=== PATIENT | male | born 1945 | race Caucasian/White ===

== ENCOUNTER 2019-06-15 09:16 | Outpatient (CLI) | payer MEDICARE, OTHER, SELFPAY ==
--- NOTE | 2019-06-15 | XR_ITS ---
WS: [id number] LEFT KNEE: 3 VIEW(S) TECHNIQUE: AP, oblique(s) and lateral. HISTORY: pain joint hip left COMPARISON: None available. No fracture or dislocation. Plate and healed fracture involving the patella. No acute fracture. No lucency around the hardware. S crew fixation distal third of the femur and a single screw in the medial patella. No joint effusion. No soft tissue abnormality. XR/XR knee LT 3V* [id number] IMPRESSION: Status post fixation hardware distal femur and patella. No acute fractures.
--- NOTE | 2019-06-15 | XR_ITS ---
WS: [id number] LEFT HIP HISTORY: PAIN JOINT HIP LEFT COMPARISON: None available. LEFT hip: No acute fracture. Severe degenerative changes at the LEFT hip joint. Subchondral cystic ch anges and sclerosis on both sides of the joint space. There is remodeling and deformity of the LEFT h ip and partial subluxation laterally. Osteophytic ridging and deformity of the femoral head. XR/XR hip LT 2-3V wo/w pel* [id number] IMPRESSION: 1. 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 2. No acute fracture.
== END 2019-06-15 09:17 | disposition home or self-care (01) ==
PROVIDERS: Visit Provider Physician Assistant
DX: Z76.89 Persons encountering health services in other specified circumstances (principal)

== ENCOUNTER → 2019-06-25 11:29 | Outpatient (BNVA) | payer MEDICARE, OTHER, SELFPAY | PROVIDERS: Referring Provider Physician Assistant; Visit Provider Orthopaedic Surgery | DX: M25.559 Pain in unspecified hip (principal) | CPT/HCPCS: 73502 ==

== ENCOUNTER 2020-01-29 10:35 | Outpatient (CLI) | payer MEDICARE, OTHER, SELFPAY ==
--- NOTE | 2020-01-29 10:39 | MR_ITS ---
WS: [id number] MRI HEAD WITH CONTRAST TECHNIQUE: Sagittal T1, T2 axial, T2 axial FLAIR, axial susceptibility weighted imaging, axial diffus ion weighted images, and coronal T2 images were obtained. Pre and post-T1 axial and post T1 coronal i mages. ADC and FSPGR images. CLINICAL INFORMATION: COGNITIVE IMPAIRMENT COMPARISON: None. FINDINGS: No evidence of restricted diffusion to suggest acute ischemia. Advanced small vessel changes with mod erate parenchymal volume loss. Tiny chronic lacunar infarct right cerebellum. Normal vascular flow vo ids at the skull base. No extra-axial fluid collections. Mild mucosal thickening in the paranasal sinuses. Mastoid air cells well aerated. Moderate symmetric atrophy involving the temporal lobes and hippocampal formations. Normal optic farnaz sm and pituitary infundibulum. No hemosiderin on the susceptibility weighted images. No abnormal gado linium enhancement. Dural venous sinuses appear patent. Normal optic chiasm and pituitary infundibulu m. MR/MR head wo/w con [id number] IMPRESSION: 1. No evidence of restricted diffusion to suggest acute ischemia. 2. Advanced small vessel changes with moderate parenchymal volume loss. 3. 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 4. Tiny chronic lacunar infarct right cerebellum. 5. Mild mucosal thickening paranasal sinuses. Mastoid air cells well aerated. 6. Moderate symmetric atrophy involving the temporal lobes and hippocampal for mations.
[2020-01-29 11:26] LABS: Blood Urea Nitrogen 18 mg/dL (8-23)
== END 2020-01-29 10:36 | disposition home or self-care (01) ==
LOC: RADSHAW 10:38
PROVIDERS: PCP Physician Assistant; Visit Provider Physician Assistant
DX: G31.84 Mild cognitive impairment of uncertain or unknown etiology (principal); I63.9 Cerebral infarction, unspecified; G93.89 Other specified disorders of brain; I63.81 Other cerebral infarction due to occlusion or stenosis of small artery
CPT/HCPCS: 70553; 82565; 84520; A9579

== ENCOUNTER 2020-09-18 10:06 | Day surgery (SDC) | payer MEDICARE, OTHER, SELFPAY ==
[2020-09-18] VITALS (10 sets, daily range): BP systolic 123–159; BP diastolic 76–99; PULSE 69–95; RESP 16–18; TEMP 36.4–36.9; O2SAT 94–100; BMI 22.6
--- NOTE | 2020-09-18 11:17 | CTR_ITS ---
PROCEDURE INFORMATION: Exam: CTA Chest With Contrast Exam date and time: 09/18/2020 11:17 AM Age: 74 years old Clinical indication: Sternal or substernal pain; Additional info: Difficulty swallowing, cp radiating to back, ? aneurysm TECHNIQUE: Imaging protocol: Computed tomographic angiography of the chest with contrast. 3D rendering (Not supervised by radiologist): MIP and/or 3D reconstructed images were created by the technologist. Radiation optimization: All CT scans at this facility use at least one of these dose optimization techniques: automated exposure control; mA and/or kV adjustment per patient size (includes targeted exams where dose is matched to clinical indication); or iterative reconstruction. Contrast material: OMNIPAQUE 350; Contrast volume: 95 ml; Contrast route: INTRAVENOUS (IV); COMPARISON: No relevant prior studies available. RADIATION DOSE METRICS: Total DLP (mGy-cm): 1101.65 FINDINGS: Pulmonary arteries: No pulmonary embolus or aortic dissection. Aorta: Unremarkable. No aortic aneurysm. No aortic dissection. Lungs: Unremarkable. No consolidation. No masses. Pleural spaces: Unremarkable. No pneumothorax. No pleural effusion. Heart: Severe calcified coronary artery disease. Mediastinal space: 2.8 x 1.8 x 2.8 cm mixed density lesion in the mid esophagus at the level of T8, most consistent with food bolus such as a piece of meat. Axial series 5, image 240. Decompressed esophagus distal to this point of possible blockage with dilated fluid-filled esophagus proximal to this level. Possible esophageal stricture or spasm immediately inferior to the level of the food bolus. Sagittal series 607, image 29. Lymph nodes: Unremarkable. No enlarged lymph nodes. Bones/joints: Moderate thoracic spondylosis. Soft tissues: Unremarkable. CT/CT angio chest PE protcl [id number] IMPRESSION: 1. 2.8 x 1.8 x 2.8 cm mixed density lesion in the mid esophagus at the level of T8, most consistent with food bolus such as a piece of meat. Axial series 5, image 240. 2. Decompressed esophagus distal to this point of possible blockage with dilated fluid-filled esophagus proximal to this level. Possible esophageal stricture or spasm immediately inferior to the level of the food bolus. Sagittal series 607, image 29. 3. No pulmonary embolus or aortic dissection. Radiation Dose CTDIVOL = (mGy): DLP = 1101.65 (mGy-cm)
--- NOTE | 2020-09-18 11:18 | ECG_ITS ---
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 Measurements Intervals [place] Rate: 58 P: 56 ND: 168 QRS: -24 QRSD: 90 T: 62 QT: 403 QTc: 397 Interpretive Statements SINUS BRADYCARDIA BORDERLINE LEFT AXIS DEVIATION [QRS AXIS < -20] No previous ECG available for comparison Electronically Signed On 09-19-2020 21:03:30 CDT by Daniel Espinoza M.D. [email or web address] [facility] [facility] [place]/store/NU/[id number] f
--- NOTE | 2020-09-18 11:25 | ED_ITS ---
HPI - General Adult General: Chief complaint: Airway/Esophagus Foreign Body Stated complaint: n/v cant having trouble swallowing Time Seen by Provider: 09/18/20 11:00 Source: patient Mode of arrival: ambulatory Limitations: no limitations History of Present Illness: HPI narrative: Patient is a 74-year-old male with no significant past medical history who presents to the emergency department with difficulty swallowing. Symptoms started yesterday evening when he was eating steak and some green beans and he feels a little piece of the steak got stuck there. He is unable to swallow any food or drink as everything he eats or drinks comes back up. He hope to get better but it has not so far he has tried different things with no relief. About 5 minutes before I got into his room he said he developed some retrosternal chest pain radiating to his back and he has some trouble breathing. No prior history of chest pain. No dizziness or lightheadedness. No nausea or diaphoresis. Review of Systems General: Reports: 10 or more systems reviewed and unremarkable except in HPI and below PFSH ED PFSH: Surgical History (Updated 09/18/20 @ 15:53 by Steven Charles MD) H/O esophagogastroduodenoscopy (09/18/20) For food bolus History of right knee surgery Family History Denies family history of Diabetes Cancer Social History Smoking and tobacco status: former smoker Alcohol intake: never Household members: spouse Marital status: Current occupational status: retired Physical Exam Const: COMMON NORMALS: no acute distress, average body habitus, patient oriented x3, no limitations, healthy appearing, alert and well nourished HENMT: COMMON NORMALS: normocephalic, atraumatic and moist oral mucous membranes HEAD & SCALP: normocephalic and atraumatic Eye: COMMON NORMALS: Equal, round and reactive pupils present, EOMs intact bilaterally, conjunctivae normal and no scleral icterus CONJUNCTIVA: Yes conjunctivae normal PUPIL: Yes Equal, round and reactive pupils present Neck/C-Spine: COMMON NORMALS: no meningeal signs and no JVD Resp: COMMON NORMALS: normal respiratory effort, No retractions, No use of acc essory muscles, clear to auscultation bilaterally and percussion normal AUSCULTATION: clear to auscultation bilaterally PERCUSSION: percussion normal Cardio: COMMON NORMALS: no JVD, regular rate, regular rhythm, S1 normal heart sound present, S2 normal heart sound present, No gallops present (Cardio), No clicks present (Cardio), No murmurs present (Cardio), No rub (Cardio) and Peripheral pulses 2+ throughout RATE: regular rate RHYTHM: regular rhythm HEART SOUNDS: S1 normal heart sound present and S2 normal heart sound present PERIPHERAL PULSES: Peripheral pulses 2+ throughout GI: COMMON NORMALS: Normal to inspection, nondistended, normoactive bowel sounds present, Soft to palpation, non-tender, No hepatosplenomegaly present, no masses and no bruits PALPATION: Yes Soft to palpation and Yes No hepatosplenomegaly present Extremity: COMMON NORMALS: normal to inspection, full ROM, capillary refill normal, no calf tenderness and no pedal edema Neuro: COMMON NORMALS: patient oriented x3 SENSORIUM/ORIENTATION: Yes alert MENINGEAL SIGNS: Yes no meningeal signs Skin: COMMON NORMALS: no rashes or lesions noted, no wounds, turgor normal, no jaundice, no petechiae and no mottling GENERAL SKIN EXAM: no rashes or lesions noted and turgor normal Course Reevaluation(s): Reevaluation #1: glucagon has not helped. He feels the same. Time: 12:25 Reevaluation #2: Discussed the CTA findings with him. No aneurysm and fluid bolus noticed in his esophagus. Also discussed my conversation with discharge home with him with the decision on to have an endoscopy and removal of food bolus he voiced understanding and is in agreement with the plan. Time: 14:02 Vital Signs: Vital signs: Vital Signs Temperature 97.5 F L 09/18/20 16:38 Pulse Rate 85 09/18/20 16:38 Respiratory Rate 18 09/18/20 16:38 Blood Pressure 146/89 09/18/20 16:38 Pulse Oximetry 99 09/18/20 16:38 MDM - General Adult MDM Narrative: Medical decision making narrative: 74-year-old male who presents to the emergency department with food bolus in his esophagus. He was cleared in the emergency department and taken to the GI lab for upper GI endoscopy and retrieval of the food bolus Medical Records: Attestation: I reviewed the patient's medical records. Lab Data: Attestation: I reviewed the patient's lab results. Labs: Lab Results 09/18/20 09/18/20 09/18/20 Range/Units 11:43 11:43 11:43 WBC 9.3 (4.0-10.0) 10^3/ uL RBC 5.11 (4.1-5.3) 10^6/u L Hgb 15.1 (11.7-16.6) g/dL Hct 46.5 (42.0-52.0) % MCV 91.0 (80-94) fL MCH 29.5 (28.0-34.0) pg MCHC 32.5 (30.0-36.0) g/dL RDW 12.9 (12.1-15.1) % Plt Count 237 (130-400) 10^3/c mm MPV 11.2 H (7.4-10.4) fL Neut % (Auto) 49.5 % Lymph % (Auto) 40.9 % [place] % (Auto) 6.9 % Eos % (Auto) 2.3 % Baso % (Auto) 0.3 % Neut # (Auto) 4.59 (1.8-7.7) 10^3/u L Lymph # (Auto) 3.8 (0.8-4.8) 10^3/u L [place] # (Auto) 0.6 (0.2-0.9) 10^3/u L Eos # (Auto) 0.2 (0.0-0.8) 10^3/u L Baso # (Auto) 0.0 (0.0-0.1) 10^3/u L Nucleated RBC % (a uto) 0 % Nucleated RBCs # 0.0 /100WBC Sodium 142 (136-145) mmol/L Potassium 3.9 (3.5-5.1) mmol/L Chloride 106 (98-107) mmol/L Carbon Dioxide 24 (22-29) mmol/L Anion Gap 15.9 (5-19) BUN 15 (8-23) mg/dL Creatinine 0.7 (0.7-1.2) mg/dL GFR Calculation Not Reportable Glucose 103 (65-115) mg/dL Calculated Osmolal ity 295 (285-295) mOsm/k g Calcium 8.7 (8.5-10.5) mg/dL Total Bilirubin 1.0 (0.15-1.2) mg/dL AST 17 (0-40) U/L ALT 12 (0-41) U/L Alkaline Phosphata se 82 (40-130) IU/L Troponin T Baselin e 12 (0-15) ng/L Troponin T 120 Min laura (0-15) ng/L Delta Troponin T (0-10) ABS# Total Protein 6.6 (6.6-8.7) g/dL Albumin 4.2 (3.5-5.2) g/dL Globulin 2.4 (1.3-4.6) g/dL Lipase 21 (13-60) U/L 09/18/20 Range/Units 13:40 WBC (4.0-10.0) 10^3/ uL RBC (4.1-5.3) 10^6/u L Hgb (11.7-16.6) g/dL Hct (42.0-52.0) % MCV (80-94) fL MCH (28.0-34.0) pg MCHC (30.0-36.0) g/dL RDW (12.1-15.1) % Plt Count (130-400) 10^3/c mm MPV (7.4-10.4) fL Neut % (Auto) % Lymph % (Auto) % [place] % (Auto) % Eos % (Auto) % Baso % (Auto) % Neut # (Auto) (1.8-7.7) 10^3/u L Lymph # (Auto) (0.8-4.8) 10^3/u L [place] # (Auto) (0.2-0.9) 10^3/u L Eos # (Auto) (0.0-0.8) 10^3/u L Baso # (Auto) (0.0-0.1) 10^3/u L Nucleated RBC % (a uto) % Nucleated RBCs # /100WBC Sodium (136-145) mmol/L Potassium (3.5-5.1) mmol/L Chloride (98-107) mmol/L Carbon Dioxide (22-29) mmol/L Anion Gap (5-19) BUN (8-23) mg/dL Creatinine (0.7-1.2) mg/dL GFR Calculation Glucose (65-115) mg/dL Calculated Osmolal ity (285-295) mOsm/k g Calcium (8.5-10.5) mg/dL Total Bilirubin (0.15-1.2) mg/dL AST (0-40) U/L ALT (0-41) U/L Alkaline Phosphata se (40-130) IU/L Troponin T Baselin e (0-15) ng/L Troponin T 120 Min laura 11.06 (0-15) ng/L Delta Troponin T -0.94 L (0-10) ABS# Total Protein (6.6-8.7) g/dL Albumin (3.5-5.2) g/dL Globulin (1.3-4.6) g/dL Lipase (13-60) U/L Imaging Data^: CTA Chest: Attestation: I personally reviewed and interpreted this imaging study as follows: Radiologist's impression: [address] [id number] Scan ReportSigned Patient: Alexis Acuña #: [id number]: [facility]#:[id number]/Sex: 74 / MADM Date: 09/18/20Loc: ERRoom/Bed:Attending Dr: Ordering Provider/Ordering MD: Woody Mendez MD, [facility] Date of Service: 09/18/20 Procedure(s): CT angio chest PE protcl [id number] Accession Number(s): [id number] Report Number: [id number] PROCEDURE INFORMATION: Exam: CTA Chest With Contrast Exam date and time: 09/18/2020 11:17 AM Age: 74 years old Clinical indication: Sternal or substernal pain; Additional info: Difficulty swallowing, cp radiating to back, ? aneurysm TECHNIQUE: Imaging protocol: Computed tomographic angiography of the chest with contrast. 3D rendering (Not supervised by radiologist): MIP and/or 3D reconstructed images were created by the technologist. Radiation optimization: All CT scans at this facility use at least one of these dose optimization techniques: automated exposure control; mA and/or kV adjustment per patient size (includes targeted exams where dose is matched to clinical indication); or iterative reconstruction. Contrast material: OMNIPAQUE 350; Contrast volume: 95 ml; Contrast route: INTRAVENOUS (IV); COMPARISON: No relevant prior studies available. RADIATION DOSE METRICS: Total DLP (mGy-cm): 1101.65 FINDINGS: Pulmonary arteries: No pulmonary embolus or aortic dissection. Aorta: Unremarkable. No aortic aneurysm. No aortic dissection. Lungs: Unremarkable. No consolidation. No masses. Pleural spaces: Unremarkable. No pneumothorax. No pleural effusion. Heart: Severe calcified coronary artery disease. Mediastinal space: 2.8 x 1.8 x 2.8 cm mixed density lesion in the mid esophagus at the level of T8, most consistent with food bolus such as a piece of meat. Axial series 5, image 240. Decompressed esophagus distal to this point of possible blockage with dilated fluid-filled esophagus proximal to this level. Possible esophageal stricture or spasm immediately inferior to the level of the food bolus. Sagittal series 607, image 29. Lymph nodes: Unremarkable. No enlarged lymph nodes. Bones/joints: Moderate thoracic spondylosis. Soft tissues: Unremarkable. CT/CT angio chest PE protcl [id number] IMPRESSION: 1. 2.8 x 1.8 x 2.8 cm mixed density lesion in the mid esophagus at the level of T8, most consistent with food bolus such as a piece of meat. Axial series 5, image 240. 2. Decompressed esophagus distal to this point of possible blockage with dilated fluid-filled esophagus proximal to this level. Possible esophageal stricture or spasm immediately inferior to the level of the food bolus. Sagittal series 607, image 29. 3. No pulmonary embolus or aortic dissection. Radiation Dose CTDIVOL = (mGy): DLP = 1101.65 (mGy-cm) Dictated By:Bradly Alvarez MDSigned By:Bradly Alvarez MDSigned Date/Time:09/18/20 1347DD/ 1345 EKG Data^: EKG 1: Attestation: I personally reviewed and interpreted this EKG as follows: EKG interpretation date: 09/18/20 EKG interpretation time: 11:54 Prior EKG tracings: not available for review Interpretation: Sinus bradycardia. Heart rate [address] changes. Computer generated interpretation: Chest CTA 09/18/20 11:17 IMPRESSION: 1. 2.8 x 1.8 x 2.8 cm mixed density lesion in the mid esophagus at the level of T8, most consistent with food bolus such as a piece of meat. Axial series 5, image 240. 2. Decompressed esophagus distal to this point of possible blockage with dilated fluid-filled esophagus proximal to this level. Possible esophageal stricture or spasm immediately inferior to the level of the food bolus. Sagittal series 607, image 29. 3. No pulmonary embolus or aortic dissection. Radiation Dose CTDIVOL = (mGy): DLP = 1101.65 (mGy-cm) EKG 2: Attestation: I personally reviewed and interpreted this EKG as follows: EKG interpretation date: 09/18/20 EKG interpretation time: 13:25 Prior EKG tracings: available for review Interpretation: Sinus rhythm. Heart rate [address] changes. Computer generated interpretation: Chest CTA 09/18/20 11:17 IMPRESSION: 1. 2.8 x 1.8 x 2.8 cm mixed density lesion in the mid esophagus at the level of T8, most consistent with food bolus such as a piece of meat. Axial series 5, image 240. 2. Decompressed esophagus distal to this point of possible blockage with dilated fluid-filled esophagus proximal to this level. Possible esophageal stricture or spasm immediately inferior to the level of the food bolus. Sagittal series 607, image 29. 3. No pulmonary embolus or aortic dissection. Radiation Dose CTDIVOL = (mGy): DLP = 1101.65 (mGy-cm) Discharge Plan Discharge Patient Disposition: Home Clinical Impression: Obstruction of esophagus due to food impaction Condition: Stable Discharge Orders: Discharge Order (Routine); Ordered 09/18/20 Ordered By: Woody Mendez Coding Level of Care Code ED Hotel Clerk for Chg Fwd Exam Comprehensive
[2020-09-18 11:47] LABS: Basophils % 0.3 %; Eosinophils # 0.2 10^3/uL (0.0-0.8); Eosinophils % 2.3 %; Hematocrit 46.5 % (42.0-52.0); Hemoglobin 15.1 g/dL (11.7-16.6); Lymphocytes # 3.8 10^3/uL (0.8-4.8); Lymphocytes % 40.9 %; Mean Corpuscular HGB Conc 32.5 g/dL (30.0-36.0); Mean Corpuscular Hemoglobin 29.5 pg (28.0-34.0); Mean Platelet Volume 11.2 fL (7.4-10.4); Monocytes # 0.6 10^3/uL (0.2-0.9); Monocytes % 6.9 %; Neutrophils # 4.59 10^3/uL (1.8-7.7); Neutrophils % 49.5 %; Nucleated Red Blood Cells % 0 %; Platelet Count 237 10^3/cmm (130-400); Red Blood Count 5.11 10^6/uL (4.1-5.3); Red Cell Distribution Width 12.9 % (12.1-15.1); White Blood Count 9.3 10^3/uL (4.0-10.0)
[2020-09-18 12:03] LABS: Troponin(5th) Baseline 12 ng/L (0-15)
[2020-09-18 12:06] LABS: Alanine Aminotransferase 12 U/L (0-41); Albumin Level 4.2 g/dL (3.5-5.2); Alkaline Phosphatase 82 IU/L (40-130); Anion Gap 15.9 (5-19); Aspartate Amino Transferase 17 U/L (0-40); Blood Urea Nitrogen 15 mg/dL (8-23); Calcium 8.7 mg/dL (8.5-10.5); Carbon Dioxide 24 mmol/L (22-29); Chloride 106 mmol/L (98-107); Globulin 2.4 g/dL (1.3-4.6); Glucose 103 mg/dL (65-115); Lipase 21 U/L (13-60); Osmolality Calculated 295 mOsm/kg (285-295); Potassium 3.9 mmol/L (3.5-5.1); Sodium 142 mmol/L (136-145); Total Protein 6.6 g/dL (6.6-8.7)
[2020-09-18] MEDS: iodixanol 320 mg/mL 100mL Btl IV (12:42)
--- NOTE | 2020-09-18 12:53 | PC.NURSE ---
Patient returning from CT. Given blankets. Updated on POC
--- NOTE | 2020-09-18 13:18 | ECG_ITS ---
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 Measurements Intervals [place] Rate: 71 P: 54 VT: 180 QRS: -39 QRSD: 89 T: 62 QT: 376 QTc: 410 Interpretive Statements SINUS RHYTHM MARKED LEFT AXIS DEVIATION [QRS AXIS < -30] No previous ECG available for comparison Electronically Signed On 09-19-2020 21:23:09 CDT by Daniel Espinoza M.D. [email or web address] hospitalMidokuraparkview health montpelier hospitalDoppelganger/store/OM/[id number]/[id number]
--- NOTE | 2020-09-18 14:16 | PC.NURSE ---
Patient updated on plan of care. Patient changing into gown. Surgical consent reviewed with patient.
[2020-09-18 14:19] LABS: Troponin 5 2HR 11.06 ng/L (0-15)
[2020-09-18 14:22] LABS: Troponin 5 2HR Delta -0.94 ABS# (0-10)
--- NOTE | 2020-09-18 14:40 | P.ANESASSM_ITS ---
Pre-Anesthetic Assessment Pre-Anesthetic Assessment: Height/Weight: Height 1.78 m Weight 71.395 kg Temp Pulse Resp BP Pulse Ox 98.4 F 74 18 141/95 95 09/18/20 10:32 09/18/20 14:10 09/18/20 14:10 09/18/20 14:10 09/18/20 14:10 Preop Diagnosis: food bolus Proposed Procedure: Operation Date: 09/18/20 14:30 Proposed Procedures p EGD(Not Applicable) - Steven Charles MD Familial anesthetic complications: none Was Beta Joe taken within 24 hours: N/A Was Clonidine taken within 24 hours: N/A Last intake: last evening Social: Social History: No alcohol and No tobacco Exam: Pre-Anes Outpt Exam: alert, oriented x 3, clear to auscultation bilaterally and regular rate & rhythm Airway: Cervical ROM: WNL MP: 2 Dentition: Full Neuropsych: Neuropsych: CVA, 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) - no other deficits from CVAs) and TIA Anesthetic Plan: ASA status: 2E Anesthesia: General Other: RSI Risk of > 500 ml blood loss (7ml/kg in children): No PFSH Anesthesia PFSH: Family History Denies family history of Diabetes Cancer Social History Smoking and tobacco status: former smoker Alcohol intake: never Household members: spouse Marital status: Current occupational status: retired Data Anesthesia CBC & Chem 7: 09/18/20 11:43 09/18/20 11:43 Other Labs: Laboratory Results - last 48 hr 09/18/20 09/18/20 09/18/20 11:43 11:43 11:43 WBC 9.3 RBC 5.11 Hgb 15.1 Hct 46.5 MCV 91.0 MCH 29.5 MCHC 32.5 RDW 12.9 Plt Count 237 MPV 11.2 H Neut % (Auto) 49.5 Lymph % (Auto) 40.9 [place] % (Auto) 6.9 Eos % (Auto) 2.3 Baso % (Auto) 0.3 Neut # (Auto) 4.59 Lymph # (Auto) 3.8 [place] # (Auto) 0.6 Eos # (Auto) 0.2 Baso # (Auto) 0.0 Nucleated RBC % (auto) 0 Nucleated RBCs # 0.0 Sodium 142 Potassium 3.9 Chloride 106 Carbon Dioxide 24 Anion Gap 15.9 BUN 15 Creatinine 0.7 GFR Calculation Not Reportable Glucose 103 Calculated Osmolality 295 Calcium 8.7 Total Bilirubin 1.0 AST 17 ALT 12 Alkaline Phosphatase 82 Troponin T Baseline 12 Troponin T 120 Minute Delta Troponin T Total Protein 6.6 Albumin 4.2 Globulin 2.4 Lipase 09/18/20 13:40 WBC RBC Hgb Hct MCV MCH MCHC RDW Plt Count MPV Neut % (Auto) Lymph % (Auto) [place] % (Auto) Eos % (Auto) Baso % (Auto) Neut # (Auto) Lymph # (Auto) [place] # (Auto) Eos # (Auto) Baso # (Auto) Nucleated RBC % (auto) Nucleated RBCs # Sodium Potassium Chloride Carbon Dioxide Anion Gap BUN Creatinine GFR Calculation Glucose Calculated Osmolality Calcium Total Bilirubin AST ALT Alkaline Phosphatase Troponin T Baseline Troponin T 120 Minute 11.06 Delta Troponin T -0.94 L Total Protein Albumin Globulin Lipase Cardiac Studies: No Data to Display
--- NOTE | 2020-09-18 14:54 | P.HP_ITS ---
Providers/Chief Complaint Primary Care Provider: Vesta Dominguez Chief Complaint: n/v cant having trouble swallowing History of Present Illness Emigdio Acuña is a 74 year old male who 8 steak last night when he felt like it got stuck and since then he has been unable to keep any food down. Patient had an episode of nausea and vomiting but today he denies any chest pain or abdominal pain. He states that he has had a similar episode in the past where he had to have Heimlich maneuver done. Denies any history of GERD, no history of smoking. No prior EGD or peptic ulcer disease Review of Systems General: Reports: 10 or more systems reviewed and unremarkable except in HPI and below Medications/Allergies Home Medications Medication Instructions Recorded Confirmed Last Taken Type aspirin 81 mg PO DAILY 09/18/20 09/18/20 09/16/20 History cyanocobalamin (vitamin B-12) 1,000 mcg PO DAILY 09/18/20 09/18/20 09/16/20 History [Vitamin B-12] multivitamin 1 tab PO DAILY 09/18/20 09/18/20 09/16/20 History omega-3 fatty acids [Fish Oil] 1,000 mg PO DAILY 09/18/20 09/18/20 09/16/20 History Allergies Allergy/AdvReac Type Severity Reaction Status Date / Time No Known Allergies Allergy Verified 06/25/19 11:25 PFSH Acute PFSH: Surgical History (Updated 09/18/20 @ 14:46 by Steven Charles MD) History of right knee surgery Family History Denies family history of Diabetes Cancer Social History Smoking and tobacco status: former smoker Alcohol intake: never Household members: spouse Marital status: Current occupational status: retired Vitals/I&O/Wt Last Vital Signs Temp 98.4 F 09/18/20 10:32 Pulse 74 09/18/20 14:10 Resp 18 09/18/20 14:10 BP 141/95 09/18/20 14:10 Pulse Ox 95 09/18/20 14:10 Weight last 48 hrs Weight 157 lb 6.4 oz Physical Exam Narrative: EXAM NARRATIVE: HEENT: Normocephalic Eye: Sclera /conjunctiva normal Respiratory and chest: Bilateral clear breath sounds on auscultation Cardiovascular: Normal S1 and S2 heart sounds Abdomen: Soft to palpation Neurological: Oriented to place person and time Skin: Intact, no lesions appreciated on gross exam Data : 09/18/20 11:43 09/18/20 11:43 A&P Assessment and plan (1) Esophageal obstruction due to food impaction: 74-year-old male with esophageal obstruction due to food impaction Plan for EGD with possible biopsy for food impaction under [place] Procedure, risks, benefits and alternatives have been discussed with the patient who wishes to proceed with surgery. Status: Resolved Attestations Medical Necessity Statement*: Esophageal obstruction with food impaction Coding Level of Care Code Acute Medical Record Libr[employer] Teacher for [facility] Fwd Diagnoses Esophageal obstruction due to food impaction K22.2; T18.128A
[2020-09-18] MEDS: sodium chloride 0.9% 1,000 ML 30 ML IV (14:57)
--- NOTE | 2020-09-18 16:21 | PC.SOCIAL ---
clarified with Dr Charles and on Protonix wants 40mg once daily for 30 day supply updated pharmacy.
--- NOTE | 2020-09-18 20:33 | ANE.PACU2 ---
Inpatient post-anesthesia follow up: Airway intact: Yes Vital signs: Temperature 97.5 F Pulse Rate [Right Radial] 69 Pulse Rate 85 Respiratory Rate 18 Blood Pressure [Le ft Arm] 151/99 Blood Pressure 146/89 Pulse Oximetry 99 Oxygen Delivery Me thod Nasal Cannula Oxygen Flow Rate 3 Fraction of Inspir ed Oxygen Hydration adequate: Yes Nausea and vomiting: No Pain level: 2 Mental status: Baseline
== END 2020-09-18 17:03 | disposition home or self-care (01) ==
LOC: ER 11:27 → GILAB 14:02
PROVIDERS: Emergency Provider Family Medicine; PCP Physician Assistant; Visit Provider Surgery
PROC: 0DJ08ZZ Inspection of Upper Intestinal Tract, Via Natural or Artificial Opening Endoscopic (ICD-10-PCS; CPT 43235; principal; 2020-09-18 14:30)
DX: K22.2 Esophageal obstruction (principal); T18.128A Food in esophagus causing other injury, initial encounter; Z79.82 Long term (current) use of aspirin; Z87.891 Personal history of nicotine dependence; Z86.73 Personal history of transient ischemic attack (TIA), and cerebral infarction without residual deficits; F03.90 Unspecified dementia, unspecified severity, without behavioral disturbance, psychotic disturbance, mood disturbance, and anxiety
CPT/HCPCS: 36415; 43247; 71275; 80053; 83690; 84484; 85025; 93005; 96360; 96372; J0330; J1100; J1610; J2405; J2704; J3010; J3490; J7030; Q9967

== ENCOUNTER → 2021-04-03 08:40 | Outpatient (BNVA) | payer MEDICARE, OTHER, SELFPAY | PROVIDERS: PCP Physician Assistant; Visit Provider Nurse Practitioner Family | DX: Z12.5 Encounter for screening for malignant neoplasm of prostate (principal); R33.9 Retention of urine, unspecified | CPT/HCPCS: 81003; G0103 ==

== ENCOUNTER 2021-04-20 08:13 | Emergency (ER) | payer MEDICARE, OTHER, SELFPAY ==
[2021-04-20 08:27] VITALS: BP 116/81; PULSE 102; RESP 18; TEMP 36.7; O2SAT 96; BMI 24.3
--- NOTE | 2021-04-20 08:52 | XRR_ITS ---
PROCEDURE INFORMATION: Exam: XR Left Hip Exam date and time: 04/20/2021 8:52 AM Age: 75 years old Clinical indication: Hip pain; Left hip; Prior surgery; Patient HX: Hip and knee pain, swelling. TECHNIQUE: Imaging protocol: XR Left hip. Views: 2 or 3 views hip with pelvis when performed. Total images: 2 COMPARISON: CR XR hip BI m 5V wo/w pel* [id number] 09/20/2020 9:11 AM FINDINGS: Tubes, catheters and devices: The prosthesis appears near anatomic in positioning. No parallel lucencies adjacent to the prosthesis are seen to suggest loosening. No acute fractures, subluxation, nor dislocation. Bones/joints: Left hip arthroplasty is present. Soft tissues: Unremarkable. Vasculature: Incidental phleboliths noted. XR/XR hip LT 2-3V wo/w pel* [id number] IMPRESSION: Status post left hip arthroplasty without complication.
--- NOTE | 2021-04-20 08:52 | XRR_ITS ---
PROCEDURE INFORMATION: Exam: XR Left Knee Exam date and time: 04/20/2021 8:52 AM Age: 75 years old Clinical indication: Pain; Swelling or effusion of joint; Knee; Left TECHNIQUE: Imaging protocol: XR Left knee. Views: 3 views. Total images: 3 COMPARISON: CR XR knee LT 1-2V [id number] 09/20/2020 9:11 AM FINDINGS: Bones/joints: Partially visualized orthopedic hardware within the left femur appears unchanged from the prior exam. Enthesophyte of the quadriceps tendon insertion site on the patella. Lateral compartment of the left knee mild degenerative changes are noted with subchondral sclerosis. Patellofemoral joint degenerative changes are noted with joint space narrowing, subchondral sclerosis, and osteophyte formation. No acute fracture nor subluxation. No osseous erosion nor periosteal reaction. Soft tissues: Normal. XR/XR knee LT 3V* [id number] IMPRESSION: No acute osseous pathology.
--- NOTE | 2021-04-20 09:05 | USCV_ITS ---
BethaniebrittaniEmigdio Age: 75 Gender: M : 1945 Exam Date: 04/20/2021 09:30 Ordering Phys: Davis Tariq DO Technologist: KARLA Exam Location: [facility] [place] Indication: LLE PAIN AND SWELLING HISTORY: Lower extremity edema. Lower extremity swelling. Lower extremity pain. PROCEDURES: Venous duplex imaging was performed in only the left lower extremity. The following venous structures were evaluated: common femoral vein, profunda vein, proximal portion of the greater saphenous vein, superficial femoral vein, and the popliteal vein. In addition, the posterior tibial and peroneal trunk were evaluated. Serial compression, augmentation maneuvers, and spectral Doppler flow evaluation were performed. FINDINGS: Normal 2-D Doppler and augmentation and compressibility throughout the lower extremity venous structures. Additional imaging through the proximal calf veins also reveals no thrombus. Limited evaluation of the greater saphenous vein is patent with no thrombus. CONCLUSIONS No DVT left lower extremity. Dr. Soledad Alfaro DO (Electronically Signed) Final Date: 20 April 2021 12:14 S
--- NOTE | 2021-04-20 09:10 | ED_ITS ---
HPI - Extremity Problem General: Chief complaint: Extremity Injury, Lower Stated complaint: SWOLLEN ON LEFT SIDE FROM HIP REPLACEMENT LAST WED Time Seen by Provider: 04/20/21 08:23 History of Present Illness: 75-year-old male presents emergency room complaining left hip pain and swelling pain radiates into the left knee. He has swelling over the last couple of days the hip replacement was 8 days ago in [place]. He denies any chest pain or shortness of breath he does have a l ittle bit of ecchymosis he is not had any drainage or redness from the incision. MD Complaint: extremity swelling Onset (ago): day(s) Pain Consistency: constant Location: left and lower extremity Quality: aching Radiation: none Relieving factors: immobilization Exacerbating factors: weight bearing and walking Associated symptoms: Reports arthralgias; Deny chest pain, fever(s), myalgias, rash or short of breath Context: immobilization and recent surgery/procedure Review of Systems Const: Denies: fever(s) ENMT: Denies: throat pain, ear or mastoid pain, nasal discharge or nasal congestion Card: Denies: chest pain Resp: Denies: dyspnea, productive cough or non-productive cough GI: Denies: abdominal pain, nausea, vomiting, diarrhea or constipation : Denies: flank pain, dysuria, urinary frequency or urinary urgency Skin/Breast: Denies: rash PFSH ED PFSH: Medical History History of cataract Urinary retention Surgical History H/O esophagogastroduodenoscopy (09/18/20) For food bolus History of hip surgery History of right knee surgery S/P total right hip arthroplasty Family History Father , AT AGE 88 No problems noted. Mother , AT AGE 88 No problems noted. Social History Smoking and tobacco status: never smoked Alcohol intake: never Marital status: Current occupational status: retired History of recent travel: No Physical Exam Const: GENERAL APPEARANCE: cooperative and comfortable ORIENTATION/CONSCIOUSNESS: Yes awake, Yes oriented to person, Yes oriented to place and Yes oriented to time HENMT: COMMON NORMALS: normocephalic, atraumatic and hearing grossly normal bilaterally HEAD & SCALP: normocephalic and atraumatic Neck/C-Spine: COMMON NORMALS: no JVD Resp: COMMON NORMALS: normal respiratory effort, No retractions, No use of accessory muscles and clear to auscultation bilaterally AUSCULTATION: clear to auscultation bilaterally Cardio: COMMON NORMALS: no JVD, regular rate, regular rhythm and No murmurs present (Cardio) RATE: regular rate RHYTHM: regular rhythm GI: COMMON NORMALS: Soft to palpation and No hepatosplenomegaly present AUSCULTATION: Yes normoactive bowel sounds PALPATION: Yes Soft to palpation, No Tenderness to palpation present (GI), No Guarding due to palpation present (GI) and Yes No hepatosplenomegaly present Extremity: OTHER: Positive Homans' sign with swelling in the entire left lower extremity there is small amount of ecchymosis superior to the popliteal fossa and slightly medially. Incision from hip arthroplasty is well approximated no signs of infection or drainage Neuro: SENSORIUM/ORIENTATION: Yes oriented to person, Yes oriented to place and Yes oriented to time Skin: COMMON NORMALS: no rashes or lesions noted GENERAL SKIN EXAM: no rashes or lesions noted Course Vital Signs: Vital signs: Vital Signs Temperature 98.0 F 04/20/21 08:27 Pulse Rate 76 04/20/21 12:32 Respiratory Rate 18 04/20/21 12:32 Blood Pressure 126/77 04/20/21 12:32 Pulse Oximetry 98 04/20/21 12:32 MDM - Extremity (Nontraumatic) Medical Decision Making X-rays and ultrasound imaging are unremarkable. Reviewed with the patient reviewed labs as well. Swelling is secondary to the procedure. Follow-up with his primary care doctor return if has further problems. Medical Records I reviewed the patient's medical records. Lab Data I reviewed the patient's lab results. : 04/20/21 09:47 Radiology Impressions Hip/Pelvis X-Ray 04/20/21 08:52 IMPRESSION: Status post left hip arthroplasty without complication. Knee X-Ray 04/20/21 08:52 IMPRESSION: No acute osseous pathology. Laboratory Results WBC 8.8 10^3/uL (4.0-10.0) 04/20/21 09:47 RBC 3.68 10^6/uL (4.1-5.3) L 04/20/21 09:47 Hgb 11.2 g/dL (11.7-16.6) L 04/20/21 09:47 Hct 34.8 % (42.0-52.0) L 04/20/21 09:47 MCV 94.6 fl (80-94) H 04/20/21 09:47 MCH 30.4 pg (28.0-34.0) 04/20/21 09:47 MCHC 32.2 g/dL (30.0-36.0) 04/20/21 09:47 RDW 13.0 % (12.1-15.1) 04/20/21 09:47 Plt Count 274 10^3/cmm (130-400) 04/20/21 09:47 MPV 10.0 fL (7.4-10.4) 04/20/21 09:47 Neut % (Auto) 51.5 % 04/20/21 09:47 Lymph % (Auto) 36.4 % 04/20/21 09:47 [place] % (Auto) 7.5 % 04/20/21 09:47 Eos % (Auto) 3.2 % 04/20/21 09:47 Baso % (Auto) 0.3 % 04/20/21 09:47 Neut # (Auto) 4.53 10^3/uL (1.8-7.7) 04/20/21 09:47 Lymph # (Auto) 3.2 10^3/uL (0.8-4.8) 04/20/21 09:47 [place] # (Auto) 0.7 10^3/uL (0.2-0.9) 04/20/21 09:47 Eos # (Auto) 0.3 10^3/uL (0.0-0.8) 04/20/21 09:47 Baso # (Auto) 0.0 10^3/uL (0.0-0.1) 04/20/21 09:47 Nucleated RBC % (auto) 0 % 04/20/21 09:47 Nucleated RBCs # 0.0 /100WBC 04/20/21 09:47 Discharge Plan Discharge Patient Disposition: Home Clinical Impression: Leg pain, left, S/P total left hip arthroplasty Condition: Stable Prescriptions: No Action tamsulosin 0.4 mg capsule 0.4 mg PO DAILY 0RF celecoxib 200 mg capsule 200 mg PO BID 0RF Miralax 17 gram Powder In Packet 17 g PO DAILY 0RF tramadol 50 mg tablet 50 mg PO Q6H PRN (Reason: Pain) 0RF acetaminophen 650 mg Tablet Extended Release 1,300 mg PO Q6H 0RF famotidine 20 mg tablet 20 mg PO BID 0RF oxycodone 5 mg tablet 5 mg PO Q4H PRN (Reason: Pain) 0RF bisacodyl 5 mg Tablet 5 mg PO DAILY PRN (Reason: Constipation) 0RF multivitamin Tablet 1 tab PO DAILY 0RF cyanocobalamin (vitamin B-12) [Vitamin B-12] 1,000 mcg Tablet 1,000 mcg PO DAILY 0RF aspirin 81 mg Tablet,Chewable 81 mg PO DAILY 0RF omega-3 fatty acids Capsule 1,000 mg PO DAILY 0RF Discharge Orders: Discharge ED (Routine); Ordered 04/20/21 Ordered By: Davis Tariq Referrals: Vesta Dominguez PA [Primary Care Provider] - Discharge Diet: Usual diet Discharge Activity: Limit activity as instructed Patient Instructions: Opioid Safety Activity Restrictions/Additional Instructions: No DVT on examination today. Recommend you follow-up with the orthopedic surgeon who did the procedure if you have any further problems or return to the emergency room. Coding Level of Care Code ED Ship/Rec/Doc Control for Kiersten Cheema Exam Detailed
[2021-04-20 09:50] VITALS: BP 124/62; PULSE 74; RESP 18; O2SAT 95
[2021-04-20 09:53] LABS: Basophils % 0.3 %; Eosinophils # 0.3 10^3/uL (0.0-0.8); Eosinophils % 3.2 %; Hematocrit 34.8 % (42.0-52.0); Hemoglobin 11.2 g/dL (11.7-16.6); Lymphocytes # 3.2 10^3/uL (0.8-4.8); Lymphocytes % 36.4 %; Mean Corpuscular HGB Conc 32.2 g/dL (30.0-36.0); Mean Corpuscular Hemoglobin 30.4 pg (28.0-34.0); Mean Corpuscular Volume 94.6 fl (80-94); Monocytes # 0.7 10^3/uL (0.2-0.9); Monocytes % 7.5 %; Neutrophils # 4.53 10^3/uL (1.8-7.7); Neutrophils % 51.5 %; Nucleated Red Blood Cells % 0 %; Platelet Count 274 10^3/cmm (130-400); Red Blood Count 3.68 10^6/uL (4.1-5.3); White Blood Count 8.8 10^3/uL (4.0-10.0)
[2021-04-20 11:23] VITALS: BP 129/79; PULSE 81; RESP 18; O2SAT 99
[2021-04-20 12:29] VITALS: BP 126/77; PULSE 76; RESP 16; O2SAT 97
[2021-04-20 12:32] VITALS: BP 126/77; PULSE 76; RESP 18; O2SAT 98
== END 2021-04-20 13:11 | disposition home or self-care (01) ==
PROVIDERS: Emergency Provider Family Medicine; PCP Physician Assistant
DX: M79.605 Pain in left leg (principal); Z96.642 Presence of left artificial hip joint; Z79.82 Long term (current) use of aspirin
CPT/HCPCS: 73502; 73562; 85025; 93971; 99283

== ENCOUNTER → 2021-07-04 09:33 | Outpatient (BNVA) | payer MEDICARE, OTHER, SELFPAY | PROVIDERS: PCP Physician Assistant; Visit Provider Urology | DX: R33.9 Retention of urine, unspecified (principal); N40.1 Benign prostatic hyperplasia with lower urinary tract symptoms | CPT/HCPCS: 81003 ==

== ENCOUNTER 2021-10-10 07:46 | Inpatient (IN) | payer MEDICARE, OTHER, SELFPAY ==
[2021-10-10] VITALS (9 sets, daily range): BP systolic 117–146; BP diastolic 67–84; PULSE 75–110; RESP 16–20; TEMP 37.4–37.8; O2SAT 93–100; BMI 24.3
--- NOTE | 2021-10-10 08:12 | XR_ITS ---
WS: [id number] XR chest 1V portable [id number] REASON FOR EXAM: chest pain/falls FINDINGS: Chest appears unchanged compared to 10/03/2021. Mild tortuosity the thoracic aorta. Normal heart size. Calcified granulomatous disease bilaterally. No acute pulmonary parenchymal or pleural abnormality. Elevation of the left hemidiaphragm. Thoracolumbar scoliosis convex left. No rib abnormality identified. XR/XR chest 1V portable [id number] IMPRESSION: No acute chest abnormality.
--- NOTE | 2021-10-10 08:12 | ECG_ITS ---
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 Measurements Intervals [place] Rate: 81 P: 15 [place]: 142 QRS: -29 QRSD: 87 T: 31 QT: 353 QTc: 412 Interpretive Statements SINUS RHYTHM WITH OCCASIONAL VENTRICULAR PREMATURE COMPLEXES BORDERLINE LEFT AXIS DEVIATION [QRS AXIS < -20] Compared to ECG 09/18/2020 13:24:50 Ventricular premature complex(es) now present Electronically Signed On 10-10-2021 20:51:23 CDT by Daniel Espinoza M.D. [id number]
--- NOTE | 2021-10-10 08:12 | XR_ITS ---
WS: [id number] XR shoulder RT min 2V* [id number] REASON FOR EXAM: pain; recent falls FINDINGS: Severe narrowing of the acromioclavicular joint with marginal subchondral sclerosis and osteophytosis . Glenohumeral joint is not seen in profile. Probably, mild narrowing with subchondral sclerosis of the glenoid. Moderate subchondral sclerosis and cystic change in the humeral greater tuberosity. 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 Moderate rotator cuff tendon arthropathy.
--- NOTE | 2021-10-10 08:12 | CT_ITS ---
WS: [id number] CT HEAD TECHNIQUE: Noncontrast CT of the head obtained from the skullbase to the vertex. CLINICAL INFORMATION: falls/lightheadedness/dizziness COMPARISON: MRI January 29, 2020 DLP: 1035.[address] scans at [facility] use at least one of these dose optimization techniques: automated e xposure control; mA and/or kV adjustment per patient size (includes targeted exams where dose is matc hed to clinical indication); or iterative reconstruction. FINDINGS: No evidence of intracranial hemorrhage or mass effect. Ventricular system and basal cisterns are jarrett nt. Moderate small vessel changes with moderate parenchymal volume loss. No extra-axial fluid collect ions. No evidence of mass or mass effect. Intracranial vascular calcification. Mastoid air cells well aerated. Mild mucosal thickening ethmoid air cells. CT/CT head wo con* [id number] IMPRESSION: 1. No evidence of intracranial hemorrhage or mass effect. 2. Moderate small vessel changes. Moderate parenchymal volume loss. 3. No acute intracranial findings.
--- NOTE | 2021-10-10 08:14 | ED_ITS ---
Documented by User: NSA Nuno 10/10/21 12:28 HPI - General Adult General: Chief complaint: Extremity Injury, Upper Stated complaint: R shoulder pain Time Seen by Provider: 10/10/21 07:49 Source: patient and family Mode of arrival: ambulatory Limitations: no limitations History of Present Illness: Patient is a 75-year-old male here with multiple medical complaints. He tells me he is having right shoulder pain that has been present over the past 2 to 3 days. Patient denies any known injury or trauma however shortly later tells me that he has been having frequent falls at home. He is somewhat of a poor historian secondary to vascular dementia. He states he has chronic pains in his hips and knees so is not sure if this is what causes him to fall. Also mentioned that he blacks out and, when asked, does endorse lightheadedness and dizziness. He states he has had intermittent chest pains but is poor at describing the frequency of them and any exacerbating/relieving factors. He apparently has spoken to his PCP Vesta Dominguez in regards to this and has a Holter monitor appointment scheduled for tomorrow. He has no known cardiac history. Patient states he is having some discomfort in the right side of his chest. He does report feeling slightly short of breath. No difficulty breathing. Associated symptoms: Reports chest pain, dyspnea and syncope; Deny headache(s), malaise, nausea, rash, palpitations or vomiting Review of Systems Const: Denies: fever(s), chills, body aches, fatigue or malaise Eyes: Denies: change in vision or blurry vision Card: Reports: chest pain, lightheadedness and syncope; Denies: palpitations, irregular heart rhythm, edema, swelling of feet/ankles, p re-syncope, dyspnea on exertion, orthopnea, leg pain with exertion or acrocyanosis Resp: Reports: dyspnea; Denies: productive cough, non-productive cough, wheezing, stridor, pain on inspiration, change in phlegm color, hemoptysis or chest congestion GI: Denies: abdominal pain, nausea, vomiting, heartburn or diarrhea : Denies: flank pain, difficulty urinating or dysuria Musc: Reports: joint pain (R shoulder, L hip, knees); Denies: neck pain, back pain, extremity pain, extremity swelling, joint swelling, joint redness or joint warmth Skin/Breast: Denies: rash Neuro: Reports: frequent falls; Denies: headache(s), numbness in extremities, weakness in extremities, sensory changes, lack of coordination, vertigo, Slurred speech present or seizure-like activity PFSH ED 2 PFSH: Medical History History of cataract Urinary retention Surgical History H/O esophagogastroduodenoscopy (09/18/20) For food bolus History of hip surgery History of right knee surgery S/P total right hip arthroplasty Family History Father , AT AGE 88 No problems noted. Mother , AT AGE 88 No problems noted. Social History Smoking and tobacco status: never smoked Alcohol intake: never Marital status: Current occupational status: retired History of recent travel: No Physical Exam Const: COMMON NORMALS: no acute distress, patient oriented x3, no limitations, alert and well nourished GENERAL APPEARANCE: cooperative ORIENTATION/CONSCIOUSNESS: Yes awake, Yes oriented to person, Yes oriented to place and Yes oriented to time HENMT: COMMON NORMALS: normocephalic and atraumatic HEAD & SCALP: normal to inspection, normocephalic and atraumatic Eye: GENERAL EYE: appearance normal, both eyes and all related structures Neck/C-Spine: COMMON NORMALS: full ROM GENERAL: Yes normal visual inspection CERVICAL SPINE: Yes cervical ROM normal and No Cervical spine tenderness Chest: COMMONS NORMALS: normal inspection of the chest and normal palpation of entire chest wall Resp: COMMON NORMALS: normal respiratory effort and clear to auscultation bilaterally AUSCULTATION: clear to auscultation bilaterally Cardio: COMMON NORMALS: regular rate and regular rhythm RATE: regular rate RHYTHM: regular rhythm GI: COMMON NORMALS: Normal to inspection, nondistended, normoactive bowel sounds present, Soft to palpation, non-tender, No hepatosplenomegaly present and no masses PALPATION: Yes Soft to palpation and Yes No hepatosplenomegaly present Back/Pelvis: COMMON NORMALS: thoracic and lumbar spine normal to inspection, no thoracic nor lumbar tenderness and thoraco-lumbar ROM normal Extremity: COMMON NORMALS: normal to inspection, capillary refill normal, no joint enlargement, no clubbing, cyanosis or edema, no calf tenderness and no pedal edema NARRATIVE EXTREMITY EXAM: chronically limited ROM of L hip GENERAL: Yes normal exam except as noted RIGHT UPPER EXTREMITY: Yes shoulder joint (TTP anterior joint line; fairly good ROM) Right shoulder: Yes Right shoulder joint neurovascular exam (normal) Neuro: HEATHER COMA SCALE: document GCS findings [place] coma scale eye opening: Spontaneous Heather coma scale verbal response: Orientated [place] coma scale motor response: Obey commands Heather coma scale total score: 15 COMMON NORMALS: patient oriented x3, moves all extremities, no focal motor deficits and no sensory deficits noted SENSORIUM/ORIENTATION: Yes alert, Yes oriented to person, Yes oriented to place and Yes oriented to time SPEECH: speech normal MOTOR EXAM: 5/5 motor strength present throughout Skin: COMMON NORMALS: no rashes or lesions noted GENERAL SKIN EXAM: no rashes or lesions noted TRAUMA: no lacerations or abrasions Course Vital Signs: Vital signs: Vital Signs Temperature 99.3 F 10/10/21 07:53 Pulse Rate 78 10/10/21 15:04 Respiratory Rate 16 10/10/21 15:04 Blood Pressure 132/84 10/10/21 15:04 Pulse Oximetry 100 10/10/21 15:04 [facility] - General Adult Medical Decision Making Patient here with multiple complaints one of which is right shoulder pain and the other seems to be focused around frequent falls syncopal episodes related to lightheadedness/dizziness. He does endorse intermittent chest pains. His EKG is normal. Baseline troponin is 7 however he has a delta of 7.2. Certainly with his age and family history of heart disease he does have risk factors. Labs also show a leukocytosis with a white count of 22.1. His CXR is normal. UA does not look overly suspicious for UTI as nitrates and leuks are negative. No fevers. At this point I think best plan for patient would be to admit him for cardiac rule out. Lab Data : 10/10/21 08:32 10/10/21 09:24 Radiology Impressions Chest X-Ray 10/10/21 08:12 IMPRESSION: No acute chest abnormality. Head CT 10/10/21 08:12 IMPRESSION: 1. No evidence of intracranial hemorrhage or mass effect. 2. Moderate small vessel changes. Moderate parenchymal volume loss. 3. No acute intracranial findings. 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 Moderate rotator cuff tendon arthropathy. Laboratory Results WBC 22.1 10^3/uL (4.0-10.0) H 10/10/21 08:32 RBC 4.46 10^6/uL (4.1-5.3) 10/10/21 08:32 Hgb 12.9 g/dL (11.7-16.6) 10/10/21 08:32 Hct 38.7 % (42.0-52.0) L 10/10/21 08:32 MCV 86.8 fl (80-94) 10/10/21 08:32 MCH 28.9 pg (28.0-34.0) 10/10/21 08:32 MCHC 33.3 g/dL (30.0-36.0) 10/10/21 08:32 RDW 14.5 % (12.1-15.1) 10/10/21 08:32 Plt Count 381 10^3/cmm (130-400) 10/10/21 08:32 MPV 10.9 fL (7.4-10.4) H 10/10/21 08:32 Neut % (Auto) 75.7 % 10/10/21 08:32 Lymph % (Auto) 17.0 % 10/10/21 08:32 [place] % (Auto) 5.8 % 10/10/21 08:32 Eos % (Auto) 0.2 % 10/10/21 08:32 Baso % (Auto) 0.3 % 10/10/21 08:32 Neut # (Auto) 16.71 10^3/uL (1.8-7.7) H 10/10/21 08:32 Lymph # (Auto) 3.8 10^3/uL (0.8-4.8) 10/10/21 08:32 [place] # (Auto) 1.3 10^3/uL (0.2-0.9) H 10/10/21 08:32 Eos # (Auto) 0.0 10^3/uL (0.0-0.8) 10/10/21 08:32 Baso # (Auto) 0.1 10^3/uL (0.0-0.1) 10/10/21 08:32 Nucleated RBC % (auto) 0 % 10/10/21 08:32 Nucleated RBCs # 0.0 /100WBC 10/10/21 08:32 Sodium 133 mmol/L (136-145) L 10/10/21 09:24 Potassium 3.8 mmol/L (3.5-5.1) 10/10/21 09:24 Chloride 96 mmol/L (98-107) L 10/10/21 09:24 Carbon Dioxide 25 mmol/L (22-29) 10/10/21 09:24 Anion Gap 15.8 (5-19) 10/10/21 09:24 BUN 15 mg/dL (8-23) 10/10/21 09:24 Creatinine 0.8 mg/dL (0.7-1.2) 10/10/21 09:24 GFR Calculation Not Reportable 10/10/21 09:24 Glucose 121 mg/dL (65-115) H 10/10/21 09:24 Calculated Osmolality 278 mOsm/kg (285-295) L 10/10/21 09:24 Calcium 8.8 mg/dL (8.5-10.5) 10/10/21 09:24 Total Bilirubin 1.0 mg/dL (0.15-1.2) 10/10/21 09:24 AST 16 U/L (0-40) 10/10/21 09:24 ALT 15 U/L (0-41) 10/10/21 09:24 Alkaline Phosphatase 106 IU/L (40-130) 10/10/21 09:24 Troponin T Baseline 7 ng/L (0-15) 10/10/21 09:11 Troponin T 120 Minute 14.22 ng/L (0-15) 10/10/21 11:05 Delta Troponin T -7.22 ABS# (0-10) L 10/10/21 11:05 Total Protein 7.0 g/dL (6.6-8.7) 10/10/21 09:24 Albumin 3.4 g/dL (3.5-5.2) L 10/10/21 09:24 Globulin 3.6 g/dL (1.3-4.6) 10/10/21 09:24 Urine Color Dark yellow (Yellow) 10/10/21 10:37 Urine Appearance Clear (CLEAR) 10/10/21 10:37 Urine pH 5 (5-7) 10/10/21 10:37 Ur Specific [place] 1.020 (1.005-1.030) 10/10/21 10:37 Urine Protein Neg (Negative) 10/10/21 10:37 Urine Glucose (UA) Norm (Normal) 10/10/21 10:37 Urine Ketones 1+ (Negative) H 10/10/21 10:37 Urine Blood 2+ (Negative) H 10/10/21 10:37 Urine Nitrate Negative (Negative) 10/10/21 10:37 Urine Bilirubin Neg (Negative) 10/10/21 10:37 Urine Urobilinogen 4 mg/dL (Negative) H 10/10/21 10:37 Ur Leukocyte Esterase Negative (Negative) 10/10/21 10:37 Urine RBC 0-4 /hpf (0-2) H 10/10/21 10:37 Urine WBC 0-4 /hpf (0-5) H 10/10/21 10:37 Ur Squamous Epith Cells 0-4 /hpf (0-5) H 10/10/21 10:37 Amorphous Sediment Not Reportable 10/10/21 10:37 Urine Bacteria 1+ /hpf (NONE) H 10/10/21 10:37 Hyaline Casts 0-4 /lpf H 10/10/21 10:37 Discharge Plan Discharge Patient Disposition: Admitted As Inpatient Clinical Impression: Chest pain, Pain in right shoulder, Leukocytosis, Elevated troponin I level Condition: Stable Sign Out Sign Out Data: Patient Sign Out occurred on 10/10/21 at 13:42. Patient's care was discussed, and care was transferred from to Davis Tariq DO. Coding Level of Care Code ED Director Agricultural Services for Chg Fwd Exam Comprehensive Documented by User: Davis Tariq DO 10/10/21 15:12 HPI - General Adult General: Chief complaint: Extremity Injury, Upper Stated complaint: R shoulder pain Time Seen by Provider: 10/10/21 07:49 PFSH ED PFSH: Medical History History of cataract Urinary retention Surgical History H/O esophagogastroduodenoscopy (09/18/20) For food bolus History of hip surgery History of right knee surgery S/P total right hip arthroplasty Family History Father , AT AGE 88 No problems noted. Mother , AT AGE 88 No problems noted. Social History Smoking and tobacco status: never smoked Alcohol intake: never Marital status: Current occupational status: retired History of recent travel: No Physical Exam Neuro: HEATHER COMA SCALE: document GCS findings [place] coma scale total score: 15 Course Vital Signs: Vital signs: Vital Signs Temperature 99.3 F 10/10/21 07:53 Pulse Rate 78 10/10/21 15:04 Respiratory Rate 16 10/10/21 15:04 Blood Pressure 132/84 10/10/21 15:04 Pulse Oximetry 100 10/10/21 15:04 [facility] - General Adult Medical Decision Making Patient here with multiple complaints one of which is right shoulder pain and the other seems to be focused around frequent falls syncopal episodes related to lightheadedness/dizziness. He does endorse intermittent chest pains. His EKG is normal. Baseline troponin is 7 however he has a delta of 7.2. Certainly with his age and family history of heart disease he does have risk factors. Labs also show a leukocytosis with a white count of 22.1. His CXR is normal. UA does not look overly suspicious for UTI as nitrates and leuks are negative. No fevers. At this point I think best plan for patient would be to admit him for cardiac rule out. Chart reviewed and patient discussed with midlevel. Agree with assessment and plan. Seen and examined the patient no change from above documentation d iscussed Dr. Lord she will admit for positive delta Trope and history. Medical Records I reviewed the patient's medical records. Lab Data I reviewed the patient's lab results. : 10/10/21 08:32 10/10/21 09:24 Radiology Impressions Chest X-Ray 10/10/21 08:12 IMPRESSION: No acute chest abnormality. Head CT 10/10/21 08:12 IMPRESSION: 1. No evidence of intracranial hemorrhage or mass effect. 2. Moderate small vessel changes. Moderate parenchymal volume loss. 3. No acute intracranial findings. 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 Moderate rotator cuff tendon arthropathy. Laboratory Results WBC 22.1 10^3/uL (4.0-10.0) H 10/10/21 08:32 RBC 4.46 10^6/uL (4.1-5.3) 10/10/21 08:32 Hgb 12.9 g/dL (11.7-16.6) 10/10/21 08:32 Hct 38.7 % (42.0-52.0) L 10/10/21 08:32 MCV 86.8 fl (80-94) 10/10/21 08:32 MCH 28.9 pg (28.0-34.0) 10/10/21 08:32 MCHC 33.3 g/dL (30.0-36.0) 10/10/21 08:32 RDW 14.5 % (12.1-15.1) 10/10/21 08:32 Plt Count 381 10^3/cmm (130-400) 10/10/21 08:32 MPV 10.9 fL (7.4-10.4) H 10/10/21 08:32 Neut % (Auto) 75.7 % 10/10/21 08:32 Lymph % (Auto) 17.0 % 10/10/21 08:32 [place] % (Auto) 5.8 % 10/10/21 08:32 Eos % (Auto) 0.2 % 10/10/21 08:32 Baso % (Auto) 0.3 % 10/10/21 08:32 Neut # (Auto) 16.71 10^3/uL (1.8-7.7) H 10/10/21 08:32 Lymph # (Auto) 3.8 10^3/uL (0.8-4.8) 10/10/21 08:32 [place] # (Auto) 1.3 10^3/uL (0.2-0.9) H 10/10/21 08:32 Eos # (Auto) 0.0 10^3/uL (0.0-0.8) 10/10/21 08:32 Baso # (Auto) 0.1 10^3/uL (0.0-0.1) 10/10/21 08:32 Nucleated RBC % (auto) 0 % 10/10/21 08:32 Nucleated RBCs # 0.0 /100WBC 10/10/21 08:32 Sodium 133 mmol/L (136-145) L 10/10/21 09:24 Potassium 3.8 mmol/L (3.5-5.1) 10/10/21 09:24 Chloride 96 mmol/L (98-107) L 10/10/21 09:24 Carbon Dioxide 25 mmol/L (22-29) 10/10/21 09:24 Anion Gap 15.8 (5-19) 10/10/21 09:24 BUN 15 mg/dL (8-23) 10/10/21 09:24 Creatinine 0.8 mg/dL (0.7-1.2) 10/10/21 09:24 GFR Calculation Not Reportable 10/10/21 09:24 Glucose 121 mg/dL (65-115) H 10/10/21 09:24 Calculated Osmolality 278 mOsm/kg (285-295) L 10/10/21 09:24 Calcium 8.8 mg/dL (8.5-10.5) 10/10/21 09:24 Total Bilirubin 1.0 mg/dL (0.15-1.2) 10/10/21 09:24 AST 16 U/L (0-40) 10/10/21 09:24 ALT 15 U/L (0-41) 10/10/21 09:24 Alkaline Phosphatase 106 IU/L (40-130) 10/10/21 09:24 Troponin T Baseline 7 ng/L (0-15) 10/10/21 09:11 Troponin T 120 Minute 14.22 ng/L (0-15) 10/10/21 11:05 Delta Troponin T -7.22 ABS# (0-10) L 10/10/21 11:05 Total Protein 7.0 g/dL (6.6-8.7) 10/10/21 09:24 Albumin 3.4 g/dL (3.5-5.2) L 10/10/21 09:24 Globulin 3.6 g/dL (1.3-4.6) 10/10/21 09:24 Urine Color Dark yellow (Yellow) 10/10/21 10:37 Urine Appearance Clear (CLEAR) 10/10/21 10:37 Urine pH 5 (5-7) 10/10/21 10:37 Ur Specific [place] 1.020 (1.005-1.030) 10/10/21 10:37 Urine Protein Neg (Negative) 10/10/21 10:37 Urine Glucose (UA) Norm (Normal) 10/10/21 10:37 Urine Ketones 1+ (Negative) H 10/10/21 10:37 Urine Blood 2+ (Negative) H 10/10/21 10:37 Urine Nitrate Negative (Negative) 10/10/21 10:37 Urine Bilirubin Neg (Negative) 10/10/21 10:37 Urine Urobilinogen 4 mg/dL (Negative) H 10/10/21 10:37 Ur Leukocyte Esterase Negative (Negative) 10/10/21 10:37 Urine RBC 0-4 /hpf (0-2) H 10/10/21 10:37 Urine WBC 0-4 /hpf (0-5) H 10/10/21 10:37 Ur Squamous Epith Cells 0-4 /hpf (0-5) H 10/10/21 10:37 Amorphous Sediment Not Reportable 10/10/21 10:37 Urine Bacteria 1+ /hpf (NONE) H 10/10/21 10:37 Hyaline Casts 0-4 /lpf H 10/10/21 10:37 Discharge Plan Discharge Patient Disposition: Admitted As Inpatient Clinical Impression: Chest pain, Pain in right shoulder, Leukocytosis, Elevated troponin I level Condition: Stable Sign Out Sign Out Data: Patient Sign Out occurred on 10/10/21 at 13:42. Patient's care was discussed, and care was transferred from to Davis L Horstman, DO. Coding Level of Care Code ED Director Agricultural Services for Chg Fwd Exam Comprehensive
[2021-10-10 08:38] LABS: Basophils # 0.1 10^3/uL (0.0-0.1); Basophils % 0.3 %; Eosinophils % 0.2 %; Hematocrit 38.7 % (42.0-52.0); Hemoglobin 12.9 g/dL (11.7-16.6); Lymphocytes # 3.8 10^3/uL (0.8-4.8); Mean Corpuscular HGB Conc 33.3 g/dL (30.0-36.0); Mean Corpuscular Hemoglobin 28.9 pg (28.0-34.0); Mean Corpuscular Volume 86.8 fl (80-94); Mean Platelet Volume 10.9 fL (7.4-10.4); Monocytes # 1.3 10^3/uL (0.2-0.9); Monocytes % 5.8 %; Neutrophils # 16.71 10^3/uL (1.8-7.7); Neutrophils % 75.7 %; Nucleated Red Blood Cells % 0 %; Platelet Count 381 10^3/cmm (130-400); Red Blood Count 4.46 10^6/uL (4.1-5.3); Red Cell Distribution Width 14.5 % (12.1-15.1); White Blood Count 22.1 10^3/uL (4.0-10.0)
[2021-10-10 09:53] LABS: Troponin(5th) Baseline 7 ng/L (0-15)
--- NOTE | 2021-10-10 10:12 | ECG_ITS ---
[facility] Test Date: 2021-10-10 Pat Name: Emigdio Acuña Department: Room: Gender: Male Clinical Research Physician: : 1945 Requested By: Donna Bright Order Number: [id number] Abhishek MD: Daniel Espinoza M.D. Measurements Intervals [place] Rate: 76 P: 16 [place]: 147 QRS: -23 QRSD: 90 T: 39 QT: 357 QTc: 404 Interpretive Statements SINUS RHYTHM BORDERLINE LEFT AXIS DEVIATION [QRS AXIS < -20] Compared to ECG 10/10/2021 08:26:41 Ventricular premature complex(es) no longer present Electronically Signed On 10-10-2021 21:02:16 CDT by Daniel Espinoza M.D. [id number]
[2021-10-10 10:20] LABS: Alanine Aminotransferase 15 U/L (0-41); Albumin Level 3.4 g/dL (3.5-5.2); Alkaline Phosphatase 106 IU/L (40-130); Anion Gap 15.8 (5-19); Aspartate Amino Transferase 16 U/L (0-40); Blood Urea Nitrogen 15 mg/dL (8-23); Calcium 8.8 mg/dL (8.5-10.5); Carbon Dioxide 25 mmol/L (22-29); Chloride 96 mmol/L (98-107); Creatinine Clr Calc Pharmacy 82.9382; Globulin 3.6 g/dL (1.3-4.6); Glucose 121 mg/dL (65-115); Osmolality Calculated 278 mOsm/kg (285-295); Potassium 3.8 mmol/L (3.5-5.1); Sodium 133 mmol/L (136-145)
[2021-10-10] MEDS: sodium chloride 0.9% 1,000 ML 999 ML IV (11:00)
[2021-10-10 11:23] LABS: Add Urine Microscopic? YES; Bilirubin Urine Neg (Negative); Blood Urine 2+ (Negative); Glucose Urine UA Norm (Normal); Ketones Urine 1+ (Negative); Leukocyte Esterase Urine Negative (Negative); Nitrate Urine Negative (Negative); Protein Urine Neg (Negative); Urine Appearance Clear (CLEAR); Urine Color Dark Yellow (Yellow); Urobilinogen Urine 4 mg/dL (Negative); pH Urine 5 (5-7)
[2021-10-10 11:25] LABS: Bacteria Urine 1+ /hpf; RBC Urine 0-4 /hpf (0-2); Squamous Epithelial Cell Urine 0-4 /hpf (0-5); WBC Urine 0-4 /hpf (0-5)
[2021-10-10 11:26] LABS: Add Urine Culture? Yes; Hyaline Casts Urine 0-4 /lpf
[2021-10-10 11:34] LABS: Troponin 5 2HR 14.22 ng/L (0-15)
--- NOTE | 2021-10-10 14:12 | ECG_ITS ---
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 Measurements Intervals [place] Rate: 78 P: 16 [place]: 141 QRS: -31 QRSD: 96 T: 44 QT: 361 QTc: 412 Interpretive Statements SINUS RHYTHM LEFT AXIS DEVIATION [QRS AXIS < -30] Compared to ECG 10/10/2021 10:16:29 No significant changes Electronically Signed On 10-10-2021 21:06:45 CDT by Daniel Espinoza M.D. [id number]
[2021-10-10 15:57] LABS: Troponin 5 6HR 13.47 ng/L (0-15)
[2021-10-10 16:06] LABS: Troponin 5 6HR Delta -6.47 ng/L (0-12)
--- NOTE | 2021-10-10 17:35 | P.HP_ITS ---
Providers/Chief Complaint Admitting Physician: Ayana Lord MD Primary Care Provider: Vesta Dominguez Chief Complaint: R shoulder pain History of Present Illness Emigdio Acuña is a 75 year old male who presented to the emergency room because of severe right shoulder pain. The pain started sometime in the last week. It had been bothering him just when he use the shoulder or arm but last night it kept him awake all night. He was sleeping on his left side at the time. He has chronic hip pain and back pain for which he has prescriptions for oxycodone and tramadol. He is chronically on Celebrex and will take acetaminophen as needed as well for pain. None of these medications have really helped his right shoulder pain much at all. The pain in the shoulder is desc ribed as severe with any movement, at least an 8 out of 10, and sharp in nature. He does not notice it as much if he keeps himself very still but it is always there. He has been using his left arm to help support the right arm when he has to move it. He cannot raise his arm above his shoulder height. During the course of his evaluation in the emergency room, Mr. Acuña also complained of chest pain. Pain is located in the center of the chest. He also describes it as sharp. He has been associated with shortness of breath when that pain has come on. No nausea or vomiting. He has been sweaty but attributes it to the heat rather than the pain. Does not really describe exertional chest pain. He has no known history of coronary artery disease, diabetes, hypertension, hyperlipidemia or kidney disease. No known family history of heart problems. He does not smoke. Twelve-lead EKG shows sinus rhythm without any acute ST segment changes noted. 2-hour delta troponin, while not definitely positive, was in intermediate range. Additionally it was noted that his white count was 22,000 without a source. No report of any fevers. He has had some loose stools but that followed being constipated and taking something for that. No report of any difficulty with urination. He has a rash on his chest but otherwise no sores that he is concerned about. While his shoulder has been painful he has not noted it to be red or warm at any point in time. He has some discomfort in his left knee that is worse now than usual. No upper respiratory symptoms to speak of. Hospitalist called for observation to evaluate further. In talking with Mr. Brcue he reports that he had 5 or 6 falls last week while trying to remove nails from a board. He was using a crowbar to pull the nails out and thinks that some of them were in their harder than he anticipated them to be. The falls from his perspective are simply losing his balance during this process. He does not recall landing on the right shoulder or the left knee. He cannot remember exactly when he started having shoulder paint. Does not recall any bruises to the shoulder or other places. He has been quite hot lately with the weather being what it has been and working outside. Patient reports that he has some dementia but is otherwise healthy. Able to provide information but might forget some details. I attempted to call his at the number he provided and that was available in the chart but there was no answer or voicemail. Review of Systems Const: Denies: fever(s), chills or change in weight Eyes: Denies: change in vision ENMT: Denies: throat pain or nasal congestion Card: Reports: chest pain, lightheadedness (A few times this past week when working in the heat) and dyspnea on exertion (Sometimes); Denies: palpitations, edema, syncope or orthopnea Resp: Denies: productive cough, non-productive cough or pain on inspiration GI: Reports: diarrhea (Describes some loose stools after having had constipation, minor), constipation and melena; Denies: abdominal pain, nausea, vomiting or hematochezia : Denies: difficulty urinating or hematuria Musc: Reports: back pain, extremity pain (Left leg), joint pain (Right shoulder), limited range of motion (Right shoulder) and muscle cramps (In the heat); Denies: joint swelling, joint redness or joint warmth Skin/Breast: Reports: rash (On his chest, from heat) and pruritus (chest rash) Neuro: Denies: headache(s), numbness in extremities or weakness in extremities Psych: Denies: anxiety or depression Pawel/Lymph: Denies: easy bruising or easy bleeding Medications/Allergies Home Medications Medication Instructions Recorded Confirmed Last Taken Type aspirin 81 mg chewable tablet 81 mg PO QAM 09/18/20 10/10/21 10/09/21 History celecoxib 200 mg capsule 200 mg PO BID 04/20/21 10/10/21 10/09/21 History famotidine 20 mg tablet 20 mg PO DAILY PRN 04/20/21 10/10/21 04/19/21 History oxycodone 5 mg tablet 5 mg PO Q4H PRN 04/20/21 10/10/21 10/09/21 History OLD RX polyethylene glycol 3350 17 gram 17 g PO DAILY PRN 04/20/21 10/10/21 04/19/21 History oral powder packet (Miralax) tramadol 50 mg tablet 50 mg PO Q6H PRN 04/20/21 10/10/21 10/09/21 History acetaminophen 500 mg tablet 1,000 mg PO Q6H PRN 10/10/21 10/10/21 Unknown History cyanocobalamin (vitamin B-12) 10,000 mcg PO DAILY 10/10/21 10/10/21 Unknown History 5,000 mcg sublingual tablet (Vitamin B-12) tamsulosin 0.4 mg capsule 0.4 mg PO QAM 10/10/21 10/10/21 10/09/21 History Allergies Allergy/AdvReac Type Severity Reaction Status Date / Time No Known Allergies Allergy Verified 10/10/21 10:48 Additional Medication Information Above medication list clarified with patient, who admits he has poor memory for his medications PFSH Acute PFSH: Medical History (Updated 10/10/21 @ 20:22 by Ayana Lord MD) BPH loc w urin obs/LUTS 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 Dementia Specific type unknown Osteoarthritis Urinary retention Required transient encarnacion for > 1L Surgical History (Updated 10/10/21 @ 19:48 by Ayana Lord MD) H/O esophagogastroduodenoscopy (09/18/20) For food bolus History of cataract surgery History of hip surgery multiple left hip surgeries 20+ years ago due to trauma, also surgery at left distal femur and patella History of right knee surgery 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 Mother , AT AGE 88 No problems noted. Social History (Updated 10/10/21 @ 19:47 by Ayana Lord MD) Smoking and tobacco status: never smoked Alcohol intake: never Substance/Drug Use: never Household members: spouse Marital status: Current occupational status: retired Vitals/I&O/Wt Last Vital Signs Temp 99.3 F 10/10/21 07:53 Pulse 78 10/10/21 15:04 Resp 16 10/10/21 15:04 BP 132/84 10/10/21 15:04 Pulse Ox 100 10/10/21 15:04 Weight last 48 hrs Weight 77.111 kg Physical Exam Narrative: Constitutional: Awake and alert, able to provide history but responds to questions slowly having to think about what he is going to say, pleasant, thin build HEENT: Normocephalic, atraumatic, extraocular movements are intact, dry mucous membranes, dental implants noted Neck: Supple Respiratory: Clear to auscultation bilaterally, no wheezes or rhonchi Cardiovascular: Regular rate and rhythm without any murmurs gallops or rubs Abdomen: Soft, nontender, positive bowel sounds Extremities: Bony hypertrophy noted in joints without warmth or erythema, right shoulder with decreased range of motion passively and actively for extension, flexion, abduction, abduction, internal rotation and external rotation. Pain most pronounced on rotation and supination/pronation maneuvers by my examination. Body raises at attempts to raise the arm above the shoulder. The shoulder is most tender anteriorly near the bicipital groove. No warmth or erythema about the shoulder, no crepitus or gross effusion in this thin patient appreciated. Skin: Multiple 2 to 4 mm red lesions in a follicular pattern on the anterior chest, most appear scratched Neuro: Speech clear, handgrip is equal, face symmetric Psych: Flat affect, cooperative Data : 10/10/21 08:32 10/10/21 09:24 Other Labs: Radiology Impressions Chest X-Ray 10/10/21 08:12 IMPRESSION: No acute chest abnormality. Head CT 10/10/21 08:12 IMPRESSION: 1. No evidence of intracranial hemorrhage or mass effect. 2. Moderate small vessel changes. Moderate parenchymal volume loss. 3. No acute intracranial findings. 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 Moderate rotator cuff tendon arthropathy. Laboratory Results WBC 22.1 10^3/uL (4.0-10.0) H 10/10/21 08:32 RBC 4.46 10^6/uL (4.1-5.3) 10/10/21 08:32 Hgb 12.9 g/dL (11.7-16.6) 10/10/21 08:32 Hct 38.7 % (42.0-52.0) L 10/10/21 08:32 MCV 86.8 fl (80-94) 10/10/21 08:32 MCH 28.9 pg (28.0-34.0) 10/10/21 08:32 MCHC 33.3 g/dL (30.0-36.0) 10/10/21 08:32 RDW 14.5 % (12.1-15.1) 10/10/21 08:32 Plt Count 381 10^3/cmm (130-400) 10/10/21 08:32 MPV 10.9 fL (7.4-10.4) H 10/10/21 08:32 Neut % (Auto) 75.7 % 10/10/21 08:32 Lymph % (Auto) 17.0 % 10/10/21 08:32 [place] % (Auto) 5.8 % 10/10/21 08:32 Eos % (Auto) 0.2 % 10/10/21 08:32 Baso % (Auto) 0.3 % 10/10/21 08:32 Neut # (Auto) 16.71 10^3/uL (1.8-7.7) H 10/10/21 08:32 Lymph # (Auto) 3.8 10^3/uL (0.8-4.8) 10/10/21 08:32 [place] # (Auto) 1.3 10^3/uL (0.2-0.9) H 10/10/21 08:32 Eos # (Auto) 0.0 10^3/uL (0.0-0.8) 10/10/21 08:32 Baso # (Auto) 0.1 10^3/uL (0.0-0.1) 10/10/21 08:32 Nucleated RBC % (auto) 0 % 10/10/21 08:32 Nucleated RBCs # 0.0 /100WBC 10/10/21 08:32 Sodium 133 mmol/L (136-145) L 10/10/21 09:24 Potassium 3.8 mmol/L (3.5-5.1) 10/10/21 09:24 Chloride 96 mmol/L (98-107) L 10/10/21 09:24 Carbon Dioxide 25 mmol/L (22-29) 10/10/21 09:24 Anion Gap 15.8 (5-19) 10/10/21 09:24 BUN 15 mg/dL (8-23) 10/10/21 09:24 Creatinine 0.8 mg/dL (0.7-1.2) 10/10/21 09:24 GFR Calculation Not Reportable 10/10/21 09:24 Glucose 121 mg/dL (65-115) H 10/10/21 09:24 Calculated Osmolality 278 mOsm/kg (285-295) L 10/10/21 09:24 Calcium 8.8 mg/dL (8.5-10.5) 10/10/21 09:24 Total Bilirubin 1.0 mg/dL (0.15-1.2) 10/10/21 09:24 AST 16 U/L (0-40) 10/10/21 09:24 ALT 15 U/L (0-41) 10/10/21 09:24 Alkaline Phosphatase 106 IU/L (40-130) 10/10/21 09:24 Troponin T Baseline 7 ng/L (0-15) 10/10/21 09:11 Troponin T 120 Minute 14.22 ng/L (0-15) 10/10/21 11:05 Delta Troponin T 7.22 ABS# (0-10) 10/10/21 11:05 Total Protein 7.0 g/dL (6.6-8.7) 10/10/21 09:24 Albumin 3.4 g/dL (3.5-5.2) L 10/10/21 09:24 Globulin 3.6 g/dL (1.3-4.6) 10/10/21 09:24 Urine Color Dark yellow (Yellow) 10/10/21 10:37 Urine Appearance Clear (CLEAR) 10/10/21 10:37 Urine pH 5 (5-7) 10/10/21 10:37 Ur Specific [place] 1.020 (1.005-1.030) 10/10/21 10:37 Urine Protein Neg (Negative) 10/10/21 10:37 Urine Glucose (UA) Norm (Normal) 10/10/21 10:37 Urine Ketones 1+ (Negative) H 10/10/21 10:37 Urine Blood 2+ (Negative) H 10/10/21 10:37 Urine Nitrate Negative (Negative) 10/10/21 10:37 Urine Bilirubin Neg (Negative) 10/10/21 10:37 Urine Urobilinogen 4 mg/dL (Negative) H 10/10/21 10:37 Ur Leukocyte Esterase Negative (Negative) 10/10/21 10:37 Urine RBC 0-4 /hpf (0-2) H 10/10/21 10:37 Urine WBC 0-4 /hpf (0-5) H 10/10/21 10:37 Ur Squamous Epith Cells 0-4 /hpf (0-5) H 10/10/21 10:37 Amorphous Sediment Not Reportable 10/10/21 10:37 Urine Bacteria 1+ /hpf (NONE) H 10/10/21 10:37 Hyaline Casts 0-4 /lpf H 10/10/21 10:37 Micro: Microbiology 10/10/21 10:57 Blood Culture - Preliminary Blood SPECIMEN COLLECTED 10/10/21 11:05 Blood Culture - Preliminary Blood SPECIMEN COLLECTED A&P Assessment and plan (1) Chest pain: Substernal in nature without radiation, with some features such as dyspnea and occurrence with exertion that are concerning but otherwise atypical Status: Acute Qualifiers: Chest pain type: precordial pain Qualified Code(s): R07.2 - Precordial pain (2) Elevated troponin I level: In intermediate range rather than a true positive delta. Does not have typical risk factors, beyond age and male sex, but does report dyspnea on exertion sometimes when specifically questioned. Also describe a similar chest pain on exertion. Imaging studies show thoracic aorta calcifications and tortuosity and a prior CT scan in 2020 showed what was described as severe calcified coronary artery disease . Status: Acute (3) Leukocytosis: White count 22,000 with predominance of neutrophils. Urinalysis not really remarkable for infection with negative nitrites and leukocyte esterase though does look concentrated. CXR without obvious infiltrate. Has folliculitis on chest but does not look overtly infected. No recent fever or malaise other than the shoulder pain and chest pain complaints. Status: Acute (4) Pain in right shoulder: Patient's primary presenting complaint. Based on history and examination tendinitis or rotator cuff injury are highest on my differential. Other diagnoses to consider include occult fracture, infection. Repetitive motion from this process or an injury from one of the falls he experienced could be the cause. Status: Acute Qualifiers: Chronicity: acute Qualified Code(s): M25.511 - Pain in right shoulder (5) Philippe cassidy: Status: Acute (6) Osteoarthritis: Multiple locations impacted, may be on chronic celebrex, acetaminophen, tramadol and oxycodone as needed for pain, primarily at left leg. Had left hip replacement in 03/2021, follow with orthopedics in [place] due to the complexity of the replacement (from prior injury and surgeries 20+ years ago). Unclear currently if he is still getting tramadol and oxycodone regularly, or if that is what he had been prescribed earlier this year after surgery. Status: Chronic (7) BPH loc w urin obs/LUTS: On flomax chronically, no current symptoms Status: Chronic (8) Dementia: Mild I presume based on patients ability to provide history which appear accurate on review of available prior records when family has been present. Status: Chronic Qualifiers: Dementia type: vascular dementia Dementia behavioral disturbance: without behavioral disturbance Qualified Code(s): F01.50 - Vascular dementia without behavioral disturbance Plan Observation admission Continue serial cardiac enzymes Check echocardiogram Pending results of above may consider stress testing Check BNP, lipid panel, hemoglobin A1c as part of cardiac work-up Telemetry monitoring for any arrhythmias overnight Check CK level Check sed rate, CRP given leukocytosis; if elevated may consider further imaging of the shoulder in particular Check uric acid Blood cultures were collected in the emergency room and are pending Recheck white count in the morning I have not initiated any antibiotics currently as I do not have a source of infection beyond the changes on patient's chest that are most consistent with heat rash. He has no fever and vital signs are stable. Will monitor clinically for now. Lotrisone cream to the chest monitoring response Continue home pain control to include Tylenol and Celebrex plus as needed tramadol and oxycodone. He has tolerated these medications in the past. Continue home Flomax Continue home MiraLAX PPI for GI prophylaxis Currently low risk for VTE Still need to speak with to get further clarification of what happened and make sure that the history we have is accurate, especially given patient's diagnosis of dementia Supportive care otherwise Full code Attestations Medical Necessity Statement*: Currently anticipate a stay less than two midnights in this gentleman who came in complaining primarily of right shoulder pain but also reported chest pain. He was found to have an intermediate delta troponin at 2 hours. Additionally identified was a white count of 22,000 without a source of infection. Review of records indicated presence of significant coronary calcifications on prior imaging studies. Being admitted observation for additional cardiac evaluation and further work-up as noted above, given concerns about symptoms and signs identified during the ED visit. 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
[2021-10-10 18:56] LABS: C Reactive Protein 205.8 mg/L (0.0-4.9); Creatine Phosphokinase 67 U/L (39-308); Magnesium 2.2 mg/dL (1.7-2.3); Phosphorus 2.3 mg/dL (2.5-4.5); Uric Acid 3.2 mg/dL (3.4-7.0)
[2021-10-10 18:57] LABS: Procalcitonin 0.27 ng/mL (0-0.5)
[2021-10-10 19:27] LABS: Troponin 5 2HR Delta 7.22 ABS# (0-10)
--- NOTE | 2021-10-10 19:46 | USCV_ITS ---
Emigdio Acuña Age: 75 Gender: M : 1945 Exam Date: 10/10/2021 20:29 Ordering Phys: Ayana Lord MD Technologist: KRISTIAN Exam Location: [facility] – [place], [place] Indication: chest pain, [place], No history of cardiac intervention per patient. BP: 133 / 72 HR: 78 Rhythm: Sinus Technical Quality: Adequate MEASUREMENTS (Male / Female) Normal Values 2D ECHO LV Diastolic Diameter PLAX 4.9 cm 4.2 - 5.9 / 3.9 - 5.3 cm LV Systolic Diameter PLAX 3.1 cm IVS Diastolic Thickness 1.0 cm 0.6 - 1.0 / 0.6 - 0.9 cm IVS Systolic Thickness 1.3 cm LVPW Diastolic Thickness 1.1 cm 0.6 - 1.0 / 0.6 - 0.9 cm LVPW Systolic Thickness 1.3 cm LVOT Diameter 2.2 cm LV Ejection Fraction 2D Teich 66.6 % LV Ejection Fraction MOD 2C 71.8 % LV Ejection Fraction 2C AL 73.5 % LA Diameter 3.3 cm LA Width 3.4 cm LA Height 5.9 cm RA Width 3.1 cm RA Height 5.3 cm Aorta at Sinotubular Diameter 3.3 cm IVC Diameter 1.8 cm M-MODE Aortic Annulus Diameter 2.9 cm LA Ao Ratio MM 1.1 MV E Point Septal Separation 0.8 cm DOPPLER AV Peak Velocity 150.0 cm/s LVOT Peak Velocity 101.0 cm/s AV Area Cont Eq vti 2.8 cm squared AV Area Cont Eq pk 2.6 cm squared MV Peak Velocity 114.0 cm/s MV Area PHT 3.3 cm squared Mitral E to A Ratio 1.0 MV E' Velocity 58.0 cm/s Mitral E to MV E' Ratio 9.3 Mitral E to LV E' Lateral Ratio 9.4 Mitral E to LV E' Septal Ratio 9.3 TR Peak Velocity 247.3 cm/s TR Peak Gradient 24.5 mmHg TV Peak E Velocity 50.0 cm/s Right Atrial Pressure 5.0 mmHg Pulmonary Artery Systolic Pressu 29.5 mmHg PV Peak Velocity 89.0 cm/s RV Acceleration Time 0.1 s RV Ejection Time 0.3 s RV AcT/ET 0.4 FINDINGS Left Ventricle Normal left ventricular size. LV systolic function is normal with EF of 60-65%. No regional wall motion abnormalities. Right Ventricle The right ventricle is normal in size and function. Right Atrium The right atrium is normal in size. Left Atrium The left atrium is normal in size. Mitral Valve Structurally normal mitral valve without significant stenosis or prolapse. There is mild mitral regurgitation. Aortic Valve Structurally normal aortic valve without significant sclerosis or stenosis. There is no aortic regurgitation. Tricuspid Valve Structurally normal tricuspid valve without significant stenosis. Mild to moderate tricuspid regurgitation. Pulmonary artery systolic pressure is normal. Pulmonic Valve Grossly normal. Pericardium Normal pericardium without effusion. Aorta Mild ascending aortic dilation IVC CONCLUSIONS LV systolic function is normal with EF of 60 to 65%. Mild mitral regurgitation Mild to moderate tricuspid regurgitation. Mild ascending aortic dilation No comparison studies are available Teo Lozano MD (Electronically Signed) Final Date: 11 October 2021 12:09 S
--- NOTE | 2021-10-10 20:41 | CTR_ITS ---
PROCEDURE INFORMATION: Exam: CT Right Upper Extremity With Contrast, Shoulder Exam date and time: 10/10/2021 9:36 PM Age: 75 years old Clinical indication: Injury or trauma; Fall; Blunt trauma (contusions or hematomas); Shoulder; Right; Additional info: Severe pain right shoulder, low grade fever, crp 208, wbc 22, no foci of infection evident on exam TECHNIQUE: Imaging protocol: Computed tomography of the Right upper extremity with contrast. Exam focused on the shoulder Radiation optimization: All CT scans at this facility use at least one of these dose optimization techniques: automated exposure control; mA and/or kV adjustment per patient size (includes targeted exams where dose is matched to clinical indication); or iterative reconstruction. Contrast material: OMNIPAQUE 350; Contrast volume: 90 ml; Contrast route: INTRAVENOUS (IV); COMPARISON: CR XR shoulder RT min 2V* [id number] 10/10/2021 8:17 AM RADIATION DOSE METRICS: Total DLP (mGy-cm): 864.25 FINDINGS: Tubes, catheters and devices: There is also increased density in the anterior superior mediastinum, partially visualized of uncertain etiology. This may be related to adenopathy or other infiltrative process/edema. Correlation with chest CT should be considered. Bones/joints: Mild chronic AC joint hypertrophy. No acute fracture dislocation or suspicious bony lesion. No obvious shoulder joint effusion. No obvious CT evidence of acute osteomyelitis. Soft tissues: Normal. Lymph nodes: No obvious extremity soft tissue mass or enlarged adenopathy. Pleural space: Small right pleural effusion, partially visualized with adjacent compressive atelectasis. CT/CT shoulder RT w con [id number] IMPRESSION: 1. No acute osseous or acute extremity soft tissue findings. 2. Incidental findings of pleural effusion and partially visualized anterior superior mediastinal density. See discussion above. Correlation with chest CT should be considered.
[2021-10-10 20:58] LABS: Erythrocyte Sedimentation Rate 91 mm/hr (0-10)
[2021-10-10] MEDS: oxyCODONE 5 mg IR Tab/Cap PO (21:22)
[2021-10-10] MEDS: clotrimazole-betamethasone cream 15gm 1 APPLIC TOPICAL (21:23)
[2021-10-10] MEDS: CELEcoxib 200 mg Capsule PO (21:23)
[2021-10-10] MEDS: sodium chloride 0.9% 1,000 ML 75 ML IV (21:24)
[2021-10-11] VITALS (10 sets, daily range): BP systolic 101–123; BP diastolic 53–74; PULSE 66–111; RESP 16–18; TEMP 36.6–37.5; O2SAT 92–95; BMI 22.6
[2021-10-11 01:38] LABS: SARS Covid-2 Antigen Negative (Negative)
[2021-10-11 04:41] LABS: Basophils # 0.1 10^3/uL (0.0-0.1); Basophils % 0.3 %; Eosinophils # 0.1 10^3/uL (0.0-0.8); Eosinophils % 0.6 %; Hematocrit 38.7 % (42.0-52.0); Hemoglobin 12.8 g/dL (11.7-16.6); Lymphocytes # 4.5 10^3/uL (0.8-4.8); Mean Corpuscular HGB Conc 33.1 g/dL (30.0-36.0); Mean Corpuscular Hemoglobin 28.6 pg (28.0-34.0); Mean Corpuscular Volume 86.4 fl (80-94); Mean Platelet Volume 9.5 fL (7.4-10.4); Monocytes # 1.2 10^3/uL (0.2-0.9); Monocytes % 5.8 %; Neutrophils # 15.36 10^3/uL (1.8-7.7); Neutrophils % 71.2 %; Nucleated Red Blood Cells % 0 %; Platelet Count 432 10^3/cmm (130-400); Red Blood Count 4.48 10^6/uL (4.1-5.3); Red Cell Distribution Width 13.9 % (12.1-15.1); White Blood Count 21.6 10^3/uL (4.0-10.0)
[2021-10-11 04:52] LABS: Estmated Average Glucose 123; Hemoglobin A1C 5.9 % (4.0-6.0)
[2021-10-11 05:00] LABS: Anion Gap 13.2 (5-19); Blood Urea Nitrogen 10 mg/dL (8-23); Calcium 8.8 mg/dL (8.5-10.5); Carbon Dioxide 27 mmol/L (22-29); Chloride 97 mmol/L (98-107); Glucose 106 mg/dL (65-115); Osmolality Calculated 275 mOsm/kg (285-295); Potassium 4.2 mmol/L (3.5-5.1); Sodium 133 mmol/L (136-145)
[2021-10-11 05:10] LABS: Chol HDL Ratio 6.28 mg/dL (1.0-5.00); Cholesterol 113 mg/dL (0-200); HDL Cholesterol 18 mg/dL (60-100); LDL Cholesterol Calculated 77 mg/dL (50-129); LDL HDL Ratio 4.28 RATIO (0.00-3.22); NT Pro B Type Natriuretic Pept 428 pg/mL (0-450); Triglycerides 92 mg/dL (0-150)
[2021-10-11] MEDS: tamsulosin 0.4 mg Capsule PO (06:02)
[2021-10-11] MEDS: aspirin 81 mg Chew Tablet PO (06:02)
[2021-10-11] MEDS: TRAMadol 50 mg Tablet 100 MG PO ×2 (08:08→21:33)
[2021-10-11] MEDS: cyanocobalamin 1,000 mcg Tablet 1000 MCG PO (08:09)
[2021-10-11] MEDS: CELEcoxib 200 mg Capsule PO ×2 (08:09→17:12)
[2021-10-11] MEDS: clotrimazole-betamethasone cream 15gm 1 APPLIC TOPICAL ×3 (08:09→21:27)
[2021-10-11] MEDS: polyethylene glycol 3350 Pkt 17 gm PO (08:09)
[2021-10-11] MEDS: sodium chloride 0.9% 1,000 ML 75 ML IV ×2 (10:13→21:37)
--- NOTE | 2021-10-11 19:10 | P.PN_ITS ---
Subjective Subjective: Patient was seen and examined this morning currently he is denying any chest pain, shortness of breath, headache, nausea vomiting Continue be on telemetry, no arrhythmia reported. Patient does complain of dizziness at home. 2D echo was done today, troponin trend has been noted. His other vitals and labs have been reviewed. Orthostatic vital signs checked today negative Medications: Medication Review Details: Generic Name Dose Route Start Last Admin Trade Name Freq PRN Reason Stop Dose Admin Aspirin 81 mg 10/11/21 06:00 10/11/21 06:02 Aspirin 81 Mg Ch ew Tablet PO 81 mg QAM LIBBY Administration Betamethasone/Clot rimazole 1 applic 10/10/21 20:00 10/11/21 15:18 Clotrimazole-Bet amethasone Cream 1 5gm TOPICAL 1 applic TID LIBBY Administration Celecoxib 200 mg 10/10/21 19:46 10/11/21 17:12 Celecoxib 200 Mg Capsule PO 200 mg BID LIBBY Administration Cyanocobalamin 1,000 mcg 10/11/21 09:00 10/11/21 08:09 Cyanocobalamin 1 ,000 Mcg Tablet PO 1,000 mcg DAILY LIBBY Administration Sodium Chloride 1,000 mls @ 75 ml s/hr 10/10/21 19:46 10/11/21 10:13 Sodium Chloride 0.9% IV 75 mls/hr .[id number] LBIBY Administration Oxycodone HCl 5 mg 10/10/21 19:46 10/10/21 21:22 Oxycodone 5 Mg I r Tab/Cap PO 5 mg Q4H PRN Administration SEVERE PAIN Polyethylene Glyco l 17 gm 10/11/21 09:00 10/11/21 08:09 Polyethylene Gly col 3350 Pkt 17 Gm PO 17 gm DAILY LIBBY Administration Tamsulosin HCl 0.4 mg 10/11/21 06:00 10/11/21 06:02 Tamsulosin 0.4 M g Capsule PO 0.4 mg QAM LIBBY Administration Tramadol HCl 100 mg 10/10/21 19:46 10/11/21 08:08 Tramadol 50 Mg T ablet PO 100 mg Q6H PRN Administration MODERATE PAIN Vitals/I&O/Wt Last Vital Signs Temp 98.4 F 10/11/21 16:00 Pulse 71 10/11/21 16:14 Resp 16 07/20/22 16:00 BP 113/68 10/11/21 16:00 Pulse Ox 92 10/11/21 16:14 10/11/21 10/11/21 10/11/21 06:59 14:59 22:59 Intake Total 569.683 / 1571.250 123.75 / 123.75 240 / 363.75 Output Total 475 / 475 200 / 200 Balance 94.683 / 1096.250 -76.25 / -76.25 240 / 163.75 Weight last 48 hrs Weight 71.668 kg Weight 77.111 kg Physical Exam Const: COMMON NORMALS: patient oriented x3 HENMT: COMMON NORMALS: normocephalic and atraumatic HEAD & SCALP: normocephalic and atraumatic Chest: CHEST: Yes Symmetrical chest wall rise Resp: COMMON NORMALS: normal respiratory effort, No retractions, No use of accessory muscles and clear to auscultation bilaterally EFFORT & INSPECTION: Yes symmetric chest movement AUSCULTATION: clear to auscultation bilaterally Cardio: COMMON NORMALS: regular rate, regular rhythm, S1 normal heart sound present, S2 normal heart sound present, No gallops present (Cardio), No murmurs present (Cardio), No rub (Cardio) and Peripheral pulses 2+ throughout RATE: regular rate RHYTHM: regular rhythm HEART SOUNDS: S1 normal heart sound present and S2 normal heart sound present PERIPHERAL PULSES: Peripheral pulses 2+ throughout GI: COMMON NORMALS: Normal to inspection, nondistended, normoactive bowel sounds present, Soft to palpation, non-tender, No hepatosplenomegaly present and no masses AUSCULTATION: Yes normoactive bowel sounds PALPATION: Yes Soft to palpation and Yes No hepatosplenomegaly present RECTAL EXAM: Yes deferred Extremity: COMMON NORMALS: no clubbing, cyanosis or edema and no pedal edema Neuro: COMMON NORMALS: patient oriented x3 Data : 10/11/21 04:19 10/11/21 04:19 Micro: Microbiology 10/10/21 10:57 Blood Culture - Preliminary Blood NEGATIVE TO DATE 10/10/21 11:05 Blood Culture - Preliminary Blood 10/10/21 10:37 Urine Culture - Preliminary Urine,Clean Catch A&P Assessment and plan (1) Chest pain: Substernal in nature without radiation, with some features such as dyspnea and occurrence with exertion that are concerning but otherwise atypical Status: Acute Qualifiers: Chest pain type: precordial pain Qualified Code(s): R07.2 - Precordial pain (2) Elevated troponin I level: In intermediate range rather than a true positive delta. Does not have typical risk factors, beyond age and male sex, but does report dyspnea on exertion sometimes when specifically questioned. Also describe a similar chest pain on exertion. Imaging studies show thoracic aorta calcifications and tortuosity and a prior CT scan in 2020 showed what was described as severe calcified coronary artery disease . Status: Acute (3) Leukocytosis: White count 22,000 with predominance of neutrophils. Urinalysis not really remarkable for infection with negative nitrites and leukocyte esterase though does look concentrated. CXR without obvious infiltrate. Has folliculitis on chest but does not look overtly infected. No recent fever or malaise other than the shoulder pain and chest pain complaints. Status: Acute (4) Pain in right shoulder: Patient's primary presenting complaint. Based on history and examination tendinitis or rotator cuff injury are highest on my differential. Other diagnoses to consider include occult fracture, infection. Repetitive motion from this process or an injury from one of the falls he experienced could be the cause. Status: Acute Qualifiers: Chronicity: acute Qualified Code(s): M25.511 - Pain in right shoulder (5) Miliaria rubra: Status: Acute (6) Osteoarthritis: Multiple locations impacted, may be on chronic celebrex, acetaminophen, tramadol and oxycodone as needed for pain, primarily at left leg. Had left hip replacement in 03/2021, follow with orthopedics in [place] due to the complexity of the replacement (from prior injury and surgeries 20+ years ago). Unclear currently if he is still getting tramadol and oxycodone regularly, or if that is what he had been prescribed earlier this year after surgery. Status: Chronic (7) BPH loc w urin obs/LUTS: On flomax chronically, no current symptoms Status: Chronic (8) Dementia: Mild I presume based on patients ability to provide history which appear ac curate on review of available prior records when family has been present. Status: Chronic Qualifiers: Dementia type: vascular dementia Dementia behavioral disturbance: without behavioral disturbance Qualified Code(s): F01.50 - Vascular dementia without behavioral disturbance Plan Assessment: Chest pain: Likely noncardiac: Possibly coming from right shoulder pain Leukocytosis: Low clinical suspicion for infection Right shoulder pain Dementia Osteoarthritis Plan: 2D echo: Result appreciated Troponin trend: Noted EKG is failed to show any acute ST-T wave changes Lipid panel noted HbA1c:5.9 Procalcitonin: Normal Blood culture: 03/28 : GPC in clusters: Likely contaminant Rapid COVID antigen negative Continue IV hydration, pain control Continue aspirin Full code Attestations Medical Necessity Statement*: Patient is to be in hospital for management of, chest pain leukocytosis. Coding Level of Care Code Acute Workers Compensation Consultant for [facility] Fwd Diagnoses Chest pain R07.2 Chest pain type: precordial pain Elevated troponin I level R77.8 Leukocytosis D72.829 Pain in right shoulder M25.511 Chronicity: acute Miliaria rubra L74.0 Osteoarthritis M19.90 BPH loc w urin obs/LUTS N40.1 Dementia F01.50 Dementia type: vascular dementia Dementia behavioral disturbance: without behavioral disturbance
[2021-10-12] VITALS: BP 98/63; PULSE 70; RESP 17; TEMP 37.3; O2SAT 93
[2021-10-12 04:00] VITALS: BP 131/82; PULSE 112; RESP 18; TEMP 37.1; O2SAT 91
[2021-10-12 05:51] LABS: Basophils # 0.1 10^3/uL (0.0-0.1); Basophils % 0.4 %; Eosinophils # 0.2 10^3/uL (0.0-0.8); Eosinophils % 1.2 %; Hematocrit 39.7 % (42.0-52.0); Hemoglobin 13.2 g/dL (11.7-16.6); Lymphocytes # 3.9 10^3/uL (0.8-4.8); Lymphocytes % 20.9 %; Mean Corpuscular HGB Conc 33.2 g/dL (30.0-36.0); Mean Corpuscular Hemoglobin 28.5 pg (28.0-34.0); Mean Corpuscular Volume 85.7 fl (80-94); Mean Platelet Volume 9.9 fL (7.4-10.4); Monocytes % 5.2 %; Neutrophils # 13.32 10^3/uL (1.8-7.7); Neutrophils % 71.2 %; Nucleated Red Blood Cells % 0 %; Platelet Count 469 10^3/cmm (130-400); Red Blood Count 4.63 10^6/uL (4.1-5.3); White Blood Count 18.7 10^3/uL (4.0-10.0)
[2021-10-12] MEDS: aspirin 81 mg Chew Tablet PO (05:55)
[2021-10-12] MEDS: tamsulosin 0.4 mg Capsule PO (05:55)
[2021-10-12 06:24] LABS: Anion Gap 14.2 (5-19); Blood Urea Nitrogen 13 mg/dL (8-23); Calcium 8.5 mg/dL (8.5-10.5); Carbon Dioxide 23 mmol/L (22-29); Chloride 98 mmol/L (98-107); Glucose 110 mg/dL (65-115); Osmolality Calculated 273 mOsm/kg (285-295); Potassium 4.2 mmol/L (3.5-5.1); Sodium 131 mmol/L (136-145)
[2021-10-12 07:35] VITALS: BP 129/82; PULSE 90; RESP 18; TEMP 37.6; O2SAT 94
[2021-10-12] MEDS: polyethylene glycol 3350 Pkt 17 gm PO (09:21)
[2021-10-12] MEDS: clotrimazole-betamethasone cream 15gm 1 APPLIC TOPICAL (09:21)
[2021-10-12] MEDS: cyanocobalamin 1,000 mcg Tablet 1000 MCG PO (09:21)
[2021-10-12] MEDS: CELEcoxib 200 mg Capsule PO (09:21)
--- NOTE | 2021-10-12 09:53 | PC.CHAP ---
Pastoral Care Encounter/Spiritual Assessment Type of Contact [] Declined electronic lab technician visit [] Patient/Family/Request visit [] Outpatient visit [] Follow-up visit [] Physician referral [] Code/Alert [x] Routine visit [] Staff referral [] Actively dying [] Patient sleeping [] Family support [] [] Out of room [] Palliative care [] [x] Receiving care in room [] Pre-surgical visit [] Trauma [] Long length of stay [] ICU visit [] Other: Relational/Emotional Strength [x] Patient feels connected with others/family/visitors/staff [] Distress [] Loneliness/isolation [] Abandonment Spirituality of Patient [x] Person of Berta [] Attends Mosque of their Berta [x] Believes in Prayer [] Reads Bible or Anabaptism materials [] There are Spiritual issues to be addressed Process Design 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 Interventions [x] Prayer [x] Active listening [x] Non-anxious presence [x] Spiritual/emotional support [] Crisis/trauma care [x] Spiritual counseling [] Bereavement support [] Provided bereavement packet [] Provided Bible/devotional materials [] Provided toy/stuffed animal, coloring book to patient or family member [] Provided Communion [] Anointing/[place] [] Salvation [x] Completed spiritual assessment [] Other: Impact on Illness or Injury [] Angry [] Fearful [x] Anxious [] Often cries [] Exhaustion [] Unable to work [] Unable to attend restorationism [] Unable to walk/stand [] Unable to read [] Unable to drive [] Unable to eat/drink [] Unable to sleep [] Unable to be with family [] Patient intubated [] Other: Summary confused about what day it is about his health well go home Time spent with patient 10 mins
[2021-10-12 13:58] LABS: Quest SARS-CoV-2 RNA NOT DETECTED (NOT DETECTED)
--- NOTE | 2021-10-12 17:52 | PM.DCS ---
Discharge Providers Date of Admission: 10/11/21 16:48 Date of Discharge: October 12, 2021 Attending Provider at Admission: Ayana Lord MD Attending Provider at Discharge: Minh Ramos MD Primary Care Provider: Vesta Dominguez Diagnoses at Discharge Discharge Diagnosis (1) Chest pain: Status: Acute Qualifiers: Chest pain type: precordial pain Qualified Code(s): R07.2 - Precordial pain (2) Elevated troponin I level: Status: Acute (3) Leukocytosis: Status: Acute (4) Pain in right shoulder: Status: Acute Qualifiers: Chronicity: acute Qualified Code(s): M25.511 - Pain in right shoulder (5) Miliaria rubra: Status: Acute (6) Osteoarthritis: Status: Chronic (7) BPH loc w urin obs/LUTS: Status: Chronic (8) Dementia: Status: Chronic Qualifiers: Dementia behavioral disturbance: without behavioral disturbance Dementia type: vascular dementia Qualified Code(s): F01.50 - Vascular dementia without behavioral disturbance Permanent problem details: Specific type unknown Reason for Visit Reason for Visit: R shoulder pain Hospital Course Hospital Course 75 year old male who presented to the emergency room because of severe right shoulder pain.The pain started sometime in the last week.? It had been bothering him just when he use the shoulder or arm but last night it kept him awake all night.? He was sleeping on his left side at the time. Patient was also complaining of substernal chest pain, during his hospital stay he was managed and worked up for chest pain: Likely noncardiac chest pain: 2D echo was done during the hospital stay: LV systolic function is normal with EF of 60 to 65%.Mild mitral regurgitatio. Mild to moderate tricuspid regurgitation.Mild ascending aortic dilation. Troponin trend: Was normal, EKG failed to show any acute ST-T wave changes, patient did not complain of any chest pain during the hospital stay. For his leukocytosis: Initially blood cultures : Blood culture grew staph aureus:2/ bottles, patient has been discharged on p.o. Zyvox for 2 weeks, repeat blood culture has been scheduled in 2 weeks, has been informed, that if the patient, has any fever, cough, worsening shortness of breath, hypotension, she will have to bring him back to the ER. CT scan of shoulder had shown: Incidental finding of: increased density in the anterior superior mediastinum, partially visualized, patient will do CT chest as outpatient, for further better understanding, of the given, CT finding, since the patient is also complaining of persistent fatigue, possibility of underlying malignancy cannot be completely ruled out, CT of the chest has been scheduled as outpatient. Given his history of possible what appears to be possible recurrent syncopal event, as neither family nor the patient is providing clear-cut history of it, order for event monitor has been placed as outpatient. Given the fact that the patient was hemodynamically stable, he has been discharged home. has been updated. Physical Exam Narrative: Not in acute distress HENMT: COMMON NORMALS: normocephalic and atraumatic HEAD & SCALP: normocephalic and atraumatic Chest: CHEST: Yes Symmetrical chest wall rise Resp: COMMON NORMALS: normal respiratory effort, No retractions, No use of accessory muscles and clear to auscultation bilaterally EFFORT & INSPECTION: Yes symmetric chest movement AUSCULTATION: clear to auscultation bilaterally Cardio: COMMON NORMALS: regular rate, regular rhythm, S1 normal heart sound present, S2 normal heart sound present, No gallops present (Cardio), No murmurs present (Cardio), No rub (Cardio) and Peripheral pulses 2+ throughout RATE: regular rate RHYTHM: regular rhythm HEART SOUNDS: S1 normal heart sound present and S2 normal heart sound present PERIPHERAL PULSES: Peripheral pulses 2+ throughout GI: COMMON NORMALS: Normal to inspection, nondistended, normoactive bowel sounds present, Soft to palpation, non-tender, No hepatosplenomegaly present and no masses AUSCULTATION: Yes normoactive bowel sounds PALPATION: Yes Soft to palpation and Yes No hepatosplenomegaly present RECTAL EXAM: Yes deferred Extremity: COMMON NORMALS: no clubbing, cyanosis or edema and no pedal edema Discharge Data Studies Completed and Pending Completed Studies During Hospitalization Category Date Time Status CT head wo con* [id number] Urgent Cat Scan 10/10/21 08:[address] shoulder RT w con [id number] Routine Cat Scan 10/10/21 20:41 Completed XR chest 1V portable [id number] Urgent Exams 10/10/21 08:12 Completed XR shoulder RT min 2V* [id number] Urgent Exams 10/10/21 08:12 Completed CV. echo complete* [id number] Routine Ultrasound 10/10/21 19:46 Completed Pending at discharge Category Date Time Status Blood Culture Stat Lab 10/10/21 10:57 Results Radiology Impressions Chest X-Ray 10/10/21 08:12 IMPRESSION: No acute chest abnormality. Head CT 10/10/21 08:12 IMPRESSION: 1. No evidence of intracranial hemorrhage or mass effect. 2. Moderate small vessel changes. Moderate parenchymal volume loss. 3. No acute intracranial findings. 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 Moderate rotator cuff tendon arthropathy. Shoulder CT 10/10/21 20:41 IMPRESSION: 1. No acute osseous or acute extremity soft tissue findings. 2. Incidental findings of pleural effusion and partially visualized anterior superior mediastinal density. See discussion above. Correlation with chest CT should be considered. Laboratory Results WBC 18.7 10^3/uL (4.0-10.0) H 10/12/21 05:10 RBC 4.63 10^6/uL (4.1-5.3) 10/12/21 05:10 Hgb 13.2 g/dL (11.7-16.6) 10/12/21 05:10 Hct 39.7 % (42.0-52.0) L 10/12/21 05:10 MCV 85.7 fl (80-94) 10/12/21 05:10 MCH 28.5 pg (28.0-34.0) 10/12/21 05:10 MCHC 33.2 g/dL (30.0-36.0) 10/12/21 05:10 RDW 14.0 % (12.1-15.1) 10/12/21 05:10 Plt Count 469 10^3/cmm (130-400) H 10/12/21 05:10 MPV 9.9 fL (7.4-10.4) 10/12/21 05:10 Neut % (Auto) 71.2 % 10/12/21 05:10 Lymph % (Auto) 20.9 % 10/12/21 05:10 [place] % (Auto) 5.2 % 10/12/21 05:10 Eos % (Auto) 1.2 % 10/12/21 05:10 Baso % (Auto) 0.4 % 10/12/21 05:10 Neut # (Auto) 13.32 10^3/uL (1.8-7.7) H 10/12/21 05:10 Lymph # (Auto) 3.9 10^3/uL (0.8-4.8) 10/12/21 05:10 [place] # (Auto) 1.0 10^3/uL (0.2-0.9) H 10/12/21 05:10 Eos # (Auto) 0.2 10^3/uL (0.0-0.8) 10/12/21 05:10 Baso # (Auto) 0.1 10^3/uL (0.0-0.1) 10/12/21 05:10 Nucleated RBC % (auto) 0 % 10/12/21 05:10 Nucleated RBCs # 0.0 /100WBC 10/12/21 05:10 ESR 91 mm/hr (0-10) H 10/10/21 08:32 Sodium 131 mmol/L (136-145) L 10/12/21 05:10 Potassium 4.2 mmol/L (3.5-5.1) 10/12/21 05:10 Chloride 98 mmol/L (98-107) 10/12/21 05:10 Carbon Dioxide 23 mmol/L (22-29) 10/12/21 05:10 Anion Gap 14.2 (5-19) 10/12/21 05:10 BUN 13 mg/dL (8-23) 10/12/21 05:10 Creatinine 0.7 mg/dL (0.7-1.2) 10/12/21 05:10 GFR Calculation Not Reportable 10/12/21 05:10 Glucose 110 mg/dL (65-115) 10/12/21 05:10 Estimat Average Glucose 123 10/11/21 04:19 Hemoglobin A1c 5.9 % (4.0-6.0) 10/11/21 04:19 Calculated Osmolality 273 mOsm/kg (285-295) L 10/12/21 05:10 Uric Acid 3.2 mg/dL (3.4-7.0) L 10/10/21 15:13 Calcium 8.5 mg/dL (8.5-10.5) 10/12/21 05:10 Phosphorus 2.3 mg/dL (2.5-4.5) L 10/10/21 15:13 Magnesium 2.2 mg/dL (1.7-2.3) 10/10/21 15:13 Total Bilirubin 1.0 mg/dL (0.15-1.2) 10/10/21 09:24 AST 16 U/L (0-40) 10/10/21 09:24 ALT 15 U/L (0-41) 10/10/21 09:24 Alkaline Phosphatase 106 IU/L (40-130) 10/10/21 09:24 Creatine Kinase 67 U/L (39-308) 10/10/21 15:13 Troponin T Baseline 7 ng/L (0-15) 10/10/21 09:11 Troponin T 120 Minute 14.22 ng/L (0-15) 10/10/21 11:05 Delta Troponin T 7.22 ABS# (0-10) 10/10/21 11:05 Troponin T Hi Sens 6Hr 13.47 ng/L (0-15) 10/10/21 15:13 Troponin T Hi Sens 6Hr Delta -6.47 ng/L (0-12) L 10/10/21 15:13 C-Reactive Protein 187.0 mg/L (0.0-4.9) H 10/11/21 04:19 NT-Pro-B Natriuret Pep 428 pg/mL (0-450) 10/11/21 04:19 Total Protein 7.0 g/dL (6.6-8.7) 10/10/21 09:24 Albumin 3.4 g/dL (3.5-5.2) L 10/10/21 09:24 Globulin 3.6 g/dL (1.3-4.6) 10/10/21 09:24 Triglycerides 92 mg/dL (0-150) 10/11/21 04:19 Cholesterol 113 mg/dL (0-200) 10/11/21 04:19 LDL Cholesterol, Calc 77 mg/dL (50-129) 10/11/21 04:19 HDL Cholesterol 18 mg/dL (60-100) L 10/11/21 04:19 LDL/HDL Ratio 4.28 RATIO (0.00-3.22) H 10/11/21 04:19 Cholesterol/HDL Ratio 6.28 mg/dL (1.0-5.00) H 10/11/21 04:19 Procalcitonin 0.27 ng/mL (0-0.5) 10/10/21 15:13 Urine Color Dark yellow (Yellow) 10/10/21 10:37 Urine Appearance Clear (CLEAR) 10/10/21 10:37 Urine pH 5 (5-7) 10/10/21 10:37 Ur Specific [place] 1.020 (1.005-1.030) 10/10/21 10:37 Urine Protein Neg (Negative) 10/10/21 10:37 Urine Glucose (UA) Norm (Normal) 10/10/21 10:37 Urine Ketones 1+ (Negative) H 10/10/21 10:37 Urine Blood 2+ (Negative) H 10/10/21 10:37 Urine Nitrate Negative (Negative) 10/10/21 10:37 Urine Bilirubin Neg (Negative) 10/10/21 10:37 Urine Urobilinogen 4 mg/dL (Negative) H 10/10/21 10:37 Ur Leukocyte Esterase Negative (Negative) 10/10/21 10:37 Urine RBC 0-4 /hpf (0-2) H 10/10/21 10:37 Urine WBC 0-4 /hpf (0-5) H 10/10/21 10:37 Ur Squamous Epith Cells 0-4 /hpf (0-5) H 10/10/21 10:37 Amorphous Sediment Not Reportable 10/10/21 10:37 Urine Bacteria 1+ /hpf (NONE) H 10/10/21 10:37 Hyaline Casts 0-4 /lpf H 10/10/21 10:37 SARS-CoV-2 RNA (RT-PCR) Not detected (NOT DETECTED) 10/11/21 00:24 SARS-CoV-2 Ag (Rapid) Negative (Negative) 10/10/21 01:00 Vitals Last Vital Signs Temp 99.7 F H 10/12/21 07:35 Pulse 90 10/12/21 07:35 Resp 18 10/12/21 07:35 BP 129/82 10/12/21 07:35 Pulse Ox 94 10/12/21 07:35 Discharge Plan Discharge Patient Disposition: Home Condition: Stable Prescriptions: New Zyvox 600 mg tablet 600 mg PO BID 14 Days Qty: 28 0RF Continued celecoxib 200 mg capsule 200 mg PO BID 0RF polyethylene glycol 3350 [Miralax] 17 gram Powder In Packet 17 g PO DAILY PRN (Reason: Constipation) 0RF tramadol 50 mg tablet 50 mg PO Q6H PRN (Reason: Pain) 0RF famotidine 20 mg tablet 20 mg PO DAILY PRN (Reason: Acid Reflux) 0RF oxycodone 5 mg tablet 5 mg PO Q4H PRN (Reason: Pain) 0RF aspirin 81 mg Tablet,Chewable 81 mg PO QAM 0RF acetaminophen 500 mg Tablet 1,000 mg PO Q6H PRN (Reason: Pain) 0RF Vitamin B-12 5,000 mcg Tablet, Sublingual 10,000 mcg PO DAILY 0RF tamsulosin 0.4 mg capsule 0.4 mg PO QAM 0RF Discharge Orders: Discharge Order (Routine); Ordered 10/12/21 Ordered By: Minh Ramos Other Ambulatory Orders: CT chest w con* [id number] (Routine) Timeframe: 2 Weeks Facility: [facility] - Location: Radiology [facility] Ordered By: Minh Ramos Blood Culture (Routine) Timeframe: 2 Weeks Facility: [facility] - Location: Lab - Main Lab Ordered By: Minh Ramos MCT/Event Monitor 21 Days (Routine) Timeframe: 1 Week Facility: [facility] - Location: Radiology Ordered By: Minh Ramos Referrals: fIrah Edwards MD [Physician] - 10/18/21 10:45 am (Dr Edwards is aware, Dr Lord spoke with her, and Grace asked for patient to be scheduled outpatient clinic to be seen for Pain and Decreased ROM right shoulder. ) Vesta Dominguez PA [Primary Care Provider] - 1 week Discharge Diet: Regular Patient Instructions: Angina (DC), Chest Pain Stoplight, Opioid Safety Discharge Attestations Time Spent in Discharge Care*: less than 30 min Quality Metrics Clinical Quality Measures [ No reported AMI, CVA or VTE this stay] Coding Level of Care Code Acute Chg FW DC note Exam Detailed Diagnoses Chest pain R07.2 Chest pain type: precordial pain Elevated troponin I level R77.8 Leukocytosis D72.829 Pain in right shoulder M25.511 Chronicity: acute Miliaria rubra L74.0 Osteoarthritis M19.90 BPH loc w urin obs/LUTS N40.1 Dementia F01.50 Dementia behavioral disturbance: without behavioral disturbance Dementia type: vascular dementia
== END 2021-10-12 12:10 | disposition home or self-care (01) | DRG 313 ==
LOC: ER 18:28 → MEDSURG 18:45
PROVIDERS: Physician Assistant; Admitting Provider Hospitalist; Emergency Provider Family Medicine; PCP Physician Assistant; Visit Provider Internal Medicine
DX: R07.2 Precordial pain (principal); M25.511 Pain in right shoulder; D72.829 Elevated white blood cell count, unspecified; R77.8 Other specified abnormalities of plasma proteins; R93.89 Abnormal findings on diagnostic imaging of other specified body structures; R29.6 Repeated falls; R55 Syncope and collapse; R42 Dizziness and giddiness; R53.83 Other fatigue; N40.1 Benign prostatic hyperplasia with lower urinary tract symptoms; F01.50 Vascular dementia, unspecified severity, without behavioral disturbance, psychotic disturbance, mood disturbance, and anxiety; M15.9 Polyosteoarthritis, unspecified; L74.0 Miliaria rubra; I25.10 Atherosclerotic heart disease of native coronary artery without angina pectoris; Z96.641 Presence of right artificial hip joint; Z20.822 Contact with and (suspected) exposure to COVID-19
CPT/HCPCS: 36415; 70450; 71045; 73030; 73201; 80048; 80053; 80061; 81001; 82550; 83036; 83735; 83880; 84100; 84145; 84484; 84550; 85025; 85651; 86140; 87040; 87077; 87086; 87186; 87205; 87426; 87635; 93005; 93306; 94760; 96360; 99285; G0378; J7030; Q9967

== ENCOUNTER 2021-10-14 05:03 | Emergency (ER) | payer MEDICARE, OTHER, SELFPAY ==
[2021-10-14] VITALS (8 sets, daily range): BP systolic 98–129; BP diastolic 70–87; PULSE 73–92; RESP 15–24; TEMP 36.6–38.1; O2SAT 90–97; BMI 22.9
--- NOTE | 2021-10-14 05:12 | XRR_ITS ---
PROCEDURE INFORMATION: Exam: XR Chest Exam date and time: 10/14/2021 5:36 AM Age: 75 years old Clinical indication: Patient HX: C/O RT lower back pain. Fever. Recently admitted and discharged from hospital for elevated crp, wbc, esr, and staph positive blood culture. History of dementia. TECHNIQUE: Imaging protocol: Radiologic exam of the chest. Views: 1 view. COMPARISON: CR XR chest 1V portable [id number] 10/10/2021 8:17 AM FINDINGS: Lungs: Mild bilateral perihilar interstitial opacities are seen, right more than left. Right hilar prominence is seen. These findings may represent pneumonia. Right hilar lymphadenopathy cannot be excluded. Chest CT may be performed for complete assessment.. There are no airspace opacities. Pleural spaces: No pleural effusion. No pneumothorax. Heart/Mediastinum: The heart size is normal. There is a mildly tortuous thoracic aorta. Diaphragm: Mildly elevated right hemidiaphragm is seen Bones/joints: No acute osseous abnormalities seen. Small degenerative osteophytes are seen throughout the thoracic spine. Soft tissues: Multiple external densities are seen overlying the chest, limiting assessment. XR/XR chest 1V portable [id number] IMPRESSION: Mild bilateral perihilar interstitial opacities, right more than left. Right hilar prominence is seen. These findings may represent pneumonia. Right hilar lymphadenopathy cannot be excluded. Chest CT may be performed for complete assessment..
--- NOTE | 2021-10-14 05:15 | ED_ITS ---
Documented by User: Nikunj Gray MD 10/14/21 05:24 HPI - Fever General: Chief Complaint: Back Pain/Injury Stated Complaint: BACK PAIN Time Seen by Provider: 10/14/21 05:08 Source: patient and EMS Mode of arrival: EMS Limitations: altered mental status History of Present Illness: 75-year-old male has a history of dementia and is a difficult historian most history is from EMS. Actually reviewing patient's records he had recently been admitted here for shoulder pain along with elevated ESR CRP and white count. Patient had no source of infection found he did have blood cultures grew out staph RES. Per EMS they were called for patient having back pain. When they arrived patient appeared to be in pain they state he was not able to ambulate due to his pain most pain was in his right low back and lumbar region. He does have a history of chronic back pain as well. Patient's febrile here he has no bowel or bladder incontinence his pain is improved he rates his pain a 2 out of 10 currently perceived 100 of fentanyl in route. Associated symptoms: Deny abdominal pain, chest pain, diarrhea, dysuria, headache(s), nausea or vomiting Review of Systems Const: Reports: fever(s) and body aches Eyes: Denies: blurry vision or eye discomfort ENMT: Denies: throat pain or dental pain Card: Denies: chest pain Resp: Denies: dyspnea GI: Denies: abdominal pain, nausea, vomiting or diarrhea : Denies: dysuria Musc: Reports: back pain Skin/Breast: Denies: rash Neuro: Denies: headache(s) Psych: Denies: depression Pawel/Lymph: Denies: easy bruising All/Imm: Denies: urticaria PFSH ED PFSH: Medical History BPH loc w urin obs/LUTS Chest pain 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 Mother , AT AGE 88 No problems noted. Social History Smoking and tobacco status: never smoked Alcohol intake: never Household members: spouse Marital status: Current occupational status: retired Physical Exam Const: COMMON NORMALS: negative for patient oriented x3 HENMT: COMMON NORMALS: normocephalic and atraumatic HEAD & SCALP: normocephalic and atraumatic Eye: COMMON NORMALS: Equal, round and reactive pupils present and EOMs intact bilaterally PUPIL: Yes Equal, round and reactive pupils present Neck/C-Spine: COMMON NORMALS: full ROM and supple Chest: COMMONS NORMALS: normal inspection of the chest and normal palpation of entire chest wall Resp: COMMON NORMALS: normal respiratory effort, No retractions, No use of accessory muscles and clear to auscultation bilaterally AUSCULTATION: clear to auscultation bilaterally Cardio: COMMON NORMALS: regular rate, regular rhythm and No murmurs present (Cardio) RATE: regular rate RHYTHM: regular rhythm GI: COMMON NORMALS: Normal to inspection, nondistended, normoactive bowel sounds present, Soft to palpation, non-tender and no masses PALPATION: Yes Soft to palpation Extremity: COMMON NORMALS: normal to inspection and full ROM Neuro: COMMON NORMALS: moves all extremities and no focal motor deficits; negative for patient oriented x3 Psych: COMMON NORMALS: mental status grossly normal, Normal thought process present and cooperative THOUGHT PROCESS: Normal thought process present Skin: COMMON NORMALS: no rashes or lesions noted and no wounds GENERAL SKIN EXAM: no rashes or lesions noted Course Vital Signs: Vital signs: Vital Signs Temperature 98.4 F 10/14/21 09:20 Pulse Rate 73 10/14/21 09:20 Respiratory Rate 15 10/14/21 09:20 Blood Pressure 119/80 10/14/21 09:20 Pulse Oximetry 96 10/14/21 09:20 MDM - Fever Lab Data : 10/14/21 07:08 10/14/21 05:26 Radiology Impressions Chest X-Ray 10/14/21 05:12 IMPRESSION: Mild bilateral perihilar interstitial opacities, right more than left. Right hilar prominence is seen. These findings may represent pneumonia. Right hilar lymphadenopathy cannot be excluded. Chest CT may be performed for complete assessment.. Abdomen/Pelvis CT 10/14/21 05:16 IMPRESSION: 1. Severely enlarged prostate seen with mass effect on the base of the bladder. Some heterogeneous attenuation material seen in the bladder, which may represent blood products. No bladder wall thickening. 2. Mild constipation. Mild descending and sigmoid colonic diverticulosis, without CT evidence of diverticulitis. 3. Small right pleural effusion. 4. Postsurgical changes of the left hip, as noted above. Degenerative changes of the lumbar spine and pelvis, as noted above. Chest CT 10/14/21 07:53 IMPRESSION: 1. Amorphous soft tissue attenuation right anterior mediastinal 4.5 x 3.9 x 5.3 cm region seen (series 4, images 19-31, series 8 images 32 to 41 and series 7 images 13 - 20). This was not seen on the prior CT dated September 18, 2020. This could represent a posttraumatic hematoma, infectious etiology or mass (lymphoma or other malignancy). Recommend correlation with clinical history. 2. Mediastinal lymphadenopathy, as noted above. 3. Small right pleural effusion. Mild right lower lobe and minimal left lower lobe atelectasis. No regions of lung consolidation. 4. Small hiatal hernia. Laboratory Results WBC 16.2 10^3/uL (4.0-10.0) H 10/14/21 07:08 Corrected WBC Cancelled 10/14/21 05:26 RBC 3.99 10^6/uL (4.1-5.3) L 10/14/21 07:08 Hgb 11.5 g/dL (11.7-16.6) L 10/14/21 07:08 Hct 35.8 % (42.0-52.0) L 10/14/21 07:08 MCV 89.7 fl (80-94) 10/14/21 07:08 MCH 28.8 pg (28.0-34.0) 10/14/21 07:08 MCHC 32.1 g/dL (30.0-36.0) 10/14/21 07:08 RDW 14.2 % (12.1-15.1) 10/14/21 07:08 Plt Count 419 10^3/cmm (130-400) H 10/14/21 07:08 MPV 9.8 fL (7.4-10.4) 10/14/21 07:08 Gran % Cancelled 10/14/21 05:26 Neut % (Auto) 70.9 % 10/14/21 07:08 Lymph % (Auto) 20.9 % 10/14/21 07:08 Lynn % (Auto) 6.4 % 10/14/21 07:08 Eos % (Auto) 0.7 % 10/14/21 07:08 Baso % (Auto) 0.3 % 10/14/21 07:08 Neut # (Auto) 11.49 10^3/uL (1.8-7.7) H 10/14/21 07:08 Lymph # (Auto) 3.4 10^3/uL (0.8-4.8) 10/14/21 07:08 Lynn # (Auto) 1.0 10^3/uL (0.2-0.9) H 10/14/21 07:08 Eos # (Auto) 0.1 10^3/uL (0.0-0.8) 10/14/21 07:08 Baso # (Auto) 0.1 10^3/uL (0.0-0.1) 10/14/21 07:08 Absolute Gran (auto) Cancelled 10/14/21 05:26 Nucleated RBC % (auto) 0 % 10/14/21 07:08 Nucleated RBCs # 0.0 /100WBC 10/14/21 07:08 ESR 79 mm/hr (0-10) H 10/14/21 07:08 Sodium 131 mmol/L (136-145) L 10/14/21 05:26 Potassium 4.2 mmol/L (3.5-5.1) 10/14/21 05:26 Chloride 96 mmol/L (98-107) L 10/14/21 05:26 Carbon Dioxide 24 mmol/L (22-29) 10/14/21 05:26 Anion Gap 15.2 (5-19) 10/14/21 05:26 BUN 13 mg/dL (8-23) 10/14/21 05:26 Creatinine 0.8 mg/dL (0.7-1.2) 10/14/21 05:26 GFR Calculation Not Reportable 10/14/21 05:26 Glucose 116 mg/dL (65-115) H 10/14/21 05:26 Calculated Osmolality 273 mOsm/kg (285-295) L 10/14/21 05:26 Lactate 1.1 mmol/L (0.5-2.2) 10/14/21 05:26 Calcium 8.5 mg/dL (8.5-10.5) 10/14/21 05:26 Total Bilirubin 0.6 mg/dL (0.15-1.2) 10/14/21 05:26 AST 17 U/L (0-40) 10/14/21 05:26 ALT 18 U/L (0-41) 10/14/21 05:26 Alkaline Phosphatase 93 IU/L (40-130) 10/14/21 05:26 C-Reactive Protein 142.3 mg/L (0.0-4.9) H 10/14/21 05:26 Total Protein 7.2 g/dL (6.6-8.7) 10/14/21 05:26 Albumin 2.6 g/dL (3.5-5.2) L 10/14/21 05:26 Globulin 4.6 g/dL (1.3-4.6) 10/14/21 05:26 Urine Color Yellow (Yellow) 10/14/21 05:51 Urine Appearance Clear (CLEAR) 10/14/21 05:51 Urine pH 7 (5-7) 10/14/21 05:51 Ur Specific [place] 1.005 (1.005-1.030) 10/14/21 05:51 Urine Protein Neg (Negative) 10/14/21 05:51 Urine Glucose (UA) Norm (Normal) 10/14/21 05:51 Urine Ketones Negative (Negative) 10/14/21 05:51 Urine Blood 2+ (Negative) H 10/14/21 05:51 Urine Nitrate Negative (Negative) 10/14/21 05:51 Urine Bilirubin Neg (Negative) 10/14/21 05:51 Urine Urobilinogen 4+ mg/dL (Negative) H 10/14/21 05:51 Ur Leukocyte Esterase Negative (Negative) 10/14/21 05:51 Urine RBC 5-10 /hpf (0-2) H 10/14/21 05:51 Urine WBC 0-4 /hpf (0-5) H 10/14/21 05:51 Ur Squamous Epith Cells 0-4 /hpf (0-5) H 10/14/21 05:51 Amorphous Sediment Not Reportable 10/14/21 05:51 Urine Bacteria Trace /hpf (NONE) 10/14/21 05:51 Urine Mucus Trace /hpf 10/14/21 05:51 SARS-CoV-2 Ag (Rapid) Negative (Negative) 10/14/21 05:51 Discharge Plan Discharge Condition: Stable Prescriptions: No Action celecoxib 200 mg capsule 200 mg PO BID 0RF polyethylene glycol 3350 [Miralax] 17 gram Powder In Packet 17 g PO DAILY PRN (Reason: Constipation) 0RF tramadol 50 mg tablet 50 mg PO Q6H PRN (Reason: Pain) 0RF famotidine 20 mg tablet 20 mg PO DAILY PRN (Reason: Acid Reflux) 0RF oxycodone 5 mg tablet 5 mg PO Q4H PRN (Reason: Pain) 0RF aspirin 81 mg Tablet,Chewable 81 mg PO QAM 0RF acetaminophen 500 mg Tablet 1,000 mg PO Q6H PRN (Reason: Pain) 0RF Vitamin B-12 5,000 mcg Tablet, Sublingual 10,000 mcg PO DAILY 0RF tamsulosin 0.4 mg capsule 0.4 mg PO QAM 0RF Zyvox 600 mg tablet 600 mg PO BID 14 Days Qty: 28 0RF Referrals: Vesta Dominguez PA [Primary Care Provider] - Coding Level of Care Code ED Java 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 Professor for Chg Fwd Exam Comprehensive Documented by User: Jonathan Mujica DO 10/14/21 09:42 HPI - Fever General: Chief Complaint: Back Pain/Injury Stated Complaint: BACK PAIN Time Seen by Provider: 10/14/21 05:08 PFSH ED PFSH: Medical History BPH loc w urin obs/LUTS Chest pain 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 Mother , AT AGE 88 No problems noted. Social History Smoking and tobacco status: never smoked Alcohol intake: never Household members: spouse Marital status: Current occupational status: retired Course Vital Signs: Vital signs: Vital Signs Temperature 98.4 F 10/14/21 09:20 Pulse Rate 73 10/14/21 09:20 Respiratory Rate 15 10/14/21 09:20 Blood Pressure 119/80 10/14/21 09:20 Pulse Oximetry 96 10/14/21 09:20 MDM - Fever Medical Decision Making Patient's labs show improvement from hospitalization a couple days ago. They had not picked up with her antibiotic yet in order doing that today. Patient received a dose of Vanco in the ER. Patient's abdominal CT showed severely enlarged prostate, some mild constipation but no other significant acute fin dings. Patient's chest CT shows soft tissue attenuation of the anterior mediastinal along with numerous lymph nodes. This is likely the etiology of the elevated ESR and CRP. I suspect this time is probably likely lymphoma versus other cancer. Patient back pain likely due to his chronic back pain and not associated with any infectious etiology. I had a long discussion with family regarding findings. At this time I do not feel patient would benefit from hospitalization but does need to have close outpatient follow-up. He needs to fill his prescription for his antibiotics and start them today. Needs to follow closely with his primary care provider in the next 1 to 2 days. I will provide him with some Lortab to help bridge until he can follow-up with his primary care provider in the next Few days. Patient should return to the ER as needed. He is stable and discharged home Lab Data : 10/14/21 07:08 10/14/21 05:26 Radiology Impressions Chest X-Ray 10/14/21 05:12 IMPRESSION: Mild bilateral perihilar interstitial opacities, right more than left. Right hilar prominence is seen. These findings may represent pneumonia. Right hilar lymphadenopathy cannot be excluded. Chest CT may be performed for complete assessment.. Abdomen/Pelvis CT 10/14/21 05:16 IMPRESSION: 1. Severely enlarged prostate seen with mass effect on the base of the bladder. Some heterogeneous attenuation material seen in the bladder, which may represent blood products. No bladder wall thickening. 2. Mild constipation. Mild descending and sigmoid colonic diverticulosis, without CT evidence of diverticulitis. 3. Small right pleural effusion. 4. Postsurgical changes of the left hip, as noted above. Degenerative changes of the lumbar spine and pelvis, as noted above. Chest CT 10/14/21 07:53
--- NOTE | 2021-10-14 05:16 | CTR_ITS ---
PROCEDURE INFORMATION: Exam: CT Abdomen And Pelvis With Contrast Exam date and time: 10/14/2021 5:29 AM Age: 75 years old Clinical indication: Prior surgery; Surgery type: Thr; Patient HX: C/O RT lower back pain. Fever. Recently admitted and discharged from hospital for elevated crp, wbc, esr, and staph positive blood culture. History of dementia. TECHNIQUE: Imaging protocol: Computed tomography of the abdomen and pelvis with contrast. Radiation optimization: All CT scans at this facility use at least one of these dose optimization techniques: automated exposure control; mA and/or kV adjustment per patient size (includes targeted exams where dose is matched to clinical indication); or iterative reconstruction. Contrast material: OMNI 350; Contrast volume: 95 ml; Contrast route: INTRAVENOUS (IV); COMPARISON: CR XR hip LT 2-3V wo/w pel* [id number] 04/20/2021 9:15 AM RADIATION DOSE METRICS: Total DLP (mGy-cm): 1059.86 FINDINGS: Pleural spaces: Small right pleural effusion is seen with minimal right basilar atelectasis. Liver: Minimal fatty infiltration is seen in the region of the falciform ligament. Some scattered 2-4 mm low-attenuation liver lesions are seen. These are suggestive of bile duct hamartomas. No further follow-up is necessary per ACR recommendations. Gallbladder and bile ducts: Mildly distended gallbladder is seen. No calcified stones. No biliary ductal dilatation. Pancreas: Some atrophic changes of the pancreas are seen. No ductal dilatation. Spleen: Normal splenic parenchymal attenuation. No splenomegaly. Adrenal glands: The adrenal glands are normal. Kidneys and ureters: There is normal enhancement of the kidneys. No masses. No hydronephrosis or ureterectasis. Stomach and bowel: The non-contrast opacified stomach is not well distended with relative gastric fold prominence. Assessment is limited. Small hiatal hernia is seen. The noncontrast opacified small bowel loops appear unremarkable. The noncontrast opacified loops of colon show mild constipation. Mild descending and sigmoid colonic diverticulosis is seen, without CT evidence of diverticulitis. Redundant sigmoid colon is seen. The lack of orally administered contrast material limits assessment. Appendix: The appendix is not visualized on the CT. No pericecal region inflammatory changes to give CT evidence of acute appendicitis. Intraperitoneal space: There is no pneumoperitoneum or abdominal ascites. Multiple phleboliths are seen in the pelvis. Vasculature: No abdominal aortic aneurysm. Mild atherosclerotic vascular calcifications are seen. Inferior vena cava and portal vein appear unremarkable. Lymph nodes: No enlarged lymph nodes. Urinary bladder: Severely enlarged prostate is seen with mass effect on the base of the bladder. Some heterogeneous attenuation material is seen in the bladder, which may represent blood products. There is no bladder wall thickening. Reproductive: See Urinary bladder finding. Bones/joints: Mild dextroconvex scoliosis of the upper lumbar spine is seen. Moderate degenerative disc disease changes are seen in the upper to mid lumbar region. Some degenerative facet disease changes are seen throughout the lumbar spine, moderate in the lower lumbar region. The patient is status post left bipolar hip arthroplasty with associated artifact. Moderate right hip degenerative changes are seen. Moderate sacroiliac joint and mild symphysis pubis degenerative changes are seen. Soft tissues: Tiny bilateral inguinal hernias are seen, containing peritoneal fat. Tiny umbilical hernia is seen, containing peritoneal fat. CT/CT abdomen pelvis w con* [id number] IMPRESSION: 1. Severely enlarged prostate seen with mass effect on the base of the bladder. Some heterogeneous attenuation material seen in the bladder, which may represent blood products. No bladder wall thickening. 2. Mild constipation. Mild descending and sigmoid colonic diverticulosis, without CT evidence of diverticulitis. 3. Small right pleural effusion. 4. Postsurgical changes of the left hip, as noted above. Degenerative changes of the lumbar spine and pelvis, as noted above.
[2021-10-14] MEDS: sodium chloride 0.9% 1,000 ML 999 ML IV (05:29)
[2021-10-14] MEDS: iohexol 350 mg/mL 100 mL Btl IV ×2 (05:44→08:49)
[2021-10-14] MEDS: acetaminophen 325 mg Tablet 650 MG PO (05:47)
[2021-10-14 05:51] LABS: Lactate (Lactic Acid level) 1.1 mmol/L (0.5-2.2)
[2021-10-14 05:52] LABS: Alanine Aminotransferase 18 U/L (0-41); Albumin Level 2.6 g/dL (3.5-5.2); Alkaline Phosphatase 93 IU/L (40-130); Anion Gap 15.2 (5-19); Aspartate Amino Transferase 17 U/L (0-40); Blood Urea Nitrogen 13 mg/dL (8-23); C Reactive Protein 142.3 mg/L (0.0-4.9); Calcium 8.5 mg/dL (8.5-10.5); Carbon Dioxide 24 mmol/L (22-29); Chloride 96 mmol/L (98-107); Globulin 4.6 g/dL (1.3-4.6); Glucose 116 mg/dL (65-115); Osmolality Calculated 273 mOsm/kg (285-295); Potassium 4.2 mmol/L (3.5-5.1); Sodium 131 mmol/L (136-145); Total Bilirubin 0.6 mg/dL (0.15-1.2); Total Protein 7.2 g/dL (6.6-8.7)
[2021-10-14 05:58] LABS: Bilirubin Urine Neg (Negative); Blood Urine 2+ (Negative); Glucose Urine UA Norm (Normal); Ketones Urine Negative (Negative); Nitrate Urine Negative (Negative); Protein Urine Neg (Negative); Specific Gravity, Urine 1.005 (1.005-1.030); Urine Appearance Clear (CLEAR); Urine Color Yellow (Yellow); pH Urine 7 (5-7)
[2021-10-14 05:59] LABS: Add Urine Microscopic? YES; Leukocyte Esterase Urine Negative (Negative); Urobilinogen Urine 4+ mg/dL (Negative)
[2021-10-14 06:00] LABS: Squamous Epithelial Cell Urine 0-4 /hpf (0-5); WBC Urine 0-4 /hpf (0-5)
[2021-10-14 06:01] LABS: Add Urine Culture? No; Bacteria Urine TRACE /hpf; Mucus Urine TRACE /hpf
[2021-10-14 06:13] LABS: SARS Covid-2 Antigen Negative (Negative)
[2021-10-14] MEDS: vancomycin 1,000 MG in sodium chloride 0.9% 250 ML 250 MG IV (07:04)
[2021-10-14 07:22] LABS: Basophils # 0.1 10^3/uL (0.0-0.1); Basophils % 0.3 %; Eosinophils # 0.1 10^3/uL (0.0-0.8); Eosinophils % 0.7 %; Hematocrit 35.8 % (42.0-52.0); Hemoglobin 11.5 g/dL (11.7-16.6); Lymphocytes # 3.4 10^3/uL (0.8-4.8); Lymphocytes % 20.9 %; Mean Corpuscular HGB Conc 32.1 g/dL (30.0-36.0); Mean Corpuscular Hemoglobin 28.8 pg (28.0-34.0); Mean Corpuscular Volume 89.7 fl (80-94); Mean Platelet Volume 9.8 fL (7.4-10.4); Monocytes % 6.4 %; Neutrophils # 11.49 10^3/uL (1.8-7.7); Neutrophils % 70.9 %; Nucleated Red Blood Cells % 0 %; Platelet Count 419 10^3/cmm (130-400); Red Blood Count 3.99 10^6/uL (4.1-5.3); Red Cell Distribution Width 14.2 % (12.1-15.1); White Blood Count 16.2 10^3/uL (4.0-10.0)
[2021-10-14 07:32] LABS: Erythrocyte Sedimentation Rate 79 mm/hr (0-10)
--- NOTE | 2021-10-14 07:53 | CTR_ITS ---
PROCEDURE INFORMATION: Exam: CT Chest With Contrast; Diagnostic Exam date and time: 10/14/2021 8:33 AM Age: 75 years old Clinical indication: Abnormal findings; Abnormal radiologic exam of lung or chest; Additional info: Pneumonia, ? mass TECHNIQUE: Imaging protocol: Diagnostic computed tomography of the chest with contrast. Radiation optimization: All CT scans at this facility use at least one of these dose optimization techniques: automated exposure control; mA and/or kV adjustment per patient size (includes targeted exams where dose is matched to clinical indication); or iterative reconstruction. Contrast material: OMNI 350; Contrast volume: 50 ml; Contrast route: INTRAVENOUS (IV); COMPARISON: CT angio chest PE protcl [id number] 09/18/2020 12:27 PM RADIATION DOSE METRICS: Total DLP (mGy-cm): 707.31 FINDINGS: Trachea: The trachea is midline. Lungs: Small right pleural effusion is seen. Mild right lower lobe and minimal left lower lobe platelike atelectasis is seen. There are no lung regions of consolidation or pneumonia. There is no interstitial lung disease. Pleural spaces: No pneumothorax. Heart: The cardiac chamber size is normal. No pericardial effusion. No coronary arterial atherosclerotic vascular calcifications. Mediastinal space: Amorphous soft tissue attenuation right anterior mediastinal 4.5 x 3.9 x 5.3 cm region is seen (series 4, images 19-31, series 8 images 32 to 41 and series 7 images 13 - 20). This was not seen on the prior CT. The right internal mammary artery extends through this region. This could represent a posttraumatic hematoma, infectious etiology or mass (lymphoma or other malignancy). Recommend correlation with clinical history. Lymph nodes: Enlarged right hilar 1 x 1.5 cm lymph node is seen. Enlarged subcarinal 1.2 x 1 cm lymph node is seen. Enlarged aortopulmonic window 1 x 1.5 cm lymph node is seen. Some subcentimeter prevascular, pretracheal and left hilar lymph nodes are seen. Vasculature: Mild atherosclerotic vascular calcifications of the thoracic aorta are seen. No thoracic aortic dissection or aneurysm. The origins of the great vessels appear unremarkable. The central pulmonary arteries appear unremarkable. Bones/joints: Severe degenerative changes of the sternoclavicular region are seen. Unchanged [id number] kyphotic curvature of the thoracic spine is seen. Unchanged small degenerative osteophytes and moderate degenerative disc disease changes are seen in the mid to lower thoracic spine. Soft tissues: Unremarkable. Other findings: The stomach is not well distended with relative moderate gastric fold prominence. Small hiatal hernia is seen. The esophagus is not seen to be dilated on the current CT. CT/CT chest w con* [id number] IMPRESSION: 1. Amorphous soft tissue attenuation right anterior mediastinal 4.5 x 3.9 x 5.3 cm region seen (series 4, images 19-31, series 8 images 32 to 41 and series 7 images 13 - 20). This was not seen on the prior CT dated September 18, 2020. This could represent a posttraumatic hematoma, infectious etiology or mass (lymphoma or other malignancy). Recommend correlation with clinical history. 2. Mediastinal lymphadenopathy, as noted above. 3. Small right pleural effusion. Mild right lower lobe and minimal left lower lobe atelectasis. No regions of lung consolidation. 4. Small hiatal hernia.
== END 2021-10-14 11:05 | disposition home or self-care (01) ==
PROVIDERS: Emergency Medicine; Emergency Provider Student in an Organized Health Care Education/Training Program; PCP Physician Assistant
DX: M54.50 Low back pain, unspecified (principal); Z79.82 Long term (current) use of aspirin; Z20.822 Contact with and (suspected) exposure to COVID-19; F03.90 Unspecified dementia, unspecified severity, without behavioral disturbance, psychotic disturbance, mood disturbance, and anxiety
CPT/HCPCS: 36415; 71045; 71260; 74177; 80053; 81001; 83605; 85025; 85651; 86140; 87040; 87426; 99285; J3370; J7030; J7050; Q9967

== ENCOUNTER → 2021-10-18 10:50 | Outpatient (BNVA) | payer MEDICARE, OTHER, SELFPAY | PROVIDERS: PCP Physician Assistant; Visit Provider Specialist | DX: M25.511 Pain in right shoulder (principal); J98.59 Other diseases of mediastinum, not elsewhere classified; R78.81 Bacteremia; B95.61 Methicillin susceptible Staphylococcus aureus infection as the cause of diseases classified elsewhere; R93.89 Abnormal findings on diagnostic imaging of other specified body structures; Z87.891 Personal history of nicotine dependence | CPT/HCPCS: 84154; 87040; 87077; 87186; 87205; 99204; G0103 ==

== ENCOUNTER 2021-10-24 15:13 | Inpatient (IN) | payer MEDICARE, OTHER, SELFPAY ==
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
--- NOTE | 2021-10-24 15:03 | XRR_ITS ---
PROCEDURE INFORMATION: Exam: XR Left Hip Exam date and time: 10/24/2021 3:56 PM Age: 75 years old Clinical indication: Condition or disease; Other: Bacteremia; Prior surgery; Additional info: History of bacteremia, please include all of prosthesis from bipolar arthroplasty TECHNIQUE: Imaging protocol: Radiologic exam of the Left hip. Views: 2 or 3 views hip with pelvis when performed. COMPARISON: CT abdomen pelvis w con* [id number] 10/14/2021 5:29 AM FINDINGS: Bones/joints: Metallic left hip arthroplasty is present in good position.. No acute fracture. Soft tissues: Unremarkable. XR/XR hip LT 2-3V wo/w pel* [id number] IMPRESSION: No acute bone abnormality. Metallic arthroplasty left hip in good position.
--- NOTE | 2021-10-24 15:08 | XRR_ITS ---
PROCEDURE INFORMATION: Exam: XR Left Femur Exam date and time: 10/24/2021 3:57 PM Age: 75 years old Clinical indication: Condition or disease; Other: Bacteremia; Prior surgery; Additional info: Bacteremia, visualize distal femur hardware TECHNIQUE: Imaging protocol: Radiologic exam of the Left femur. Views: 2 views. COMPARISON: CR XR femur LT min 2V* [id number] 09/20/2020 9:11 AM FINDINGS: Bones/joints: A chronic fracture is seen in the distal shaft of the left femur status post ORIF with metallic plate and multiple screws in place. The bones show anatomic alignment. There is a metallic left hip arthroplasty seen in good position. The bones do not show acute abnormalities. Soft tissues: Unremarkable. XR/XR femur LT min 2V* [id number] IMPRESSION: 1. No acute findings. 2. Metallic left hip arthroplasty in good position. 3. Chronic left femur shaft fracture status post ORIF
[2021-10-24 16:00] VITALS: BP 127/80; PULSE 79; RESP 15; TEMP 36.7; O2SAT 97
[2021-10-24 16:11] LABS: Basophils # 0.1 10^3/uL (0.0-0.1); Basophils % 0.4 %; Eosinophils # 0.1 10^3/uL (0.0-0.8); Eosinophils % 0.5 %; Hematocrit 40.2 % (42.0-52.0); Hemoglobin 12.5 g/dL (11.7-16.6); Lymphocytes # 5.1 10^3/uL (0.8-4.8); Lymphocytes % 36.6 %; Mean Corpuscular HGB Conc 31.1 g/dL (30.0-36.0); Mean Corpuscular Volume 90.1 fl (80-94); Mean Platelet Volume 9.2 fL (7.4-10.4); Monocytes # 0.9 10^3/uL (0.2-0.9); Monocytes % 6.2 %; Neutrophils % 55.7 %; Nucleated Red Blood Cells % 0 %; Platelet Count 459 10^3/cmm (130-400); Red Blood Count 4.46 10^6/uL (4.1-5.3); Red Cell Distribution Width 14.8 % (12.1-15.1); White Blood Count 13.8 10^3/uL (4.0-10.0)
[2021-10-24 16:17] LABS: Erythrocyte Sedimentation Rate 52 mm/hr (0-10)
[2021-10-24 16:24] LABS: Alanine Aminotransferase 14 U/L (0-41); Albumin Level 3.2 g/dL (3.5-5.2); Alkaline Phosphatase 89 IU/L (40-130); Anion Gap 16.1 (5-19); Aspartate Amino Transferase 18 U/L (0-40); Blood Urea Nitrogen 19 mg/dL (8-23); C Reactive Protein 8.5 mg/L (0.0-4.9); Calcium 9.2 mg/dL (8.5-10.5); Carbon Dioxide 24 mmol/L (22-29); Chloride 101 mmol/L (98-107); Globulin 4.5 g/dL (1.3-4.6); Glucose 96 mg/dL (65-115); Osmolality Calculated 286 mOsm/kg (285-295); Potassium 4.1 mmol/L (3.5-5.1); Sodium 137 mmol/L (136-145); Total Bilirubin 0.5 mg/dL (0.15-1.2); Total Protein 7.7 g/dL (6.6-8.7)
[2021-10-24] MEDS: heparin 5,000 unit/mL INJ 1 mL 5000 UNIT SUBCUT (16:26)
[2021-10-24] MEDS: ceFAZolin 2,000 MG in sodium chloride 0.9% (plus) 50 ML 100 MG IV ×2 (16:26→23:40)
[2021-10-24 16:52] VITALS: PULSE 88; O2SAT 95
--- NOTE | 2021-10-24 17:10 | PM.CONSULT ---
Providers/Reason For Consult Consulting Physician/Specialty*: Dr. Plascencia, Cardiology Reason for Consult*: Persistent staph aureus bacteremia Attending Physician: Shaun Benton MD Primary Care Provider: Vesta Dominguez History of Present Illness History of Present Illness Emigdio Acuña is a 75 year old male was hospitalized for MSSA bacteremia on 3 separate blood cultures from October 10, October 14, and October 18. He originally presented to the hospital on October 10 with right shoulder pain and falls.? Echocardiogram on 10/10/21 demonstrated Normal LV systolic function with LVEF of 60-65%, mild to moderate tricuspid regurgitation and mild mitral regurgitation.? He was discharged on linezolid for 2 weeks, event monitor for syncope/falls, outpatient CT chest and repeat blood cx in 2 weeks but he came back to the emergency department on the for back and shoulder discomfort.? Chest CT (10/14/21) showed right anterior mediastinal mass 4-1/2 x 3.9 x 5.3 cm.? It was thought this could be a posttraumatic hematoma from fall, infectious, or malignancy.? Mediastinal lymphadenopathy was noted, small right pleural effusion, and a hiatal hernia.? He was switched to Levaquin 750 mg p.o. daily from his linezolid on when he followed up with pulmonary for his mediastinal mass.? He was directly admitted for persistent bacteremia despite outpatient antibiotics. Patient denies any fevers, chills. No chest pain/SOB. No nausea or vomiting, diarrhea/constipation. I have been asked to evaluate the patient for JANNETTE for persistent MSSA sepsis. No difficulty swallowing solid or liquid. He does have h/o EGD in 08/2020 for removal of large piece of steak. No dysphagia/odynophagia. He is edentulous and has dentures but does not use it. Review of Systems General: Reports: 10 or more systems reviewed and unremarkable except in HPI and below Const: Reports: fatigue and malaise; Denies: fever(s) or chills Eyes: Denies: change in vision ENMT: Denies: throat pain Card: Denies: chest pain, palpitations, edema, swelling of feet/ankles or pre-syncope Resp: Denies: dyspnea GI: Denies: abdominal pain, nausea, vomiting, hematochezia or melena : Denies: flank pain Musc: Reports: back pain and joint pain; Denies: neck pain Skin/Breast: Denies: rash Neuro: Denies: headache(s) Psych: Denies: anxiety or depression Endo: Denies: polyuria Pawel/Lymph: Denies: easy bruising All/Imm: Denies: urticaria Medications/Allergies Home Medications Medication Instructions Recorded Confirmed Last Taken Type aspirin 81 mg chewable tablet 81 mg PO BID@09/18/20 10/24/21 10/24/21 08:30 History celecoxib 200 mg capsule 200 mg PO BID@04/20/21 10/24/21 10/24/21 08:30 History famotidine 20 mg tablet 20 mg PO DAILY PRN Acid Reflux 04/20/21 10/24/21 04/19/21 History polyethylene glycol 3350 17 gram 17 g PO DAILY PRN Constipation 04/20/21 10/24/21 04/19/21 History oral powder packet (Miralax) acetaminophen 500 mg tablet 1,000 mg PO Q6H PRN Pain 10/10/21 10/24/21 Unknown History cyanocobalamin (vitamin B-12) 10,000 mcg PO DAILY@10/10/21 10/24/21 10/24/21 History 5,000 mcg sublingual tablet (Vitamin B-12) tamsulosin 0.4 mg capsule 0.4 mg PO DAILY@10/10/21 10/24/21 10/24/21 08:30 History docusate sodium 100 mg capsule 100 mg PO DAILY@10/24/21 10/24/21 10/24/21 08:30 History (Colace) hydrocodone 5 mg-acetaminophen 325 1 tab PO BEDTIME@202910/24/21 10/24/21 10/23/21 History mg tablet levofloxacin 750 mg tablet 750 mg PO BEDTIME@10/24/21 10/24/21 10/23/21 History ondansetron 4 mg disintegrating 4 mg PO TID PRN Nausea And Vomiting 10/24/21 10/24/21 Unknown History tablet tizanidine 2 mg tablet 2 mg PO TID PRN Muscle Spasm 10/24/21 10/24/21 Unknown History triamcinolone acetonide 0.1 % 1 applic topical BID 10/24/21 10/24/21 Unknown History topical cream Allergies Allergy/AdvReac Type Severity Reaction Status Date / Time No Known Allergies Allergy Verified 10/24/21 16:44 Current Medications Generic Name Dose Route Start Last Admin Trade Name Imani PRN Reason Stop Dose Admin Cefazolin Sodium 2,000 mg/ 50 mls @ 100 mls/hr 10/24/21 16:00 10/24/21 17:02 Sodium Chloride IV Infused Q8H LIBBY Infusion Protocol PFSH Acute PFSH: Medical History BPH loc w urin obs/LUTS Chest pain 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 Mother , AT AGE 88 No problems noted. Social History Smoking and tobacco status: former smoker Alcohol intake: never Household members: spouse Marital status: Current occupational status: retired Vitals/I&O/Wt Last Vital Signs Temp 98.0 F 10/24/21 16:00 Pulse 88 10/24/21 16:52 Resp 15 10/24/21 16:00 BP 127/80 10/24/21 16:00 Pulse Ox 95 10/24/21 16:52 O2 Del Method 10/24/21 16:52 10/24/21 10/24/21 10/24/21 06:59 14:59 22:59 Intake Total 50 / 50 Balance 50 / 50 Physical Exam Narrative: GENERAL: Averagely built and averagely nourished in no acute distress HEENT: Extraocular movement intact. No pallor or icterus. NECK: central trachea, No JVD, No carotid bruit. CARDIOVASCULAR SYSTEM: S1-S2 regular. No S3 or S4 present. No murmur rubs or gallops. RESPIRATORY SYSTEM: Chest clear to auscultation. No wheezes rhonchi or rubs heard. No use of accessory muscles. ABDOMEN: Soft, nontender and nondistended. Normal bowel sounds present. EXTREMITIES: No cyanosis or clubbing. No edema. No signs of chronic venous insufficiency. 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 No focal neurological deficits. SKIN: Normal turgor and temperature. No breakdown, rash or nail changes noted. PSYCH: Normal insight and judgment. Data : 10/24/21 15:44 10/24/21 15:44 Micro: Microbiology 10/24/21 15:49 Blood Culture - Preliminary Blood SPECIMEN COLLECTED 10/24/21 15:44 Blood Culture - Preliminary Blood SPECIMEN COLLECTED A&P Assessment and plan (1) Staphylococcus aureus bacteremia: MSSA bacteremia -will proceed with JANNETTE -Risks and benefits were discussed with the patients. Possible complications including risk of esophageal perforation discussed with patient. Status: Acute (2) Mass of mediastinum: Status: Acute (3) Back pain: Status: Acute Plan Right should pain H/O falls Thrombocytosis Thank you for allowing me to participate in patient's care. Please feel free to call with questions or concerns Consult Attestations Time Spent in Patient Care: 16 - 35 minutes Coding Level of Care Code Acute Manager Testing for g Fwd Diagnoses Staphylococcus aureus bacteremia R78.81; B95.61 Mass of mediastinum J98.59 Back pain M54.9
--- NOTE | 2021-10-24 17:32 | PC.NURSE ---
Patient arrived to unit as a direct admit, at bedside, took his walker back home. AAOx4, VSS, minimal c/o pain to back. Room clean and clutter free with call light in reach. Admission education reviewed with verbal understanding. IV placed without difficulty, bed alarm on as patient has history of falls. Patient has ankle monitor to right ankle and states he will be able to take care of it and that the appropriate people are notified of his stay in the hospital. Patient states, I feel foggy in the head and just don't feel right. I also have a high tolerance of pain. No wound found in address and access.
[2021-10-24] MEDS: famotidine 20 mg Tablet PO (18:04)
[2021-10-24 20:00] VITALS: BP 162/65; PULSE 110; RESP 12; TEMP 36.7; O2SAT 94
[2021-10-24 21:44] LABS: Add Urine Microscopic? NO; Charge for UA Resulting for Rev
[2021-10-24 22:00] LABS: Bilirubin Urine Neg (Negative); Blood Urine Neg (Negative); Glucose Urine UA Norm (Normal); Ketones Urine Negative (Negative); Leukocyte Esterase Urine Negative (Negative); Nitrate Urine Negative (Negative); Protein Urine Neg (Negative); Urine Appearance Clear (CLEAR); Urine Color Yellow (Yellow); Urobilinogen Urine 4 mg/dL (Negative); pH Urine 5 (5-7)
--- NOTE | 2021-10-24 23:43 | PC.NURSE ---
Dr. Chavez notified of patient asking for home Zanaflex.
[2021-10-24] MEDS: acetaminophen 325 mg Tablet 650 MG PO (23:48)
[2021-10-25] VITALS (8 sets, daily range): BP systolic 108–125; BP diastolic 66–81; PULSE 70–95; RESP 12–18; TEMP 36.5–36.8; O2SAT 92–96
[2021-10-25 02:04] LABS: Basophils % 0.3 %; Eosinophils # 0.2 10^3/uL (0.0-0.8); Eosinophils % 1.8 %; Hematocrit 36.5 % (42.0-52.0); Hemoglobin 11.3 g/dL (11.7-16.6); Lymphocytes # 4.2 10^3/uL (0.8-4.8); Lymphocytes % 46.8 %; Mean Corpuscular Hemoglobin 28.3 pg (28.0-34.0); Mean Corpuscular Volume 91.3 fl (80-94); Monocytes # 0.7 10^3/uL (0.2-0.9); Monocytes % 7.7 %; Neutrophils # 3.79 10^3/uL (1.8-7.7); Neutrophils % 42.8 %; Nucleated Red Blood Cells % 0 %; Platelet Count 362 10^3/cmm (130-400); Red Cell Distribution Width 14.8 % (12.1-15.1); White Blood Count 8.9 10^3/uL (4.0-10.0)
[2021-10-25 02:27] LABS: Alanine Aminotransferase 11 U/L (0-41); Albumin Level 2.5 g/dL (3.5-5.2); Alkaline Phosphatase 79 IU/L (40-130); Anion Gap 15.4 (5-19); Aspartate Amino Transferase 18 U/L (0-40); Blood Urea Nitrogen 17 mg/dL (8-23); Calcium 8.7 mg/dL (8.5-10.5); Carbon Dioxide 22 mmol/L (22-29); Chloride 105 mmol/L (98-107); Glucose 103 mg/dL (65-115); Osmolality Calculated 288 mOsm/kg (285-295); Potassium 4.4 mmol/L (3.5-5.1); Sodium 138 mmol/L (136-145); Total Bilirubin 0.4 mg/dL (0.15-1.2); Total Protein 6.5 g/dL (6.6-8.7)
[2021-10-25] MEDS: ceFAZolin 2,000 MG in sodium chloride 0.9% (plus) 50 ML 100 MG IV ×3 (08:30→23:09)
[2021-10-25] MEDS: aspirin 81 mg EC Tablet PO (08:31)
[2021-10-25] MEDS: famotidine 20 mg Tablet PO ×2 (08:31→17:08)
[2021-10-25] MEDS: polyethylene glycol 3350 Pkt 17 gm PO (08:35)
--- NOTE | 2021-10-25 08:37 | US_ITS ---
WS: [id number] ULTRASOUND SOFT TISSUES RIGHT chest wall. HISTORY: Evaluate right chest mediastinal mass for possible biopsy COMPARISON: PET/CT 10/21/[address] 10/14/2021. TECHNIQUE: 2-D and color Doppler imaging is submitted. Soft tissue mass surrounding the RIGHT SC joint is visible by ultrasound. This should be amenable for ultrasound-guided biopsy. Mass is hypoechoic and increased vascularity. The portion of the mass exte nding external from the mediastinum measures 1.7 x 1.7 x 1.5 cm. US/US chest [id number] IMPRESSION: 1. Hypoechoic mass surrounding the RIGHT SC joint highly suspicious for malign jackie. This should be amenable for ultrasound-guided biopsy. 2. Portion of the mass extending external from the mediastinum is 1.7 x 1.7 x 1.5 cm.
--- NOTE | 2021-10-25 09:00 | MR_ITS ---
WS: [id number] MRI LUMBAR SPINE WITH AND WITHOUT CONTRAST. HISTORY: persistent bacteremia, back pain. COMPARISON: None available. TECHNIQUE: Sagittal and axial multisequence imaging is submitted. Sagittal and axial T1 fat sat seque nces post-MultiHance 10 cc IV. Dextroscoliosis lumbar spine. Mild increase in the thoracic kyphosis. Normal posterior alignment. Disc spaces are narrowed with mild desiccation. Hypertrophic osteophytes at all levels. No acute fracture. There is a small amount of marrow edema in the posterior adjacent e ndplates of L1 and L2 on the RIGHT. Conus terminates normally at L1-2 disc level. T12-L1: Mild annular disc bulging and osteophytic ridging. Shallow LEFT paracentral disc protrusion. Mild LEFT subarticular recess encroachment and bilateral foraminal stenosis. L1-L2: Mild disc bulging. Mild central and bilateral foraminal stenosis. There is a small area of enh ancement involving the adjacent endplates posteriorly of L1 and L2 and there is also some very mild e nhancement involving the posterior longitudinal ligament with mild thickening. There moderate soft ti ssue enhancement without a focal fluid collection extending into the LEFT foramen and extending along the nerve roots. L2-L3: Annular disc bulge with ligamentum flavum and facet arthritis. Mild foraminal stenosis. L3-L4: Mild diffuse disc bulging. No stenosis. L4-L5: Mild diffuse disc bulging and osteophytic ridging with central disc protrusion. Mild central, subarticular and foraminal narrowing. L5-S1: Small central disc protrusion contacts the LEFT S1 nerve root. Mild foraminal narrowing. MR/MR lumbar spine wo/w con [id number] IMPRESSION: 1. There is mild enhancement within the adjacent L1 and L2 vertebral bodies po steriorly with enhancement continuing along the anterior epidural margin and th rough the LEFT foramen. No focal abscess. The enhancement involves both the LEF T L1 and L2 nerve roots. This is likely postinflammatory. No abscess therefore cannot be described as an epidural abscess. May be postinflammatory or posttrau matic. This area was not positive on the recent PET/CT but neoplasm should also be considered. Recommend follow-up MRI lumbar spine with and without contrast in 6-8 weeks. 2. No discitis. 3. Multilevel areas of stenosis. No severe high-grade stenosis. Notified Shaun Benton MD at 10/25/2021 4:05 PM.
--- NOTE | 2021-10-25 09:08 | PM.PN ---
Subjective Subjective: Emigdio reports that he feels okay today. Still with some shoulder pain and back pain but perhaps not as severe. No issues with urination Medications: Reviewed: Yes Vitals/I&O/Wt Last Vital Signs Temp 98.3 F 10/25/21 07:46 Pulse 79 10/25/21 07:46 Resp 18 10/25/21 07:46 BP 125/74 10/25/21 07:46 Pulse Ox 96 10/25/21 07:46 O2 Del Method 10/25/21 07:46 O2 Flow Rate 2.5 10/24/21 20:00 10/24/21 10/25/21 10/25/21 22:59 06:59 14:59 Intake Total 290 / 290 50 / 340 50 / 50 Output Total 220 / 220 280 / 500 Balance 70 / 70 -230 / -160 50 / 50 Physical Exam Narrative: General exam no distress Neck is supple no lymphadenopathy or thyromegaly Cardiovascular regular rate and rhythm without murmur. No S3 or S4 Lungs clear no wheezing or crackles Abdomen is soft nontender positive bowel sounds. No obvious organomegaly exams deferred Extremities no cyanosis clubbing or edema, cap refill brisk. Skin no rash Data : 10/25/21 01:50 10/25/21 01:50 Micro: Microbiology 10/24/21 15:49 Blood Culture - Preliminary Blood SPECIMEN COLLECTED 10/24/21 15:44 Blood Culture - Preliminary Blood SPECIMEN COLLECTED A&P Assessment and plan (1) Staphylococcus aureus bacteremia: He has acute persistent insensitive staff aureus bacteremia with positive cultures on 3 different dates. He was treated with oral linezolid, although likely did not take the medication prior to the second culture. He was then switched to Levaquin following on the . Please refer to synopsis under HPI. Currently he is relatively asymptomatic, but has not demonstrated clearing of staph aureus bacteremia. Previous echocardiogram, did not show vegetation but this was transthoracic. Cardiology consult for JANNETTE appreciated. This is anticipated tomorrow. Overall his CRP and sedimentation rate are decreasing No evidence of osteomyelitis on hip x-ray and femur x-ray Await PET scan report Will need PICC line. Possibly tomorrow Continue IV cefazolin Cultures drawn on admission. If these are negative tomorrow we will consider PICC line. If turn positive repeat cultures tomorrow. Infectious disease consult ordered. Likely this will occur . Status: Acute (2) Mass of mediastinum: Unsure if this is infectious, neoplasm, or hematoma/infected hematoma. Await PET scan results Consideration of biopsy per CT-guided biopsy. Ultrasound of chest today to check feasibility. Heparin held in case biopsy occurs today. Will discuss with interventional radiology. Status: Acute (3) Back pain: Patient has had persistent low back pain, that he reports since his first hospitalization. Although he has no previous sacral anesthesia, incontinence, change in urinary pattern, it is best to go ahead and to obtain an MRI with contrast of the area to rule out paraspinal abscess considering his persistent bacteremia. MRI planned today Status: Acute Plan Other medical problems as listed in his past medical history Full code Heparin for DVT prophylaxis Pepcid for GI prophylaxis Attestations Medical Necessity Statement*: Needs continued hospitalization secondary to persistent bacteremia requiring IV antibiotics Coding Level of Care Code Acute Banking Attorney for [facility] Fwd Diagnoses Staphylococcus aureus bacteremia R78.81; B95.61 Mass of mediastinum J98.59 Back pain M54.9
--- NOTE | 2021-10-25 09:42 | US_ITS ---
WS: [id number] ULTRASOUND GUIDED BIOPSY RIGHT CHEST WALL MASS NEAR THE SC JOINT. HISTORY: mediastinal mass Procedure, risks, and complications are explained to the patient. Consent was obtained. Skin is clean sed with ChloraPrep and anesthetized with 1% buffered lidocaine. Comparison: Multiple prior imaging studies are reviewed. Multiple core biopsies are obtained with a 20-gauge Temno needle through the mass surrounding the RIG HT SC joint. Specimen is placed within formalin. At least 7 core biopsies were obtained without compl ication. There is a small amount of bruising along the anterior chest wall. Patient was observed for 15 minutes post procedure. US/ biopsy muscle IMPRESSION: 1. Uncomplicated small core biopsy of the soft tissue mass at the sternoclavic ular joint. 2. Specimen placed in saline. Specimen will be evaluated for possible metastat ic disease, lymphoma and if sufficient material infection.
--- NOTE | 2021-10-25 10:21 | PC.CHAP ---
Pastoral Care Encounter/Spiritual Assessment Type of Contact [] Declined wood lathe operator visit [] Patient/Family/Request visit [] Outpatient visit [] Follow-up visit [] Physician referral [] Code/Alert [x] Routine visit [] Staff referral [] Actively dying [] Patient sleeping [] Family support [] [] Out of room [] Palliative care [] [] Receiving care in room [] Pre-surgical visit [] Trauma [] Long length of stay [] ICU visit [] Other: Relational/Emotional Strength [x] Patient feels connected with others/family/visitors/staff [] Distress [] Loneliness/isolation [] Abandonment Spirituality of Patient [x] Person of Berta [x] Attends Christian of their Berta [x] Believes in Prayer [] Reads Bible or Buddhism materials [] There are Spiritual issues to be addressed Trim Machine Adjuster Interventions [x] Prayer [x] Active listening [x] Non-anxious presence [] Spiritual/emotional support [] Crisis/trauma care [] Spiritual counseling [] Bereavement support [] Provided bereavement packet [] Provided Bible/devotional materials [] Provided toy/stuffed animal, coloring book to patient or family member [] Provided Communion [] Anointing/[place] [] Salvation [x] Completed spiritual assessment [] Other: Impact on Illness or Injury [] Angry [] Fearful [] Anxious [] Often cries [] Exhaustion [] Unable to work [] Unable to attend sabianism [] Unable to walk/stand [] Unable to read [] Unable to drive [] Unable to eat/drink [] Unable to sleep [] Unable to be with family [] Patient intubated [] Other: Summary Time spent with patient 10 min
--- NOTE | 2021-10-25 13:00 | US_ITS ---
WS: [id number] ULTRASOUND GUIDED BIOPSY RIGHT CHEST WALL MASS NEAR THE SC JOINT. HISTORY: mediastinal mass Procedure, risks, and complications are explained to the patient. Consent was obtained. Skin is clean sed with ChloraPrep and anesthetized with 1% buffered lidocaine. Comparison: Multiple prior imaging studies are reviewed. Multiple core biopsies are obtained with a 20-gauge Temno needle through the mass surrounding the RIG HT SC joint. Specimen is placed within formalin. At least 7 core biopsies were obtained without compl ication. There is a small amount of bruising along the anterior chest wall. Patient was observed for 15 minutes post procedure.
[2021-10-25] MEDS: oxyCODONE 5 mg IR Tab/Cap PO ×2 (13:52→20:09)
--- NOTE | 2021-10-25 13:54 | PC.NURSE ---
Patient has ankle monitor on left ankle. MRI was ordered for patient. Patient's spouse called loan officer Po and nurse talked to Po on phone. Po stated he could not make it to the hospital to cut monitor off so the nurse could do so and he would come by the following day to put it back on. Monitor was cut and patient left floor at 1355.
[2021-10-25] MEDS: gadobenate dimeglumine 5 mL vial IV (14:19)
[2021-10-25] MEDS: tizanidine 4 mg Tablet 2 MG PO (20:09)
[2021-10-26] VITALS (9 sets, daily range): BP systolic 93–141; BP diastolic 60–80; PULSE 62–77; RESP 13–20; TEMP 36.4–37.1; O2SAT 93–98
[2021-10-26 02:52] LABS: Basophils % 0.4 %; Eosinophils # 0.1 10^3/uL (0.0-0.8); Eosinophils % 1.6 %; Hematocrit 36.1 % (42.0-52.0); Hemoglobin 11.1 g/dL (11.7-16.6); Lymphocytes # 4.4 10^3/uL (0.8-4.8); Lymphocytes % 48.9 %; Mean Corpuscular HGB Conc 30.7 g/dL (30.0-36.0); Mean Corpuscular Hemoglobin 28.1 pg (28.0-34.0); Mean Corpuscular Volume 91.4 fl (80-94); Mean Platelet Volume 9.1 fL (7.4-10.4); Monocytes # 0.7 10^3/uL (0.2-0.9); Monocytes % 7.8 %; Neutrophils # 3.65 10^3/uL (1.8-7.7); Nucleated Red Blood Cells % 0 %; Platelet Count 362 10^3/cmm (130-400); Red Blood Count 3.95 10^6/uL (4.1-5.3); Red Cell Distribution Width 15.3 % (12.1-15.1); White Blood Count 8.9 10^3/uL (4.0-10.0)
[2021-10-26] MEDS: ceFAZolin 2,000 MG in sodium chloride 0.9% (plus) 50 ML 100 MG IV (08:04)
--- NOTE | 2021-10-26 10:35 | P.PN_ITS ---
Subjective Subjective: Emigdio reports that he is feeling okay. Shoulder is not really hurting much. Still having a little bit of low back pain but better. Occasional headache but this comes and goes. No nausea or vomiting. Eager to get his JANNETTE done today. Hopeful to be discharged tomorrow. Underwent biopsy of mediastinal mass yesterday. Pathology pending. Medications: Reviewed: Yes Vitals/I&O/Wt Last Vital Signs Temp 98.0 F 10/26/21 08:00 Pulse 68 10/26/21 08:00 Resp 16 10/26/21 08:00 BP 120/78 10/26/21 08:00 Pulse Ox 95 10/26/21 08:00 O2 Del Method 10/26/21 08:00 O2 Flow Rate 2.5 10/24/21 20:00 10/25/21 10/26/21 10/26/21 22:59 06:59 14:59 Intake Total 100 / 150 50 / 200 50 / 50 Output Total 250 / 525 Balance 100 / -125 -200 / -325 50 / 50 Physical Exam Narrative: General exam no distress Neck is supple no lymphadenopathy or thyromegaly Cardiovascular regular rate and rhythm without murmur. No S3 or S4. Right upper chest with dressing, clean and dry Lungs clear no wheezing or crackles Abdomen is soft nontender positive bowel sounds. No obvious organomegaly exams deferred Extremities no cyanosis clubbing or edema, cap refill brisk. Skin no rash Data : 10/26/21 02:16 10/25/21 01:50 Micro: Microbiology 10/24/21 15:49 Blood Culture - Preliminary Blood NEGATIVE TO DATE 10/24/21 15:44 Blood Culture - Preliminary Blood NEGATIVE TO DATE A&P Assessment and plan (1) Staphylococcus aureus bacteremia: He has acute persistent insensitive staff aureus bacteremia with positive cultures on 3 different dates. He was treated with oral linezolid, although likely did not take the medication prior to the second culture. He was then switched to Levaquin following on the . Please refer to synopsis under HPI. Currently he is relatively asymptomatic, but has not demonstrated clearing of staph aureus bacteremia. Previous echocardiogram, did not show vegetation but this was transthoracic. Cardiology consult for JANNETTE appreciated. This is anticipated today. Overall his CRP and sedimentation rate are decreasing No evidence of osteomyelitis on hip x-ray and femur x-ray Await PET scan report If cultures negative this afternoon will order PICC line. This will likely be done today or tomorrow. Continue IV cefazolin. He will need this on discharge for 6 weeks following his negative culture Infectious disease consult ordered. Likely this will occur today Status: Acute (2) Mass of mediastinum: Unsure if this is infectious, neoplasm, or hematoma/infected hematoma. Biopsy yesterday suggestive of mass. Doubt infection. Await pathology. Informed patient this will likely not come back after discharge. Await PET scan results Status: Acute (3) Back pain: Patient has had persistent low back pain, that he reports since his first hospitalization. Although he has no previous sacral anesthesia, incontinence, change in urinary pattern, it is best to go ahead and to obtain an MRI with contrast of the area to rule out paraspinal abscess considering his persistent bacteremia. MRI performed yesterday. There was some enhancement at L1 and L2. No obvious abscess. Cannot rule out postinflammatory/infectious or posttraumatic. May need repeat MRI in 6 weeks. Status: Acute Plan Other medical problems as listed in his past medical history Full code Resume Heparin for DVT prophylaxis Pepcid for GI prophylaxis Probable discharge tomorrow Attestations Medical Necessity Statement*: Needs continued hospitalization for IV antibiotics secondary to persistent bacteremia. JANNETTE planned today. Coding Level of Care Code Acute Radiologist Chief Of Breast Imaging for [facility] Diagnoses Staphylococcus aureus bacteremia R78.81; B95.61 Mass of mediastinum J98.59 Back pain M54.9
[2021-10-26] MEDS: heparin 5,000 unit/mL INJ 1 mL 5000 UNIT SUBCUT ×2 (10:46→23:17)
--- NOTE | 2021-10-26 11:33 | PM.PN ---
Subjective Subjective: Feels better Medications: Reviewed: Yes Vitals/I&O/Wt Last Vital Signs Temp 98.0 F 10/26/21 08:00 Pulse 68 10/26/21 08:00 Resp 16 10/26/21 08:00 BP 120/78 10/26/21 08:00 Pulse Ox 95 10/26/21 08:00 O2 Del Method 10/26/21 08:00 O2 Flow Rate 2.5 10/24/21 20:00 10/25/21 10/26/21 10/26/21 22:59 06:59 14:59 Intake Total 100 / 150 50 / 200 50 / 50 Output Total 250 / 525 Balance 100 / -125 -200 / -325 50 / 50 Physical Exam Narrative: GENERAL: Averagely built and averagely nourished in no acute distress HEENT: Extraocular movement intact. No pallor or icterus. NECK: central trachea, No JVD, No carotid bruit. CARDIOVASCULAR SYSTEM: S1-S2 regular. No S3 or S4 present. No murmur rubs or gallops. RESPIRATORY SYSTEM: Chest clear to auscultation. No wheezes rhonchi or rubs heard. No use of accessory muscles. ABDOMEN: Soft, nontender and nondistended. Normal bowel sounds present. EXTREMITIES: No cyanosis or clubbing. No edema. No signs of chronic venous insufficiency. BURIAL NEEDS SALESPERSON: Patient is alert oriented ?3. No focal neurological deficits. SKIN: Normal turgor and temperature. No breakdown, rash or nail changes noted. PSYCH: Normal insight and judgment. Data : 10/26/21 02:16 10/25/21 01:50 Micro: Microbiology 10/24/21 15:49 Blood Culture - Preliminary Blood NEGATIVE TO DATE 10/24/21 15:44 Blood Culture - Preliminary Blood NEGATIVE TO DATE A&P Assessment and plan (1) Staphylococcus aureus bacteremia: MSSA bacteremia -will proceed with JANNETTE -Risks and benefits were discussed with the patients. Possible complications including risk of esophageal perforation discussed with patient. -No valvular vegetation noted -Tiny PFO. -I will sign off. Status: Acute (2) Mass of mediastinum: Status: Acute (3) Back pain: Status: Acute Plan Right should pain H/O falls Thrombocytosis Thank you for allowing me to participate in patient's care. Please feel free to call with questions or concerns Attestations Medical Necessity Statement*: As per primary team Time Spent in Patient Care: Greater than 35 minutes Procedures Time out/Consent Time Out Performed: Yes Consent for Procedure: Consent obtained from patient, Risks & Benefits reviewed and Agrees to proceed with procedure Procedure Narrative JANNETTE Procedure note Indication: Persistent MSSA bacteremia Sedation: Propofol by anesthesia The patient was brought down to the GI lab. Procedure was explained to the patient in detail and informed consent was obtained. Timeout was called. After achieving adequate sedation, the probe was inserted on second attempt. No blood on the probe post procedure. Prelim report: [Normal left ventricle size and systolic function. No left atrial or left atrial appendage mass or thrombus visualized. Tiny PFO identified. No evidence of valvular vegetation] Full report to follow. Patient tolerated the procedure well and initial recovery in GI lab and subsequently was transferred to the floor for further management. Coding Level of Care Code Acute Contact Lens Lathe Operator for [facility] Diagnoses Staphylococcus aureus bacteremia R78.81; B95.61 Mass of mediastinum J98.59 Back pain M54.9
[2021-10-26] MEDS: sodium chloride 0.9% 1,000 ML 30 ML IV (12:08)
--- NOTE | 2021-10-26 12:30 | USCV_ITS ---
Emigdio Acuña Age: 75 Gender: M : 1945 Exam Date: 10/26/2021 12:54 Ordering Phys: Aury Plascencia MD ([email or web address]) Technologist: KARLA Exam Location: [facility] [place] Indication: Persistent MSSA bacteremia, r/o endocarditis BP: 122 / 72 HR: 83 Rhythm: Atrial fibrillation Technical Quality: Adequate MEASUREMENTS (Male / Female) Normal Values DOPPLER MV Peak Velocity 93.0 cm/s Medications Patient given IV sedation by anesthesia service, for details please refer to the anesthesia report. Complications Intubation easy. Attempts x1, No blood on probe post procedure. Patient tolerated procedure well. Proc. Components The patient was brought to the JANNETTE examination room in a fasting state after obtaining an informed consent. The JANNETTE probe was passed into the posterior pharynx , mid-esophagus, distal esophagus, and gastric fundus. FINDINGS Left Ventricle Normal left ventricular size, systolic function and wall thickness, with no regional wall motion abnormalities. Left ventricular ejection fraction is estimated at 60 %. Abnormal relaxation filling pattern. Right Ventricle Normal right ventricular size and systolic function. Right Atrium Normal right atrial size. Left Atrium Normal left atrial size. LA Appendage Normal left atrial appendage. Normal flow velocities in the left atrial appendage. No thrombus visualized in the left atrial appendage. IA Septum Normal interatrial septum. Tiny patent foramen ovale with bidirectional shunt by agitated saline (bubble) study and color doppler. Mitral Valve Mild mitral annular calcification. Structurally normal mitral valve. No mitral valve stenosis. Trace mitral valve regurgitation. Aortic Valve Structurally normal trileaflet aortic valve. No aortic valve stenosis. No aortic valve regurgitation. Tricuspid Valve Structurally normal tricuspid valve. Trace tricuspid valve regurgitation. Pulmonic Valve Structurally normal pulmonic valve. No pulmonary valve stenosis. No pulmonary valve regurgitation. Pericardium No pericardial effusion. Aorta Normal size aortic root and proximal ascending aorta. No aortic dilation, aneurysm or dissection. Grade II atheroma in proximal descending aorta. CONCLUSIONS 1. Normal left ventricular size, systolic function and wall thickness, with no regional wall motion abnormalities. Left ventricular ejection fraction is estimated at 60 %. Abnormal relaxation filling pattern. 2. Normal right ventricular size and systolic function. 3. Tiny patent foramen ovale with bidirectional shunt by agitated saline (bubble) study and color doppler. 4. No evidence of valvular vegetation. Aury Thais MD (Electronically Signed) Final Date: 26 October 2021 16:37 S
--- NOTE | 2021-10-26 13:16 | P.ANESASSM_ITS ---
Pre-Anesthetic Assessment Height/Weight: Height 1.78 m Temp Pulse Resp BP Pulse Ox O2 Del Method O2 Flow Rate 97.9 F 68 16 121/78 97 2.5 10/26/21 12:10/26/21 12:10/26/21 12:02 10/26/21 12:10/26/21 12:10/26/21 12:10/24/21 20:00 Preop Diagnosis: food bolus Operation Date: 10/26/21 12:30 Proposed Procedures p JANNETTE(Not Applicable) - Aury Plascencia MD Familial anesthetic complications: none Was Beta Joe taken within 24 hours: N/A Was Clonidine taken within 24 hours: N/A Last intake: Intake Last Liquid Date 10/25/21 Last Liquid Time 22:30 Last Solid Date 10/25/21 Last Solid Time 19:00 Social No alcohol and No tobacco Exam alert, oriented x 3, clear to auscultation bilaterally and regular rate & rhythm Airway Submandibular: within normal limits Cervical ROM: within normal limits Mallampati: Class II Dentition: false CV/HEM Hypertension GI Gastroesophageal Reflux Disease Musc/skel Lower Back Pain and Osteoarthritis/DJD Anesthetic Plan ASA status: 3 Anesthesia: MAC Medications/Allergies Home Medications Medication Instructions Recorded Confirmed Last Taken Type aspirin 81 mg chewable tablet 81 mg PO BID@09/18/20 10/24/21 10/24/21 08 :30 History celecoxib 200 mg capsule 200 mg PO BID@04/20/21 10/24/21 10/24/21 08:30 History famotidine 20 mg tablet 20 mg PO DAILY PRN Acid Reflux 04/20/21 10/24/21 04/19/21 History polyethylene glycol 3350 17 gram 17 g PO DAILY PRN Constipation 04/20/21 10/24/21 04/19/21 History oral powder packet (Miralax) acetaminophen 500 mg tablet 1,000 mg PO Q6H PRN Pain 10/10/21 10/24/21 Unknown History cyanocobalamin (vitamin B-12) 10,000 mcg PO DAILY@10/10/21 10/24/21 10/24/21 History 5,000 mcg sublingual tablet (Vitamin B-12) tamsulosin 0.4 mg capsule 0.4 mg PO DAILY@10/10/21 10/24/21 10/24/21 08:30 History docusate sodium 100 mg capsule 100 mg PO DAILY@08 10/24/21 10/24/21 10/24/21 08:30 History (Colace) hydrocodone 5 mg-acetaminophen 325 1 tab PO BEDTIME@2030 10/24/21 10/24/21 10/23/21 History mg tablet levofloxacin 750 mg tablet 750 mg PO BEDTIME@20 10/24/21 10/24/21 10/23/21 History ondansetron 4 mg disintegrating 4 mg PO TID PRN Nausea And Vomiting 10/24/21 10/24/21 Unknown History tablet tizanidine 2 mg tablet 2 mg PO TID PRN Muscle Spasm 10/24/21 10/24/21 Unknown History triamcinolone acetonide 0.1 % 1 applic topical BID 10/24/21 10/24/21 Unknown History topical cream Allergies Allergy/AdvReac Type Severity Reaction Status Date / Time No Known Allergies Allergy Verified 10/24/21 16:44 Current Medications Generic Name Dose Route Start Last Admin Trade Name Arminq PRN Reason Stop Dose Admin Acetaminophen 650 mg 10/24/21 14:47 10/24/21 23:48 Acetaminophen 325 Mg Tablet PO 650 mg Q6H PRN Administration Mild/Mod Pain Or Temp >/= 101 Aspirin 81 mg 10/25/21 09:00 10/26/21 09:19 Aspirin 81 Mg Ec Tablet PO Not Given DAILY LIBBY Famotidine 20 mg 10/24/21 18:00 10/26/21 09:20 Famotidine 20 Mg Tablet PO Not Given BID [facility] Heparin Sodium (Porcine) 5,000 unit 10/26/21 10:45 10/26/21 10:46 Heparin 5,000 Unit/Ml Inj 1 Ml SUBCUT 5,000 unit Q12H LIBBY Administration Cefazolin Sodium 2,000 mg/ 50 mls @ 100 mls/hr 10/24/21 16:00 10/26/21 08:34 Sodium Chloride IV Infused Q8H [facility] Infusion Protocol Sodium Chloride 1,000 mls @ 30 mls/hr 10/26/21 12:15 10/26/21 12:08 Sodium Chloride 0.9% IV 10/27/21 12:14 30 mls/hr .Q24H LIBBY Administration Oxycodone HCl 5 mg 10/24/21 14:47 10/25/21 20:09 Oxycodone 5 Mg Ir Tab/Cap PO 5 mg Q6H PRN Administration MODERATE PAIN Polyethylene Glycol 17 gm 10/25/21 09:00 10/26/21 09:20 Polyethylene Glycol 3350 Pkt 17 Gm PO Not Given DAILY LIBBY Tizanidine HCl 2 mg 10/25/21 19:53 10/25/21 20:09 Tizanidine 4 Mg Tablet PO 2 mg TID PRN Administration Muscle Spasm PFSH Anesthesia Medical History BPH loc w urin obs/LUTS Chest pain 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 Mother , AT AGE 88 No problems noted. Social History Smoking and tobacco status: former smoker Alcohol intake: never Household members: spouse Marital status: Current occupational status: retired Data Anesthesia : 10/26/21 02:16 10/25/21 01:50 Short CBC 10/24/21 10/25/21 10/26/21 Range/Units 15:44 01:50 02:16 WBC 13.8 H 8.9 8.9 (4.0-10.0) 10^3/uL Hgb 12.5 11.3 L 11.1 L (11.7-16.6) g/dL Hct 40.2 L 36.5 L 36.1 L (42.0-52.0) % MCV 90.1 91.3 91.4 (80-94) fl Plt Count 459 H 362 362 (130-400) 10^3/cmm Neut % (Auto) 55.7 42.8 41.0 % Neut # (Auto) 7.70 3.79 3.65 (1.8-7.7) 10^3/uL BMP 10/24/21 10/25/21 15:44 01:50 Sodium 137 138 Potassium 4.1 4.4 Chloride 101 105 Carbon Dioxide 24 22 BUN 19 17 Creatinine 1.0 0.8 Glucose 96 103 Calcium 9.2 8.7 Liver Function 10/24/21 10/25/21 Range/Units 15:44 01:50 Total Bilirubin 0.5 0.4 (0.15-1.2) mg/dL AST 18 18 (0-40) U/L ALT 14 11 (0-41) U/L Alkaline Phosphatase 89 79 (40-130) IU/L Albumin 3.2 L 2.5 L (3.5-5.2) g/dL Urine 10/24/21 Range/Units 21:37 Urine Color Yellow (Yellow) Urine Appearance Clear (CLEAR) Urine pH 5 (5-7) Ur Specific [place] 1.020 (1.005-1.030) Urine Protein Neg (Negative) Urine Glucose (UA) Norm (Normal) Urine Ketones Negative (Negative) Urine Nitrate Negative (Negative) Urine Bilirubin Neg (Negative) Ur Leukocyte Esterase Negative (Negative) Coags 10/24/21 10/24/21 15:44 15:44 ESR 52 H C-Reactive Protein 8.5 H Microbiology 10/24/21 15:49 Blood Culture - Preliminary Blood NEGATIVE TO DATE 10/24/21 15:44 Blood Culture - Preliminary Blood NEGATIVE TO DATE Cardiac Studies: Echocardiogram 10/10/21
--- NOTE | 2021-10-26 13:42 | ANE.PACU2 ---
Inpatient post-anesthesia follow up: Airway intact: Yes Vital signs: Temperature 97.8 F Pulse Rate 77 Respiratory Rate 18 Blood Pressure 107/69 Pulse Oximetry 98 Oxygen Delivery Me thod [Rate & Room Air Delivery Changed T o] Oxygen Delivery Me thod Room Air Oxygen Flow Rate 2.5 Fraction of Inspir ed Oxygen Hydration adequate: Yes Nausea and vomiting: No Pain level: 1 Mental status: Baseline
--- NOTE | 2021-10-26 16:26 | P.CONIM_ITS ---
Providers/Reason For Consult Consulting Physician/Specialty*: Melissa Melara MD/Infectious Disease Reason for Consult*: Persistent MSSA bacteremia Attending Physician: Shaun Benton MD Primary Care Provider: Vesta Dominguez History of Present Illness History of Present Illness Emigdio Acuña is a 75 year old male with a past medical history as outlined below being seen in consult for MSSA bacteremia. Patient had suffered a fall on October 07 of this year after which he had been experiencing significant right shoulder pain not adequately relieved with opiates and NSAIDs. He presented to the emergency room on with shoulder pain, chest pain, intermittent sweating. Incidentally his white count was noted to be 22,000. He had a rash on his chest which is noted to have been 2 to 4 mm red lesions in a follicular pattern on the anterior chest some of which had been scratched. He did not notice his joint to be red painful or swollen. He also complained of some chronic pain in the left knee at that time. His blood cultures eventually returned positive for MSSA 2 out of 4 bottles on October 10 and he was discharged from the hospital on October 12 with p.o. linezolid for 2 weeks. Blood cultures were not repeated until his return to ER on October 14. CT of the shoulder was performed in the hospital which did not show any signs of septic arthritis, however had incidentally picked up an increased density in the anterior superior mediastinum. CT of the chest was ordered as an outpatient. It appears patient had been falling more than usual over the past week leading up to admission, an event monitor was ordered to be completed as outpatient as it was thought to be related to syncope. He returned to the emergency room on October 14 due to back pain and unable to ambulate because of pain in the lumbar region. Patient had not picked up his prescription for linezolid at that point. CT chest was performed on this day and showed an amorphous soft tissue atten uation in the right anterior mediastinum 4.5 x 3.9 x 5.3 cm along with enlarged mediastinal lymph nodes. It was thought this could be a posttraumatic hematoma from fall, infectious, or malignancy.? These findings were new since September 18, 2021. Blood culture was again positive on this day. He established care with pulmonary on October 18, 2021, was prescribed a course of levofloxacin and had repeat blood cultures taken which again returned positive for MSSA. Dr. Kat from pulmonology had called me to discuss the case, I recommended patient return to the hospital and undergo source evaluation and start organism directed therapy with iv Cefazolin given high grade bacteremia instead of remaining on po antibiotics. He denies having had any fever at home. His white blood cell count is improving . He still has some right shoulder pain but it is improving. Range of motion is full at the shoulder. He had reported upper back pain, MRI of the back was performed which did not show any evidence of discitis or epidural abscess. He has also undergone a JANNETTE today and an ultrasound guided core biopsy of the mediastinal soft tissue mass. Pathology results from the specimen are currently pending. Review of Systems General: Reports: 10 or more systems reviewed and unremarkable except in HPI and below Const: Denies: fever(s), chills or body aches Eyes: Denies: change in vision, blurry vision or photophobia ENMT: Reports: hoarseness; Denies: throat pain, enlarged tonsils, odynophagia or nasal congestion Card: Denies: chest pain, palpitations, irregular heart rhythm, edema, swelling of feet/ankles, lightheadedness, pre-syncope, dyspnea on exertion or orthopnea Resp: Denies: dyspnea, productive cough, non-productive cough, wheezing, stridor, pain on inspiration, change in phlegm color, hemoptysis or chest congestion GI: Denies: abdominal pain, nausea, vomiting, hematemesis, coffee ground emesis, dysphagia, heartburn, diarrhea, constipation, GI cramping, change in stool character, hematochezia or melena : Denies: flank pain, dysuria, urinary frequency, urinary urgency, urinary hesitancy or hematuria Musc: Denies: neck pain, back pain, extremity pain, joint swelling, joint warmth or deformity Neuro: Denies: headache(s), numbness in extremities, weakness in extremities, sensory changes, difficulty walking, frequent falls, dizziness, vertigo, behavioral changes, Slurred speech present or seizure-like activity Psych: Denies: anxiety, depression, suicidal ideation or homicidal ideation Endo: Denies: polyuria, polydipsia, tired all the time, cold intolerance or hot flashes Pawel/Lymph: Denies: easy bruising or easy bleeding Medications/Allergies Home Medications Medication Instructions Recorded Confirmed Last Taken Type aspirin 81 mg chewable tablet 81 mg PO BID@09/18/20 10/24/21 10/24/21 08:30 History famotidine 20 mg tablet 20 mg PO DAILY PRN Acid Reflux 04/20/21 10/24/21 04/19/21 History polyethylene glycol 3350 17 gram 17 g PO DAILY PRN Constipation 04/20/21 10/24/21 04/19/21 History oral powder packet (Miralax) acetaminophen 500 mg tablet 1,000 mg PO Q6H PRN Pain 10/10/21 10/24/21 Unknown History cyanocobalamin (vitamin B-12) 10,000 mcg PO DAILY@10/10/21 10/24/21 10/24/21 History 5,000 mcg sublingual tablet (Vitamin B-12) tamsulosin 0.4 mg capsule 0.4 mg PO DAILY@10/10/21 10/24/21 10/24/21 08:30 History docusate sodium 100 mg capsule 100 mg PO DAILY@10/24/21 10/24/21 10/24/21 08:30 History (Colace) hydrocodone 5 mg-acetaminophen 325 1 tab PO BEDTIME@202910/24/21 10/24/21 10/23/21 History mg tablet ondansetron 4 mg disintegrating 4 mg PO TID PRN Nausea And Vomiting 10/24/21 10/24/21 Unknown History tablet tizanidine 2 mg tablet 2 mg PO TID PRN Muscle Spasm 10/24/21 10/24/21 Unknown History triamcinolone acetonide 0.1 % 1 applic topical BID 10/24/21 10/24/21 Unknown History topical cream cefazolin 2 gram solution for 2 g IM Q8H #117 ea 10/27/21 Unknown Rx injection Allergies Allergy/AdvReac Type Severity Reaction Status Date / Time No Known Allergies Allergy Verified 10/24/21 16:44 Current Medications Generic Name Dose Route Start Last Admin Trade Name Freq PRN Reason Stop Dose Admin Acetaminophen 650 mg 10/24/21 14:47 10/24/21 23:48 Acetaminophen 325 Mg Tablet PO 650 mg Q6H PRN Administration Mild/Mod Pain Or Temp >/= 101 Aspirin 81 mg 10/25/21 09:00 10/26/21 09:19 Aspirin 81 Mg Ec Tablet PO Not Given DAILY LIBBY Famotidine 20 mg 10/24/21 18:00 10/26/21 09:20 Famotidine 20 Mg Tablet PO Not Given BID [facility] Heparin Sodium (Porcine) 5,000 unit 10/26/21 10:45 10/26/21 10:46 Heparin 5,000 Unit/Ml Inj 1 Ml SUBCUT 5,000 unit Q12H LIBBY Administration Cefazolin Sodium 2,000 mg/ 50 mls @ 100 mls/hr 10/24/21 16:00 10/26/21 08:34 Sodium Chloride IV Infused Q8H LIBBY Infusion Protocol Sodium Chloride 1,000 mls @ 30 mls/hr 10/26/21 12:15 10/26/21 13:37 Sodium Chloride 0.9% IV 10/27/21 12:14 Infused .Q24H LIBBY Infusion Oxycodone HCl 5 mg 10/24/21 14:47 10/25/21 20:09 Oxycodone 5 Mg Ir Tab/Cap PO 5 mg Q6H PRN Administration MODERATE PAIN Polyethylene Glycol 17 gm 10/25/21 09:00 10/26/21 09:20 Polyethylene Glycol 3350 Pkt 17 Gm PO Not Given DAILY LIBBY Tizanidine HCl 2 mg 10/25/21 19:53 10/25/21 20:09 Tizanidine 4 Mg Tablet PO 2 mg TID PRN Administration Muscle Spasm PFSH Acute PFSH: Medical History BPH loc w urin obs/LUTS Chest pain 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 Mother , AT AGE 88 No problems noted. Social History Smoking and tobacco status: former smoker Alcohol intake: never Household members: spouse Marital status: Current occupational status: retired Vitals/I&O/Wt Last Vital Signs Temp 97.8 F 10/26/21 13:21 Pulse 77 10/26/21 13:21 Resp 18 10/26/21 13:21 BP 107/69 10/26/21 13:21 Pulse Ox 98 10/26/21 13:21 O2 Del Method 10/26/21 13:21 O2 Flow Rate 2.5 10/24/21 20:00 10/26/21 10/26/21 10/26/21 06:59 14:59 22:59 Intake Total 50 / 200 650 / 650 Output Total 250 / 525 Balance -200 / -325 650 / 650 Physical Exam Narrative: General: No acute distress, AO x3 HEENT: PERRLA, pupils bilaterally equal and reactive, pallors not present Chest: Normal vesicular breath sounds, no added sounds, equal good air entry bilaterally CVS: S1-S2 regular, no murmurs, no tachycardia, no gallops, no rubs Abdomen: Soft, nontender, no organomegaly, bowel sounds present Neuro: No focal deficits, no facial deformity, AO x3, power 5/5 in all limbs Data : 10/27/21 03:41 10/27/21 03:41 Other Labs: Radiology Impressions Hip/Pelvis X-Ray 10/24/21 15:03 IMPRESSION: No acute bone abnormality. Metallic arthroplasty left hip in good position. Femur X-Ray 10/24/21 15:08 IMPRESSION: 1. No acute findings. 2. Metallic left hip arthroplasty in good position. 3. Chronic left femur shaft fracture status post ORIF Chest Ultrasound 10/25/21 08:37 IMPRESSION: 1. Hypoechoic mass surrounding the RIGHT SC joint highly suspicious for malignancy. This should be amenable for ultrasound-guided biopsy. 2. Portion of the mass extending external from the mediastinum is 1.7 x 1.7 x 1.5 cm. Lumbar Spine MRI 10/25/21 09:00 IMPRESSION: 1. There is mild enhancement within the adjacent L1 and L2 vertebral bodies posteriorly with enhancement continuing along the anterior epidural margin and through the LEFT foramen. No focal abscess. The enhancement involves both the LEFT L1 and L2 nerve roots. This is likely postinflammatory. No abscess therefore cannot be described as an epidural abscess. May be postinflammatory or posttraumatic. This area was not positive on the recent PET/CT but neoplasm should also be considered. Recommend follow-up MRI lumbar spine with and without contrast in 6-8 weeks. 2. No discitis. 3. Multilevel areas of stenosis. No severe high-grade stenosis. Notified Shaun Benton MD at 10/25/2021 4:05 PM. Biopsy Ultrasound 10/25/21 13:00 IMPRESSION: 1. Uncomplicated small core biopsy of the soft tissue mass at the sternoclavicular joint. 2. Specimen placed in saline. Specimen will be evaluated for possible metas tatic disease, lymphoma and if sufficient material infection. Laboratory Results WBC 8.9 10^3/uL (4.0-10.0) 10/26/21 02:16 RBC 3.95 10^6/uL (4.1-5.3) L 10/26/21 02:16 Hgb 11.1 g/dL (11.7-16.6) L 10/26/21 02:16 Hct 36.1 % (42.0-52.0) L 10/26/21 02:16 MCV 91.4 fl (80-94) 10/26/21 02:16 MCH 28.1 pg (28.0-34.0) 10/26/21 02:16 MCHC 30.7 g/dL (30.0-36.0) 10/26/21 02:16 RDW 15.3 % (12.1-15.1) H 10/26/21 02:16 Plt Count 362 10^3/cmm (130-400) 10/26/21 02:16 MPV 9.1 fL (7.4-10.4) 10/26/21 02:16 Neut % (Auto) 41.0 % 10/26/21 02:16 Lymph % (Auto) 48.9 % 10/26/21 02:16 Stone % (Auto) 7.8 % 10/26/21 02:16 Eos % (Auto) 1.6 % 10/26/21 02:16 Baso % (Auto) 0.4 % 10/26/21 02:16 Neut # (Auto) 3.65 10^3/uL (1.8-7.7) 10/26/21 02:16 Lymph # (Auto) 4.4 10^3/uL (0.8-4.8) 10/26/21 02:16 Stone # (Auto) 0.7 10^3/uL (0.2-0.9) 10/26/21 02:16 Eos # (Auto) 0.1 10^3/uL (0.0-0.8) 10/26/21 02:16 Baso # (Auto) 0.0 10^3/uL (0.0-0.1) 10/26/21 02:16 Nucleated RBC % (auto) 0 % 10/26/21 02:16 Nucleated RBCs # 0.0 /100WBC 10/26/21 02:16 ESR 52 mm/hr (0-10) H 10/24/21 15:44 Sodium 138 mmol/L (136-145) 10/25/21 01:50 Potassium 4.4 mmol/L (3.5-5.1) 10/25/21 01:50 Chloride 105 mmol/L (98-107) 10/25/21 01:50 Carbon Dioxide 22 mmol/L (22-29) 10/25/21 01:50 Anion Gap 15.4 (5-19) 10/25/21 01:50 BUN 17 mg/dL (8-23) 10/25/21 01:50 Creatinine 0.8 mg/dL (0.7-1.2) 10/25/21 01:50 GFR Calculation Not Reportable 10/25/21 01:50 Glucose 103 mg/dL (65-115) 10/25/21 01:50 Calculated Osmolality 288 mOsm/kg (285-295) 10/25/21 01:50 Calcium 8.7 mg/dL (8.5-10.5) 10/25/21 01:50 Total Bilirubin 0.4 mg/dL (0.15-1.2) 10/25/21 01:50 AST 18 U/L (0-40) 10/25/21 01:50 ALT 11 U/L (0-41) 10/25/21 01:50 Alkaline Phosphatase 79 IU/L (40-130) 10/25/21 01:50 C-Reactive Protein 8.5 mg/L (0.0-4.9) H 10/24/21 15:44 Total Protein 6.5 g/dL (6.6-8.7) L 10/25/21 01:50 Albumin 2.5 g/dL (3.5-5.2) L 10/25/21 01:50 Globulin 4.0 g/dL (1.3-4.6) 10/25/21 01:50 Urine Color Yellow (Yellow) 10/24/21 21:37 Urine Appearance Clear (CLEAR) 10/24/21 21:37 Urine pH 5 (5-7) 10/24/21 21:37 Ur Specific [place] 1.020 (1.005-1.030) 10/24/21 21:37 Urine Protein Neg (Negative) 10/24/21 21:37 Urine Glucose (UA) Norm (Normal) 10/24/21 21:37 Urine Ketones Negative (Negative) 10/24/21 21:37 Urine Blood Neg (Negative) 10/24/21 21:37 Urine Nitrate Negative (Negative) 10/24/21 21:37 Urine Bilirubin Neg (Negative) 10/24/21 21:37 Urine Urobilinogen 4 mg/dL (Negative) H 10/24/21 21:37 Ur Leukocyte Esterase Negative (Negative) 10/24/21 21:37 Micro: Microbiology 10/24/21 15:49 Blood Culture - Preliminary Blood NEGATIVE TO DATE 10/24/21 15:44 Blood Culture - Preliminary Blood NEGATIVE TO DATE A&P Assessment and plan (1) Staphylococcus aureus bacteremia: Persistent MSSA bacteremia since October 10, 2021. Source is currently under evaluation. CT of his chest shows a mediastinal mass as detailed above, nature of which is unclear at this point. He underwent an ultrasound-guided biopsy of this mass. Pathology is still pending. Initial path appears to suggest this is skeletal tissue. Postop hematoma cannot be excluded. Uncertain at this point in time whether this mass is the cause of persisting bacteremia or if this mass is an infected hematoma. Unfortunately cultures that were taken yesterday did not make it to the microbiology laboratory, therefore we are unlikely to get any culture data. For his high-grade bacteremia, persisting since October 08, recommend a 6-week course of IV cefazolin 2 g every 8 hours via PICC line. JANNETTE has been taken and currently remains pending. He has complaints of chronic shoulder pain, however range of motion is currently full range presently. Patient had MRI of his back to evaluate for septic seeding of the back, while no clear epidural abscess was identified, early changes of discitis cannot be excluded. At the end of 6-week course of therapy, will reassess with outpatient MR imaging for any interim development. Chest x-ray showed chronic emphysema, no gross consolidation. CT of the abdomen pelvis showed severely enlarged prostate with mass-effect at the base of the bladder on October 14. Prostatitis may be a consideration, however patient denies any complaints of difficulty urinating. Blood culture culture result from October 24 currently is with no growth to date. Status: Acute (2) Mass of mediastinum: Status postbiopsy, pending final results. Status: Acute Plan Recommend treating patient with 6 weeks of IV cefazolin 2 g IV every 8 hour (10/24-12/05). Follow-up in ID clinic at which time we will obtain serial imaging for his back. Follow JANNETTE. Consult Attestations Medical Necessity Statement: Need for IV antibiotics, ultrasound-guided biopsy, per primary admitting note Coding Level of Care Code Acute Plant Culture Manager for g Fwd Diagnoses Staphylococcus aureus bacteremia R78.81; B95.61 Mass of mediastinum J98.59
[2021-10-26] MEDS: famotidine 20 mg Tablet PO (17:26)
[2021-10-27 03:01] VITALS: BP 101/65; PULSE 76; RESP 18; TEMP 36.9; O2SAT 93
[2021-10-27 04:00] VITALS: BP 118/77; PULSE 68; RESP 17; TEMP 36.7; O2SAT 95
[2021-10-27 04:12] LABS: Basophils # 0.1 10^3/uL (0.0-0.1); Basophils % 0.5 %; Eosinophils # 0.2 10^3/uL (0.0-0.8); Eosinophils % 2.4 %; Hematocrit 38.2 % (42.0-52.0); Lymphocytes # 4.9 10^3/uL (0.8-4.8); Lymphocytes % 48.5 %; Mean Corpuscular HGB Conc 31.4 g/dL (30.0-36.0); Mean Corpuscular Hemoglobin 28.4 pg (28.0-34.0); Mean Corpuscular Volume 90.3 fl (80-94); Mean Platelet Volume 9.3 fL (7.4-10.4); Monocytes # 0.7 10^3/uL (0.2-0.9); Monocytes % 6.7 %; Neutrophils % 41.6 %; Nucleated Red Blood Cells % 0 %; Platelet Count 389 10^3/cmm (130-400); Red Blood Count 4.23 10^6/uL (4.1-5.3); Red Cell Distribution Width 15.3 % (12.1-15.1); White Blood Count 10.1 10^3/uL (4.0-10.0)
[2021-10-27] MEDS: ceFAZolin 2,000 MG in sodium chloride 0.9% (plus) 50 ML 100 MG IV ×3 (04:40→15:08)
[2021-10-27 05:36] LABS: Alanine Aminotransferase 7 U/L (0-41); Alkaline Phosphatase 76 IU/L (40-130); Anion Gap 12.5 (5-19); Aspartate Amino Transferase 13 U/L (0-40); Blood Urea Nitrogen 22 mg/dL (8-23); Calcium 8.8 mg/dL (8.5-10.5); Carbon Dioxide 26 mmol/L (22-29); Chloride 104 mmol/L (98-107); Glucose 103 mg/dL (65-115); Osmolality Calculated 290 mOsm/kg (285-295); Potassium 4.5 mmol/L (3.5-5.1); Sodium 138 mmol/L (136-145); Total Bilirubin 0.4 mg/dL (0.15-1.2)
[2021-10-27 07:39] VITALS: BP 118/77; PULSE 75; RESP 16; TEMP 36.6; O2SAT 94
[2021-10-27] MEDS: famotidine 20 mg Tablet PO (07:48)
[2021-10-27] MEDS: aspirin 81 mg EC Tablet PO (07:48)
[2021-10-27] MEDS: polyethylene glycol 3350 Pkt 17 gm PO (07:48)
--- NOTE | 2021-10-27 10:57 | XR_ITS ---
WS: [id number] PORTABLE CHEST HISTORY: RIGHT PICC line placement. COMPARISON: 10/14/2021 Right-sided PICC line has been placed with tip in the distal SVC. Hyperexpanded lungs with changes of chronic emphysema and interstitial thickening. No focal consolida tion. No complications from the recent PICC line placement. No pleural effusion or pneumothorax. Cardiac size: Normal. Mediastinum/Aorta: Mild atherosclerosis aorta. There is mild RIGHT paratracheal thickening which is n oted to be an upper mediastinal mass on prior imaging. Osteopenia. XR/XR chest 1V portable [id number] IMPRESSION: 1. Interval placement of a PICC line. Good position. 2. Chronic emphysema.
--- NOTE | 2021-10-27 11:24 | PC.SOCIAL ---
IMM Update pg 2 of IMM updated and reviewed w/ patient. Copy provided and Copy dated, initialed and placed in chart.
[2021-10-27 12:00] VITALS: BP 114/72; PULSE 71; RESP 16; TEMP 36.6; O2SAT 96
[2021-10-27] MEDS: heparin 5,000 unit/mL INJ 1 mL 5000 UNIT SUBCUT (12:38)
[2021-10-27 13:18] LABS: Lymphoma Profile (BBPL) See Report
--- NOTE | 2021-10-27 13:55 | PM.DCS ---
Discharge Providers Date of Admission: 10/24/21 15:13 Date of Discharge: October 27, 2021 Attending Provider at Admission: Shaun Benton MD Attending Provider at Discharge: Shaun Benton MD Primary Care Provider: Vetsa Dominguez Diagnoses at Discharge Discharge Diagnosis (1) Staphylococcus aureus bacteremia: Status: Acute (2) Mass of mediastinum: Status: Acute (3) Back pain: Status: Acute Reason for Visit Reason for Visit: bacteremia Hospital Course Hospital Course Emigdio presented to the hospital with concerns of recalcitrant bacteremia. He had had 3 separate cultures with methicillin sensitive staph aureus. He did receive treatment with linezolid p.o. and Levaquin p.o. as an outpatient. While being seen by pulmonary for mediastinal mass, direct admission was arranged secondary to persistent bacteremia.. Here in the hospital cefazolin was started IV for which is Staph aureus was sensitive. A JANNETTE was performed which demonstrated no vegetations. Repeat blood cultures were drawn here which were negative. A biopsy of his mediastinal mass was performed, and initial pathology is negative for malignancy but flow cytometry is pending. While at the hospital he remained afebrile, and had decreasing inflammatory markers. An MRI was performed of his back secondary to persistent back pain since start of illness. This demonstrated some enhancement at L1 and L2 with no obvious abscess but infection could not be ruled out. Infectious disease consultation was obtained, and recommended 6 weeks of IV linezolid, with follow-up in clinic. He will therefore follow-up in infectious disease clinic in 2 weeks. He will have CBC, CMP, sedimentation rate, and CRP weekly. He will also follow-up with Dr. Kat, lee, regarding mediastinal mass results. He will see his primary care provider in 3 to 5 days. He will get IV antibiotics through [facility], and his PICC line needs will be followed by Dr. Dominguez clinic. Infectious disease will decide if repeat imaging of his spine is needed in 6 weeks. He is to return for any concerns. Hospital course was explained in detail to him and his . Questions were answered. Previous CTs of chest, abdomen and pelvis, and head had been performed. Source of bacteremia had not been identified. Please see history and physical for synopsis of events and test leading to his hospital stay. Physical Exam Narrative: General exam no distress Neck is supple no lymphadenopathy or thyromegaly Cardiovascular regular rate and rhythm without murmur Lungs clear no wheezing or crackles Abdomen is soft with positive bowel sounds Extremities no cyanosis clubbing or edema Discharge Data Studies Completed and Pending Completed Studies During Hospitalization Category Date Time Status CXRP [XR chest 1V portable [id number]] Routine Exams 10/27/21 10:57 Completed XR femur LT min 2V* [id number] Routine Exams 10/24/21 15:08 Completed XR hip LT 2-3V wo/w pel* [id number] Routine Exams 10/24/21 15:03 Completed MR lumbar spine wo/w con [id number] Routine MRI 10/25/21 09:00 Completed CV. echo transesophageal [id number] Routine Ultrasound 10/26/21 12:30 Completed US biopsy [id number] Routine Ultrasound 10/25/21 13:00 Completed US chest [id number] Routine Ultrasound 10/25/21 08:37 Completed Pending at discharge Category Date Time Status Blood Culture Routine Lab 10/24/21 15:49 Results Body Fluid Culture & GS Routine Lab 10/25/21 09:40 Uncollected Radiology Impressions Hip/Pelvis X-Ray 10/24/21 15:03 IMPRESSION: No acute bone abnormality. Metallic arthroplasty left hip in good position. Femur X-Ray 10/24/21 15:08 IMPRESSION: 1. No acute findings. 2. Metallic left hip arthroplasty in good position. 3. Chronic left femur shaft fracture status post ORIF Chest Ultrasound 10/25/21 08:37 IMPRESSION: 1. Hypoechoic mass surrounding the RIGHT SC joint highly suspicious for malignancy. This should be amenable for ultrasound-guided biopsy. 2. Portion of the mass extending external from the mediastinum is 1.7 x 1.7 x 1.5 cm. Lumbar Spine MRI 10/25/21 09:00 IMPRESSION: 1. There is mild enhancement within the adjacent L1 and L2 vertebral bodies posteriorly with enhancement continuing along the anterior epidural margin and through the LEFT foramen. No focal abscess. The enhancement involves both the LEFT L1 and L2 nerve roots. This is likely postinflammatory. No abscess therefore cannot be described as an epidural abscess. May be postinflammatory or posttraumatic. This area was not positive on the recent PET/CT but neoplasm should also be considered. Recommend follow-up MRI lumbar spine with and without contrast in 6-8 weeks. 2. No discitis. 3. Multilevel areas of stenosis. No severe high-grade stenosis. Notified Shaun Benton MD at 10/25/2021 4:05 PM. Biopsy Ultrasound 10/25/21 13:00 IMPRESSION: 1. Uncomplicated small core biopsy of the soft tissue mass at the sternoclavicular joint. 2. Specimen placed in saline. Specimen will be evaluated for possible metastatic disease, lymphoma and if sufficient material infection. Chest X-Ray 10/27/21 10:57 IMPRESSION: 1. Interval placement of a PICC line. Good position. 2. Chronic emphysema. Laboratory Results WBC 10.1 10^3/uL (4.0-10.0) H 10/27/21 03:41 RBC 4.23 10^6/uL (4.1-5.3) 10/27/21 03:41 Hgb 12.0 g/dL (11.7-16.6) 10/27/21 03:41 Hct 38.2 % (42.0-52.0) L 10/27/21 03:41 MCV 90.3 fl (80-94) 10/27/21 03:41 MCH 28.4 pg (28.0-34.0) 10/27/21 03:41 MCHC 31.4 g/dL (30.0-36.0) 10/27/21 03:41 RDW 15.3 % (12.1-15.1) H 10/27/21 03:41 Plt Count 389 10^3/cmm (130-400) 10/27/21 03:41 MPV 9.3 fL (7.4-10.4) 10/27/21 03:41 Neut % (Auto) 41.6 % 10/27/21 03:41 Lymph % (Auto) 48.5 % 10/27/21 03:41 [place] % (Auto) 6.7 % 10/27/21 03:41 Eos % (Auto) 2.4 % 10/27/21 03:41 Baso % (Auto) 0.5 % 10/27/21 03:41 Neut # (Auto) 4.20 10^3/uL (1.8-7.7) 10/27/21 03:41 Lymph # (Auto) 4.9 10^3/uL (0.8-4.8) H 10/27/21 03:41 [place] # (Auto) 0.7 10^3/uL (0.2-0.9) 10/27/21 03:41 Eos # (Auto) 0.2 10^3/uL (0.0-0.8) 10/27/21 03:41 Baso # (Auto) 0.1 10^3/uL (0.0-0.1) 10/27/21 03:41 Nucleated RBC % (auto) 0 % 10/27/21 03:41 Nucleated RBCs # 0.0 /100WBC 10/27/21 03:41 ESR 52 mm/hr (0-10) H 10/24/21 15:44 Sodium 138 mmol/L (136-145) 10/27/21 03:41 Potassium 4.5 mmol/L (3.5-5.1) 10/27/21 03:41 Chloride 104 mmol/L (98-107) 10/27/21 03:41 Carbon Dioxide 26 mmol/L (22-29) 10/27/21 03:41 Anion Gap 12.5 (5-19) 10/27/21 03:41 BUN 22 mg/dL (8-23) 10/27/21 03:41 Creatinine 0.8 mg/dL (0.7-1.2) 10/27/21 03:41 GFR Calculation Not Reportable 10/27/21 03:41 Glucose 103 mg/dL (65-115) 10/27/21 03:41 Calculated Osmolality 290 mOsm/kg (285-295) 10/27/21 03:41 Calcium 8.8 mg/dL (8.5-10.5) 10/27/21 03:41 Total Bilirubin 0.4 mg/dL (0.15-1.2) 10/27/21 03:41 AST 13 U/L (0-40) 10/27/21 03:41 ALT 7 U/L (0-41) 10/27/21 03:41 Alkaline Phosphatase 76 IU/L (40-130) 10/27/21 03:41 C-Reactive Protein 8.5 mg/L (0.0-4.9) H 10/24/21 15:44 Total Protein 7.0 g/dL (6.6-8.7) 10/27/21 03:41 Albumin 3.0 g/dL (3.5-5.2) L 10/27/21 03:41 Globulin 4.0 g/dL (1.3-4.6) 10/27/21 03:41 Urine Color Yellow (Yellow) 10/24/21 21:37 Urine Appearance Clear (CLEAR) 10/24/21 21:37 Urine pH 5 (5-7) 10/24/21 21:37 Ur Specific [place] 1.020 (1.005-1.030) 10/24/21 21:37 Urine Protein Neg (Negative) 10/24/21 21:37 Urine Glucose (UA) Norm (Normal) 10/24/21 21:37 Urine Ketones Negative (Negative) 10/24/21 21:37 Urine Blood Neg (Negative) 10/24/21 21:37 Urine Nitrate Negative (Negative) 10/24/21 21:37 Urine Bilirubin Neg (Negative) 10/24/21 21:37 Urine Urobilinogen 4 mg/dL (Negative) H 10/24/21 21:37 Ur Leukocyte Esterase Negative (Negative) 10/24/21 21:37 Lymphoma Panel See report 10/25/21 13:25 Vitals Last Vital Signs Temp 97.8 F 10/27/21 12:00 Pulse 71 10/27/21 12:00 Resp 16 10/27/21 12:00 BP 114/72 10/27/21 12:00 Pulse Ox 96 10/27/21 12:00 O2 Del Method 10/27/21 12:00 O2 Flow Rate 2.5 10/26/21 22:25 Discharge Plan Discharge Patient Disposition: Home Condition: Stable Prescriptions: New cefazolin 2 gram recon soln 2 g IM Q8H Qty: 117 0RF Rx Instructions: For 39 days of treatment Continued polyethylene glycol 3350 [Miralax] 17 gram Powder In Packet 17 g PO DAILY PRN (Reason: Constipation) famotidine 20 mg tablet 20 mg PO DAILY PRN (Reason: Acid Reflux) aspirin 81 mg Tablet,Chewable 81 mg PO BID@08,20 tizanidine 2 mg tablet 2 mg PO TID PRN (Reason: Muscle Spasm) triamcinolone acetonide 0.1 % cream 1 applic TOPICAL BID Rx Instructions: APPLY TO CHEST Colace 100 mg Capsule 100 mg PO DAILY@08 ondansetron 4 mg tablet,disintegrating 4 mg PO TID PRN (Reason: Nausea And Vomiting) hydrocodone-acetaminophen 5-325 mg tablet 1 tab PO BEDTIME@2029 acetaminophen 500 mg Tablet 1,000 mg PO Q6H PRN (Reason: Pain) cyanocobalamin (vitamin B-12) [Vitamin B-12] 5,000 mcg Tablet, Sublingual 10,000 mcg PO DAILY@08 tamsulosin 0.4 mg capsule 0.4 mg PO DAILY@08 Discontinued celecoxib 200 mg capsule 200 mg PO BID@08,20 levofloxacin 750 mg tablet 750 mg PO BEDTIME@20 Discharge Orders: Discharge Order (Routine); Ordered 10/27/21 Ordered By: Shaun Benton Referrals: [facility] [Outside] (IV infusion company providing patient w/ IV abxs @ home.) Melissa Melara MD [Hospitalist] - 11/09/21 3:30 pm ([phone]) Vesta Dominguez PA [Primary Care Provider] - 11/02/21 8:45 am (Appointment @ 0845 for labs and then go and check in for your 0900 appointment w/ Dr. Dominguez for PICC Line Dressing change.) Discharge Diet: Regular Patient Instructions: Opioid Safety Activity Restrictions/Additional Instructions: PICC Line dressing changes to be done weekly @ Dr. Dominguez Office. Labs: CBC, CMP, Sed Rate and CRP to be done weekly @ Dr. Dominguez office. Keep follow-up with Dr. Kat regarding mediastinal mass biopsy results. You should have an appointment within the next 7 to 10 days. Return for any fever or concerns Take all medicine as prescribed. May be discharged after antibiotic dose this afternoon. Discharge Attestations Time Spent in Discharge Care*: greater than 30 min Quality Metrics Clinical Quality Measures [ No reported AMI, CVA or VTE this stay] Coding Level of Care Code Acute Chg FW DC note Diagnoses Staphylococcus aureus bacteremia R78.81; B95.61 Mass of mediastinum J98.59 Back pain M54.9
[2021-10-27 15:30] VITALS: BP 116/72; PULSE 74; RESP 16; TEMP 36.7; O2SAT 97
== END 2021-10-27 16:00 | disposition home or self-care (01) | DRG 871 ==
PROVIDERS: Internal Medicine Cardiovascular Disease; Admitting Provider Internal Medicine; PCP Physician Assistant; Visit Provider Internal Medicine
PROC: B24BZZ4 Ultrasonography of Heart with Aorta, Transesophageal (ICD-10-PCS; CPT 93312; principal; 2021-10-26 12:30)
DX: R78.81 Bacteremia (principal); J98.59 Other diseases of mediastinum, not elsewhere classified; B95.61 Methicillin susceptible Staphylococcus aureus infection as the cause of diseases classified elsewhere; M25.511 Pain in right shoulder; M54.50 Low back pain, unspecified; N40.1 Benign prostatic hyperplasia with lower urinary tract symptoms; D75.839 Thrombocytosis, unspecified; J43.9 Emphysema, unspecified; K21.9 Gastro-esophageal reflux disease without esophagitis; Z87.891 Personal history of nicotine dependence; Z96.642 Presence of left artificial hip joint; Z79.82 Long term (current) use of aspirin; Z79.891 Long term (current) use of opiate analgesic; Z91.81 History of falling
CPT/HCPCS: 20206; 36415; 36569; 71045; 72158; 73502; 73552; 76604; 76942; 80053; 81003; 85025; 85651; 86140; 87040; 88184; 88185; 88309; 93312; 93320; 93325; 96372; A9577; J1644; J2704; J7030

== ENCOUNTER → 2021-11-02 11:56 | Outpatient (BNVA) | payer MEDICARE, OTHER, SELFPAY | PROVIDERS: PCP Physician Assistant; Visit Provider Internal Medicine Pulmonary Disease | DX: J98.59 Other diseases of mediastinum, not elsewhere classified (principal); R78.81 Bacteremia; B95.61 Methicillin susceptible Staphylococcus aureus infection as the cause of diseases classified elsewhere; R93.89 Abnormal findings on diagnostic imaging of other specified body structures | CPT/HCPCS: 99214 ==

== ENCOUNTER → 2021-11-09 15:25 | Outpatient (BNVA) | payer MEDICARE, OTHER, SELFPAY | PROVIDERS: PCP Physician Assistant; Visit Provider Student in an Organized Health Care Education/Training Program | DX: R78.81 Bacteremia (principal); B95.61 Methicillin susceptible Staphylococcus aureus infection as the cause of diseases classified elsewhere; J98.59 Other diseases of mediastinum, not elsewhere classified; Z95.828 Presence of other vascular implants and grafts | CPT/HCPCS: 80053; 85025; 99203; 99205 ==

== ENCOUNTER 2021-11-17 15:34 | Outpatient (CLI) | payer MEDICARE, OTHER, SELFPAY ==
--- NOTE | 2021-11-17 15:55 | CTR_ITS ---
PROCEDURE INFORMATION: Exam: CT Head Without Contrast Exam date and time: 11/17/2021 3:58 PM Age: 75 years old Clinical indication: Pain; Headache; Additional info: Loss of consciousness TECHNIQUE: Imaging protocol: Computed tomography of the head without contrast. Radiation optimization: All CT scans at this facility use at least one of these dose optimization techniques: automated exposure control; mA and/or kV adjustment per patient size (includes targeted exams where dose is matched to clinical indication); or iterative reconstruction. COMPARISON: CT head wo con* [id number] 10/10/2021 8:56 AM RADIATION DOSE METRICS: Total DLP (mGy-cm): 1019.48 FINDINGS: Brain: Mild hypodense changes are noted in the bilateral periventricular regions, likely related to chronic microvascular ischemic disease. There is mild brain parenchymal atrophy. There is increased right frontal extra-axial space demonstrating minimally higher than CSF density measuring about 8 mm, new since prior exam suggesting subacute right frontal subdural hematoma. A tiny linear hyperdensity is also seen suggesting a possible tiny element of relatively acute subdural hematoma. There is minimal regional mass effect upon the adjacent sulci. No other acute hyperdense intracranial hemorrhage, other mass effect or midline shift. Cerebral ventricles: No pathologic ventricular dilatation. Paranasal sinuses: Visualized sinuses are unremarkable. No fluid levels. Mastoid air cells: Visualized mastoid air cells are well aerated. Bones/joints: Unremarkable. No acute fracture. Soft tissues: Unremarkable. CT/CT head wo con* [id number] IMPRESSION: 1. New small right frontal subdural hematoma demonstrating mostly subacute features. A trace amount of hyperdense/acute hemorrhage may also be present. There is minimal mass effect on the adjacent cortical sulci with no midline shift. 2. Other stable nonacute intracranial findings as above.
== END 2021-11-17 15:35 | disposition home or self-care (01) ==
LOC: RAD 15:34
PROVIDERS: PCP Physician Assistant; Visit Provider Physician Assistant
DX: R40.20 Unspecified coma (principal); R51.9 Headache, unspecified
CPT/HCPCS: 70450

== ENCOUNTER 2021-11-17 18:47 | Emergency (ER) | payer MEDICARE, OTHER, SELFPAY ==
[2021-11-17 19:09] VITALS: BMI 22.8
[2021-11-17 19:17] VITALS: BP 150/90; PULSE 83; RESP 19; TEMP 36.8; O2SAT 96
--- NOTE | 2021-11-17 20:46 | W.ED.RECABL ---
HPI - Recheck/Abnormal Lab/Rx General: Chief Complaint: Recheck/Abnormal Lab/Rx Stated Complaint: sent by PCP due CT scan Time Seen by Provider: 11/17/21 18:56 History of Present Illness: 75-year-old gentleman he states he has had headaches on and off for the past 2 years. He presents after seeing his PCP today. He told his PCP about his headaches, and evidently about a trauma around 4 weeks ago in which he slipped and hit a stud in a wall with his head. His headaches do not necessarily seem to worsen after that. She had ordered a CT scan, and they were told to come here because of abnormal results. He is asymptomatic at this point. He has no neurological symptoms. 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 Mother , AT AGE 88 No problems noted. Social History Smoking and tobacco status: never smoked Alcohol intake: never Household members: spouse Marital status: Current occupational status: retired Physical Exam Const: COMMON NORMALS: no acute distress and alert GENERAL APPEARANCE: cooperative, comfortable and frail appearing (Mildly) HENMT: COMMON NORMALS: normocephalic, atraumatic and Normal external nose present HEAD & SCALP: normocephalic and atraumatic FACE & SINUS: normal facial exam and face symmetric NOSE: Normal external nose present Eye: COMMON NORMALS: Equal, round and reactive pupils present and EOMs intact bilaterally PUPIL: Yes Equal, round and reactive pupils present Neck/C-Spine: GENERAL: Yes trachea midline Chest: CHEST: Yes Symmetrical chest wall rise Resp: COMMON NORMALS: normal respiratory effort, No use of accessory muscles and clear to auscultation bilaterally AUSCULTATION: clear to auscultation bilaterally Cardio: COMMON NORMALS: regular rate and regular rhythm RATE: regular rate RHYTHM: regular rhythm GI: COMMON NORMALS: Normal to inspection, nondistended, normoactive bowel sounds present Neuro: HEATHER COMA SCALE: document GCS findings [place] coma scale eye opening: Spontaneous Heather coma scale verbal response: Orientated [place] coma scale motor response: Obey commands [place] coma scale total score: 15 COMMON NORMALS: no focal motor deficits and no sensory deficits noted SENSORIUM/ORIENTATION: Yes alert COORDINATION/BALANCE: [id number] test normal and qmie-[id number] test normal SPEECH: speech normal SENSORY EXAM: Yes extremities (Intact) MOTOR EXAM: Pronator motor function not present COORDINATION: [id number]-so-[id number] test normal and lsmi-or-takw test normal Course Consultations: Consultation #1: [facility]. Vital Signs: Vital signs: Vital Signs Temperature 98.2 F 11/17/21 19:17 Pulse Rate 74 11/17/21 22:09 Respiratory Rate 18 11/17/21 22:09 Blood Pressure 134/89 11/17/21 22:09 Pulse Oximetry 95 11/17/21 22:09 Oxygen Delivery Me thod 11/17/21 19:17 MDM - Recheck/Abnormal Lab/Rx Medical Decision Making Small amount of right frontal subdural blood appears subacute. There may be some small amount of acute blood. The patient is essentially asymptomatic. We have a call out to neurosurgery at [facility], as we have no neurosurgery service here. We are awaiting a callback from Neurosurgery. Spoke with neurosurgery at [facility]. This patient is completely neurologically intact. Blood does not appear acute by ct to them. Given no change in neurological status, their recommendations are follow up in one week as an outpatient with them for repeat imaging, and exam. Stop his aspirin for now. Obviously return immediately if any change in neurological status in the meantime for repeat imaging. I counseled the patient and his extensively about warning signs for return as well as the need for follow up. They will call on Saturday to make an appointment. Lab Data ROCEDURE INFORMATION: Exam: CT Head Without Contrast Exam date and time: 11/17/2021 3:58 PM Age: 75 years old Clinical indication: Pain; Headache; Additional info: Loss of consciousness TECHNIQUE: Imaging protocol: Computed tomography of the head without contrast. Radiation optimization: All CT scans at this facility use at least one of these dose optimization techniques: automated exposure control; mA and/or kV adjustment per patient size (includes targeted exams where dose is matched to clinical indication); or iterative reconstruction. COMPARISON: CT head wo con* [id number] 10/10/2021 8:56 AM RADIATION DOSE METRICS: Total DLP (mGy-cm): 1019.48 FINDINGS: Brain: Mild hypodense changes are noted in the bilateral periventricular regions, likely related to chronic microvascular ischemic disease. There is mild brain parenchymal atrophy. There is increased right frontal extra-axial space demonstrating minimally higher than CSF density measuring about 8 mm, new since prior exam suggesting subacute right frontal subdural hematoma. A tiny linear hyperdensity is also seen suggesting a possible tiny element of relatively acute subdural hematoma. There is minimal regional mass effect upon the adjacent sulci. No other acute hyperdense intracranial hemorrhage, other mass effect or midline shift. Cerebral ventricles: No pathologic ventricular dilatation. Paranasal sinuses: Visualized sinuses are unremarkable. No fluid levels. Mastoid air cells: Visualized mastoid air cells are well aerated. Bones/joints: Unremarkable. No acute fracture. Soft tissues: Unremarkable. CT/CT head wo con* [id number] IMPRESSION: 1. New small right frontal subdural hematoma demonstrating mostly subacute features. A trace amount of hyperdense/acute hemorrhage may also be present. There is minimal mass effect on the adjacent cortical sulci with no midline shift. 2. Other stable nonacute intracranial findings as above. Discharge Plan Discharge Patient Disposition: Home Clinical Impression: Chronic subdural hematoma Condition: Stable Prescriptions: Discontinued aspirin 81 mg Tablet,Chewable 81 mg PO BID@08,20 No Action tramadol 50 mg tablet 50 mg PO DAILY polyethylene glycol 3350 [Miralax] 17 gram Powder In Packet 17 g PO DAILY PRN (Reason: Constipation) famotidine 20 mg tablet 20 mg PO DAILY PRN (Reason: Acid Reflux) tizanidine 2 mg tablet 2 mg PO TID PRN (Reason: Muscle Spasm) triamcinolone acetonide 0.1 % cream 1 applic TOPICAL BID Rx Instructions: APPLY TO CHEST Colace 100 mg Capsule 100 mg PO DAILY@08 ondansetron 4 mg tablet,disintegrating 4 mg PO TID PRN (Reason: Nausea And Vomiting) hydrocodone-acetaminophen 5-325 mg tablet 1 tab PO BEDTIME@2029 cefazolin 2 gram recon soln 2 g IM Q8H Qty: 117 0RF Rx Instructions: For 39 days of treatment acetaminophen 500 mg Tablet 1,000 mg PO Q6H PRN (Reason: Pain) cyanocobalamin (vitamin B-12) [Vitamin B-12] 5,000 mcg Tablet, Sublingual 10,000 mcg PO DAILY@08 tamsulosin 0.4 mg capsule 0.4 mg PO DAILY@08 Discharge Orders: Discharge ED (Routine); Ordered 11/17/21 Ordered By: Po Crabtree Referrals: Vesta Dominguez PA [Primary Care Provider] - Jj Saldivar MD [Referring] - 7-10 days Activity Restrictions/Additional Instructions: Call the neurosurgery clinic on Saturday morning, for appointment in a week. The numbers listed above. Return immediately to the emergency department for any changes in behavior, mental status, weakness, language problems, speech problems, or any other concerning symptoms. Return also for any worsening headache. Stop your aspirin as listed above until instructed by your neurosurgeon. Coding Level of Care Code ED Leaf Sorter for Kiersten Fwd Exam Comprehensive
[2021-11-17 22:09] VITALS: BP 134/89; PULSE 74; RESP 18; O2SAT 95
== END 2021-11-17 22:10 | disposition home or self-care (01) ==
PROVIDERS: Emergency Provider Emergency Medicine; PCP Physician Assistant
DX: I62.03 Nontraumatic chronic subdural hemorrhage (principal); F03.90 Unspecified dementia, unspecified severity, without behavioral disturbance, psychotic disturbance, mood disturbance, and anxiety; R40.20 Unspecified coma; R51.9 Headache, unspecified
CPT/HCPCS: 70450; 99283

== ENCOUNTER 2021-11-23 13:26 | Outpatient (CLI) | payer MEDICARE, OTHER, SELFPAY ==
--- NOTE | 2021-11-23 12:45 | CT_ITS ---
WS: [id number] CT CHEST WITHOUT INTRAVENOUS CONTRAST HISTORY: lung mass TECHNIQUE: Contiguous 5 mm axial imaging performed on the thorax. Coronal and sagittal reformats are submitted. All CT scans at [facility] use at least one of these dose optimization techniques: automated exposure control; mA and/or kV adjustment per patient size (includes targeted exams where dose is matched to clinical indication); or iterative reconstruction. CONTRAST: None DLP: 596.01 mGy.cm COMPARISON: 10/14/2021 and 09/18/2020 Lungs and central airway: Pulmonary hyperexpansion. No lung mass identified. No pneumonia. No honeyco mbing or bronchiectasis. Centrilobular emphysema. Pleura: Normal. No pleural effusion. Heart and pericardium: Normal size heart with no pericardial effusion. Mediastinum and neva: Previously described anterior mediastinal mass with partial encasement of the R IGHT internal mammary artery has significantly improved. There is a very small amount of persistent s oft tissue thickening at the RIGHT sternoclavicular junction and along the retrosternal border. This soft tissue thickening extends around the head of the RIGHT clavicle. Also noted is a right-sided PIC C line. No additional mediastinal or hilar mass or significant adenopathy identified. Vessels: Mild atherosclerosis aorta. Mild ectasia aorta. No aneurysm. Normal size pulmonary artery. Chest wall and lower neck: Small but numerous and stable axillary lymph nodes. Upper abdomen: Mildly contracted gallbladder. Unenhanced imaging of the upper abdominal organs negati ve. Osseous structures: Marked increase in thoracic kyphosis. Advanced degenerative disc space narrowing and osteophytosis. CT/CT chest wo con [id number] IMPRESSION: 1. Near complete resolution of the previously described superior, anterior me diastinal mass. There is very minimal residual soft tissue thickening at the RI GHT SC joint and along the retrosternal border. 2. No increasing size of the mediastinal or hilar lymph nodes or axillary lymp h nodes. 3. Pulmonary expansion. Centrilobular emphysema. 4. Resolved RIGHT pleural effusion.
== END 2021-11-23 13:27 | disposition home or self-care (01) ==
LOC: RAD 13:26
PROVIDERS: PCP Physician Assistant; Visit Provider Internal Medicine Pulmonary Disease
DX: R78.81 Bacteremia (principal); J98.59 Other diseases of mediastinum, not elsewhere classified; N40.1 Benign prostatic hyperplasia with lower urinary tract symptoms
CPT/HCPCS: 71250; 80053; 85025; 99024; 99213

== ENCOUNTER 2021-11-30 09:45 | Outpatient (CLI) | payer MEDICARE, OTHER, SELFPAY ==
[2021-11-30 10:11] LABS: Basophils % 0.2 %; Eosinophils # 0.2 10^3/uL (0.0-0.8); Eosinophils % 2.2 %; Hematocrit 41.9 % (42.0-52.0); Hemoglobin 12.8 g/dL (11.7-16.6); Lymphocytes # 3.2 10^3/uL (0.8-4.8); Lymphocytes % 29.8 %; Mean Corpuscular HGB Conc 30.5 g/dL (30.0-36.0); Mean Corpuscular Volume 94.8 fl (80-94); Mean Platelet Volume 10.6 fL (7.4-10.4); Monocytes # 0.7 10^3/uL (0.2-0.9); Monocytes % 6.2 %; Neutrophils # 6.58 10^3/uL (1.8-7.7); Neutrophils % 61.1 %; Nucleated Red Blood Cells % 0 %; Platelet Count 183 10^3/cmm (130-400); Red Blood Count 4.42 10^6/uL (4.1-5.3); Red Cell Distribution Width 15.9 % (12.1-15.1); White Blood Count 10.8 10^3/uL (4.0-10.0)
[2021-11-30 10:26] LABS: Alanine Aminotransferase < 5 U/L (0-41); Alkaline Phosphatase 90 U/L (40-130); Anion Gap 12.8 (5-19); Aspartate Amino Transferase 15 U/L (0-40); Blood Urea Nitrogen 15 mg/dL (8-23); Calcium 8.8 mg/dL (8.5-10.5); Carbon Dioxide 23 mmol/L (22-29); Chloride 103 mmol/L (98-107); Globulin 3.1 g/dL (1.3-4.6); Glucose 89 mg/dL (65-115); Osmolality Calculated 280 mOsm/kg (285-295); Potassium 3.8 mmol/L (3.5-5.1); Sodium 135 mmol/L (136-145); Total Bilirubin 0.5 mg/dL (0.15-1.2); Total Protein 7.1 g/dL (6.6-8.7)
== END 2021-11-30 09:46 | disposition home or self-care (01) ==
LOC: LAB 09:49
PROVIDERS: PCP Physician Assistant; Visit Provider Student in an Organized Health Care Education/Training Program
DX: R78.81 Bacteremia (principal); B95.61 Methicillin susceptible Staphylococcus aureus infection as the cause of diseases classified elsewhere
CPT/HCPCS: 36415; 80053; 85025

== ENCOUNTER → 2021-12-01 08:36 | Outpatient (BNVA) | payer MEDICARE, OTHER, SELFPAY | PROVIDERS: PCP Physician Assistant; Visit Provider Internal Medicine Pulmonary Disease | DX: J98.59 Other diseases of mediastinum, not elsewhere classified (principal); R78.81 Bacteremia; B95.61 Methicillin susceptible Staphylococcus aureus infection as the cause of diseases classified elsewhere; R93.89 Abnormal findings on diagnostic imaging of other specified body structures; S06.5X9A Traumatic subdural hemorrhage with loss of consciousness of unspecified duration, initial encounter; X58.XXXA Exposure to other specified factors, initial encounter; R79.1 Abnormal coagulation profile | CPT/HCPCS: 36415; 70496; 70498; 80048; 85049; 85384; 85610; 85730; 99214 ==

== ENCOUNTER 2021-12-01 12:31 | Outpatient (CLI) | payer MEDICARE, OTHER, SELFPAY ==
[2021-12-01 12:53] LABS: Platelet Count 200 10^3/cmm (130-400)
--- NOTE | 2021-12-01 13:00 | CT_ITS ---
WS: [id number] CT ANGIOGRAM CEREBRAL AND CAROTID ARTERIES Noncontrast head CT HISTORY: reassess hematoma TECHNIQUE: Noncontrast CT head first performed. CT angiogram is performed of the carotid and cerebral arteries. During arterial injection imaging is obtained from the skull vertex to the aortic arch in 1.0 mm imaging. Coronal and sagittal reformats are submitted. Additional multi planar reformats of th e carotid and cerebral arteries are submitted, MIP imaging also reviewed. NASCET criteria utilized. All CT scans at [facility] use at least one of these dose optimization techniques: automated e xposure control; mA and/or kV adjustment per patient size (includes targeted exams where dose is matc hed to clinical indication); or iterative reconstruction. CONTRAST: Omnipaque 350; 95 mL IV. DLP: 573.63 mGy.cm COMPARISON: 11/17/[address] head: Recently described mixed RIGHT frontal subdural hematoma has nearly completely r esolved. Very minimal residual chronic subdural component over the posterior RIGHT frontal lobe. No m idline shift or mass effect. No new area of blood. No inferior displacement of the cerebellar tonsils . Carotid Angiogram: Right carotid: Common carotid artery: Arises normally from the innominate artery. No significant plaque or stenosis. Internal carotid artery: No plaque or stenosis. External carotid artery: Patent. Left carotid: Common carotid artery: Arises normally from the aorta. No significant plaque or stenosis. Internal carotid artery: No plaque or stenosis. External carotid artery: Patent. Right vertebral artery: Unremarkable. Mildly dominant. Left vertebral artery: Unremarkable. Arises normally from the subclavian artery. Subclavian arteries: No stenosis or significant abnormality. Upper thorax: Normal. Thyroid gland: Normal. Osseous structures: Increase in the cervical lordosis. Disc spaces are narrowed. No fracture. CEREBRAL ANGIOGRAM: Intracranial vertebral arteries: Normal with no significant atherosclerosis. Basilar artery: No significant stenosis or occlusion. No aneurysm. Intracranial Internal carotid arteries: No significant stenosis. There is a small to moderate amount of plaque through the cavernous and supraclinoid carotid arteries. Stenosis is not greater than 50%. Middle cerebral arteries: Normal. Anterior cerebral arteries and ACOM: Normal. Posterior cerebral arteries and PCOM's: Both posterior tibial arteries are patent. There is very mild stenosis involving the LEFT P1 segment but no occlusion. Posterior communicating arteries are both i dentified. The LEFT posterior communicating artery is very small and hypoplastic. The RIGHT is domina nt. Dural venous sinuses with limited enhancement probably due to early phase imaging. Mastoid air cells: Normal. Paranasal sinuses: Small amount mucoperiosteal thickening in the RIGHT maxillary sinus. Calvarium: Normal. CT/CT angio headneck* [id number] IMPRESSION: 1. No cervical carotid artery stenosis or occlusions. 2. Mild stenosis intracranial carotid arteries through the cavernous sinuses a nd supraclinoid. Stenosis less than 50%. 3. Very minimal stenosis in the proximal LEFT P1 segment. 4. Minimal residual RIGHT subdural hematoma remains since 11/17/2021. No acute blood products.
[2021-12-01 13:03] LABS: INR 1.03 (0.8-1.2)
[2021-12-01 13:04] LABS: Fibrinogen 363 mg/dL (174-498); Partial Thromboplastin Time 31.1 SECONDS (23.9-36.7)
[2021-12-01 13:12] LABS: Anion Gap 12.6 (5-19); Blood Urea Nitrogen 15 mg/dL (8-23); Calcium 9.1 mg/dL (8.5-10.5); Carbon Dioxide 22 mmol/L (22-29); Chloride 103 mmol/L (98-107); Glucose 123 mg/dL (65-115); Osmolality Calculated 280 mOsm/kg (285-295); Potassium 3.6 mmol/L (3.5-5.1); Sodium 134 mmol/L (136-145)
[2021-12-01] MEDS: iohexol 350 mg/mL 100 mL Btl IV (13:29)
== END 2021-12-01 12:32 | disposition home or self-care (01) ==
LOC: RAD 12:31
PROVIDERS: PCP Physician Assistant; Visit Provider Internal Medicine Pulmonary Disease
DX: S06.5X9A Traumatic subdural hemorrhage with loss of consciousness of unspecified duration, initial encounter (principal); R79.1 Abnormal coagulation profile; X58.XXXA Exposure to other specified factors, initial encounter
CPT/HCPCS: 36415; 70496; 70498; 80048; 85049; 85384; 85610; 85730

== ENCOUNTER → 2021-12-07 11:35 | Outpatient (BNVA) | payer MEDICARE, OTHER, SELFPAY | PROVIDERS: PCP Physician Assistant; Visit Provider Student in an Organized Health Care Education/Training Program | DX: J98.59 Other diseases of mediastinum, not elsewhere classified (principal); R78.81 Bacteremia; B95.61 Methicillin susceptible Staphylococcus aureus infection as the cause of diseases classified elsewhere | CPT/HCPCS: 99213; 99215 ==

== ENCOUNTER 2021-12-08 14:59 | Emergency (ER) | payer MEDICARE, OTHER, SELFPAY ==
[2021-12-08 15:04] VITALS: BP 123/72; PULSE 115; RESP 16; TEMP 36.7; O2SAT 98
--- NOTE | 2021-12-08 15:07 | ED_ITS ---
HPI - Wound/Laceration General: Chief Complaint: Wound/Laceration Stated Complaint: Chainsaw cut left leg Time Seen by Provider: 12/08/21 15:07 Source: patient Mode of arrival: ambulatory Limitations: no limitations History of Present Illness: 75-year-old male presents to the ER today for a laceration to the left lower extremity. Patient reports he was using a chainsaw when it slipped and caught his left thigh. Patient reports there was some bleeding but it has been controlled since the accident. Patient reports no pain at this time. Patient ports no numbness or tingling. Patient denies any d ifficulty with range of motion. Patient reports he is unsure when his last tetanus shot was. 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 Mother , AT AGE 88 No problems noted. Social History Smoking and tobacco status: never smoked Alcohol intake: never Household members: spouse Marital status: Current occupational status: retired Physical Exam Const: COMMON NORMALS: no acute distress, average body habitus, patient oriented x3, no limitations, healthy appearing, alert and well nourished Resp: COMMON NORMALS: normal respiratory effort EFFORT & INSPECTION: Yes able to speak in complete sentences Cardio: COMMON NORMALS: regular rate and regular rhythm RATE: regular rate RHYTHM: regular rhythm GI: COMMON NORMALS: non-tender Back/Pelvis: COMMON NORMALS: thoraco-lumbar ROM normal Extremity: NARRATIVE EXTREMITY EXAM: Patient's range of motion of the left leg is at his baseline. Patient does walk with a cane. No numbness or tingling reported. Neuro: COMMON NORMALS: patient oriented x3 SENSORIUM/ORIENTATION: Yes alert Psych: COMMON NORMALS: mental status grossly normal, Normal thought process present and cooperative THOUGHT PROCESS: Normal thought process present Skin: NARRATIVE SKIN EXAM: Patient has a 5 cm laceration to the anterior left thigh. Bleeding is controlled. Edges are somewhat jagged laterally. This is a very superficial lack, does not involve any muscle or deep tissue. Procedures Laceration Laceration 1: Site: lower extremity Side (If applicable): left Size (cm): 5 Description: linear Depth: simple, single layer Local Anesthetic: lidocaine 2% Amount of anesthesia used (mL): 6 Pre-repair: irrigated extensively Skin layer closed with: other (ethilon) Size (cm): 4-0 Number of sutures: 13 Technique: simple, interrupted Course ED course: 75-year-old male presents to the ER today for a laceration to the left thigh. Patient was using a chainsaw this afternoon when it slipped and cut his pants. Patient reports minimal bleeding. Denies any pain or difficulty with range of motion. Denies any numbness or tingling. Patient's last tetanus shot was unknown. We will clean the wound and close it at this time. Patient will also be given Tdap. Vital Signs: Vital signs: Vital Signs Temperature 98.0 F 12/08/21 15:04 Pulse Rate 115 H 12/08/21 15:04 Respiratory Rate 16 12/08/21 15:04 Blood Pressure 123/72 12/08/21 15:04 Pulse Oximetry 98 12/08/21 15:04 Oxygen Delivery Me thod 12/08/21 15:04 MDM - Wound/Laceration Medical Decision Making 75-year-old male presents to the ER today for a laceration to the left thigh. Patient was using a chainsaw this afternoon when it slipped and cut his pants. Patient reports minimal bleeding. Denies any pain or difficulty with range of motion. Denies any numbness or tingling. Patient's last tetanus shot was unknown. We will clean the wound and close it at this time. Patient will also be given Tdap. Wound was easily closed, see laceration note. Wound care was discussed with patient. Follow-up with PCP in 7 to 10 days for suture removal. Return to the ER with any signs of infection. Patient verbalized understanding and was in agreement with the treatment plan. Critical Care Time Critical Care Time: Critical Care Time: No Discharge Plan Discharge Patient Disposition: Home Clinical Impression: Laceration of left thigh without complication Qualifiers: Encounter type: initial encounter Qualified Code(s): S71.112A - Laceration without foreign body, left thigh, initial encounter Condition: Stable Prescriptions: No Action tramadol 50 mg tablet 50 mg PO DAILY cefuroxime axetil 500 mg tablet 500 mg PO BID 14 Days Qty: 28 0RF polyethylene glycol 3350 [Miralax] 17 gram Powder In Packet 17 g PO DAILY PRN (Reason: Constipation) famotidine 20 mg tablet 20 mg PO DAILY PRN (Reason: Acid Reflux) tizanidine 2 mg tablet 2 mg PO TID PRN (Reason: Muscle Spasm) Colace 100 mg Capsule 100 mg PO DAILY@08 ondansetron 4 mg tablet,disintegrating 4 mg PO TID PRN (Reason: Nausea And Vomiting) cefazolin 2 gram recon soln 2 g IM Q8H Qty: 117 0RF Rx Instructions: For 39 days of treatment hydrocodone-acetaminophen 5-325 mg tablet 1 tab PO BEDTIME@2030 PRN triamcinolone acetonide 0.1 % cream 1 applic TOPICAL BID PRN Rx Instructions: APPLY TO CHEST acetaminophen 500 mg Tablet 1,000 mg PO Q6H PRN (Reason: Pain) cyanocobalamin (vitamin B-12) [Vitamin B-12] 5,000 mcg Tablet, Sublingual 10,000 mcg PO DAILY@08 tamsulosin 0.4 mg capsule 0.4 mg PO DAILY@08 Discharge Orders: Discharge ED (Routine); Ordered 12/08/21 Ordered By: Heather Rose Referrals: Vesta Dominguez PA [Primary Care Provider] - Discharge Diet: Usual diet Discharge Activity: Resume usual activity Patient Instructions: Opioid Safety, Pain Management Activity Restrictions/Additional Instructions: Wound care as discussed. Follow-up in 7 to 10 days for suture removal. Return to the ER with any new or worsening symptoms. Coding Level of Care Code ED Boring Machine Feeder for Kiersten Cheema
[2021-12-08] MEDS: tetanus-dipt-pertussis 0.5 mL SDV IM (15:16)
== END 2021-12-08 15:55 | disposition home or self-care (01) ==
PROVIDERS: Emergency Provider Physician Assistant; PCP Physician Assistant
DX: S71.112A Laceration without foreign body, left thigh, initial encounter (principal); W29.3XXA Contact with powered garden and outdoor hand tools and machinery, initial encounter; Z23 Encounter for immunization
CPT/HCPCS: 12002; 90471; 90715; 99283

== ENCOUNTER 2022-01-17 12:40 | Outpatient (CLI) | payer MEDICARE, OTHER, SELFPAY ==
--- NOTE | 2022-01-17 13:00 | CT_ITS ---
WS: [id number] CT CHEST TECHNIQUE: Contrast enhanced CT of the chest with coronal and sagittal reformatted images. CLINICAL INFORMATION: follow up on mediastinal mass COMPARISON: CT chest November 23, 2021, PET/CT DLP: 620.[address] scans at [facility] use at least one of these dose optimization techniques: automated e xposure control; mA and/or kV adjustment per patient size (includes targeted exams where dose is matc hed to clinical indication); or iterative reconstruction. FINDINGS: Previously described soft tissue thickening along the RIGHT anterior superior mediastinum with soft t issue thickening involving the sternoclavicular joint is unchanged. Small amount of residual soft tis vesna thickening posterior to the RIGHT sternum is unchanged in appearance. No evidence of progression. This is significantly improved since the prior PET/CT October 14, 2021. Stable ectatic ascending thoracic aorta measuring 3.8 cm. No mediastinal or hilar lymphadenopathy. No rmal caliber descending thoracic aorta. Numerous axillary lymph nodes not pathologically enlarged unc hanged from previous. Small esophageal hiatal hernia. Adrenal glands are normal. Mild thoracic kyphosis. Hypertrophic alaniz es thoracic spine. No suspicious pulmonary parenchymal opacities. CT/CT chest w con* [id number] IMPRESSION: 1. 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 Small amount of residual soft tissue along the RIGHT retrosternal border un changed. 3. No evidence of progression. 4. No mediastinal or hilar lymphadenopathy. 5. Mild chronic emphysematous changes. 6. Stable ectatic ascending thoracic aorta measuring 3.8 cm.
[2022-01-17] MEDS: iohexol 350 mg/mL 100 mL Btl IV (13:31)
== END 2022-01-17 12:41 | disposition home or self-care (01) ==
LOC: RAD 12:40
PROVIDERS: PCP Physician Assistant; Visit Provider Student in an Organized Health Care Education/Training Program
DX: J98.59 Other diseases of mediastinum, not elsewhere classified (principal); I77.810 Thoracic aortic ectasia
CPT/HCPCS: 71260

== ENCOUNTER → 2022-01-18 13:42 | Outpatient (BNVA) | payer MEDICARE, OTHER, SELFPAY | PROVIDERS: PCP Physician Assistant; Visit Provider Student in an Organized Health Care Education/Training Program | DX: J98.59 Other diseases of mediastinum, not elsewhere classified (principal); R78.81 Bacteremia; B95.61 Methicillin susceptible Staphylococcus aureus infection as the cause of diseases classified elsewhere | CPT/HCPCS: 99214 ==

== ENCOUNTER 2022-05-13 11:26 | Emergency (ER) | payer MEDICARE, OTHER, SELFPAY ==
[2022-05-13] VITALS (7 sets, daily range): BP systolic 108–113; BP diastolic 65–70; PULSE 60–84; RESP 15–21; TEMP 37; O2SAT 93–97; BMI 24.3
--- NOTE | 2022-05-13 11:49 | CTR_ITS ---
PROCEDURE INFORMATION: Exam: CT Abdomen And Pelvis With Contrast Exam date and time: 05/13/2022 12:43 PM Age: 76 years old Clinical indication: Nausea and vomiting; Prior surgery; Surgery date: 6+ months; Surgery type: Left hip; Additional info: Obstipation, eval bowel obstruction TECHNIQUE: Imaging protocol: Computed tomography of the abdomen and pelvis with contrast. Radiation optimization: All CT scans at this facility use at least one of these dose optimization techniques: automated exposure control; mA and/or kV adjustment per patient size (includes targeted exams where dose is matched to clinical indication); or iterative reconstruction. Contrast material: OMNI 350; Contrast volume: 100 ml; Contrast route: INTRAVENOUS (IV); Other protocol: This patient has received 9 known CTs and 0 known cardiac nuclear medicine studies in the 12 months prior to the current study. COMPARISON: CT abdomen pelvis w con* [id number] 10/14/2021 5:29 AM RADIATION DOSE METRICS: Total DLP (mGy-cm): 479.65 FINDINGS: Liver: There are sub cm hepatic cyst with benign features. Follow-up is not necessary. Gallbladder and bile ducts: Normal. No calcified stones. No ductal dilation. Pancreas: Normal. No ductal dilation. Spleen: Normal. No splenomegaly. Adrenal glands: Normal. No mass. Kidneys and ureters: Normal. No hydronephrosis. Stomach and bowel: There is mucosal thickening of the gastroesophageal junction and proximal stomach. There is fluid in the proximal colon. A normal amount of air and stool is seen in the descending and rectosigmoid colon. No CT evidence for constipation. There is diverticulosis of the colon without evidence of diverticulitis. Appendix: No evidence of appendicitis. Intraperitoneal space: Unremarkable. No free air. No significant fluid collection. Vasculature: Multi-vessel atherosclerotic disease. Lymph nodes: Unremarkable. No enlarged lymph nodes. Urinary bladder: Bladder wall is thickened and irregular in contour. Reproductive: Prostate gland is heterogeneous, enlarged, and indents the base of the bladder. Bones/joints: Mild lateral curvature of the lower thoracic/upper lumbar spine with the convexity to the right. There are degenerative changes in the visualized spine. Degenerative changes extend across the right hip joint. Soft tissues: Unremarkable. CT/CT abdomen pelvis w con* [id number] IMPRESSION: 1. There is fluid in the proximal colon. A normal amount of air and stool is seen in the descending and rectosigmoid colon. No CT evidence for constipation. 2. Prostate gland is heterogeneous, enlarged, and indents the base of the bladder. 3. Bladder wall is thickened and irregular in contour.This is nonspecific and may represent bladder outlet obstruction, inflammation or infection. Neoplastic process is included in the differential. 4. There is mucosal thickening of the gastroesophageal junction and proximal stomach consistent with nonspecific esophagitis/gastritis. Follow-up to exclude neoplasm as clinically warranted. 5. Status post left total hip replacement. There are lucencies in the iliac bone about the acetabular component measuring up to 1.6 cm raising concern for loosening.
--- NOTE | 2022-05-13 12:02 | ED_ITS ---
HPI - General Adult General: Chief complaint: General Medical Stated complaint: headache, not eating Time Seen by Provider: 05/13/22 11:36 History of Present Illness: 76-year-old male with past medical history of BPH, musculoskeletal pain, and urinary retention presenting to the emergency department with progressive abdominal pain. Patient states that he has been having trouble with the law, has a FBI bracelet, due to websites he should not have been looking at. Over the last week he has had progressive increase in suprapubic abdominal tenderness as been bothersome to him. He is also more difficulty urinating. He has also had less desire to eat. States 1 episode nonbloody nonbilious emesis yesterday but no diarrhea. Belly pain described as aching characterization wit hout radiation to other areas of his belly. He states that occasionally when he takes deep breath his belly pain increases and he has flank pain with deep breathing as well. No shortness of breath, smoking history, drug use, alcohol use. He has difficulty breathing at baseline has not been taking his tamsulosin. Associated symptoms: Deny chest pain, dyspnea, headache(s), nausea, rash or palpitations Review of Systems General: Reports: 10 or more systems reviewed and unremarkable except in HPI and below Const: Denies: fever(s) or chills Eyes: Denies: change in vision or blurry vision ENMT: Denies: throat pain or uvular edema Card: Denies: chest pain or palpitations Resp: Denies: dyspnea or productive cough GI: Denies: abdominal pain or nausea : Reports: flank pain and difficulty urinating Musc: Denies: neck pain or back pain Skin/Breast: Denies: rash or pruritus Neuro: Denies: headache(s) or numbness in extremities Endo: Reports: other; Denies: polyuria PFSH ED PFSH: Medical History BPH loc w urin obs/LUTS Chest pain 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 Mother , AT AGE 88 No problems noted. Social History Smoking and tobacco status: never smoked Alcohol intake: never Household members: spouse Marital status: Current occupational status: retired Physical Exam Const: COMMON NORMALS: no acute distress and average body habitus HENMT: COMMON NORMALS: normocephalic, atraumatic and Normal external nose present HEAD & SCALP: normocephalic and atraumatic NOSE: Normal external nose present and Normal nares present MOUTH: Normal oral and palatal mucosa present TEETH & GINGIVA: Yes abnormal tooth and associated gingiva THROAT: posterior oropharynx normal; no uvular edema Eye: COMMON NORMALS: Equal, round and reactive pupils present and EOMs intact bilaterally PUPIL: Yes Equal, round and reactive pupils present Neck/C-Spine: COMMON NORMALS: full ROM and supple Lymph: LYMPHATIC: no lymphadenopathy noted Resp: COMMON NORMALS: normal respiratory effort and No retractions GI: COMMON NORMALS: Normal to inspection, nondistended, normoactive bowel sounds present, Soft to palpation and no masses (Suprapubic tenderness palpation with hollowness to percussion.) PALPATION: Yes Soft to palpation Course Vital Signs: Vital signs: Vital Signs Temperature 98.6 F 05/13/22 11:34 Pulse Rate 63 05/13/22 15:15 Respiratory Rate 16 05/13/22 15:15 Blood Pressure 109/70 05/13/22 15:15 Pulse Oximetry 97 05/13/22 15:15 Oxygen Delivery Me thod 05/13/22 11:34 [facility] - General Adult Medical Decision Making 76-year-old male with progressive abdominal tenderness and nausea and vomiting without diarrhea. Vitals nonactionable without fever, tachycardia, or hypotension. Considered intra-abdominal surgical emergency, gastroenteritis, diverticulitis, appendicitis, others. CT results demonstrating nonspecific colonic and GI inflammation. Provided a copy of the report to the patient and his and interpreted the report for the bedside. Additionally urine studies and serum studies nonactionable. Given patient's difficulty urinating will place Encarnacion catheter and have follow-up for urinary retention with his primary care doctor. Lab Data 05/13/22 12:00 05/13/22 12:00 Radiology Impressions Abdomen/Pelvis CT 05/13/22 11:49 IMPRESSION: 1. There is fluid in the proximal colon. A normal amount of air and stool is seen in the descending and rectosigmoid colon. No CT evidence for constipation. 2. Prostate gland is heterogeneous, enlarged, and indents the base of the bladder. 3. Bladder wall is thickened and irregular in contour.This is nonspecific and may represent bladder outlet obstruction, inflammation or infection. Neoplastic process is included in the differential. 4. There is mucosal thickening of the gastroesophageal junction and proximal stomach consistent with nonspecific esophagitis/gastritis. Follow-up to exclude neoplasm as clinically warranted. 5. Status post left total hip replacement. There are lucencies in the iliac bone about the acetabular component measuring up to 1.6 cm raising concern for loosening. Laboratory Results WBC 14.5 10^3/uL (4.0-10.0) H 05/13/22 12:00 RBC 4.07 10^6/uL (4.1-5.3) L 05/13/22 12:00 Hgb 11.2 g/dL (11.7-16.6) L 05/13/22 12:00 Hct 34.5 % (42.0-52.0) L 05/13/22 12:00 MCV 84.8 fl (80-94) 05/13/22 12:00 MCH 27.5 pg (28.0-34.0) L 05/13/22 12:00 MCHC 32.5 g/dL (30.0-36.0) 05/13/22 12:00 RDW 14.8 % (12.1-15.1) 05/13/22 12:00 Plt Count 236 10^3/cmm (130-400) 05/13/22 12:00 MPV 10.4 fL (7.4-10.4) 05/13/22 12:00 Neut % (Auto) 64.0 % 05/13/22 12:00 Lymph % (Auto) 24.5 % 05/13/22 12:00 [place] % (Auto) 10.7 % 05/13/22 12:00 Eos % (Auto) 0.1 % 05/13/22 12:00 Baso % (Auto) 0.2 % 05/13/22 12:00 Neut # (Auto) 9.30 10^3/uL (1.8-7.7) H 05/13/22 12:00 Lymph # (Auto) 3.6 10^3/uL (0.8-4.8) 05/13/22 12:00 [place] # (Auto) 1.6 10^3/uL (0.2-0.9) H 05/13/22 12:00 Eos # (Auto) 0.0 10^3/uL (0.0-0.8) 05/13/22 12:00 Baso # (Auto) 0.0 10^3/uL (0.0-0.1) 05/13/22 12:00 Nucleated RBC % (auto) 0 % 05/13/22 12:00 Nucleated RBCs # 0.0 /100WBC 05/13/22 12:00 Sodium 126 mmol/L (136-145) L 05/13/22 12:00 Potassium 3.3 mmol/L (3.5-5.1) L 05/13/22 12:00 Chloride 93 mmol/L (98-107) L 05/13/22 12:00 Carbon Dioxide 21 mmol/L (22-29) L 05/13/22 12:00 Anion Gap 15.3 (5-19) 05/13/22 12:00 BUN 20 mg/dL (8-23) 05/13/22 12:00 Creatinine 0.9 mg/dL (0.7-1.2) 05/13/22 12:00 GFR Calculation Not Reportable 05/13/22 12:00 Glucose 123 mg/dL (65-115) H 05/13/22 12:00 Calculated Osmolality 266 mOsm/kg (285-295) L 05/13/22 12:00 Lactate 0.8 mmol/L (0.5-2.2) 05/13/22 12:00 Calcium 8.5 mg/dL (8.5-10.5) 05/13/22 12:00 Total Bilirubin 1.5 mg/dL (0.15-1.2) H 05/13/22 12:00 AST 28 U/L (0-40) 05/13/22 12:00 ALT 15 U/L (0-41) 05/13/22 12:00 Alkaline Phosphatase 71 U/L (40-130) 05/13/22 12:00 Total Protein 6.7 g/dL (6.6-8.7) 05/13/22 12:00 Albumin 3.3 g/dL (3.5-5.2) L 05/13/22 12:00 Globulin 3.4 g/dL (1.3-4.6) 05/13/22 12:00 Lipase 22 U/L (13-60) 05/13/22 12:00 Urine Color Dark yellow (Yellow) 05/13/22 12:00 Urine Appearance Sl hazy (CLEAR) A 05/13/22 12:00 Urine pH 5 (5-7) 05/13/22 12:00 Ur Specific [place] 1.015 (1.005-1.030) 05/13/22 12:00 Urine Protein 1+ (Negative) H 05/13/22 12:00 Urine Glucose (UA) Norm (Normal) 05/13/22 12:00 Urine Ketones 1+ (Negative) H 05/13/22 12:00 Urine Blood 3+ (Negative) H 05/13/22 12:00 Urine Nitrate Negative (Negative) 05/13/22 12:00 Urine Bilirubin 1+ (Negative) H 05/13/22 12:00 Urine Urobilinogen 4 mg/dL (Negative) H 05/13/22 12:00 Ur Leukocyte Esterase Negative (Negative) 05/13/22 12:00 Urine RBC Rare /hpf (0-2) 05/13/22 12:00 Urine WBC Rare /hpf (0-5) 05/13/22 12:00 Ur Squamous Epith Cells None /hpf (0-5) 05/13/22 12:00 Amorphous Sediment Not Reportable 05/13/22 12:00 Urine Bacteria 1+ /hpf (NONE) H 05/13/22 12:00 Urine Mucus 2+ /hpf 05/13/22 12:00 Discharge Plan Discharge Patient Disposition: Home, Self-Care w Plan Readm Clinical Impression: Abdominal pain, Acute urinary retention Condition: Stable Prescriptions: No Action tramadol 50 mg tablet 50 mg PO Q6H PRN (Reason: Pain) famotidine 20 mg tablet 20 mg PO DAILY PRN (Reason: Acid Reflux) tizanidine 2 mg tablet 2 mg PO TID PRN (Reason: Muscle Spasm) docusate sodium [Colace] 100 mg Capsule 100 mg PO DAILY@08 ondansetron 4 mg tablet,disintegrating 4 mg PO TID PRN (Reason: Nausea And Vomiting) multivitamin Tablet 1 tab PO DAILY@08 celecoxib 200 mg capsule 200 mg PO QAM Aspir-81 81 mg Tablet,Delayed Release (Dr/Ec) 81 mg PO DAILY@08 [id number] 50-325-40 mg tablet 1 tab PO Q4H PRN (Reason: Migraine Headache) acetaminophen 500 mg Tablet 1,000 mg PO Q6H PRN (Reason: Pain) tamsulosin 0.4 mg capsule 0.4 mg PO DAILY@08 Discharge Orders: Discharge ED (Routine); Ordered 05/13/22 Ordered By: Bradly Ledezma Referrals: Vesta Dominguez PA [Primary Care Provider] - (Follow-up for acute urinary retention with your physician executive assistant to president.) Discharge Diet: Usual diet Discharge Activity: Resume usual activity Patient Instructions: Abdominal Pain (ED) Coding Level of Care Code ED [employer] 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
[2022-05-13 12:13] LABS: Basophils % 0.2 %; Eosinophils % 0.1 %; Hematocrit 34.5 % (42.0-52.0); Hemoglobin 11.2 g/dL (11.7-16.6); Lymphocytes # 3.6 10^3/uL (0.8-4.8); Lymphocytes % 24.5 %; Mean Corpuscular HGB Conc 32.5 g/dL (30.0-36.0); Mean Corpuscular Hemoglobin 27.5 pg (28.0-34.0); Mean Corpuscular Volume 84.8 fl (80-94); Mean Platelet Volume 10.4 fL (7.4-10.4); Monocytes # 1.6 10^3/uL (0.2-0.9); Monocytes % 10.7 %; Nucleated Red Blood Cells % 0 %; Platelet Count 236 10^3/cmm (130-400); Red Blood Count 4.07 10^6/uL (4.1-5.3); Red Cell Distribution Width 14.8 % (12.1-15.1); White Blood Count 14.5 10^3/uL (4.0-10.0)
[2022-05-13 12:30] LABS: Lactate (Lactic Acid level) 0.8 mmol/L (0.5-2.2)
[2022-05-13 12:31] LABS: Alanine Aminotransferase 15 U/L (0-41); Albumin Level 3.3 g/dL (3.5-5.2); Alkaline Phosphatase 71 U/L (40-130); Anion Gap 15.3 (5-19); Aspartate Amino Transferase 28 U/L (0-40); Blood Urea Nitrogen 20 mg/dL (8-23); Calcium 8.5 mg/dL (8.5-10.5); Carbon Dioxide 21 mmol/L (22-29); Chloride 93 mmol/L (98-107); Creatinine Clr Calc Pharmacy 70.3473; Globulin 3.4 g/dL (1.3-4.6); Glucose 123 mg/dL (65-115); Lipase 22 U/L (13-60); Osmolality Calculated 266 mOsm/kg (285-295); Potassium 3.3 mmol/L (3.5-5.1); Sodium 126 mmol/L (136-145); Total Bilirubin 1.5 mg/dL (0.15-1.2); Total Protein 6.7 g/dL (6.6-8.7)
[2022-05-13 12:46] LABS: Add Urine Microscopic? YES; Bilirubin Urine 1+ (Negative); Blood Urine 3+ (Negative); Glucose Urine UA Norm (Normal); Ketones Urine 1+ (Negative); Leukocyte Esterase Urine Negative (Negative); Nitrate Urine Negative (Negative); Protein Urine 1+ (Negative); Specific Gravity, Urine 1.015 (1.005-1.030); Urine Appearance SL Hazy (CLEAR); Urine Color Dark Yellow (Yellow); Urobilinogen Urine 4 mg/dL (Negative); pH Urine 5 (5-7)
[2022-05-13] MEDS: iohexol 350 mg/mL 500 mL Btl (per mL) IV (12:48)
[2022-05-13 13:00] LABS: RBC Urine RARE /hpf (0-2); WBC Urine RARE /hpf (0-5)
[2022-05-13 13:01] LABS: Bacteria Urine 1+ /hpf; Mucus Urine 2+ /hpf
[2022-05-13 13:02] LABS: Add Urine Culture? No
--- NOTE | 2022-05-13 13:42 | PC.PHAR ---
pts family verified pts medications
== END 2022-05-13 15:26 | disposition home or self-care, planned readmission (81) ==
PROVIDERS: Emergency Provider General Practice; PCP Physician Assistant
DX: N40.1 Benign prostatic hyperplasia with lower urinary tract symptoms (principal); R33.9 Retention of urine, unspecified; K29.70 Gastritis, unspecified, without bleeding
CPT/HCPCS: 36415; 51702; 74177; 80053; 81001; 83605; 83690; 85025; 99285; Q9967

== ENCOUNTER → 2022-06-05 12:40 | Outpatient (BNVA) | payer MEDICARE, OTHER, SELFPAY | PROVIDERS: PCP Physician Assistant; Visit Provider Urology | DX: N40.1 Benign prostatic hyperplasia with lower urinary tract symptoms (principal); R33.8 Other retention of urine; N30.01 Acute cystitis with hematuria; R33.9 Retention of urine, unspecified | CPT/HCPCS: 52001; 99203 ==

== ENCOUNTER 2022-06-06 09:58 | Inpatient (IN) | payer MEDICARE, OTHER, SELFPAY ==
[2022-06-06] VITALS (19 sets, daily range): BP systolic 95–146; BP diastolic 64–101; PULSE 72–98; RESP 15–24; TEMP 36.2–36.9; O2SAT 92–96
--- NOTE | 2022-06-06 10:15 | ED_ITS ---
Documented by User: NAS Nuno 06/06/22 10:37 HPI - Male Genitourinary General: Chief complaint: Urogenital-Male Stated complaint: Dr sent for rectal bleeding Time Seen by Provider: 06/06/22 09:59 Source: patient Mode of arrival: ambulatory Limitations: no limitations History of Present Illness: Patient is a 76-year-old male who presents to ED today at the request of Dr. Mcqueen for evaluation of hematuria. Patient was seen and Dr. Mcqueen's office yesterday. Dr. Mcqueen is here in the ED meeting patient to discuss treatment options including OR. According to history patient has an acute cystitis with hematuria, a clot noted in his bladder by cystoscopy performed yesterday in Efrain's office as well as prostatic hemorrhage. Plan will be for patient to go to the OR for cystoscopy, clot removal, and fulguration. Complaint: other (blood/clots in urine) Onset (ago): day(s) Duration: constant Relieving factors: none Exacerbating factors: none Context: other (encarnacion, UTI, prostatic bleeding) Associated symptoms: Reports hematuria; Deny nausea or vomiting Review of Systems Const: Denies: fever(s), chills, body aches, fatigue or malaise Card: Denies: chest pain Resp: Denies: dyspnea GI: Denies: abdominal pain, nausea, vomiting, diarrhea or change in bowel habits : Reports: hematuria and other (encarnacion catheter with blood/clots) Musc: Denies: back pain Neuro: Denies: dizziness [facility] ED PFSH: Medical History BPH loc w urin obs/LUTS Chest pain 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 Mother , AT AGE 88 No problems noted. Social History Smoking and tobacco status: never smoked Alcohol intake: never Household members: spouse Marital status: Current occupational status: retired Physical Exam Const: COMMON NORMALS: no acute distress, average body habitus, patient oriented x3, no limitations, alert and well nourished ORIENTATION/CONSCIOUSNESS: Yes awake, Yes oriented to person, Yes oriented to place and Yes oriented to time Resp: COMMON NORMALS: normal respiratory effort and clear to auscultation bilaterally AUSCULTATION: clear to auscultation bilaterally Cardio: COMMON NORMALS: regular rate and regular rhythm RATE: regular rate RHYTHM: regular rhythm : COMMON NORMALS: Yes no CVA tenderness BLADDER/KIDNEY EXAM: Yes no CVA tenderness Back/Pelvis: COMMON NORMALS: no CVA tenderness Neuro: COMMON NORMALS: patient oriented x3 SENSORIUM/ORIENTATION: Yes alert, Yes oriented to person, Yes oriented to place and Yes oriented to time Course Vital Signs: Vital signs: Vital Signs Temperature 97.2 F L 06/06/22 10:45 Pulse Rate 89 06/06/22 10:45 Respiratory Rate 18 06/06/22 10:45 Blood Pressure 116/81 06/06/22 10:45 Pulse Oximetry 94 06/06/22 10:45 Oxygen Delivery Me thod 06/06/22 10:45 MDM - Male Medical Decision Making Dr. Mcqueen taking to the OR for cystoscopy, clot removal, fulguration. Lab Data 06/06/22 10:30 06/06/22 10:30 Laboratory Results WBC 10.9 10^3/uL (4.0-10.0) H 06/06/22 10:30 RBC 4.39 10^6/uL (4.1-5.3) 06/06/22 10:30 Hgb 12.0 g/dL (11.7-16.6) 06/06/22 10:30 Hct 38.9 % (42.0-52.0) L 06/06/22 10:30 MCV 88.6 fl (80-94) 06/06/22 10:30 MCH 27.3 pg (28.0-34.0) L 06/06/22 10:30 MCHC 30.8 g/dL (30.0-36.0) 06/06/22 10:30 RDW 14.9 % (12.1-15.1) 06/06/22 10:30 Plt Count 348 10^3/cmm (130-400) 06/06/22 10:30 MPV 10.3 fL (7.4-10.4) 06/06/22 10:30 Neut % (Auto) 48.5 % 06/06/22 10:30 Lymph % (Auto) 41.8 % 06/06/22 10:30 [place] % (Auto) 6.6 % 06/06/22 10:30 Eos % (Auto) 2.5 % 06/06/22 10:30 Baso % (Auto) 0.3 % 06/06/22 10:30 Neut # (Auto) 5.28 10^3/uL (1.8-7.7) 06/06/22 10:30 Lymph # (Auto) 4.5 10^3/uL (0.8-4.8) 06/06/22 10:30 [place] # (Auto) 0.7 10^3/uL (0.2-0.9) 06/06/22 10:30 Eos # (Auto) 0.3 10^3/uL (0.0-0.8) 06/06/22 10:30 Baso # (Auto) 0.0 10^3/uL (0.0-0.1) 06/06/22 10:30 Nucleated RBC % (auto) 0 % 06/06/22 10:30 Nucleated RBCs # 0.0 /100WBC 06/06/22 10:30 Discharge Plan Discharge Patient Disposition: Placed in Observation Clinical Impression: Blood clot in bladder, Encarnacion catheter in place, Prostatic hemorrhage, Acute cystitis with hematuria Coding Level of Care Code ED Lead Javascript Developer for Kiersten Fwd Documented by User: Davis Tariq DO 06/06/22 11:28 HPI - Male Genitourinary General: Chief complaint: Urogenital-Male Stated complaint: Dr sent for rectal bleeding Time Seen by Provider: 06/06/22 09:59 PFSH ED PFSH: Medical History BPH loc w urin obs/LUTS Chest pain 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 Mother , AT AGE 88 No problems noted. Social History Smoking and tobacco status: never smoked Alcohol intake: never Household members: spouse Marital status: Current occupational status: retired Course Vital Signs: Vital signs: Vital Signs Temperature 97.2 F L 06/06/22 10:45 Pulse Rate 89 06/06/22 10:45 Respiratory Rate 18 06/06/22 10:45 Blood Pressure 116/81 06/06/22 10:45 Pulse Oximetry 94 06/06/22 10:45 Oxygen Delivery Me thod 06/06/22 10:45 MDM - Male Medical Decision Making Dr. Mcqueen taking to the OR for cystoscopy, clot removal, fulguration. Chart reviewed and patient discussed with midlevel. Agree with assessment and plan. Lab Data 06/06/22 10:30 06/06/22 10:30 Laboratory Results WBC 10.9 10^3/uL (4.0-10.0) H 06/06/22 10:30 RBC 4.39 10^6/uL (4.1-5.3) 06/06/22 10:30 Hgb 12.0 g/dL (11.7-16.6) 06/06/22 10:30 Hct 38.9 % (42.0-52.0) L 06/06/22 10:30 MCV 88.6 fl (80-94) 06/06/22 10:30 MCH 27.3 pg (28.0-34.0) L 06/06/22 10:30 MCHC 30.8 g/dL (30.0-36.0) 06/06/22 10:30 RDW 14.9 % (12.1-15.1) 06/06/22 10:30 Plt Count 348 10^3/cmm (130-400) 06/06/22 10:30 MPV 10.3 fL (7.4-10.4) 06/06/22 10:30 Neut % (Auto) 48.5 % 06/06/22 10:30 Lymph % (Auto) 41.8 % 06/06/22 10:30 [place] % (Auto) 6.6 % 06/06/22 10:30 Eos % (Auto) 2.5 % 06/06/22 10:30 Baso % (Auto) 0.3 % 06/06/22 10:30 Neut # (Auto) 5.28 10^3/uL (1.8-7.7) 06/06/22 10:30 Lymph # (Auto) 4.5 10^3/uL (0.8-4.8) 06/06/22 10:30 [place] # (Auto) 0.7 10^3/uL (0.2-0.9) 06/06/22 10:30 Eos # (Auto) 0.3 10^3/uL (0.0-0.8) 06/06/22 10:30 Baso # (Auto) 0.0 10^3/uL (0.0-0.1) 06/06/22 10:30 Nucleated RBC % (auto) 0 % 06/06/22 10:30 Nucleated RBCs # 0.0 /100WBC 06/06/22 10:30 Discharge Plan Discharge Patient Disposition: Placed in Observation Clinical Impression: Blood clot in bladder, Encarnacion catheter in place, Prostatic hemorrhage, Acute cystitis with hematuria Coding Level of Care Code ED Lead Javascript Developer for Kiersten Cheema
[2022-06-06 10:38] LABS: Basophils % 0.3 %; Eosinophils # 0.3 10^3/uL (0.0-0.8); Eosinophils % 2.5 %; Hematocrit 38.9 % (42.0-52.0); Lymphocytes # 4.5 10^3/uL (0.8-4.8); Lymphocytes % 41.8 %; Mean Corpuscular HGB Conc 30.8 g/dL (30.0-36.0); Mean Corpuscular Hemoglobin 27.3 pg (28.0-34.0); Mean Corpuscular Volume 88.6 fl (80-94); Mean Platelet Volume 10.3 fL (7.4-10.4); Monocytes # 0.7 10^3/uL (0.2-0.9); Monocytes % 6.6 %; Neutrophils # 5.28 10^3/uL (1.8-7.7); Neutrophils % 48.5 %; Nucleated Red Blood Cells % 0 %; Platelet Count 348 10^3/cmm (130-400); Red Blood Count 4.39 10^6/uL (4.1-5.3); Red Cell Distribution Width 14.9 % (12.1-15.1); White Blood Count 10.9 10^3/uL (4.0-10.0)
--- NOTE | 2022-06-06 10:41 | PM.HP ---
Providers/Chief Complaint Admitting Physician: Richar Primary Care Provider: Vesta Dominguez Chief Complaint: Dr sent for rectal bleeding History of Present Illness Emigdio Acuña is a 76 year old male who I saw yesterday in the clinic for recent episode of urinary retention. His catheter to been for almost a month. He had also had previous episodes of urinary retention and had been placed on TAMSULOSIN previously with a recommended dose of twice a day but was only taking once a day When his catheter was removed a cystoscopy was performed that showed some active bleeding from the prostate. A Encarnacion catheter was placed (22 Kinyarwanda) and the bladder was irrigated with improvement in bleeding but not completely clearing of the urine. He was discharged from the clinic with instructions to consume a large amount of fluid, manual irrigation as needed overnight, return to the emergency department if full catheter occlusion. If he was doing well there when to call this morning and let us know. On the call this morning though they stated that his urine remained very bloody with clots and poor drainage with leakage around the catheter at times. It was requested that he come to the emergency department for evaluation. In the emergency department he was found to have very bloody thick urine with clots in the bag and somewhat distended bladder. It was recommended that he undergo admission to the hospital for further evaluation and treatment with for step being cystoscopy, clot evacuation possible fulguration. He had not eaten since midnight. Was not experiencing any symptoms contradictory to proceeding with surgical intervention. See office note 06/05/2022 for further details I have discussed in detail the plans with the patient and his . Reviewed that the most likely source of the bleeding is his prostate. If that is the case there is a reasonable chance that the fulguration process would require at least partial vaporization of the prostate in order to get to a level where bleeding was secured. At the cystoscopy yesterday. The most of the bleeding was from the enlarged intravesical protruding median lobe. Visualization was not as good though with a flexible cystoscope. We also reviewed the possibility that what he has right now is old clot and that removal of clot will facilitate resolution of any further bleeding. I have recommended that postop regardless of what we find that he be placed on CBI and observed at least for 24 hours before resuming original plans of voiding trial SCIC etc. Both the patient and his asked appropriate questions and they seemed content with my answers. The benefits risk potential complications all discussed and they were comfortable with proceeding as recommended. Informed consent was obtained. Review of Systems Const: Denies: fever(s), chills or night sweats Eyes: Denies: change in vision or yellow eyes ENMT: Denies: hoarseness Card: Denies: chest pain or palpitations Resp: Denies: dyspnea or productive cough GI: Reports: abdominal pain; Denies: nausea, vomiting or diarrhea : Reports: difficulty urinating, hematuria and other (See HPI); Denies: flank pain Musc: Denies: joint redness Skin/Breast: Denies: jaundice Neuro: Denies: headache(s) or Slurred speech present Psych: Reports: anxiety, memory loss and other (Some dementia symptoms); Denies: depression Endo: Denies: flushing Pawel/Lymph: Reports: easy bruising; Denies: easy bleeding or enlarged lymph nodes Medications/Allergies Home Medications Medication Instructions Recorded Confirmed Last Taken Type famotidine 20 mg tablet 20 mg PO DAILY PRN Acid Reflux 04/20/21 06/06/22 06/05/22 History acetaminophen 500 mg tablet 1,000 mg PO Q6H PRN Pain 10/10/21 06/06/22 Unknown History docusate sodium 100 mg capsule 100 mg PO DAILY@10/24/21 06/06/22 06/05/22 History (Colace) ondansetron 4 mg disintegrating 4 mg PO TID PRN Nausea And Vomiting 10/24/21 06/06/22 Unknown History tablet tizanidine 2 mg tablet 2 mg PO TID PRN Muscle Spasm 10/24/21 06/06/22 Unknown History tramadol 50 mg tablet 50 mg PO Q6H PRN Pain 11/09/21 06/06/22 Unknown History aspirin 81 mg tablet,delayed 81 mg PO DAILY@05/13/22 06/06/22 06/05/22 History release diblliwolp-[id number]-pqjbwumc 1 tab PO Q4H PRN Migraine Headache 05/13/22 06/06/22 Unknown History 50 mg-325 mg-40 mg tablet celecoxib 200 mg capsule 200 mg PO QAM 05/13/22 06/06/22 06/05/22 History multivitamin 1 tab PO DAILY@05/13/22 06/06/22 06/05/22 History finasteride 5 mg tablet 5 mg PO QDAY #90 tabs 06/05/22 06/06/22 06/05/22 Rx sulfamethoxazole 800 1 tab PO BID #20 tabs 06/05/22 06/06/22 06/05/22 Rx mg-trimethoprim 160 mg tablet tamsulosin 0.4 mg capsule 0.4 mg PO BID #180 caps 06/05/22 06/06/22 06/05/22 Rx Allergies Allergy/AdvReac Type Severity Reaction Status Date / Time No Known Allergies Allergy Verified 06/06/22 10:23 PFSH Acute PFSH: Medical History (Updated 06/06/22 @ 10:36 by Codey Mcqueen MD) BPH loc w urin obs/LUTS Chest pain 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 Mother , AT AGE 88 No problems noted. Social History Smoking and tobacco status: never smoked Alcohol intake: never Household members: spouse Marital status: Current occupational status: retired Vitals/I&O/Wt Last Vital Signs Temp 97.8 F 06/06/22 10:10 Pulse 87 06/06/22 10:10 Resp 16 06/06/22 10:10 BP 128/77 06/06/22 10:10 Pulse Ox 94 06/06/22 10:10 O2 Del Method 06/06/22 10:10 Physical Exam Const: COMMON NORMALS: no acute distress, alert and well nourished GENERAL APPEARANCE: well kempt and well developed ORIENTATION/CONSCIOUSNESS: not confused HENMT: COMMON NORMALS: normocephalic HEAD & SCALP: normal to inspection and normocephalic Eye: COMMON NORMALS: conjunctivae normal and no scleral icterus CONJUNCTIVA: Yes conjunctivae normal Neck/C-Spine: GENERAL: Yes normal visual inspection Resp: COMMON NORMALS: normal respiratory effort EFFORT & INSPECTION: Yes able to speak in complete sentences, No labored and No Actively coughing Cardio: COMMON NORMALS: regular rate and regular rhythm GI: COMMON NORMALS: Soft to palpation and non-tender OTHER: Bladder is palpable : OTHER: Normal circumcised phallus without lesion Scrotum grossly normal. Testicles descended bilateral without masses tenderness fluctuance. No obvious hernias. Catheter in place draining very bloody urine with clots Back/Pelvis: OTHER: No CVA tenderness Extremity: COMMON NORMALS: no clubbing, cyanosis or edema Neuro: COMMON NORMALS: no focal motor deficits SENSORIUM/ORIENTATION: Yes alert Psych: APPEARANCE: Yes grossly normal and Yes well kempt ATTITUDE: Yes calm and Yes engaged Skin: COMMON NORMALS: no rashes or lesions noted and no jaundice GENERAL SKIN EXAM: no rashes or lesions noted A&P Assessment and plan (1) Clot retention of urine: Appears to be from prostatic bleeding failed conservative management with catheter placement irrigation fluids etc. (2) Prostatic hemorrhage: See above (3) Acute cystitis with hematuria: His bladder did look acutely inflamed on cystoscopy yesterday. He has been started on antibiotics already but will be continued on inpatient basis. Will receive Rocephin preoperatively (4) BPH loc w urin obs/LUTS: Very large prostate on cystoscopy yesterday and history of recurrent urinary retention. (5) Acute urinary retention: (6) Mass of mediastinum: Apparently that has resolved and was felt to be potentially traumatic in nature versus possibly infectious. There are multiple notes in the chart from pulmonary and infectious disease. Attestations Medical Necessity Statement*: Has failed outpatient management of gross hematuria clot retention active prostatic bleeding. I have recommended trip to the operating room for the above procedures Coding Level of Care Code Acute Code for Chg Fwd Diagnoses Clot retention of urine R33.8 Prostatic hemorrhage N42.1 Acute cystitis with hematuria N30.01 BPH loc w urin obs/LUTS N40.1 Acute urinary retention R33.8 Mass of mediastinum J98.59
[2022-06-06] MEDS: sodium chloride 0.9% 1,000 ML 30 ML IV (10:55)
[2022-06-06] MEDS: cefTRIAXone 2,000 MG in sodium chloride 0.9% (plus) 50 ML 100 MG IV (11:04)
--- NOTE | 2022-06-06 12:29 | PM.OP ---
Operative Report Date of procedure: June 06, 2022 Pre-op diagnosis: 1. Prostatic bleeding 2. Clot retention refractory Post-op diagnosis: 1. Prostatic bleeding 2. Clot retention refractory Procedure done: 1. Cystoscopy clot evacuation 2. Transurethral section/vaporization prostate, median and right lateral lobes primarily Specimens removed/disposition: Flowers Salesperson samples prostate chips Pathology: Prostate chips, sampling Surgeon: Richar Estimated blood loss: Less than 100 cc Urine output: Not measured Complications: None Findings: Anesthesia: General Condition: Stable Disposition: PACU Intraoperative findings: Actively bleeding prostate tissue on very large friable prostate Could not adequately controlled with simple Bugbee cautery probes. Required vaporization and resection of the right lateral lobe and most of the intravesically protruding median lobe to control bleeding adequately and also facilitate voiding with a smooth fossa. No other gross pathology in the bladder Brief History: Emigdio is a 76-year-old white male who I evaluated yesterday for urinary retention with ongoing gross hematuria since catheter placement. Catheter was removed in clinic for planned voiding trial and SCIC instruction but he had significant bleeding from his prostate. A Siu catheter was replaced, he was manually irrigated with 2+ liters of sterile water and his urine appeared to clear reasonable enough to trial catheter at home with push fluids. He called this morning with trouble with the catheter draining a lot of clots and very dark blood. Evaluation in the emergency department revealed that his bladder was not empty. He had a lot of clot. It was recommended to go to the operating room for clot evacuation and hopefully fulguration alone. We did discuss the possibility of transurethral vaporization/resection of the prostate alone at least enough to control bleeding and form a good passageway for catheter placement or hopefully some recovery of spontaneous voiding post retention Procedure: After emergent evaluation examination and obtaining of informed consent he was taken to the operating suite on 06/06/2022 where general anesthesia was administered without difficulty after appropriate timeout was performed, SCDs confirmed to be functioning, preoperative antibiotics administered, beta-isaak protocol confirmed. Prepped and draped in usual sterile fashion in dorsolithotomy position paying careful attention to avoiding pressure points. He did have a stiff left hip and leg because of prior multiple surgeries and care was paid especially to that to avoid traction etc. 21 Russian cystoscope with 30 degree lens was introduced into the urethral meatus and advanced into the bladder without difficulty. There was a large amount of clot in the bladder and bright red blood as well. An EllUtopia evacuator was used with a 25 Russian cystoscope sheath to clear all the clot from the bladder. Careful inspection of the bladder revealed no gross pathology. A very very large prostate was identified with large intravesical treating lobe and bilateral lateral lobe hypertrophy with protrusion into the prostate. Along the right lateral lobe there with several sites of very active bleeding. A Bugbee cautery probe was then used to try to fulgurate these areas completely but this was not effective in controlling the bleeding and not only the base was somewhat continuous but the periphery of the fulguration site was actively bleeding on multiple places. At this point it was decided to proceed with transurethral vaporization for bleeding control. Also because of the size of the prostate and difficulty with urinary retention and previous catheter placement it was decided to try to resect/vaporized what would be required of the right lateral lobe to accomplish both hemostasis as well as improved chances of catheter placement if necessary and improved voiding. He is already on maximal medical therapy. The urethra was lubricated and a well-lubricated 25 Russian continuous-flow resectoscope sheath with visual obturator in place was advanced into the bladder without difficulty. The button probe was utilized initially. With vaporization and cautery settings the areas of active bleeding were treated and as expected required fairly deep penetration into the tissue to control bleeding. At this point it was obvious that in order to succeed with hemostasis it would be required to treat the right lobe as well as the median lobe more extensively in order to allow an adequate channel and control the very friable mucosa. The button probe was utilized for about 90% of this. There was some significant intravesically protruding median lobe and lateral lobe which was resected with the super loop. The channel created was not typical for a transurethral section of the prostate because the resection was trying to be limited to the goals mentioned above. It did appear adequate though to at least improve his hope of spontaneous voiding as well as successfully obtain hemostasis. The chips were evacuated from the bladder with an Ellik evacuator and confirmed via cystoscopy. A 24 Russian hematuria catheter was passed into the bladder without difficulty. (Yesterday I had not been successful at passing a straight catheter of roughly the same size). The balloon was inflated with 30 cc in the bladder was vigorously irrigated with no clots returned and good catheter function confirmed CBI was started with good function and clear efflux. He was awakened in the operating room and returned to PACU in stable condition. PLANS: 1. Admit to inpatient status 2. Continue CBI 3. Anticipate discharge with Siu before voiding trial again in the clinic 4. Continue finasteride and tamsulosin until adequate voiding is confirmed 5. We will consumer credit counselor family and the patient that he still may require further treatment for BPH if the degree of resection, maximal medical therapy is not enough to keep him out of retention.
--- NOTE | 2022-06-06 13:26 | ANES.PREANE2 ---
Pre-Anesthetic Assessment Height/Weight: Height 1.75 m Temp Pulse Resp BP Pulse Ox O2 Del Method O2 Flow Rate 98.5 F 77 18 122/65 92 8 06/06/22 13:20 06/06/22 13:20 06/06/22 13:20 06/06/22 13:20 06/06/22 13:20 06/06/22 13:20 06/06/22 12:32 Preop Diagnosis: food bolus Operation Date: 06/06/22 11:00 Proposed Procedures p Cystoscopy(Not Applicable) - Codey Mcqueen MD Operation Date: 06/06/22 11:00 Proposed Procedures p Cystoscopy(Not Applicable) - Codey Mcqueen MD Familial anesthetic complications: none Was Beta Joe taken within 24 hours: N/A Was Clonidine taken within 24 hours: N/A Social Tobacco and No alcohol Exam alert, oriented x 3 and regular rate & rhythm Airway Submandibular: within normal limits Cervical ROM: within normal limits Mallampati: Class II Dentition: false Pulmonary Chronic Obstructive Pulmonary Disease blood clot bladder, urinary retention GI Gastroesophageal Reflux Disease Musc/skel Lower Back Pain and Osteoarthritis/DJD Anesthetic Plan ASA status: 3E Anesthesia: General Medications/Allergies Home Medications Medication Instructions Recorded Confirmed Last Taken Type famotidine 20 mg tablet 20 mg PO DAILY PRN Acid Reflux 04/20/21 06/06/22 06/05/22 History acetaminophen 500 mg tablet 1,000 mg PO Q6H PRN Pain 10/10/21 06/06/22 Unknown History docusate sodium 100 mg capsule 100 mg PO DAILY@10/24/21 06/06/22 06/05/22 History (Colace) ondansetron 4 mg disintegrating 4 mg PO TID PRN Nausea And Vomiting 10/24/21 06/06/22 Unknown History tablet tizanidine 2 mg tablet 2 mg PO TID PRN Muscle Spasm 10/24/21 06/06/22 Unknown History tramadol 50 mg tablet 50 mg PO Q6H PRN Pain 11/09/21 06/06/22 Unknown History aspirin 81 mg tablet,delayed 81 mg PO DAILY@05/13/22 06/06/22 06/05/22 History release bnacgqxpou-fvhzzvfqcevvt-dmjtkofb 1 tab PO Q4H PRN Migraine Headache 05/13/22 06/06/22 Unknown History 50 mg-325 mg-40 mg tablet celecoxib 200 mg capsule 200 mg PO QAM 05/13/22 06/06/22 06/05/22 History multivitamin 1 tab PO DAILY@08 05/13/22 06/06/22 06/05/22 History finasteride 5 mg tablet 5 mg PO QDAY #90 tabs 06/05/22 06/06/22 06/05/22 Rx sulfamethoxazole 800 1 tab PO BID #20 tabs 06/05/22 06/06/22 06/05/22 Rx mg-trimethoprim 160 mg tablet tamsulosin 0.4 mg capsule 0.4 mg PO BID #180 caps 06/05/22 06/06/22 06/05/22 Rx Allergies Allergy/AdvReac Type Severity Reaction Status Date / Time No Known Allergies Allergy Verified 06/06/22 10:23 Current Medications Generic Name Dose Route Start Last Admin Trade Name Freq PRN Reason Stop Dose Admin Sodium Chloride 1,000 mls @ 30 mls/hr 06/06/22 11:00 06/06/22 12:13 Sodium Chloride 0.9% IV 06/07/22 10:59 Infused .Q24H LIBBY Infusion PFSH Anesthesia Medical History BPH loc w urin obs/LUTS Chest pain 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 Mother , AT AGE 88 No problems noted. Social History Smoking and tobacco status: never smoked Alcohol intake: never Household members: spouse Marital status: Current occupational status: retired Data Anesthesia 06/06/22 10:30 06/06/22 10:30 Short CBC 06/06/22 Range/Units 10:30 WBC 10.9 H (4.0-10.0) 10^3/uL Hgb 12.0 (11.7-16.6) g/dL Hct 38.9 L (42.0-52.0) % MCV 88.6 (80-94) fl Plt Count 348 (130-400) 10^3/cmm Neut % (Auto) 48.5 % Neut # (Auto) 5.28 (1.8-7.7) 10^3/uL Cardiac Studies: Echocardiogram 10/10/21 Transesophageal Echocardiogram 10/26/21
[2022-06-06] MEDS: dextrose 5%-ns + KCl 20 20 MEQ/1,000 ML BAG 100 MEQ IV (14:10)
[2022-06-06] MEDS: finasteride 5 mg Tablet PO (14:11)
[2022-06-06 14:22] LABS: Alanine Aminotransferase 9 U/L (0-41); Albumin Level 3.3 g/dL (3.5-5.2); Alkaline Phosphatase 79 U/L (40-130); Anion Gap 15.2 (5-19); Aspartate Amino Transferase 12 U/L (0-40); Blood Urea Nitrogen 11 mg/dL (8-23); Calcium 8.4 mg/dL (8.5-10.5); Carbon Dioxide 23 mmol/L (22-29); Chloride 107 mmol/L (98-107); Globulin 3.2 g/dL (1.3-4.6); Glucose 109 mg/dL (65-115); Osmolality Calculated 292 mOsm/kg (285-295); Potassium 4.2 mmol/L (3.5-5.1); Sodium 141 mmol/L (136-145); Total Bilirubin 0.3 mg/dL (0.15-1.2); Total Protein 6.5 g/dL (6.6-8.7)
[2022-06-06] MEDS: tamsulosin 0.4 mg Capsule PO (17:52)
[2022-06-07] VITALS: BP 105/60; PULSE 66; RESP 17; TEMP 36.7; O2SAT 96
[2022-06-07] MEDS: dextrose 5%-ns + KCl 20 20 MEQ/1,000 ML BAG 100 MEQ IV ×3 (01:29→22:23)
[2022-06-07 04:00] VITALS: BP 101/61; PULSE 68; RESP 17; TEMP 36.8; O2SAT 96
[2022-06-07 05:51] LABS: Basophils % 0.1 %; Eosinophils # 0.1 10^3/uL (0.0-0.8); Eosinophils % 0.5 %; Hematocrit 32.3 % (42.0-52.0); Hemoglobin 10.1 g/dL (11.7-16.6); Lymphocytes # 4.2 10^3/uL (0.8-4.8); Lymphocytes % 31.2 %; Mean Corpuscular HGB Conc 31.3 g/dL (30.0-36.0); Mean Corpuscular Hemoglobin 27.9 pg (28.0-34.0); Mean Corpuscular Volume 89.2 fl (80-94); Mean Platelet Volume 10.3 fL (7.4-10.4); Monocytes % 7.3 %; Neutrophils # 8.09 10^3/uL (1.8-7.7); Neutrophils % 60.3 %; Nucleated Red Blood Cells % 0 %; Platelet Count 306 10^3/cmm (130-400); Red Blood Count 3.62 10^6/uL (4.1-5.3); Red Cell Distribution Width 15.2 % (12.1-15.1); White Blood Count 13.4 10^3/uL (4.0-10.0)
[2022-06-07 06:08] LABS: Anion Gap 10.2 (5-19); Blood Urea Nitrogen 13 mg/dL (8-23); Calcium 8.3 mg/dL (8.5-10.5); Carbon Dioxide 24 mmol/L (22-29); Chloride 109 mmol/L (98-107); Glucose 134 mg/dL (65-115); Osmolality Calculated 290 mOsm/kg (285-295); Potassium 4.2 mmol/L (3.5-5.1); Sodium 139 mmol/L (136-145)
[2022-06-07 08:00] VITALS: BP 113/69; PULSE 63; RESP 17; TEMP 36.6; O2SAT 96
[2022-06-07] MEDS: docusate sodium 100 mg Capsule PO (10:01)
[2022-06-07] MEDS: finasteride 5 mg Tablet PO (10:01)
[2022-06-07] MEDS: tamsulosin 0.4 mg Capsule PO ×2 (10:01→18:00)
--- NOTE | 2022-06-07 10:43 | PC.CHAP ---
Pastoral Care Encounter/Spiritual Assessment Type of Contact [] Declined sr. strategic sourcing manager visit [] Patient/Family/Request visit [] Outpatient visit [] Follow-up visit [] Physician referral [] Code/Alert [x] Routine visit [] Staff referral [] Actively dying [] Patient sleeping [] Family support [] [] Out of room [] Palliative care [] [x] Receiving care in room [] Pre-surgical visit [] Trauma [] Long length of stay [] ICU visit [] Other: Relational/Emotional Strength [x] Patient feels connected with others/family/visitors/staff [] Distress [] Loneliness/isolation [] Abandonment Spirituality of Patient [x] Person of Berta [] Attends Orthodox of their Berta [x] Believes in Prayer [] Reads Bible or Uatsdin materials [] There are Spiritual issues to be addressed Chopper Feeder Interventions [x] Prayer [x] Active listening [x] Non-anxious presence [x] Spiritual/emotional support [] Crisis/trauma care [x] Spiritual counseling [] Bereavement support [] Provided bereavement packet [] Provided Bible/devotional materials [] Provided toy/stuffed animal, coloring book to patient or family member [] Provided Communion [] Anointing/Pioneer [] Salvation [x] Completed spiritual assessment [] Other: Impact on Illness or Injury [] Angry [] Fearful [] Anxious [] Often cries [] Exhaustion [] Unable to work [] Unable to attend mandaeism [] Unable to walk/stand [] Unable to read [] Unable to drive [] Unable to eat/drink [] Unable to sleep [] Unable to be with family [] Patient intubated [] Other: Summary blader infectiohas other health issues in past has agood attitude well go home Time spent with patient 1o mins
[2022-06-07 12:11] VITALS: BP 95/64; PULSE 71; RESP 17; TEMP 36.6; O2SAT 94
[2022-06-07] MEDS: tizanidine 4 mg Tablet 2 MG PO (16:23)
--- NOTE | 2022-06-07 17:30 | PM.PN ---
Subjective Subjective: Urology postop day #1, clot evacuation, TUR/TUVP. Overall doing well. Urine much better. Still requiring CBI with periodic manual irrigation. No uncontrolled bleeding. No new complaints. No chest pain, shortness of breath, change in his baseline mental status, abdominal pain etc. Hemoglobin was 10.1 Creatinine 0.7 Had a long discussion with the patient and the regarding the intraoperative findings again. We also discussed sequence of events moving forward in order to get the catheter out safely, retry SCIC potentially, and concern for recurrent bleeding of the prostate primarily on the left lateral lobe which was not treated. Plan was to keep the catheter in, continue CBI overnight which would require care extending across 2 midnights. If the CBI can be weaned off by tomorrow and no recurrence of bleeding and he will be discharged with a Siu catheter in place with plans for voiding trial next week in the clinic. Vitals/I&O/Wt Last Vital Signs Temp 98 F 06/07/22 12:11 Pulse 71 06/07/22 12:11 Resp 17 06/07/22 12:11 BP 95/64 06/07/22 12:11 Pulse Ox 94 06/07/22 12:11 O2 Del Method 06/07/22 16:00 O2 Flow Rate 8 06/06/22 12:32 06/07/22 06/07/22 06/07/22 06:59 14:59 22:59 Intake Total 1000 / 3200 978.333 / 978.333 Balance 1000 / 2645 978.333 / 978.333 Weight last 48 hrs Weight 168 lb 9.6 oz Physical Exam Narrative: Alert no acute distress. Baseline orientation Normal respiration. No labored. No wheezing. Abdomen soft, nontender. Catheter draining clear with CBI running at a relatively low pace. A few clots have passed. Normal range of motion of mid extremities at at least at his baseline. He does have limited range of motion of the left lower extremity due to prior orthopedic repairs. No change there. No focal neurologic signs. No significant edema Urinary Catheter Management: 3-way Urethral CBI Latex: Cath Placed During This Visit: yes Urinary Catheter Date of Insertion: 06/06/22 Urinary Catheter Time of Insertion: 12:29 Data 06/07/22 05:30 06/07/22 05:30 Attestations Medical Necessity Statement*: Requiring CBI. Anticipate discharge tomorrow if CBI can be safely weaned off. Coding Level of Care Code Acute Code for Chg Fwd
[2022-06-07 20:00] VITALS: BP 125/61; PULSE 73; RESP 18; TEMP 37.4; O2SAT 97
[2022-06-08] VITALS: BP 116/71; PULSE 84; RESP 17; TEMP 37; O2SAT 94
[2022-06-08] MEDS: tizanidine 4 mg Tablet 2 MG PO (01:55)
[2022-06-08 04:00] VITALS: BP 114/74; PULSE 75; RESP 18; TEMP 37.1; O2SAT 93
[2022-06-08 07:38] VITALS: BP 127/74; PULSE 72; RESP 16; TEMP 37.3; O2SAT 95
[2022-06-08] MEDS: TRAMadol 50 mg Tablet PO (07:52)
--- NOTE | 2022-06-08 08:10 | PM.DCS ---
Discharge Providers Date of Admission: 06/06/22 12:25 Date of Discharge: June 08, 2022 Attending Provider at Admission: Codey Mcqueen MD Attending Provider at Discharge: Codey Mcqueen MD Consults: None Primary Care Provider: Vesta Dominguez Diagnoses at Discharge Discharge Diagnosis (1) Clot retention of urine: Details from hospital stay: Cleared in the operating room. Significant active bleeding identified and managed via transurethral section/vaporization of the right lateral lobe and partial intravesical protruding median lobe Status: Acute (2) Prostatic hemorrhage: Details from hospital stay: See above Status: Acute (3) Acute cystitis with hematuria: Details from hospital stay: Cystitis related to chronic indwelling Siu catheter. Status: Acute (4) BPH loc w urin obs/LUTS: Details from hospital stay: Huge prostate gland very friable. Status: Acute (5) Acute urinary retention: Status: Inactive (6) Mass of mediastinum: Status: Acute Reason for Visit Reason for Visit: Clot urinary retention Brief History: Mr. Bruce is a very pleasant 76-year-old white male who was seen in the office the day before his hospitalization for management of indwelling Siu catheter in for almost a month following development of urinary retention. He had had some ongoing bleeding and difficulty maintaining catheter patency up to the point of that visit. Catheter was removed in anticipation of voiding trial and SCIC but never got that far because of active bleeding on the prostate. Catheter was replaced. Manual irrigation was conducted, and the urine improved. It was hoped that he could manage with increased fluids and he was encouraged to follow-up the next day. Unfortunately his urine remained very bloody and he was having some clot retention by catheter occlusion and leaking around the catheter. It was recommended that he be direct admitted for management. Hospital Course Hospital Course The patient was evaluated in the emergency department. His urine was very bloody with clots in the bag. His bladder was somewhat distended. At that point was recommended he be taken to the operating room for further evaluation and treatment. Intraoperatively he was found to have a large amount of clot in several active bleeding areas of significant volume on the right lobe of the prostate. Attempts at minimal cautery were unsuccessful in controlling the bleeding and therefore there was a partial transurethral resection/vaporization of the right lateral lobe and portion of the intravesically protruding median lobe in order to control the bleeding. The hope was also that the resection would improve his chances of spontaneous voiding post catheter removal even though a full TURP was not performed. A large amount of tissue that was vaporized due to the huge underlying size of the prostate. Postoperatively he did well. He was maintained on CBI and on the night of postoperative day #1 it was weaned off without any recurrence of bleeding. On postop day #2 morning he was felt to be a good candidate for further convalescence at home and was discharged with a Siu catheter in place with a catheter plug in the CBI port. He was encouraged to avoid any straining or lifting, prevent constipation, and follow-up on 06/13/2022 for voiding trial and SCIC instruction. Physical Exam Narrative: Alert, mild confusion at baseline HEENT atraumatic normocephalic Neck good range of motion Unlabored respiration with no audible wheezing No abdominal distention Catheter draining clear yellow urine with CBI off Urinary Catheter Management: 3-way Urethral CBI Latex: Cath Placed During This Visit: yes Urinary Catheter Date of Insertion: 06/06/22 Urinary Catheter Time of Insertion: 12:29 Discharge Data Studies Completed and Pending Completed Studies During Hospitalization Category Date Time Status Pathology: Surgical [PTH] Routine Pth 06/06/22 12:37 Completed Pending at discharge Category Date Time Status Urinalysis Stat Lab 06/06/22 10:07 Uncollected Laboratory Results WBC 13.4 10^3/uL (4.0-10.0) H 06/07/22 05:30 RBC 3.62 10^6/uL (4.1-5.3) L 06/07/22 05:30 Hgb 10.1 g/dL (11.7-16.6) L 06/07/22 05:30 Hct 32.3 % (42.0-52.0) L 06/07/22 05:30 MCV 89.2 fl (80-94) 06/07/22 05:30 MCH 27.9 pg (28.0-34.0) L 06/07/22 05:30 MCHC 31.3 g/dL (30.0-36.0) 06/07/22 05:30 RDW 15.2 % (12.1-15.1) H 06/07/22 05:30 Plt Count 306 10^3/cmm (130-400) 06/07/22 05:30 MPV 10.3 fL (7.4-10.4) 06/07/22 05:30 Neut % (Auto) 60.3 % 06/07/22 05:30 Lymph % (Auto) 31.2 % 06/07/22 05:30 [place] % (Auto) 7.3 % 06/07/22 05:30 Eos % (Auto) 0.5 % 06/07/22 05:30 Baso % (Auto) 0.1 % 06/07/22 05:30 Neut # (Auto) 8.09 10^3/uL (1.8-7.7) H 06/07/22 05:30 Lymph # (Auto) 4.2 10^3/uL (0.8-4.8) 06/07/22 05:30 [place] # (Auto) 1.0 10^3/uL (0.2-0.9) H 06/07/22 05:30 Eos # (Auto) 0.1 10^3/uL (0.0-0.8) 06/07/22 05:30 Baso # (Auto) 0.0 10^3/uL (0.0-0.1) 06/07/22 05:30 Nucleated RBC % (auto) 0 % 06/07/22 05:30 Nucleated RBCs # 0.0 /100WBC 06/07/22 05:30 Sodium 139 mmol/L (136-145) 06/07/22 05:30 Potassium 4.2 mmol/L (3.5-5.1) 06/07/22 05:30 Chloride 109 mmol/L (98-107) H 06/07/22 05:30 Carbon Dioxide 24 mmol/L (22-29) 06/07/22 05:30 Anion Gap 10.2 (5-19) 06/07/22 05:30 BUN 13 mg/dL (8-23) 06/07/22 05:30 Creatinine 0.7 mg/dL (0.7-1.2) 06/07/22 05:30 GFR Calculation Not Reportable 06/07/22 05:30 Glucose 134 mg/dL (65-115) H 06/07/22 05:30 Calculated Osmolality 290 mOsm/kg (285-295) 06/07/22 05:30 Calcium 8.3 mg/dL (8.5-10.5) L 06/07/22 05:30 Total Bilirubin 0.3 mg/dL (0.15-1.2) 06/06/22 13:59 AST 12 U/L (0-40) 06/06/22 13:59 ALT 9 U/L (0-41) 06/06/22 13:59 Alkaline Phosphatase 79 U/L (40-130) 06/06/22 13:59 Total Protein 6.5 g/dL (6.6-8.7) L 06/06/22 13:59 Albumin 3.3 g/dL (3.5-5.2) L 06/06/22 13:59 Globulin 3.2 g/dL (1.3-4.6) 06/06/22 13:59 Vitals Last Vital Signs Temp 99.1 F 06/08/22 07:38 Pulse 72 06/08/22 07:38 Resp 16 06/08/22 07:38 BP 127/74 06/08/22 07:38 Pulse Ox 95 06/08/22 07:38 O2 Del Method 06/08/22 07:38 O2 Flow Rate 8 06/06/22 12:32 Discharge Plan Discharge Patient Disposition: Home Condition: Stable Prescriptions: Continued tramadol 50 mg tablet 50 mg PO Q6H PRN (Reason: Pain) tamsulosin 0.4 mg capsule 0.4 mg PO BID Qty: 180 3RF finasteride 5 mg tablet 5 mg PO QDAY Qty: 90 3RF sulfamethoxazole-trimethoprim 800-160 mg tablet 1 tab PO BID Qty: 20 2RF famotidine 20 mg tablet 20 mg PO DAILY PRN (Reason: Acid Reflux) tizanidine 2 mg tablet 2 mg PO TID PRN (Reason: Muscle Spasm) docusate sodium [Colace] 100 mg Capsule 100 mg PO DAILY@08 ondansetron 4 mg tablet,disintegrating 4 mg PO TID PRN (Reason: Nausea And Vomiting) multivitamin Tablet 1 tab PO DAILY@08 cvbkzfvzjg-spzepnkjklmyy-djsd 50-325-40 mg tablet 1 tab PO Q4H PRN (Reason: Migraine Headache) acetaminophen 500 mg Tablet 1,000 mg PO Q6H PRN (Reason: Pain) Held celecoxib 200 mg capsule 200 mg PO QAM Hold Instructions: Resume on 06/18/22. aspirin 81 mg Tablet,Delayed Release (Dr/Ec) 81 mg PO DAILY@08 Hold Instructions: Resume on 06/19/22. Discharge Orders: Discharge Order (Routine); Ordered 06/08/22 Ordered By: Codey Mcqueen Referrals: Codey Mcqueen MD [Physician] - 06/13/22 (Voiding trial, SCIC instruction, Coud? tip catheter) Vesta Dominguez PA [Primary Care Provider] - Discharge Diet: Usual diet Discharge Activity: Limit activity as instructed Patient Instructions: Opioid Safety Activity Restrictions/Additional Instructions: 1. We will see you on next Saturday for a voiding trial and training and self-catheterization. Hopefully the self-catheterization will not be needed but more as a safety option if retention recurs. 2. It will be very important to avoid activities that would induce bleeding. No heavy lifting or straining. Really anything above 10 pounds is too much. Keep your bowels soft avoid straining with bowel movement. Also hold the Celebrex and aspirin until the week after next. 3. You can use a leg bag or night bag for drainage of the Siu catheter. Please secure it so it does not get caught. 4. Continue the FINASTERIDE and TAMSULOSIN at prescribed doses. Also continue the SULFAMETHOXAZOLE/trimethoprim. 5. The hospital owner operator tanker truck driver can reach me after hours. If you have any concerns during working hours please call the office at [phone]. Discharge Attestations Time Spent in Discharge Care*: less than 30 min Quality Metrics Clinical Quality Measures [ No reported AMI, CVA or VTE this stay] Coding Level of Care Code Acute Code for Chg Fwd Diagnoses Clot retention of urine R33.8 Prostatic hemorrhage N42.1 Acute cystitis with hematuria N30.01 BPH loc w urin obs/LUTS N40.1 Acute urinary retention R33.8 Mass of mediastinum J98.59
[2022-06-08] MEDS: finasteride 5 mg Tablet PO (08:44)
[2022-06-08] MEDS: docusate sodium 100 mg Capsule PO (08:44)
[2022-06-08] MEDS: tamsulosin 0.4 mg Capsule PO (08:45)
[2022-06-08 11:25] VITALS: BP 127/74; PULSE 72; RESP 16; TEMP 37.3; O2SAT 95
== END 2022-06-08 11:28 | disposition home or self-care (01) | DRG 713 ==
LOC: ER 10:29 → OPS 10:47 → MEDSURG 12:27
PROVIDERS: Admitting Provider Urology; Emergency Provider Physician Assistant; PCP Physician Assistant; Visit Provider Urology
PROC: 0TJB8ZZ Inspection of Bladder, Via Natural or Artificial Opening Endoscopic (ICD-10-PCS; CPT 52000; principal; 2022-06-06 11:00)
PROC: 0T5B8ZZ Destruction of Bladder, Via Natural or Artificial Opening Endoscopic (ICD-10-PCS; 2022-06-06 11:00)
PROC: 0VT08ZZ Resection of Prostate, Via Natural or Artificial Opening Endoscopic (ICD-10-PCS; CPT 52601; 2022-06-06 11:00)
DX: N42.1 Congestion and hemorrhage of prostate (principal); N30.01 Acute cystitis with hematuria; R33.8 Other retention of urine; Z79.891 Long term (current) use of opiate analgesic; F03.90 Unspecified dementia, unspecified severity, without behavioral disturbance, psychotic disturbance, mood disturbance, and anxiety
CPT/HCPCS: 36415; 52001; 80048; 80053; 85025; 88305; 94664; 96365; 96375; 99203; 99285; J0696; J1100; J2405; J2704; J3010; J7030

== ENCOUNTER → 2022-06-14 08:53 | Outpatient (BNVA) | payer MEDICARE, OTHER, SELFPAY | PROVIDERS: PCP Physician Assistant; Visit Provider Urology | DX: Z98.890 Other specified postprocedural states (principal); N42.1 Congestion and hemorrhage of prostate; R33.9 Retention of urine, unspecified | CPT/HCPCS: 99024 ==

== ENCOUNTER → 2022-07-03 09:02 | Outpatient (BNVA) | payer MEDICARE, OTHER, SELFPAY | PROVIDERS: PCP Physician Assistant; Visit Provider Urology | DX: N40.1 Benign prostatic hyperplasia with lower urinary tract symptoms (principal); R33.9 Retention of urine, unspecified | CPT/HCPCS: 51741; 51798; 87086; 99024 ==

== ENCOUNTER 2022-07-04 06:37 | Inpatient (IN) | payer MEDICARE, OTHER, SELFPAY ==
[2022-07-04] VITALS (11 sets, daily range): BP systolic 105–161; BP diastolic 63–105; PULSE 80–127; RESP 15–18; TEMP 36.1–37.1; O2SAT 92–99; BMI 22.9
--- NOTE | 2022-07-04 06:56 | ED_ITS ---
HPI - Male Genitourinary General: Chief complaint: Urogenital-Male Stated complaint: post op, blood Time Seen by Provider: 07/04/22 06:47 History of Present Illness: 76 yo m presents stating that he has not been able to urinate more than gross blood and small blood clots since 5 PM last night. He is having bladder spasms every 5 minutes. He is a patient of Dr. Mcqueen. He has a history of prostatic hyperplasia as well as prostatic hemorrhage requiring partial prostatic resection. He has had catheter dependence in the past but is currently being maintained without catheter. He saw Dr. Mcqueen, his urologist, yesterday. Patient is still on finasteride and tamsulosin. He does not take blood thinners other than mild antiplatelet effect from celecoxib. Last night, he took aspirin hoping that it would thin the blood clots enough for him to urinate them out. He is having bladder spasms approximately every 5 minutes. I was able to reach Dr. Mcqueen this morning and he has recommended we try to manually irrigate after placing a Jose R Couvelaire clear 3-way encarnacion catheter. 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 Dementia Specific type unknown Elevated troponin I level Leukocytosis Mass of mediastinum Miliaria rubra Osteoarthritis Pain in right shoulder Urinary retention Required transient encarnacion for > 1L Surgical History H/O esophagogastroduodenoscopy (09/18/20) For food bolus History of cataract surgery History of hip surgery multiple left hip surgeries 20+ years ago due to trauma, also surgery at left distal femur and patella History of right knee surgery 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 Mother , AT AGE 88 No problems noted. Social History Smoking and tobacco status: never smoked Alcohol intake: never Household members: spouse Marital status: Current occupational status: retired Physical Exam Const: COMMON NORMALS: no limitations and well nourished EXAM LIMITATIONS: no altered mental status Eye: COMMON NORMALS: EOMs intact bilaterally and no scleral icterus Neck/C-Spine: COMMON NORMALS: no JVD Resp: COMMON NORMALS: normal respiratory effort and No use of accessory muscles Cardio: COMMON NORMALS: no JVD; negative for regular rate (tachycardic) RATE: abnormal rate (tachycardic) GI: PALPATION: Yes Tenderness to palpation present (GI) Details: other (suprapubic tender/guarding) Neuro: COMMON NORMALS: moves all extremities, no focal motor deficits and no sensory deficits noted Psych: COMMON NORMALS: mental status grossly normal, cooperative and normal affect Course Vital Signs: Vital signs: Vital Signs Temperature 96.9 F L 07/04/22 06:45 Pulse Rate 89 07/04/22 09:30 Respiratory Rate 18 07/04/22 10:20 Blood Pressure 152/103 07/04/22 09:30 Pulse Oximetry 92 07/04/22 10:20 Oxygen Delivery Me thod Room Air 07/04/22 09:30 MDM - Male Medical Decision Making 76 yo m presents stating that he has not been able to urinate more than gross blood and small blood clots since 5 PM last night. He is having bladder spasms every 5 minutes. He is a patient of Dr. Mcqueen. He has a history of prostatic hyperplasia as well as prostatic hemorrhage requiring partial prostatic resection. He has had catheter dependence in the past but is currently being maintained without catheter. He saw Dr. Mcqueen, his urologist, yesterday. Patient is still on finasteride and tamsulosin. He does not take blood thinners other than mild antiplatelet effect from celecoxib. Last night, he took aspirin hoping that it would thin the blood clots enough for him to urinate them out. He is having bladder spasms approximately every 5 minutes. I was able to reach Dr. Mcqueen this morning and he has recommended we try to manually irrigate after placing a Jose R Couvelaire clear 3-way encarnacion catheter. UPDATE: I placed encarnacion catheter. The bladder was essentially empty of urine. There were no clots that came out spontaneously. Bladder was manually irrigated with sterile water by RN x4L. Urine is translucent but still red. I called Dr Mcqueen. He has recommended CBI with NS and then he will come down and see patient after his surgical case. UPDATE: Dr Mcqueen saw patient. He irrigated more aggressively manually and was able to remove approximately 1L of clot. He put patient back on CBI and would like to admit. Discharge Plan Discharge Condition: Stable Prescriptions: No Action tramadol 50 mg tablet 50 mg PO Q6H PRN (Reason: Pain) tamsulosin 0.4 mg capsule 0.4 mg PO BID Qty: 180 3RF famotidine 20 mg tablet 20 mg PO DAILY PRN (Reason: Acid Reflux) tizanidine 2 mg tablet 2 - 4 mg PO TID PRN (Reason: Muscle Spasm) docusate sodium [Colace] 100 mg Capsule 100 mg PO DAILY@08 ondansetron 4 mg tablet,disintegrating 4 mg PO TID PRN (Reason: Nausea And Vomiting) multivitamin Tablet 1 tab PO DAILY@08 celecoxib 200 mg capsule 200 mg PO BID Hold Instructions: Resume on 06/18/22. aspirin 81 mg Tablet,Delayed Release (Dr/Ec) 81 mg PO DAILY@08 Hold Instructions: Resume on 06/19/22. hajpjbuold-wrcyozfscwgos-eejl 50-325-40 mg tablet 1 tab PO Q4H PRN (Reason: Migraine Headache) acetaminophen 500 mg Tablet 1,000 mg PO Q6H PRN (Reason: Pain) finasteride 5 mg tablet 5 mg PO QAM Referrals: Vesta Dominguez PA [Primary Care Provider] - Coding Level of Care Code ED Defence Intelligence Analyst for Kiersten Cheema
[2022-07-04] MEDS: HYDROmorphone 1 mg/mL INJ 1 mL 0.5 MG IVP ×2 (07:17→10:20)
--- NOTE | 2022-07-04 07:40 | PC.PHAR ---
pts family verified pts medications-states the pts celecoxib 200mg bid is on hold ext med history shows last filled 06/13/22 30d/s-pts family states the pt is not taking prozac 20mg bid filled 05/18/22 30d/s states the pt hasnt taken in at least 30 days-
--- NOTE | 2022-07-04 17:48 | PM.HP ---
Providers/Chief Complaint Admitting Physician: Codey Mcqueen MD Primary Care Provider: Vesta Dominguez Chief Complaint: post op, blood History of Present Illness Emigdio Acuña is a 76 year old male well-known to me for history of urinary retention secondary to very large friable prostate, severe prostatic bleeding poorly controlled with prior attempts at manual and then CBI irrigation and ultimately requiring partial TURP for severely bleeding prostatic tissue. He underwent a partial TUR on 06/06/2022 while hospitalized for this bleeding. Was able to be managed well postop and ultimately had his catheter removed, trained in SCIC and did well with spontaneous voiding and good emptying. He was seen for routine follow-up on 07/03/2022 and was doing quite well. Was to continue his FINASTERIDE and TAMSULOSIN it was felt that he was doing well enough that he could be managed by primary care post [facility]. Unfortunately he presented back to the emergency department last night after awaking at 3 in the morning with gross hematuria and developing retention type symptoms with difficulty passing clots. In the emergency room a large bore catheter was placed. Attempts at clearing the clots by nursing staff were unsuccessful.. Upon my arrival he was found to have a distended bladder was quite uncomfortable with a lot of bladder spasms and pain in the suprapubic area. With aggressive manual irrigation utilizing about 2 L of sterile water a large amount of clots were returned and eventually no further clots removed after clearing of the urine. CBI was started. Because of his significant risk for recurrent bleeding based on his history he is being admitted to inpatient status with anticipation of care crossing at least 2 midnights and possibly intervening with complete transurethral section of the prostate to avoid future bleeding. Review of Systems Const: Denies: fever(s) or chills Eyes: Denies: eye discharge or yellow eyes ENMT: Denies: hoarseness or mouth pain Card: Denies: chest pain or palpitations Resp: Denies: dyspnea or productive cough GI: Reports: abdominal pain, nausea and bloating : Reports: difficulty urinating, dysuria, urinary frequency, urinary urgency, urinary hesitancy, difficulty starting urination and hematuria Musc: Reports: limited range of motion (Left lower extremity); Denies: joint swelling Skin/Breast: Denies: rash or pruritus Neuro: Denies: Slurred speech present, seizure-like activity or involuntary movements Psych: Reports: depression and memory loss; Denies: anxiety Endo: Denies: flushing Pawel/Lymph: Reports: easy bleeding; Denies: enlarged lymph nodes All/Imm: Denies: acute wheezing Medications/Allergies Home Medications Medication Instructions Recorded Confirmed Last Taken Type famotidine 20 mg tablet 20 mg PO DAILY PRN Acid Reflux 04/20/21 07/04/22 06/05/22 History acetaminophen 500 mg tablet 1,000 mg PO Q6H PRN Pain 10/10/21 07/04/22 Unknown History docusate sodium 100 mg capsule 100 mg PO DAILY@10/24/21 07/04/22 06/05/22 History (Colace) ondansetron 4 mg disintegrating 4 mg PO TID PRN Nausea And Vomiting 10/24/21 07/04/22 Unknown History tablet tizanidine 2 mg tablet 2 - 4 mg PO TID PRN Muscle Spasm 10/24/21 07/04/22 Unknown History tramadol 50 mg tablet 50 mg PO Q6H PRN Pain 11/09/21 07/04/22 Unknown History aspirin 81 mg tablet,delayed 81 mg PO DAILY@05/13/22 07/04/22 06/05/22 History release fjqhhmsdms-czwfoluubavjs-veyrlgfq 1 tab PO Q4H PRN Migraine Headache 05/13/22 07/04/22 Unknown History 50 mg-325 mg-40 mg tablet celecoxib 200 mg capsule 200 mg PO BID 05/13/22 07/04/22 06/05/22 History multivitamin 1 tab PO DAILY@05/13/22 07/04/22 06/05/22 History tamsulosin 0.4 mg capsule 0.4 mg PO BID #180 caps 06/05/22 07/04/22 06/05/22 Rx finasteride 5 mg tablet 5 mg PO QAM 07/04/22 07/04/22 Unknown History Allergies Allergy/AdvReac Type Severity Reaction Status Date / Time No Known Allergies Allergy Verified 07/04/22 07:35 PFSH Acute PFSH: Medical History BPH loc w urin obs/LUTS Chest pain 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 Dementia Specific type unknown Elevated troponin I level Leukocytosis Mass of mediastinum Miliaria rubra Osteoarthritis Pain in right shoulder Urinary retention Required transient encarnacion for > 1L Surgical History H/O esophagogastroduodenoscopy (09/18/20) For food bolus History of cataract surgery History of hip surgery multiple left hip surgeries 20+ years ago due to trauma, also surgery at left distal femur and patella History of right knee surgery 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 Mother , AT AGE 88 No problems noted. Social History Smoking and tobacco status: never smoked Alcohol intake: never Household members: spouse Marital status: Current occupational status: retired Vitals/I&O/Wt Last Vital Signs Temp 96.9 F L 07/04/22 06:45 Pulse 96 07/04/22 12:06 Resp 18 07/04/22 10:20 BP 161/105 07/04/22 12:06 Pulse Ox 95 07/04/22 12:06 O2 Del Method Room Air 07/04/22 12:24 Weight last 48 hrs Weight 160 lb Physical Exam Const: COMMON NORMALS: no acute distress, alert and well nourished GENERAL APPEARANCE: well kempt and well developed ORIENTATION/CONSCIOUSNESS: not confused HENMT: COMMON NORMALS: normocephalic HEAD & SCALP: normal to inspection and normocephalic Eye: COMMON NORMALS: conjunctivae normal and no scleral icterus CONJUNCTIVA: Yes conjunctivae normal Neck/C-Spine: GENERAL: Yes normal visual inspection Lymph: OTHER: No groin lymphadenopathy. No severe lymphedema Resp: COMMON NORMALS: normal respiratory effort EFFORT & INSPECTION: Yes able to speak in complete sentences, No labored and No Actively coughing Cardio: OTHER: Tachycardic. Regular rhythm. GI: OTHER: His abdomen is tender. His bladder is palpably distended. No other organomegaly or mass appreciated. No CVA tenderness. : OTHER: Normal phallus. Normal meatus. Scrotum grossly normal. Testicles descended. No obvious hernias Back/Pelvis: OTHER: No CVA tenderness Extremity: COMMON NORMALS: no clubbing, cyanosis or edema Neuro: COMMON NORMALS: no focal motor deficits SENSORIUM/ORIENTATION: Yes alert Psych: APPEARANCE: Yes grossly normal and Yes well kempt ATTITUDE: Yes calm and Yes engaged Skin: COMMON NORMALS: no rashes or lesions noted and no jaundice GENERAL SKIN EXAM: no rashes or lesions noted Urinary Catheter Management: 3-way Urethral CBI: Cath Placed During This Visit: yes Urinary Catheter Date of Insertion: 07/04/22 Urinary Catheter Time of Insertion: 07:40 Data 07/04/22 19:03 07/04/22 06:50 A&P Assessment and plan (1) BPH loc w urin obs/LUTS: (2) Clot retention of urine: (3) Prostatic hemorrhage: Recurrent. I anticipate that he will require surgical intervention. Plan Serial labs CBI Manual irrigation as needed Attestations Medical Necessity Statement*: Clot urinary retention with severe bleeding. High risk of rebleeding based on history. Requires inpatient hospital stay for active management of bleeding, CBI, possible surgical intervention. Coding Level of Care Code Acute Code for g Fwd Diagnoses BPH loc w urin obs/LUTS N40.1 Clot retention of urine R33.8 Prostatic hemorrhage N42.1
[2022-07-04] MEDS: tamsulosin 0.4 mg Capsule PO (18:03)
[2022-07-04] MEDS: docusate sodium 100 mg Capsule PO (18:03)
[2022-07-04 18:53] LABS: Alanine Aminotransferase 10 U/L (0-41); Albumin Level 4.1 g/dL (3.5-5.2); Alkaline Phosphatase 93 U/L (40-130); Anion Gap 21.5 (5-19); Aspartate Amino Transferase 16 U/L (0-40); Blood Urea Nitrogen 20 mg/dL (8-23); Calcium 8.9 mg/dL (8.5-10.5); Carbon Dioxide 20 mmol/L (22-29); Chloride 102 mmol/L (98-107); Globulin 3.4 g/dL (1.3-4.6); Glucose 149 mg/dL (65-115); Osmolality Calculated 295 mOsm/kg (285-295); Potassium 3.5 mmol/L (3.5-5.1); Sodium 140 mmol/L (136-145); Total Bilirubin 0.4 mg/dL (0.15-1.2); Total Protein 7.5 g/dL (6.6-8.7)
[2022-07-04 19:32] LABS: Basophils % 0.3 %; Eosinophils # 0.2 10^3/uL (0.0-0.8); Eosinophils % 1.9 %; Hematocrit 30.2 % (42.0-52.0); Hemoglobin 9.7 g/dL (11.7-16.6); Lymphocytes # 4.6 10^3/uL (0.8-4.8); Lymphocytes % 39.7 %; Mean Corpuscular HGB Conc 32.1 g/dL (30.0-36.0); Mean Corpuscular Hemoglobin 28.9 pg (28.0-34.0); Mean Corpuscular Volume 89.9 fl (80-94); Mean Platelet Volume 10.6 fL (7.4-10.4); Monocytes # 0.8 10^3/uL (0.2-0.9); Monocytes % 6.5 %; Neutrophils # 5.88 10^3/uL (1.8-7.7); Neutrophils % 51.4 %; Nucleated Red Blood Cells % 0 %; Platelet Count 272 10^3/cmm (130-400); Red Blood Count 3.36 10^6/uL (4.1-5.3); Red Cell Distribution Width 16.1 % (12.1-15.1); White Blood Count 11.5 10^3/uL (4.0-10.0)
[2022-07-04] MEDS: finasteride 5 mg Tablet PO (21:35)
[2022-07-04] MEDS: famotidine 20 mg Tablet PO (21:35)
[2022-07-05] VITALS: BP 120/68; PULSE 78; RESP 17; TEMP 36.7; O2SAT 94
[2022-07-05 03:56] VITALS: BP 115/72; PULSE 90; RESP 16; TEMP 37; O2SAT 95
[2022-07-05] MEDS: levoFLOXacin 500 mg Tablet PO (05:52)
--- NOTE | 2022-07-05 07:33 | PM.PN ---
Subjective Subjective: Urology follow-up: Hospital day #2, clot retention with prostate bleeding. Required CBI all night and urine is still pink on CBI. Not able to stop. Denies any fever or chills. No more severe bladder spasms. Bladder not distended. Feels much better from that perspective His hemoglobin was 11.1 yesterday. We will plan on keeping him in the hospital on inpatient basis for CBI. Serial labs. Vitals/I&O/Wt Last Vital Signs Temp 98.6 F 07/05/22 03:56 Pulse 90 07/05/22 03:56 Resp 16 07/05/22 03:56 BP 115/72 07/05/22 03:56 Pulse Ox 95 07/05/22 03:56 O2 Del Method Room Air 07/05/22 03:56 07/04/22 07/05/22 07/05/22 22:59 06:59 14:59 Intake Total 360 / 360 Balance 360 / 360 Weight last 48 hrs Weight 160 lb Physical Exam Const: COMMON NORMALS: no acute distress, alert and well nourished GENERAL APPEARANCE: well kempt and well developed ORIENTATION/CONSCIOUSNESS: not confused Resp: COMMON NORMALS: normal respiratory effort EFFORT & INSPECTION: Yes able to speak in complete sentences, No labored and No Actively coughing Back/Pelvis: OTHER: No CVA tenderness Neuro: COMMON NORMALS: no focal motor deficits SENSORIUM/ORIENTATION: Yes alert Psych: APPEARANCE: Yes grossly normal and Yes well kempt ATTITUDE: Yes calm and Yes engaged Skin: COMMON NORMALS: no jaundice Urinary Catheter Management: 3-way Urethral CBI: Cath Placed During This Visit: yes Reason for Continuing Indwelling Catheter: Acute Urinary Retention or Obstruction Urinary Catheter Date of Insertion: 07/04/22 Urinary Catheter Time of Insertion: 07:40 Data 07/06/22 07:05 07/06/22 07:05 A&P Assessment and plan (1) BPH loc w urin obs/LUTS: (2) Clot retention of urine: Clots have been cleared (3) Prostatic hemorrhage: Still requiring CBI. Plan CBI Manual irrigation as needed Attestations Medical Necessity Statement*: Requiring CBI. High risk for recurrent bleeding. Considering TURP. We will tentatively plan for that tomorrow. Coding Level of Care Code Acute Code for [facility] Fwd Diagnoses BPH loc w urin obs/LUTS N40.1 Clot retention of urine R33.8 Prostatic hemorrhage N42.1
[2022-07-05 08:00] VITALS: BP 107/73; PULSE 80; RESP 16; TEMP 36.8; O2SAT 93
[2022-07-05] MEDS: tamsulosin 0.4 mg Capsule PO ×2 (08:13→17:03)
[2022-07-05] MEDS: docusate sodium 100 mg Capsule PO ×2 (08:13→17:03)
[2022-07-05 11:58] VITALS: BP 107/70; PULSE 87; RESP 13; TEMP 36.7; O2SAT 94
[2022-07-05] MEDS: cefTRIAXone 1,000 MG in sodium chloride 0.9% (plus) 50 ML 100 MG IV (12:49)
--- NOTE | 2022-07-05 13:05 | PC.CHAP ---
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 [] Patient/Family/Request visit [] Outpatient visit [] Follow-up visit [] Physician referral [] Code/Alert [x] Routine visit [] Staff referral [] Actively dying [] Patient sleeping [] Family support [] [] Out of room [] Palliative care [] [x] Receiving care in room [] Pre-surgical visit [] Trauma [] Long length of stay [] ICU visit [] Other: Relational/Emotional Strength [x] Patient feels connected with others/family/visitors/staff [] Distress [] Loneliness/isolation [] Abandonment Spirituality of Patient [x] Person of Berta [] Attends Zoroastrianism of their Berta [x] Believes in Prayer [] Reads Bible or Jewish materials [] There are Spiritual issues to be addressed Auto Tester Interventions [x] Prayer [x] Active listening [x] Non-anxious presence [x] Spiritual/emotional support [] Crisis/trauma care [x] Spiritual counseling [] Bereavement support [] Provided bereavement packet [] Provided Bible/devotional materials [] Provided toy/stuffed animal, coloring book to patient or family member [] Provided Communion [] Anointing/[place] [] Salvation [x] Completed spiritual assessment [] Other: Impact on Illness or Injury [] Angry [] Fearful [] Anxious [] Often cries [] Exhaustion [] Unable to work [] Unable to attend yazidi [] Unable to walk/stand [] Unable to read [] Unable to drive [] Unable to eat/drink [] Unable to sleep [] Unable to be with family [] Patient intubated [] Other: Summary bleeding going into a proceduer they check to see if the bleeding stops not sure when he can go home Time spent with patient 10 mins
[2022-07-05 16:00] VITALS: BP 122/75; PULSE 84; TEMP 36.9; O2SAT 95
--- NOTE | 2022-07-05 18:19 | PC.NURSE ---
SHIFT SUMMARY PATIENT HAS DONE WELL TODAY. HE HAS USED 4 BAGS OF CBI. THIS NURSE HAD TO MANUALLY IRRIGATE PATIENT ONE TIME AND SUCCESSFULLY REMOVED A LARGE CLOT. PATIENTS URINE HAS GREATLY CLEARED SINCE THEN. CBI RUNNING AT A VERY SLOW DRIP. PATIENT HAS NO COMPLAINTS OF PAIN. CURRENTLY RESTING IN BED. HAD A BM TODAY.
[2022-07-05 20:00] VITALS: BP 108/65; PULSE 82; RESP 16; TEMP 36.9; O2SAT 95
[2022-07-05] MEDS: finasteride 5 mg Tablet PO (20:19)
[2022-07-05] MEDS: famotidine 20 mg Tablet PO (20:19)
[2022-07-06] VITALS (13 sets, daily range): BP systolic 107–147; BP diastolic 57–97; PULSE 65–89; RESP 13–20; TEMP 36.1–36.8; O2SAT 92–97
[2022-07-06] MEDS: cefTRIAXone 1,000 MG in sodium chloride 0.9% (plus) 50 ML 100 MG IV (01:20)
[2022-07-06] MEDS: levoFLOXacin 500 mg Tablet PO (06:10)
--- NOTE | 2022-07-06 06:19 | PC.NURSE ---
Pt had uneventful night. No complaints, rested well. Approx 1600ml irrigant in and 2250ml out. 650mls pale yellow urine output. CBI remained steadily slow all night. Scant amount of clots noted. Pt Npo since midnight.
[2022-07-06 07:24] LABS: Basophils % 0.3 %; Eosinophils # 0.4 10^3/uL (0.0-0.8); Eosinophils % 5.1 %; Hematocrit 32.1 % (42.0-52.0); Lymphocytes % 45.7 %; Mean Corpuscular HGB Conc 31.2 g/dL (30.0-36.0); Mean Corpuscular Hemoglobin 27.6 pg (28.0-34.0); Mean Corpuscular Volume 88.7 fl (80-94); Mean Platelet Volume 10.3 fL (7.4-10.4); Monocytes # 0.5 10^3/uL (0.2-0.9); Monocytes % 5.8 %; Neutrophils # 3.69 10^3/uL (1.8-7.7); Neutrophils % 42.8 %; Nucleated Red Blood Cells % 0 %; Platelet Count 273 10^3/cmm (130-400); Red Blood Count 3.62 10^6/uL (4.1-5.3); Red Cell Distribution Width 15.8 % (12.1-15.1); White Blood Count 8.6 10^3/uL (4.0-10.0)
[2022-07-06 07:48] LABS: Blood Urea Nitrogen 16 mg/dL (8-23); Calcium 8.7 mg/dL (8.5-10.5); Carbon Dioxide 25 mmol/L (22-29); Chloride 105 mmol/L (98-107); Glucose 95 mg/dL (65-115); Osmolality Calculated 291 mOsm/kg (285-295); Sodium 140 mmol/L (136-145)
--- NOTE | 2022-07-06 11:48 | ANES.PREANE2 ---
Pre-Anesthetic Assessment Height/Weight: Height 1.78 m Weight 72.575 kg Temp Pulse Resp BP Pulse Ox O2 Del Method 97.4 F L 77 18 133/81 95 Room Air 07/06/22 11:20 07/06/22 11:20 07/06/22 11:20 07/06/22 11:20 07/06/22 11:20 07/06/22 11:20 Operation Date: 07/06/22 12:30 Proposed Procedures p Cystoscopy(Not Applicable) - Codey Mcqueen MD s Transurethral Resection Of Prostate gland(Not Applicable) - Codey Mcqueen MD s Clot Evacuation Fulguration(Not Applicable) - Codey Mcqueen MD Familial anesthetic complications: none Was Beta Joe taken within 24 hours: N/A Was Clonidine taken within 24 hours: N/A Last intake: Intake Last Liquid Date 07/05/22 Last Liquid Time 11:00 Last Solid Date 07/05/22 Last Solid Time 18:00 Social No alcohol and No tobacco Exam alert, oriented x 3, clear to auscultation bilaterally and regular rate & rhythm Airway Submandibular: within normal limits Cervical ROM: within normal limits Mallampati: Class II Dentition: chipped CV/HEM Anemia GI Gastroesophageal Reflux Disease Musc/skel Lower Back Pain and Osteoarthritis/DJD Anesthetic Plan ASA status: 3 Anesthesia: General Medications/Allergies Home Medications Medication Instructions Recorded Confirmed Last Taken Type famotidine 20 mg tablet 20 mg PO DAILY PRN Acid Reflux 04/20/21 07/04/22 06/05/22 History acetaminophen 500 mg tablet 1,000 mg PO Q6H PRN Pain 10/10/21 07/04/22 Unknown History docusate sodium 100 mg capsule 100 mg PO DAILY@10/24/21 07/04/22 06/05/22 History (Colace) ondansetron 4 mg disintegrating 4 mg PO TID PRN Nausea And Vomiting 10/24/21 07/04/22 Unknown History tablet tizanidine 2 mg tablet 2 - 4 mg PO TID PRN Muscle Spasm 10/24/21 07/04/22 Unknown History tramadol 50 mg tablet 50 mg PO Q6H PRN Pain 11/09/21 07/04/22 Unknown History aspirin 81 mg tablet,delayed 81 mg PO DAILY@05/13/22 07/04/22 06/05/22 History release gjessfdysa-yxdmorbvruwxi-hfhrextf 1 tab PO Q4H PRN Migraine Headache 05/13/22 07/04/22 Unknown History 50 mg-325 mg-40 mg tablet celecoxib 200 mg capsule 200 mg PO BID 05/13/22 07/04/22 06/05/22 History multivitamin 1 tab PO DAILY@08 05/13/22 07/04/22 06/05/22 History tamsulosin 0.4 mg capsule 0.4 mg PO BID #180 caps 06/05/22 07/04/22 06/05/22 Rx finasteride 5 mg tablet 5 mg PO QAM 07/04/22 07/04/22 Unknown History Allergies Allergy/AdvReac Type Severity Reaction Status Date / Time No Known Allergies Allergy Verified 07/04/22 07:35 Current Medications Generic Name Dose Route Start Last Admin Trade Name Freq PRN Reason Stop Dose Admin Docusate Sodium 100 mg 07/04/22 18:00 07/06/22 10:23 Docusate Sodium 100 Mg Capsule PO Not Given BID LIBBY Famotidine 20 mg 07/04/22 21:00 07/05/22 20:19 Famotidine 20 Mg Tablet PO 20 mg BEDTIME LIBBY Administration Finasteride 5 mg 07/04/22 21:00 07/05/22 20:19 Finasteride 5 Mg Tablet PO 5 mg BEDTIME LIBBY Administration Ceftriaxone Sodium 1,000 mg/ 50 mls @ 100 mls/hr 07/05/22 12:45 07/06/22 01:56 Sodium Chloride IV Infused Q12H LIBBY Infusion Protocol Levofloxacin 500 mg 07/05/22 06:00 07/06/22 06:10 Levofloxacin 500 Mg Tablet PO 500 mg DAILY@0600 LIBBY Administration Protocol Tamsulosin HCl 0.4 mg 07/04/22 18:00 07/06/22 10:23 Tamsulosin 0.4 Mg Capsule PO Not Given BID LIBBY PFSH Anesthesia Medical History BPH loc w urin obs/LUTS Chest pain 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 Dementia Specific type unknown Elevated troponin I level Leukocytosis Mass of mediastinum Miliaria rubra Osteoarthritis Pain in right shoulder Urinary retention Required transient encarnacion for > 1L Surgical History H/O esophagogastroduodenoscopy (09/18/20) For food bolus History of cataract surgery History of hip surgery multiple left hip surgeries 20+ years ago due to trauma, also surgery at left distal femur and patella History of right knee surgery 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 Mother , AT AGE 88 No problems noted. Social History Smoking and tobacco status: never smoked Alcohol intake: never Household members: spouse Marital status: Current occupational status: retired Data Anesthesia 07/06/22 07:05 07/06/22 07:05 Short CBC 07/04/22 07/06/22 Range/Units 19:03 07:05 WBC 11.5 H 8.6 (4.0-10.0) 10^3/uL Hgb 9.7 L 10.0 L (11.7-16.6) g/dL Hct 30.2 L 32.1 L (42.0-52.0) % MCV 89.9 88.7 (80-94) fl Plt Count 272 273 (130-400) 10^3/cmm Neut % (Auto) 51.4 42.8 % Neut # (Auto) 5.88 3.69 (1.8-7.7) 10^3/uL BMP 07/04/22 07/06/22 06:50 07:05 Sodium 140 140 Potassium 3.5 4.0 Chloride 102 105 Carbon Dioxide 20 L 25 BUN 20 16 Creatinine 0.9 0.9 Glucose 149 H 95 Calcium 8.9 8.7 Liver Function 07/04/22 Range/Units 06:50 Total Bilirubin 0.4 (0.15-1.2) mg/dL AST 16 (0-40) U/L ALT 10 (0-41) U/L Alkaline Phosphatase 93 (40-130) U/L Albumin 4.1 (3.5-5.2) g/dL Cardiac Studies: Echocardiogram 10/10/21 Transesophageal Echocardiogram 10/26/21
--- NOTE | 2022-07-06 11:59 | P.OP_ITS ---
Operative Report Date of procedure: July 06, 2022 Pre-op diagnosis: 1. Refractory prostate hemorrhage 2. BPH with obstruction/retention 3. Recurrent clot retention Post-op diagnosis: 1. Refractory prostate hemorrhage 2. BPH with obstruction/retention 3. Recurrent clot retention Procedure done: 1. Cystoscopy, transurethral resection/vaporization of prostate Specimens removed/disposition: Prostate chips Pathology: Prostate chips Surgeon: Richar Estimated blood loss: Less than 100 cc Urine output: Not measured Complications: None Findings: Anesthesia: General Condition: Stable Disposition: PACU Intraoperative findings: * Huge prostate gland. 2 large intravesically protruding lateral lobes with very large lateral lobes in the prostatic lumen as well * Orifices well away from the area of resection * Tissue distal to the verumontanum undisturbed * Hemostatic at the completion of the procedure with light CBI running prophylactically Brief History: Emigdio is a very pleasant 76-year-old white male who originally presented to me with a history of urinary retention and had indwelling Siu catheter for a while. Developed severe hematuria requiring CBI but did not clear adequately and ultimately underwent cystoscopy clot evacuation in order to stop the bleeding a partial TUR of portion of the right lateral lobe. This was done primarily for the purpose of controlling bleeding but also to see if it would help his spontaneous voiding He did void much better. He was not required to continue to use the catheter in the day before this admission he had been seen in the clinic and doing very well and placed on return to clinic as needed basis and was to continue his dual medical therapy of maximal TAMSULOSIN and FINASTERIDE. Unfortunately that night he developed severe bleeding again and clot retention and required admission with irrigation of a large amount of clot in initiation of CBI on the floor as an inpatient. Has continued to require CBI and ultimately the decision was made to proceed to formal transurethral resection/vaporization of the prostate. At first treatment he had been on aspirin. Procedure: After urgent preoperative evaluation examination and obtaining of informed consent he was taken to the operating suite on 07/06/2022 where general anesthesia was administered without difficulty after appropriate timeout was performed, SCDs confirmed to be functioning, therapeutic preoperative antibiotics administered, beta-isaak protocol confirmed. Prepped and draped in the usual sterile fashion in dorsolithotomy position pain careful attention to avoiding pressure points. 21 [place] cystoscope with 30 degree lens was introduced into the urethral meatus and advanced into the bladder without difficulty. The bladder was systematically examined. There were small amount of clot irrigated out the prostate showed as expected huge intravesically protruding lobes extending from the intra prostatic lateral lobes. These have been clearly identified on prior cystoscopy and serial CT scans the orifices were proven to be well away from the bladder neck and the intravesically protruding lobes. Verumontanum was easily identified. The lateral lobes extended all the way to the most proximal aspect of the verumontanum. The urethra was calibrated with Louis sounds and easily accommodate a 30 [place]. 2% lidocaine jelly was instilled into the urethra. A well-lubricated 25 [place] continuous-flow resectoscope sheath with visual obturator in place was advanced to the bladder without difficulty. The 2C2P bipolar system was utilized. Landmarks were ascertained. Resection was begun on the intravesically protruding right lateral lobe. It was resected completely down to the circular fibers of the bladder neck. Orifice was kept in view throughout and undisturbed. Attention was then directed to the same lobe on the left. It was resected in the same fashion as well with care to avoid straining into the bladder. The intra fossa right lateral lobe was then resected from roughly the 12 o'clock position down to the 7 o'clock position from the bladder neck out to but not distal to the verumontanum. Resection was taken deep into the prostate. The left lateral lobe was then resected in the same longitudinal extent and depth. There was a lot of prostatic tissue on the floor of the prostate which was also resected. Vaporization current was utilized with the button probe at intervals throughout of throughout the procedure with approximately 25% to 40% o f tissue vaporized versus resected. The button probe was utilized after all resection was completed and all chips were removed from the bladder for sculpting of the prostatic fossa and meticulous hemostasis. At the completion of the procedure the prostatic fossa was wide open. The orifices were undisturbed. The tissue distal to the distal aspect of the verumontanum was undisturbed. No deep resection was conducted at or distal to the level of the verumontanum but the bulky lobes protruding in that direction were carefully vaporized enough to reduce obstruction but not go deeply. All chips were confirmed to be out of the bladder. Hemostasis was meticulous and the bladder was drained with a 24 [place] Couvelaire Jose R catheter with light CBI running completely clear He tolerated procedure well without complications and was awakened in the operating room and returned to the recovery room in stable condition PLANS: 1. Maintain CBI lightly overnight. Manual irrigation as needed. 2. Consider catheter discharge tomorrow or maintain for a more extended period.
[2022-07-06] MEDS: lidocaine 2% Urojet 20 mL TOPICAL (12:41)
[2022-07-06] MEDS: cefTRIAXone 1,000 MG in sodium chloride 0.9% (plus) 50 ML 50 MG IV (13:51)
--- NOTE | 2022-07-06 14:53 | ANE.PACU2 ---
Inpatient post-anesthesia follow up: Airway intact: Yes Vital signs: Temperature 97.0 F Pulse Rate 85 Respiratory Rate 14 Blood Pressure 126/97 Pulse Oximetry 94 Oxygen Delivery Me thod Room Air Oxygen Flow Rate 6 Fraction of Inspir ed Oxygen Hydration adequate: Yes Nausea and vomiting: No Pain level: 3 Mental status: Baseline
[2022-07-06] MEDS: tamsulosin 0.4 mg Capsule PO (17:44)
[2022-07-06] MEDS: docusate sodium 100 mg Capsule PO (17:44)
[2022-07-06] MEDS: HYDROcodone-acetaminophen 5-325 mg Tablet 1 TAB PO (17:44)
[2022-07-06] MEDS: finasteride 5 mg Tablet PO (20:43)
[2022-07-07] MEDS: cefTRIAXone 1,000 MG in sodium chloride 0.9% (plus) 50 ML 100 MG IV ×2 (01:17→12:38)
[2022-07-07] MEDS: phenazopyridine 100 mg Tablet 200 MG PO (08:10)
[2022-07-07] MEDS: docusate sodium 100 mg Capsule PO ×2 (08:10→18:15)
[2022-07-07] MEDS: tamsulosin 0.4 mg Capsule PO ×2 (08:11→18:15)
--- NOTE | 2022-07-07 08:50 | PM.PN ---
Subjective Subjective: Urology follow-up: Postop day #1 transurethral resection/vaporization prostate Doing well overall. Still requiring low flow CBI. No manual irrigation required. No clots. Did have some bleeding around the catheter as expected. No chest pain, shortness of breath, change in mental status. No abdominal pain. Has had some mild headache. Tylenol prescribed Reviewed the findings intraoperatively and plans. Given that he is still requiring some CBI will recommend maintaining him in the hospital today and reassessing in the morning for possible voiding trial or discharged with catheter in place. Moving slower based on his risk of recurrent bleeding. Medications: Reviewed: Yes Vitals/I&O/Wt Last Vital Signs Temp 98.2 F 07/06/22 19:38 Pulse 89 07/06/22 19:38 Resp 20 H 07/06/22 19:38 BP 136/90 07/06/22 19:38 Pulse Ox 94 07/06/22 19:38 O2 Del Method Room Air 07/06/22 15:30 O2 Flow Rate 6 07/06/22 14:40 07/06/22 07/07/22 07/07/22 22:59 06:59 14:59 Intake Total 140 / 1000 450 / 1450 Balance 140 / -2600 450 / -2150 Physical Exam Narrative: Alert and oriented. No acute distress No labored respiration or wheezing Urine is light pink with CBI running Pleasant cooperative throughout exam Baseline Urinary Catheter Management: 3-way Urethral CBI: Cath Placed During This Visit: yes, but has since been removed by the nurse Reason for Continuing Indwelling Catheter: Acute Urinary Retention or Obstruction Urinary Catheter Date of Insertion: 07/06/22 Urinary Catheter Time of Insertion: 14:29 Date Urinary Catheter Removed: 07/06/22 Time Urinary Catheter Discontinued: 12:35 Data 07/06/22 07:05 07/06/22 07:05 A&P Assessment and plan (1) BPH loc w urin obs/LUTS: Status post TUR/TUVP doing well. (2) Clot retention of urine: No recurrence postop (3) Prostatic hemorrhage: Following the course of usual TURP/TUVP. CBI still running but at a low rate. Trying to wean off. We will keep him in the hospital as long as CBI is required. Plan CBI Manual irrigation as needed Attestations Medical Necessity Statement*: Continued need for CBI. See HPI Coding Level of Care Code Acute Code for [facility] Fwd Diagnoses BPH loc w urin obs/LUTS N40.1 Clot retention of urine R33.8 Prostatic hemorrhage N42.1
[2022-07-07 09:05] LABS: Hepatitis B Surface Antigen Non-Reactive (Nonreactive)
[2022-07-07 09:20] LABS: Hepatitis B Surface AB < 3.5 (11.5-1000)
[2022-07-07 09:39] LABS: Hepatitis C Virus Antibody Non-Reactive (Nonreactive)
[2022-07-07] MEDS: acetaminophen 325 mg Tablet PO (09:56)
[2022-07-07 10:05] LABS: HIV 1 & 2 Antibody Non-Reactive (Non-Reactiv); HIV 1 & 2 Antigen Non-Reactive (Non-Reactiv)
--- NOTE | 2022-07-07 12:12 | PC.SOCIAL ---
IMM update IMM updated with patient. Copy PG 2 provided. Verbalized an understanding. Initialled, dated, timed, and placed in chart.
[2022-07-07 12:59] VITALS: BP 110/63; PULSE 84; RESP 16; TEMP 36.8; O2SAT 95
--- NOTE | 2022-07-07 16:24 | PC.NURSE ---
one medium size clot.
--- NOTE | 2022-07-07 18:21 | PC.NURSE ---
2 clots , 1med 1long.
[2022-07-07 20:00] VITALS: BP 110/63; PULSE 81; RESP 16; TEMP 36.8; O2SAT 95
[2022-07-07] MEDS: finasteride 5 mg Tablet PO (20:37)
[2022-07-08] VITALS (7 sets, daily range): BP systolic 100–152; BP diastolic 63–89; PULSE 76–94; RESP 16–18; TEMP 36.7–37.1; O2SAT 92–96
[2022-07-08] MEDS: cefTRIAXone 1,000 MG in sodium chloride 0.9% (plus) 50 ML 100 MG IV ×2 (00:37→12:41)
--- NOTE | 2022-07-08 08:06 | PM.MISC ---
Miscellaneous Note Note: Urine is clearing up very nicely. Discussed leaving the catheter in versus taking it out and performing 6 bottle void and PVR checks He chose the latter. We will remove the catheter this morning, and 6 bottle void, check PVRs frequently and if he does well discharged home later today
[2022-07-08] MEDS: tamsulosin 0.4 mg Capsule PO ×2 (10:10→17:06)
[2022-07-08] MEDS: docusate sodium 100 mg Capsule PO ×2 (10:10→17:06)
--- NOTE | 2022-07-08 17:30 | PM.PN ---
Subjective Subjective: Urology postop day #2. Urine clearing nicely. Plan for DC Siu catheter, 6 bottle void, if doing well then discharge home without catheter. Reviewed option for catheter replacement, prolonged hospital stay based on bleeding status and emptying status etc. Siu catheter removed early in the morning. It took a while for his urine to clear. There was some question about adequate emptying as well. For that reason his discharge which had been tentatively plan for today was canceled. Anticipate he will be discharged tomorrow 07/09/2022 Vitals/I&O/Wt Last Vital Signs Temp 98.5 F 07/09/22 03:52 Pulse 80 07/09/22 03:52 Resp 16 07/09/22 03:52 BP 112/62 07/09/22 03:52 Pulse Ox 96 07/09/22 03:52 O2 Del Method Room Air 07/09/22 03:52 O2 Flow Rate 6 07/06/22 14:40 07/08/22 07/08/22 07/09/22 14:59 22:59 06:59 Intake Total 780 / 780 50 / 830 Output Total 2610 / 2610 800 / 3410 300 / 3710 Balance -1830 / -1830 -800 / -2630 -250 / -2880 Physical Exam Narrative: Alert, oriented, baseline No acute distress Abdomen soft Normal respirations without laboring or wheezing Bladder nondistended Urine still somewhat bloody with catheter out. Baseline Urinary Catheter Management: 3-way Urethral CBI: Cath Placed During This Visit: yes, but has since been removed by the nurse Reason for Continuing Indwelling Catheter: Decision to DC Catheter Urinary Catheter Date of Insertion: 07/06/22 Urinary Catheter Time of Insertion: 14:29 Date Urinary Catheter Removed: 07/08/22 Time Urinary Catheter Discontinued: 09:05 Data 07/06/22 07:05 07/06/22 07:05 A&P Assessment and plan (1) Gross hematuria: (2) Incomplete bladder emptying: Plan 1. Hold on discharge today. Anticipate will be fine for tomorrow. Attestations Medical Necessity Statement*: Over the day still had blood in the urine to the point of enough concern not to send him home. He also had some elevated postvoid residuals. Coding Level of Care Code Acute Code for [facility] Fwd Diagnoses Gross hematuria R31.0 Incomplete bladder emptying R33.9
[2022-07-08] MEDS: finasteride 5 mg Tablet PO (20:14)
[2022-07-09] MEDS: cefTRIAXone 1,000 MG in sodium chloride 0.9% (plus) 50 ML 100 MG IV (00:08)
[2022-07-09 03:52] VITALS: BP 112/62; PULSE 80; RESP 16; TEMP 36.9; O2SAT 96
--- NOTE | 2022-07-09 06:58 | PM.DCS ---
Discharge Providers Date of Admission: 07/04/22 11:42 Date of Discharge: July 09, 2022 Attending Provider at Admission: Codey Mcqueen MD Attending Provider at Discharge: Codey Mcqueen MD Primary Care Provider: Vesta Dominguez Diagnoses at Discharge Discharge Diagnosis (1) BPH loc w urin obs/LUTS: Status: Acute (2) Clot retention of urine: Status: Acute (3) Prostatic hemorrhage: Status: Acute Reason for Visit Reason for Visit: post op, blood Hospital Course Hospital Course Admission historical details: Emigdio Acuña is a 76 year old male well-known to me for history of urinary retention secondary to very large friable prostate, severe prostatic bleeding poorly controlled with prior attempts at manual and then CBI irrigation and ultimately requiring partial TURP for severely bleeding prostatic tissue.? He underwent a partial TUR on 06/06/2022 while hospitalized for this bleeding.? Was able to be managed well postop and ultimately had his catheter removed, trained in [facility] and did well with spontaneous voiding and good emptying. He was seen for routine follow-up on 07/03/2022 and was doing quite well.? Was to continue his FINASTERIDE and TAMSULOSIN it was felt that he was doing well enough that he could be managed by primary care post my intermediate. Unfortunately he presented back to the emergency department last night after awaking at 3 in the morning with gross hematuria and developing retention type symptoms with difficulty passing clots. In the emergency room a large bore catheter was placed.? Attempts at clearing the clots by nursing staff were unsuccessful.. Upon my arrival he was found to have a distended bladder was quite uncomfortable with a lot of bladder spasms and pain in the suprapubic area. With aggressive manual irrigation utilizing about 2 L of sterile water a large amount of clots were returned and eventually no further clots removed after clearing of the urine. CBI was started. Because of his significant risk for recurrent bleeding based on his history he is being admitted to inpatient status with anticipation of care crossing at least 2 midnights and possibly intervening with complete transurethral section of the prostate to avoid future bleeding. Prostate bleeding was managed with manual irrigation and CBI. Unfortunately failed to clear adequately. He had already failed 1 trial of home management with severe recurrent bleeding and ultimately was decided rather than continue inpatient CBI as primary management tool, to convert to attempt at definitive therapy via transurethral resection of the prostate. He had previously had portion of his prostate resected for bleeding control only. He had a lot of tissue that remained. His initial presentation was for urinary retention. On 07/06/2022 he underwent a cystoscopy transurethral section of prostate with vaporization as well. Prostate was huge. Large amount of tissue was removed and vaporized. Postoperatively he was kept on a low flow CBI which was discontinued with the catheter on postop day #2. 6 bottle void showed that he had some persistence of hematuria. Given his history of recurrent severe bleeding it was decided to maintain him as overnight on the . He also had some incomplete emptying but not severely progressive. On 07/09/2022 his urine had stayed clear overnight, he was emptying better, he was deemed to be a good candidate for further convalescence at home. Discharged on 07/09/2022 in stable condition Physical Exam Narrative: Alert, oriented, baseline No acute distress Abdomen soft Normal respirations without laboring or wheezing Bladder nondistended. Urine is clear. Baseline Urinary Catheter Management: 3-way Urethral CBI: Cath Placed During This Visit: yes, but has since been removed by the nurse Reason for Continuing Indwelling Catheter: Other Urinary Catheter Date of Insertion: 07/06/22 Urinary Catheter Time of Insertion: 14:29 Date Urinary Catheter Removed: 07/06/22 Time Urinary Catheter Discontinued: 12:35 Discharge Data Studies Completed and Pending Pending at discharge Category Date Time Status Pathology: Surgical [PTH] Routine Pth 07/06/22 14:51 Received Laboratory Results WBC 8.6 10^3/uL (4.0-10.0) 07/06/22 07:05 RBC 3.62 10^6/uL (4.1-5.3) L 07/06/22 07:05 Hgb 10.0 g/dL (11.7-16.6) L 07/06/22 07:05 Hct 32.1 % (42.0-52.0) L 07/06/22 07:05 MCV 88.7 fl (80-94) 07/06/22 07:05 MCH 27.6 pg (28.0-34.0) L 07/06/22 07:05 MCHC 31.2 g/dL (30.0-36.0) 07/06/22 07:05 RDW 15.8 % (12.1-15.1) H 07/06/22 07:05 Plt Count 273 10^3/cmm (130-400) 07/06/22 07:05 MPV 10.3 fL (7.4-10.4) 07/06/22 07:05 Neut % (Auto) 42.8 % 07/06/22 07:05 Lymph % (Auto) 45.7 % 07/06/22 07:05 Millard % (Auto) 5.8 % 07/06/22 07:05 Eos % (Auto) 5.1 % 07/06/22 07:05 Baso % (Auto) 0.3 % 07/06/22 07:05 Neut # (Auto) 3.69 10^3/uL (1.8-7.7) 07/06/22 07:05 Lymph # (Auto) 4.0 10^3/uL (0.8-4.8) 07/06/22 07:05 Millard # (Auto) 0.5 10^3/uL (0.2-0.9) 07/06/22 07:05 Eos # (Auto) 0.4 10^3/uL (0.0-0.8) 07/06/22 07:05 Baso # (Auto) 0.0 10^3/uL (0.0-0.1) 07/06/22 07:05 Nucleated RBC % (auto) 0 % 07/06/22 07:05 Nucleated RBCs # 0.0 /100WBC 07/06/22 07:05 Sodium 140 mmol/L (136-145) 07/06/22 07:05 Potassium 4.0 mmol/L (3.5-5.1) 07/06/22 07:05 Chloride 105 mmol/L (98-107) 07/06/22 07:05 Carbon Dioxide 25 mmol/L (22-29) 07/06/22 07:05 Anion Gap 14.0 (5-19) 07/06/22 07:05 BUN 16 mg/dL (8-23) 07/06/22 07:05 Creatinine 0.9 mg/dL (0.7-1.2) 07/06/22 07:05 GFR Calculation Not Reportable 07/06/22 07:05 Glucose 95 mg/dL (65-115) 07/06/22 07:05 Calculated Osmolality 291 mOsm/kg (285-295) 07/06/22 07:05 Calcium 8.7 mg/dL (8.5-10.5) 07/06/22 07:05 Total Bilirubin 0.4 mg/dL (0.15-1.2) 07/04/22 06:50 AST 16 U/L (0-40) 07/04/22 06:50 ALT 10 U/L (0-41) 07/04/22 06:50 Alkaline Phosphatase 93 U/L (40-130) 07/04/22 06:50 Total Protein 7.5 g/dL (6.6-8.7) 07/04/22 06:50 Albumin 4.1 g/dL (3.5-5.2) 07/04/22 06:50 Globulin 3.4 g/dL (1.3-4.6) 07/04/22 06:50 Hep Bs Antigen Non-reactive (Nonreactive) 07/07/22 07:05 Hep Bs Antibody < 3.5 (11.5-1000) L 07/07/22 07:05 Hepatitis C Antibody Non-reactive (Nonreactive) 07/07/22 07:05 HIV 1&2 Ab & HIV 1 Ag Non-reactive (Non-Reactiv) 07/07/22 07:05 HIV 1&2 Antibody Non-reactive (Non-Reactiv) 07/07/22 07:05 Vitals Last Vital Signs Temp 98.4 F 07/08/22 04:00 Pulse 76 07/08/22 04:00 Resp 16 07/08/22 04:00 BP 113/74 07/08/22 04:00 Pulse Ox 95 07/08/22 04:00 O2 Del Method Room Air 07/08/22 04:00 O2 Flow Rate 6 07/06/22 14:40 Discharge Plan Discharge Patient Disposition: Home Condition: Stable Prescriptions: Continued tramadol 50 mg tablet 50 mg PO Q6H PRN (Reason: Pain) tamsulosin 0.4 mg capsule 0.4 mg PO BID Qty: 180 3RF famotidine 20 mg tablet 20 mg PO DAILY PRN (Reason: Acid Reflux) tizanidine 2 mg tablet 2 - 4 mg PO TID PRN (Reason: Muscle Spasm) docusate sodium [Colace] 100 mg Capsule 100 mg PO DAILY@08 ondansetron 4 mg tablet,disintegrating 4 mg PO TID PRN (Reason: Nausea And Vomiting) multivitamin Tablet 1 tab PO DAILY@08 celecoxib 200 mg capsule 200 mg PO BID Hold Instructions: Resume on 06/18/22. [id number]-[id number]-rxrr 50-325-40 mg tablet 1 tab PO Q4H PRN (Reason: Migraine Headache) acetaminophen 500 mg Tablet 1,000 mg PO Q6H PRN (Reason: Pain) finasteride 5 mg tablet 5 mg PO QAM Held aspirin 81 mg Tablet,Delayed Release (Dr/Ec) 81 mg PO DAILY@08 Hold Instructions: Resume on 07/18/22. Discharge Orders: Discharge Order (Routine); Ordered 07/09/22 Ordered By: Codey Mcqueen Referrals: Codey Mcqueen MD [Physician] - 1 month (FR/PVR) Vesta Dominguez PA [Primary Care Provider] - Discharge Diet: Usual diet Discharge Activity: Limit activity as instructed Patient Instructions: Opioid Safety Activity Restrictions/Additional Instructions: 1. He will be important to drink more than normal to help keep your urine clear. 2. Lift nothing >10 pounds for 1 month. 3. It will be normal to see some blood off and on your urine for up to 6 weeks and possibly even longer. As long as the bleeding is not severe with difficult the main management principal is to continue fluids and rest. 4. I will plan on seeing you back in my office in approximately 4 weeks for routine postoperative check Discharge Attestations Time Spent in Discharge Care*: less than 30 min Quality Metrics Clinical Quality Measures [ No reported AMI, CVA or VTE this stay] Coding Level of Care Code Acute Code for Chg Fwd Diagnoses BPH loc w urin obs/LUTS N40.1 Clot retention of urine R33.8 Prostatic hemorrhage N42.1
[2022-07-09 08:01] VITALS: BP 121/70; PULSE 73; RESP 16; TEMP 36.8; O2SAT 95
[2022-07-09] MEDS: docusate sodium 100 mg Capsule PO (08:45)
[2022-07-09] MEDS: tamsulosin 0.4 mg Capsule PO (08:45)
--- NOTE | 2022-07-09 08:59 | PC.SOCIAL ---
IMM update IMM updated with patient. Verbalized an understanding. Copy Pg 2 provided. Initialled, dated, timed, and placed in chart.
[2022-07-09 10:50] VITALS: BP 121/70; PULSE 73; RESP 16; TEMP 36.8; O2SAT 95
== END 2022-07-09 10:45 | disposition home or self-care (01) | DRG 713 ==
LOC: ER 07:05 → MEDSURG 11:42
PROVIDERS: Admitting Provider Urology; Emergency Provider Emergency Medicine; PCP Physician Assistant; Visit Provider Urology
PROC: 0TJB8ZZ Inspection of Bladder, Via Natural or Artificial Opening Endoscopic (ICD-10-PCS; CPT 52000; principal; 2022-07-06 12:30)
PROC: 0VT08ZZ Resection of Prostate, Via Natural or Artificial Opening Endoscopic (ICD-10-PCS; CPT 52601; 2022-07-06 12:30)
PROC: 0T5B8ZZ Destruction of Bladder, Via Natural or Artificial Opening Endoscopic (ICD-10-PCS; 2022-07-06 12:30)
DX: N42.1 Congestion and hemorrhage of prostate (principal); N13.8 Other obstructive and reflux uropathy; N40.1 Benign prostatic hyperplasia with lower urinary tract symptoms; R33.8 Other retention of urine; R39.14 Feeling of incomplete bladder emptying; N32.89 Other specified disorders of bladder; R31.0 Gross hematuria; F03.90 Unspecified dementia, unspecified severity, without behavioral disturbance, psychotic disturbance, mood disturbance, and anxiety; Z96.642 Presence of left artificial hip joint
CPT/HCPCS: 36415; 51702; 51741; 51798; 80048; 80053; 85025; 86706; 86803; 87086; 87340; 87806; 88305; 96374; 96375; 99024; 99285; 99291; 99292; J0696; J1100; J1170; J2405; J2704; J3010; J3490

== ENCOUNTER → 2022-07-26 09:31 | Outpatient (BNVA) | payer MEDICARE, OTHER, SELFPAY | PROVIDERS: PCP Physician Assistant; Visit Provider Urology | DX: N40.1 Benign prostatic hyperplasia with lower urinary tract symptoms (principal); N13.8 Other obstructive and reflux uropathy; Z98.890 Other specified postprocedural states; R33.9 Retention of urine, unspecified | CPT/HCPCS: 51741; 51798; 99024 ==

== ENCOUNTER 2022-12-31 10:45 | Emergency (ER) | payer MEDICARE, OTHER, SELFPAY ==
--- NOTE | 2022-12-31 10:46 | XRR_ITS ---
PROCEDURE INFORMATION: Exam: XR Right Ankle Exam date and time: 12/31/2022 10:55 AM Age: 77 years old Clinical indication: Injury or trauma; Sprain or strain; Right; Injury details: Fallin a hole. RT ankle pain/swelling. PT has an ankle monitor on TECHNIQUE: Imaging protocol: Radiologic exam of the right ankle. Views: 3 or more views. COMPARISON: No relevant prior studies available. FINDINGS: Tubes, catheters and devices: Ankle monitor device noted. Bones/joints: No acute fracture or dislocation. Mineralization is normal. Joint spacing and alignment are maintained. Small plantar and posterior calcaneal enthesophytes. Soft tissues: Soft tissue swelling greatest over the lateral malleolus. XR/XR ankle RT min 3V* [id number] IMPRESSION: Lateral ankle soft tissue swelling without acute fracture or dislocation.
[2022-12-31 10:49] VITALS: PULSE 88; RESP 16; O2SAT 96; BMI 23.6
--- NOTE | 2022-12-31 10:57 | ED_ITS ---
HPI - Extremity Injury (Lower) General: Chief Complaint: Extremity Injury, Lower Stated Complaint: right ankle injury Time Seen by Provider: 12/31/22 10:46 Source: patient Mode of arrival: ambulatory Limitations: no limitations History of Present Illness: 69-year-old male states that he fell into a wall on Saturday states he twisted his right ankle he had right ankle pain since then. He states over the lateral portion of his ankle rates it a 4 out of 10 states he has been able to walk on it does cause some pain denies any other injuries. 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 Dementia Specific type unknown Elevated troponin I level Leukocytosis Mass of mediastinum Miliaria rubra Osteoarthritis Pain in right shoulder Urinary retention Required transient encarnacion for > 1L Surgical History H/O esophagogastroduodenoscopy (09/18/20) For food bolus History of cataract surgery History of hip surgery multiple left hip surgeries 20+ years ago due to trauma, also surgery at left distal femur and patella History of right knee surgery 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 Mother , AT AGE 88 No problems noted. Social History Smoking and tobacco status: never smoked Alcohol intake: never Substance/Drug Use: never Household members: spouse Marital status: Current occupational status: retired Physical Exam Const: COMMON NORMALS: no acute distress, patient oriented x3 and healthy appearing HENMT: COMMON NORMALS: normocephalic and atraumatic HEAD & SCALP: normocephalic and atraumatic Neck/C-Spine: COMMON NORMALS: full ROM and supple Chest: COMMONS NORMALS: normal inspection of the chest Resp: COMMON NORMALS: normal respiratory effort Cardio: COMMON NORMALS: regular rate, regular rhythm and No murmurs present (Cardio) RATE: regular rate RHYTHM: regular rhythm GI: COMMON NORMALS: Normal to inspection, nondistended, normoactive bowel sounds present, Soft to palpation, non-tender and no masses PALPATION: Yes Soft to palpation Extremity: NARRATIVE EXTREMITY EXAM: tenderness over right lateral ankle no obvious fx Neuro: COMMON NORMALS: patient oriented x3, moves all extremities and no focal motor deficits Psych: COMMON NORMALS: mental status grossly normal, Normal thought process present and cooperative THOUGHT PROCESS: Normal thought process present Skin: COMMON NORMALS: no rashes or lesions noted and no wounds GENERAL SKIN EXAM: no rashes or lesions noted Course Vital Signs: Vital signs: Vital Signs Pulse Rate 88 12/31/22 10:49 Respiratory Rate 16 12/31/22 10:49 Pulse Oximetry 96 12/31/22 10:49 Oxygen Delivery Me thod Room Air 12/31/22 10:49 MDM - Extremity Injury (Lower) Medical Decision Making Patient presents with an ankle sprain x-ray shows no fracture we will Tony wrap he is to follow-up with podiatry he is return if worsening he understands agrees to plan. Medical Records I reviewed the patient's medical records. XR interpretation done by ED provider, pending radiology final review ED provider radiology interpretation(s): xr r ankle: no acute fx Discharge Plan Discharge Patient Disposition: Home Clinical Impression: Ankle sprain and strain Condition: Stable Prescriptions: No Action finasteride 5 mg tablet 5 mg PO QAM Qty: 90 1RF tramadol 50 mg tablet 50 mg PO Q6H PRN (Reason: Pain) famotidine 20 mg tablet 20 mg PO DAILY PRN (Reason: Acid Reflux) tizanidine 2 mg tablet 2 - 4 mg PO TID PRN (Reason: Muscle Spasm) docusate sodium [Colace] 100 mg Capsule 100 mg PO DAILY@08 ondansetron 4 mg tablet,disintegrating 4 mg PO TID PRN (Reason: Nausea And Vomiting) multivitamin Tablet 1 tab PO DAILY@08 celecoxib 200 mg capsule 200 mg PO BID Hold Instructions: Resume on 06/18/22. aspirin 81 mg Tablet,Delayed Release (Dr/Ec) 81 mg PO DAILY@08 Hold Instructions: Resume on 07/18/22. [id number]-[id number]-gmbq 50-325-40 mg tablet 1 tab PO Q4H PRN (Reason: Migraine Headache) acetaminophen 500 mg Tablet 1,000 mg PO Q6H PRN (Reason: Pain) Discharge Orders: Discharge ED (Routine); Ordered 12/31/22 Ordered By: Nikunj Gray Referrals: Julio Roth DPM [Physician] - 1-3 days Vesta Dominguez PA [Primary Care Provider] - Discharge Diet: Advance as tolerated Discharge Activity: Resume usual activity Patient Instructions: Ankle Sprain (ED) Coding Level of Care Code ED Pharmacy Operations Coordinator for Kiersten Cheema
[2022-12-31 11:01] VITALS: BP 144/104; PULSE 84; RESP 17; O2SAT 95
--- NOTE | 2022-12-31 11:07 | PC.PHAR ---
pts family states the pt stop taking all rx medications 3-4 months ago states he doesnt need to take them anymore-states the pt is only taking the medications entered
--- NOTE | 2022-12-31 11:07 | PC.SOCIAL ---
Ortho F/u Referral to clinic at this time. Clinic to contact patient with appt date/time.
[2022-12-31] MEDS: naproxen 500 mg Tablet PO (11:09)
== END 2022-12-31 11:12 | disposition home or self-care (01) ==
PROVIDERS: Emergency Provider Emergency Medicine; PCP Physician Assistant
DX: S93.401A Sprain of unspecified ligament of right ankle, initial encounter (principal); S96.911A Strain of unspecified muscle and tendon at ankle and foot level, right foot, initial encounter; Z79.82 Long term (current) use of aspirin; F03.90 Unspecified dementia, unspecified severity, without behavioral disturbance, psychotic disturbance, mood disturbance, and anxiety; W18.39XA Other fall on same level, initial encounter
CPT/HCPCS: 73610; 99283

== ENCOUNTER 2023-04-28 20:06 | Day surgery (SDC) | payer MEDICARE, OTHER, SELFPAY ==
[2023-04-28] VITALS (12 sets, daily range): BP systolic 120–155; BP diastolic 76–95; PULSE 62–83; RESP 16–18; TEMP 36.2–36.6; O2SAT 95–98; BMI 22.3
--- NOTE | 2023-04-28 20:29 | ED_ITS ---
HPI - General Adult General: Chief complaint: Airway/Esophagus Foreign Body Stated complaint: chicken in throat Time Seen by Provider: 04/28/23 20:28 History of Present Illness: 77-year-old male presents to the emergen cy department with complaints that he feels like he has a piece of chicken stuck in his throat. He states he was eating and attempted to swallow a piece of chicken approximately 1 and half hours prior to arrival here in the emergency department he states that since that is happening he has not been able to eat or keep anything down if he attempts to take a drink he vomits. He states he has had foreign body obstructing his esophagus previously and has required endoscopy to have the food bolus removed. 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 Dementia Specific type unknown Elevated troponin I level Leukocytosis Mass of mediastinum Miliaria rubra Osteoarthritis Pain in right shoulder Urinary retention Required transient encarnacion for > 1L Surgical History H/O esophagogastroduodenoscopy (09/18/20) For food bolus History of cataract surgery History of hip surgery multiple left hip surgeries 20+ years ago due to trauma, also surgery at left distal femur and patella History of right knee surgery 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 Mother , AT AGE 88 No problems noted. Social History Smoking and tobacco/nicotine status: never used tobacco/nicotine Alcohol intake: never Substance/Drug Use: never Household members: spouse Marital status: Current occupational status: retired Physical Exam Narrative: EXAM NARRATIVE: Constitutional: the patient appears well nourished and of normal development. Vital signs as documented. No acute distress at present. Alert and oriented-to person, place, time and situation. Head, eyes, ears, nose, mouth, throat: Normocephalic, atraumatic. Pupils-equal, round, reactive to light. No scleral icterus. Normal-appearing external ears. Normal appearing nasal turbinates, no drainage. No obvious oral lesions, posterior oropharynx without erythema or exudates. Neck: Supple, trachea is midline, no lymphadenopathy, no jugular venous distension, thyromegaly, or carotid bruits. Carotid upstrokes are brisk bilaterally. Lungs: clear to auscultation to all lung andersen. Symmetrical rise and fall of chest, no obvious signs of increased work of breathing at present. Cardiac: Regular rate and rhythm, positive S1, S2. No murmurs, rubs or gallops that I can appreciate Abdomen: Soft, non-tender to palpation, normal active bowel sounds to all quadrants. No palpable masses, no organomegaly and abdominal bruits. Extremities: 2+ pulses in the upper extremities that are equal bilaterally, 2+ pulses in the lower extremities that are equal bilaterally. Non-edematous. Moves all extremities well, sensation to all extremities are noted. Skin: Warm, dry, intact. Course Reevaluation(s): Reevaluation #1: Reevaluation of the patient after receiving glucagon and Zofran he is still unable to swallow clear liquids and immediately vomits any attempts to drink clear liquids. I have contacted the general surgeon Dr. Haines and have discussed the patient's case as well as the concern for esophageal food bolus obstruction. He advised that he would evaluate the patient and potentially provide endoscopy. I advised the patient of this information and he verbalized understanding and at present is maintaining his airway without difficulty. Time: 21:37 Vital Signs: Vital signs: Vital Signs Temperature 97.9 F 04/28/23 20:07 Pulse Rate 64 04/28/23 21:33 Respiratory Rate 18 04/28/23 21:33 Blood Pressure 120/82 04/28/23 21:33 Pulse Oximetry 98 04/28/23 21:33 Oxygen Delivery Me thod Room Air 04/28/23 20:43 [facility] - General Adult Medical Decision Making 77-year-old male presents with complaints of a food bolus stuck in his throat, I will obtain radiographic examination as well as provide him IV access antinausea medicine and glucagon and attempt to dislodge his perceived food bolus. Differential Diagnosis Food bolus obstruction, Cathryn-Maher tears, Medical Records I reviewed the patient's medical records. Lab Data Radiology Impressions Soft Tissue Neck X-Ray 04/28/23 20:29 IMPRESSION: Suboptimal visualization of the epiglottis with suggestion of potential epiglottic swelling. CT of the neck is recommended for further evaluation. ADDENDUM: 04/28/23 2199 COMMENT: THIS REPORT CONTAINS FINDINGS THAT MAY BE CRITICAL TO PATIENT CARE. The exam findings were verbally communicated by me to JAYDEN Perez via telephone conference at 9:36 PM SHIP/REC/DOC CONTROL on 04/28/2023. The findings were acknowledged and understood. All radiology interpretation(s) finalized by discharge Discharge Plan Discharge Patient Disposition: Placed in Observation Clinical Impression: Esophageal obstruction due to food impaction, Foreign body sensation in throat Condition: Stable Prescriptions: No Action multivitamin Tablet 1 tab PO DAILY@08 aspirin 81 mg Tablet,Delayed Release (Dr/Ec) 81 mg PO Q6H PRN (Reason: Pain) Hold Instructions: Resume on 07/18/22. acetaminophen 500 mg Tablet 1,000 mg PO Q6H PRN (Reason: Pain) Referrals: Vesta Dominguez PA [Primary Care Provider] - Patient Instructions: Opioid Safety, Pain Management Coding Level of Care Code ED Entertainment Lawyer for Kiersten Cheema
--- NOTE | 2023-04-28 20:29 | XRR_ITS ---
PROCEDURE INFORMATION: Exam: XR Soft Tissue Neck Exam date and time: 04/28/2023 8:48 PM Age: 77 years old Clinical indication: Painful swallowing; Patient HX: Post choking/aspiration episode; Food bolus TECHNIQUE: Imaging protocol: Radiologic exam of the soft tissues of the neck. COMPARISON: CT angio headneck* [id number] 12/01/2021 1:11 PM FINDINGS: Airway: Normal. No abnormal narrowing. Soft tissues: The epiglottis is not well visualized. However, there is suggestion of soft swelling at the expected location of the epiglottis. Otherwise no obvious contour deformity of the visualized aero-digestive air column. No perivertebral soft tissue swelling. Bones/joints: Mild multilevel cervical spondylosis. XR/XR soft tissue neck [id number] IMPRESSION: Suboptimal visualization of the epiglottis with suggestion of potential epiglottic swelling. CT of the neck is recommended for further evaluation.
[2023-04-28] MEDS: ondansetron 2 mg/ML SDV 2 mL 4 MG IVP (21:02)
[2023-04-28] MEDS: glucagon 1 mg/mL KIT 1 mL IVP (21:02)
--- NOTE | 2023-04-28 22:02 | P.HP_ITS ---
Providers/Chief Complaint Primary Care Provider: Vesta Dominguez Chief Complaint: chicken in throat History of Present Illness Emigdio Acuña is a 77 year old male who presented to the emergency department after eating chicken during dinner which caused him to develop feeling of obstruction at the level of the esophagus after which he was unable to swallow any secretions or water. In the emergency department he received t reatment with Zofran and glucagon without success, he is able to manage some of his secretions without still feels like something is stuck in her throat. Per patient report this has happened in the past. At the time he needed an endoscopy. Review of Systems General: Reports: 10 or more systems reviewed and unremarkable except in HPI and below Medications/Allergies Home Medications Medication Instructions Recorded Confirmed Last Taken Type acetaminophen 500 mg tablet 1,000 mg PO Q6H PRN Pain 10/10/21 12/31/22 Unknown History aspirin 81 mg tablet,delayed 81 mg PO Q6H PRN Pain 05/13/22 12/31/22 06/05/22 History release multivitamin 1 tab PO DAILY@08 05/13/22 12/31/22 06/05/22 History Allergies Allergy/AdvReac Type Severity Reaction Status Date / Time No Known Allergies Allergy Verified 12/31/22 10:48 PFSH Acute PFSH: Medical History BPH loc w urin obs/LUTS Chest pain 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 Dementia Specific type unknown Elevated troponin I level Leukocytosis Mass of mediastinum Miliaria rubra Osteoarthritis Pain in right shoulder Urinary retention Required transient encarnacion for > 1L Surgical History H/O esophagogastroduodenoscopy (09/18/20) For food bolus History of cataract surgery History of hip surgery multiple left hip surgeries 20+ years ago due to trauma, also surgery at left distal femur and patella History of right knee surgery 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 Mother , AT AGE 88 No problems noted. Social History Smoking and tobacco/nicotine status: never used tobacco/nicotine Alcohol intake: never Substance/Drug Use: never Household members: spouse Marital status: Current occupational status: retired Vitals/I&O/Wt Last Vital Signs Temp 97.9 F 04/28/23 20:07 Pulse 64 04/28/23 21:33 Resp 18 04/28/23 21:33 BP 120/82 04/28/23 21:33 Pulse Ox 98 04/28/23 21:33 O2 Del Method Room Air 04/28/23 20:43 Weight last 48 hrs Weight 160 lb Physical Exam Narrative: General : Patient is well developed , no acute distress, oriented x3 Head : Normal cephalic, a-traumatic. Nose : Mucous membranes are without erythema. Lungs : Equal chest rise bilaterally, no use of accessory muscles, trachea is midline. CV : Rate and rhythm are normal. Abdomen : Soft, ND, NT, no g/r/m Extremities : No edema. Upper extremities are normal bilaterally. Back : non-tender to palpation, no CVA tenderness. A&P Assessment and plan (1) Esophageal obstruction due to food impaction: Plan After complete history, physical examination and review of all available clinical data the following is my assessment. Patient has a foreign body in the esophagus and will benefit from upper endoscopy with retrieval or removal of foreign body. I have discussed all the risks and benefits of the upper endoscopy including the risk of perforation of the esophagus requiring transfer to higher level of care and surgical intervention. I have also Splane that there is risk for damage to soft tissue of the mouth and pharynx, bleeding, need for additional procedures, stricture and need for subsequent dilations. I have explained to the patient that during this procedure will not take biopsies but he will require repeat endoscopy in about 6 weeks. Patient shows understanding and wishes to proceed. Attestations Medical Necessity Statement*: Patient will be discharged after procedure, indicates that family member is unavailable he will remain in the bed as an outpatient. Coding Level of Care Code 17080 Diagnoses Esophageal obstruction due to food impaction T18.128A; W44.F3XA
--- NOTE | 2023-04-28 22:16 | ANES.PREANE2 ---
Pre-Anesthetic Assessment Height/Weight: Height 1.8 m Weight 72.575 kg Temp Pulse Resp BP Pulse Ox O2 Del Method 97.9 F 64 18 120/82 98 Room Air 04/28/23 20:07 04/28/23 21:33 04/28/23 21:33 04/28/23 21:33 04/28/23 21:33 04/28/23 20:43 Familial anesthetic complications: none Airway Submandibular: within normal limits Cervical ROM: within normal limits Mallampati: Class I History/ROS No significant history except as noted and Other (mild dementia) GI last po 1929 Anesthetic Plan ASA status: 2E Anesthesia: General (ETT) Risk of > 500 ml blood loss (7ml/kg in children): No Medications/Allergies Home Medications Medication Instructions Recorded Confirmed Last Taken Type acetaminophen 500 mg tablet 1,000 mg PO Q6H PRN Pain 10/10/21 12/31/22 Unknown History aspirin 81 mg tablet,delayed 81 mg PO Q6H PRN Pain 05/13/22 12/31/22 06/05/22 History release multivitamin 1 tab PO DAILY@08 05/13/22 12/31/22 06/05/22 History Allergies Allergy/AdvReac Type Severity Reaction Status Date / Time No Known Allergies Allergy Verified 12/31/22 10:48 PFSH Anesthesia Medical History BPH loc w urin obs/LUTS Chest pain 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 Dementia Specific type unknown Elevated troponin I level Leukocytosis Mass of mediastinum Miliaria rubra Osteoarthritis Pain in right shoulder Urinary retention Required transient encarnacion for > 1L Surgical History H/O esophagogastroduodenoscopy (09/18/20) For food bolus History of cataract surgery History of hip surgery multiple left hip surgeries 20+ years ago due to trauma, also surgery at left distal femur and patella History of right knee surgery 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 Mother , AT AGE 88 No problems noted. Social History Smoking and tobacco/nicotine status: never used tobacco/nicotine Alcohol intake: never Substance/Drug Use: never Household members: spouse Marital status: Current occupational status: retired Data Anesthesia Cardiac Studies: Echocardiogram 10/10/21 Transesophageal Echocardiogram 10/26/21
--- NOTE | 2023-04-28 22:30 | PC.NURSE ---
Patient's contacted per the patient's request.
== END 2023-04-28 23:50 | disposition home or self-care (01) ==
LOC: ER 20:39 → OR 22:02
PROVIDERS: Emergency Provider Internal Medicine; PCP Physician Assistant; Visit Provider Surgery
PROC: 0DJ08ZZ Inspection of Upper Intestinal Tract, Via Natural or Artificial Opening Endoscopic (ICD-10-PCS; CPT 43235; principal; 2023-04-28 11:00)
DX: T18.128A Food in esophagus causing other injury, initial encounter (principal); W44.8XXA Other foreign body entering into or through a natural orifice, initial encounter; N40.1 Benign prostatic hyperplasia with lower urinary tract symptoms; N13.8 Other obstructive and reflux uropathy; M81.0 Age-related osteoporosis without current pathological fracture
CPT/HCPCS: 43247; 70360; J0330; J1100; J1610; J2405; J2704

== ENCOUNTER 2023-07-01 14:50 | Day surgery (SDC) | payer MEDICARE, OTHER, SELFPAY ==
[2023-07-01] VITALS (13 sets, daily range): BP systolic 114–149; BP diastolic 73–89; PULSE 74–91; RESP 16–18; TEMP 36.9–37.1; O2SAT 92–100; BMI 22.3
--- NOTE | 2023-07-01 16:00 | PC.NURSE ---
pt states he was eating a hot dog and has food now caught in his throat. pt has had this happen before and has had surgery.
--- NOTE | 2023-07-01 16:03 | PC.PHAR ---
pt and pts states the pt takes no prescription medications-states the pt hasnt taken aspirin in a month or so-pts states the pt takes vitamin b12 and a multivitamin prn
--- NOTE | 2023-07-01 16:05 | XRR_ITS ---
PROCEDURE INFORMATION: Exam: XR Chest Exam date and time: 07/01/2023 4:11 PM Age: 77 years old Clinical indication: Cough and dyspnea; Additional info: Dyspnea/cough TECHNIQUE: Imaging protocol: Radiologic exam of the chest. Views: 1 view. COMPARISON: CR XR chest 2V* [id number] 04/25/2023 10:52 AM FINDINGS: Lungs: Unremarkable. No consolidation. Pleural spaces: Unremarkable. No pleural effusion. No pneumothorax. Heart/Mediastinum: Unremarkable. No cardiomegaly. Bones/joints: Unremarkable. XR/XR chest 1V portable [id number] IMPRESSION: No acute findings.
--- NOTE | 2023-07-01 16:13 | W.ED.GENADLT ---
HPI - General Adult General: Chief complaint: Airway/Esophagus Foreign Body Stated complaint: trouble swallowing Time Seen by Provider: 07/01/23 16:05 Source: patient Mode of arrival: ambulatory History of Present Illness: 77-year-old male presents emergency room with complaint and difficulty swallowing. He has a history of previous esophageal food impactions. Today he was eating some potato salad and hot dog and he feels like he cannot swallow has not been able to drink any liquids without coughing and back out. On April 28 of this year he had a similar presentation and had a EGD for esophageal food impaction. Reviewing the EGD does not look at dilation was done at that time. Onset (ago): hour(s) Relieving factors: none Exacerbating factors: none Associated symptoms: Reports vomiting; Deny chest pain, confusion, cough, diaphoresis, decreased appetite, dyspnea, fevers/chills, headache(s), malaise, nausea, rash, palpitations, seizures, short of breath, syncope or weakness Treatments prior to arrival: none Review of Systems Const: Denies: fever(s), chills, malaise or diaphoresis Card: Denies: chest pain, palpitations or syncope Resp: Denies: dyspnea GI: Reports: vomiting and dysphagia; Denies: nausea : Denies: dysuria, urinary frequency or urinary urgency Musc: Denies: neck pain or back pain Skin/Breast: Denies: rash Neuro: Denies: headache(s) or confusion [facility] ED PFSH: Medical History (Updated 07/01/23 @ 17:02 by Davis Tariq DO) Esophageal obstruction due to food impaction Mass of mediastinum Osteoarthritis Miliaria rubra Dementia 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 Mother , AT AGE 88 No problems noted. Social History Smoking and tobacco/nicotine status: never used tobacco/nicotine Alcohol intake: never Substance/Drug Use: never Household members: spouse Marital status: Current occupational status: retired Physical Exam Const: COMMON NORMALS: no acute distress GENERAL APPEARANCE: cooperative and comfortable ORIENTATION/CONSCIOUSNESS: Yes awake, Yes oriented to person, Yes oriented to place and Yes oriented to time HENMT: COMMON NORMALS: normocephalic, atraumatic and hearing grossly normal bilaterally HEAD & SCALP: normocephalic and atraumatic Resp: COMMON NORMALS: normal respiratory effort, No retractions, No use of accessory muscles and clear to auscultation bilaterally AUSCULTATION: clear to auscultation bilaterally Cardio: COMMON NORMALS: regular rate, regular rhythm and No murmurs present (Cardio) RATE: regular rate RHYTHM: regular rhythm GI: COMMON NORMALS: Soft to palpation and No hepatosplenomegaly present AUSCULTATION: Yes normoactive bowel sounds PALPATION: Yes Soft to palpation, No Tenderness to palpation present (GI), No Guarding due to palpation present (GI) and Yes No hepatosplenomegaly present Extremity: COMMON NORMALS: normal to inspection, capillary refill normal, no clubbing, cyanosis or edema, no calf tenderness and no pedal edema Neuro: SENSORIUM/ORIENTATION: Yes oriented to person, Yes oriented to place and Yes oriented to time Skin: COMMON NORMALS: no rashes or lesions noted GENERAL SKIN EXAM: no rashes or lesions noted Course Vital Signs: Vital signs: Vital Signs Temperature 98.4 F 07/01/23 14:56 Pulse Rate 91 07/01/23 14:56 Respiratory Rate 16 07/01/23 16:01 Blood Pressure 119/79 07/01/23 16:01 Pulse Oximetry 96 07/01/23 16:01 Oxygen Delivery Me thod Room Air 07/01/23 14:56 [facility] - General Adult Medical Decision Making Esophageal food impaction did have a similar presentation with EGD without dilation in April. Discussed Dr. Chavez. He will take patient to GI lab for relief of esophageal impaction and further evaluation. Medical Records I reviewed the patient's medical records. Lab Data I reviewed the patient's lab results. 07/01/23 16:35 07/01/23 16:35 Radiology Impressions Chest X-Ray 07/01/23 16:05 IMPRESSION: No acute findings. All radiology interpretation(s) finalized by discharge Discharge Plan Discharge Patient Disposition: Placed in Observation Clinical Impression: Esophageal obstruction due to food impaction Condition: Stable Prescriptions: No Action multivitamin Tablet 1 tab PO DAILY PRN (Reason: unknown) acetaminophen 500 mg Tablet 1,000 mg PO Q6H PRN (Reason: Pain) Vitamin B-12 1,000 mcg Tablet 1,000 mcg PO DAILY PRN (Reason: unknown) Referrals: Vesta Dominguez PA [Primary Care Provider] - Coding Level of Care Code ED [employer] for Kiersten Cheema
[2023-07-01 17:03] LABS: Basophils % 0.4 %; Eosinophils # 0.1 10^3/uL (0.0-0.8); Eosinophils % 0.6 %; Lymphocytes # 4.6 10^3/uL (0.8-4.8); Lymphocytes % 43.8 %; Mean Corpuscular HGB Conc 31.4 g/dL (30-55); Mean Corpuscular Hemoglobin 27.3 pg (27-33); Mean Corpuscular Volume 86.8 fl (82-101); Mean Platelet Volume 11.2 fL (7.4-10.4); Monocytes # 0.6 10^3/uL (0.2-0.9); Neutrophils % 49.1 %; Nucleated Red Blood Cells % 0 %; Platelet Count 261 10^3/cmm (157-399); Red Blood Count 4.84 10^6/uL (3.85-5.65); White Blood Count 10.57 10^3/uL (3.29-11.43)
--- NOTE | 2023-07-01 17:21 | ANES.PREANE2 ---
Pre-Anesthetic Assessment Height/Weight: Height 1.8 m Weight 72.575 kg Temp Pulse Resp BP Pulse Ox O2 Del Method 98.4 F 91 16 119/79 96 Room Air 07/01/23 14:56 07/01/23 14:56 07/01/23 16:01 07/01/23 16:01 07/01/23 16:01 07/01/23 14:56 EGD Familial anesthetic complications: None Last intake: Food bolus Social No alcohol and No tobacco Exam alert, oriented x 3, clear to auscultation bilaterally and regular rate & rhythm Airway Mallampati: Class I Dentition: full Anesthetic Plan ASA status: 2E Anesthesia: General Risk of > 500 ml blood loss (7ml/kg in children): No Medications/Allergies Home Medications Medication Instructions Recorded Confirmed Last Taken Type acetaminophen 500 mg tablet 1,000 mg PO Q6H PRN Pain 10/10/21 07/01/23 Unknown History multivitamin 1 tab PO DAILY PRN unknown 05/13/22 07/01/23 06/05/22 History cyanocobalamin (vitamin B-12) 1,000 mcg PO DAILY PRN unknown 07/01/23 07/01/23 Unknown History 1,000 mcg tablet (Vitamin B-12) Allergies Allergy/AdvReac Type Severity Reaction Status Date / Time No Known Allergies Allergy Verified 07/01/23 16:02 COUNTS INCLUDE 234 BEDS AT [facility] Anesthesia Medical History Esophageal obstruction due to food impaction Mass of mediastinum Osteoarthritis Miliaria rubra Dementia 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 Mother , AT AGE 88 No problems noted. Social History Smoking and tobacco/nicotine status: never used tobacco/nicotine Alcohol intake: never Substance/Drug Use: never Household members: spouse Marital status: Current occupational status: retired Data Anesthesia 07/01/23 16:35 07/01/23 16:35 Short CBC 07/01/23 Range/Units 16:35 WBC 10.57 (3.29-11.43) 10^3/uL Hgb 13.20 (11.27-16.99) g/dL Hct 42.0 (37-53) % MCV 86.8 (82-101) fl Plt Count 261 (157-399) 10^3/cmm Neut % (Auto) 49.1 % Neut # (Auto) 5.20 (1.8-7.7) 10^3/uL Cardiac Studies: Echocardiogram 10/10/21 Transesophageal Echocardiogram 10/26/21
[2023-07-01 17:23] LABS: Alanine Aminotransferase 11 U/L (0-41); Alkaline Phosphatase 99 U/L (40-130); Anion Gap 13.1 (5-19); Aspartate Amino Transferase 17 U/L (0-40); Blood Urea Nitrogen 14 mg/dL (8-23); Calcium 9.3 mg/dL (8.5-10.5); Carbon Dioxide 26 mmol/L (22-29); Chloride 103 mmol/L (98-107); Creatinine Clr Calc Pharmacy 79.8788; Globulin 3.7 g/dL (1.3-4.6); Glucose 110 mg/dL (65-115); Osmolality Calculated 287 mOsm/kg (285-295); Potassium 4.1 mmol/L (3.5-5.1); Sodium 138 mmol/L (136-145); Total Protein 7.7 g/dL (6.6-8.7)
--- NOTE | 2023-07-01 17:42 | P.HP_ITS ---
Providers/Chief Complaint 2 Primary Care Provider: Vesta Dominguez Chief Complaint: trouble swallowing History of Present Illness Emigdio Acuña is a 77 year old male who presented to the hospital proximately 3 hours after eating a hotdog and potato salad with inability to swallow his saliva and the feeling of the food stuck in his esophagus. He has undergone EGD with clearance of foreign body for esophageal food bolus 5 times now. He has yet to follow-up as an outpatient for elective EGD and possible balloon dilation. He denies any significant heartburn and does not take any PPI or H2 isaak. He did have some nausea and coughed up some food. He denies any abdominal pain, diarrhea, constipation, hematochezia and/or melena. He has poor dentition and difficulty with mastication. Review of Systems 2 General: Reports: 10 or more systems reviewed and unremarkable except in HPI and below Medications/Allergies Home Medications Medication Instructions Recorded Confirmed Last Taken Type acetaminophen 500 mg tablet 1,000 mg PO Q6H PRN Pain 10/10/21 07/01/23 Unknown History multivitamin 1 tab PO DAILY PRN unknown 05/13/22 07/01/23 06/05/22 History cyanocobalamin (vitamin B-12) 1,000 mcg PO DAILY PRN unknown 07/01/23 07/01/23 Unknown History 1,000 mcg tablet (Vitamin B-12) Allergies Allergy/AdvReac Type Severity Reaction Status Date / Time No Known Allergies Allergy Verified 07/01/23 16:02 PFSH Acute 2 PFSH: Medical History Esophageal obstruction due to food impaction Mass of mediastinum Osteoarthritis Miliaria rubra Dementia 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 Mother , AT AGE 88 No problems noted. Social History Smoking and tobacco/nicotine status: never used tobacco/nicotine Alcohol intake: never Substance/Drug Use: never Household members: spouse Marital status: Current occupational status: retired Vitals/I&O/Wt Last Vital Signs Temp 98.4 F 07/01/23 14:56 Pulse 75 07/01/23 17:35 Resp 16 07/01/23 17:35 BP 146/87 07/01/23 17:35 Pulse Ox 96 07/01/23 17:35 O2 Del Method Room Air 07/01/23 14:56 Weight last 48 hrs Weight 160 lb Physical Exam 2 Narrative: General : Patient is well developed , no acute distress, oriented x3 Head : Normal cephalic, a-traumatic. Ears : Pinnae and external canal are normal. Hearing is normal. Eyes : PERRLA, Sclera and injection are normal. No conjunctival discharge. Nose : Mucous membranes are without erythema. Throat : buccal mucosa is normal, gums are without significant recession or hypertrophy. Lungs : Equal chest rise bilaterally, no use of accessory muscles, trachea is midline. Cor : Rate and rhythm are normal. Abdomen : Soft, ND, NT, no g/r/m Extremities : No edema, no cyanosis or clubbing, dorsalis pedis pulses are present bilaterally, non-tender to palpation of calves. Upper extremities are normal bilaterally. Back : non-tender to palpation, no CVA tenderness. Neuro : CN II - XII intact, Upper and lower extremities have equal and full strength Data 07/01/23 16:35 07/01/23 16:35 A&P Assessment and plan (1) Esophageal obstruction due to food impaction: Plan EGD The risks and benefits of the procedure, including bleeding, infection, intestinal perforation requiring surgery, missed lesion were explained to the patient. The patient is understanding of the risks and wishes to proceed. Attestations 2 Medical Necessity Statement*: Patient will likely be discharged home after the procedure Coding Level of Care Code 88993 Diagnoses Esophageal obstruction due to food impaction T18.128A; [id number].F3XA
--- NOTE | 2023-07-01 18:05 | PM.DCS ---
Discharge Providers Date of Discharge: July 01, 2023 Attending Provider at Discharge: Carlos Chavez DO Primary Care Provider: Vesta Dominguez Diagnoses at Discharge Discharge Diagnosis (1) Esophageal obstruction due to food impaction: Status: Acute Reason for Visit Reason for Visit: trouble swallowing Hospital Course Hospital Course This very pleasant 69-year-old gentleman who presented to the hospital for the fifth time for EGD with clearance of a food bolus causing obstruction. He underwent EGD with successful clearance of the food bolus and duodenal biopsy for duodenitis. He was also found to have esophagitis, distal esophageal stricture and retained food throughout the entire length of the esophagus. He was discharged home in good condition on a full liquid diet and with Protonix twice daily and a follow-up with myself for an elective EGD with balloon dilation Physical Exam Narrative: General : Patient is well developed , no acute distress, oriented x3 Head : Normal cephalic, a-traumatic. Ears : Pinnae and external canal are normal. Hearing is normal. Eyes : PERRLA, Sclera and injection are normal. No conjunctival discharge. Nose : Mucous membranes are without erythema. Throat : buccal mucosa is normal, gums are without significant recession or hypertrophy. Lungs : Equal chest rise bilaterally, no use of accessory muscles, trachea is midline. Cor : Rate and rhythm are normal. Abdomen : Soft, ND, NT, no g/r/m Extremities : No edema, no cyanosis or clubbing, dorsalis pedis pulses are present bilaterally, non-tender to palpation of calves. Upper extremities are normal bilaterally. Back : non-tender to palpation, no CVA tenderness. Neuro : CN II - XII intact, Upper and lower extremities have equal and full strength Discharge Data Studies Completed and Pending Completed Studies During Hospitalization Category Date Time Status XR chest 1V portable [id number] Stat Exams 07/01/23 16:05 Completed Pending at discharge Category Date Time Status Pathology: Surgical [PTH] Routine Pth 07/01/23 18:02 Ordered Radiology Impressions Chest X-Ray 07/01/23 16:05 IMPRESSION: No acute findings. Laboratory Results WBC 10.57 10^3/uL (3.29-11.43) 07/01/23 16:35 RBC 4.84 10^6/uL (3.85-5.65) 07/01/23 16:35 Hgb 13.20 g/dL (11.27-16.99) 07/01/23 16:35 Hct 42.0 % (37-53) 07/01/23 16:35 MCV 86.8 fl (82-101) 07/01/23 16:35 MCH 27.3 pg (27-33) 07/01/23 16:35 MCHC 31.4 g/dL (30-55) 07/01/23 16:35 RDW 15.0 % (12.1-15.1) 07/01/23 16:35 Plt Count 261 10^3/cmm (157-399) 07/01/23 16:35 MPV 11.2 fL (7.4-10.4) H 07/01/23 16:35 Neut % (Auto) 49.1 % 07/01/23 16:35 Lymph % (Auto) 43.8 % 07/01/23 16:35 [place] % (Auto) 6.0 % 07/01/23 16:35 Eos % (Auto) 0.6 % 07/01/23 16:35 Baso % (Auto) 0.4 % 07/01/23 16:35 Neut # (Auto) 5.20 10^3/uL (1.8-7.7) 07/01/23 16:35 Lymph # (Auto) 4.6 10^3/uL (0.8-4.8) 07/01/23 16:35 [place] # (Auto) 0.6 10^3/uL (0.2-0.9) 07/01/23 16:35 Eos # (Auto) 0.1 10^3/uL (0.0-0.8) 07/01/23 16:35 Baso # (Auto) 0.0 10^3/uL (0.0-0.1) 07/01/23 16:35 Nucleated RBC % (auto) 0 % 07/01/23 16:35 Nucleated RBCs # 0.0 /100WBC 07/01/23 16:35 Sodium 138 mmol/L (136-145) 07/01/23 16:35 Potassium 4.1 mmol/L (3.5-5.1) 07/01/23 16:35 Chloride 103 mmol/L (98-107) 07/01/23 16:35 Carbon Dioxide 26 mmol/L (22-29) 07/01/23 16:35 Anion Gap 13.1 (5-19) 07/01/23 16:35 BUN 14 mg/dL (8-23) 07/01/23 16:35 Creatinine 0.8 mg/dL (0.7-1.2) 07/01/23 16:35 GFR Calculation Not Reportable 07/01/23 16:35 Glucose 110 mg/dL (65-115) 07/01/23 16:35 Calculated Osmolality 287 mOsm/kg (285-295) 07/01/23 16:35 Calcium 9.3 mg/dL (8.5-10.5) 07/01/23 16:35 Total Bilirubin 1.0 mg/dL (0.15-1.2) 07/01/23 16:35 AST 17 U/L (0-40) 07/01/23 16:35 ALT 11 U/L (0-41) 07/01/23 16:35 Alkaline Phosphatase 99 U/L (40-130) 07/01/23 16:35 Total Protein 7.7 g/dL (6.6-8.7) 07/01/23 16:35 Albumin 4.0 g/dL (3.5-5.2) 07/01/23 16:35 Globulin 3.7 g/dL (1.3-4.6) 07/01/23 16:35 Procedures Performed EGD with clearance of impacted and obstructing food bolus, biopsy, control bleeding with resolution clip Vitals Last Vital Signs Temp 98.7 F 07/01/23 17:49 Pulse 87 07/01/23 17:49 Resp 18 07/01/23 17:49 BP 149/89 07/01/23 17:49 Pulse Ox 100 07/01/23 17:49 O2 Del Method Room Air 07/01/23 17:49 Discharge Plan Discharge Patient Disposition: Home Condition: Stable Prescriptions: New Protonix 40 mg tablet,delayed release (DR/EC) 40 mg PO BID 42 Days Qty: 84 1RF Continued multivitamin Tablet 1 tab PO DAILY PRN (Reason: unknown) acetaminophen 500 mg Tablet 1,000 mg PO Q6H PRN (Reason: Pain) Vitamin B-12 1,000 mcg Tablet 1,000 mcg PO DAILY PRN (Reason: unknown) Discharge Orders: Discharge Order (Routine); Ordered 07/01/23 Ordered By: Carlos Chavez Referrals: Vesta Dominguez PA [Primary Care Provider] - 4-7 days Carlos Chavez DO [Physician] - 4-7 days Discharge Diet: Full LIquid Discharge Activity: Resume usual activity Activity Restrictions/Additional Instructions: Full liquid diet for 2 days and then regular diet on Saturday. Please make sure to take your pantoprazole twice a day Discharge Attestations Time Spent in Discharge Care*: less than 30 min Quality Metrics Clinical Quality Measures [ No reported AMI, CVA or VTE this stay] Coding Level of Care Code Acute Code for Chg Fwd Diagnoses Esophageal obstruction due to food impaction T18.128A; W44.F3XA
== END 2023-07-01 19:00 | disposition home or self-care (01) ==
LOC: ER 17:02 → GILAB 17:30
PROVIDERS: Emergency Provider Family Medicine; PCP Physician Assistant; Visit Provider Surgery
PROC: 0DJ08ZZ Inspection of Upper Intestinal Tract, Via Natural or Artificial Opening Endoscopic (ICD-10-PCS; CPT 43235; principal; 2023-07-01 17:30)
DX: T18.128A Food in esophagus causing other injury, initial encounter (principal); W44.F3XA Food entering into or through a natural orifice, initial encounter; K22.2 Esophageal obstruction; K20.90 Esophagitis, unspecified without bleeding; K29.80 Duodenitis without bleeding; N40.1 Benign prostatic hyperplasia with lower urinary tract symptoms; N13.8 Other obstructive and reflux uropathy
CPT/HCPCS: 36415; 43239; 43247; 45380; 71045; 80053; 85025; 88305; J0330; J1100; J2405; J2704

== ENCOUNTER → 2023-07-05 09:57 | Outpatient (BNVA) | payer MEDICARE, OTHER, SELFPAY | PROVIDERS: PCP Physician Assistant; Visit Provider Surgery | DX: K22.2 Esophageal obstruction (principal); K29.80 Duodenitis without bleeding; Z12.11 Encounter for screening for malignant neoplasm of colon; R33.9 Retention of urine, unspecified | CPT/HCPCS: 99204 ==

== ENCOUNTER → 2023-07-31 10:22 | Outpatient (BNVA) | payer MEDICARE, OTHER, SELFPAY | PROVIDERS: PCP Physician Assistant; Visit Provider Surgery | DX: R13.10 Dysphagia, unspecified (principal) | CPT/HCPCS: 99214 ==

== ENCOUNTER 2024-01-12 13:29 | Inpatient (IN) | payer MEDICARE, OTHER, SELFPAY ==
[2024-01-12 13:34] VITALS: BP 123/74; PULSE 53; TEMP 36.4; O2SAT 96
--- NOTE | 2024-01-12 13:43 | ECG_ITS ---
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
--- NOTE | 2024-01-12 13:50 | CTR_ITS ---
PROCEDURE INFORMATION: Exam: CTA Head Without And With Contrast, Arteriography Exam date and time: 01/12/2024 1:52 PM Age: 78 years old Clinical indication: Stroke-like symptoms; Right upper extremity numbness/paresthesia; Additional info: Possible stroke TECHNIQUE: Imaging protocol: Computed tomographic angiography of the head without and with contrast. Exam focused on the arteries. 3D rendering (Not supervised by radiologist): MIP and/or 3D reconstructed images were created by the technologist. Radiation optimization: All CT scans at this facility use at least one of these dose optimization techniques: automated exposure control; mA and/or kV adjustment per patient size (includes targeted exams where dose is matched to clinical indication); or iterative reconstruction. Contrast material: [id number]; Contrast volume: 100 ml; Contrast route: INTRAVENOUS (IV); Other technique: STROKE PROTOCOL was implemented. COMPARISON: CT angio headneck* [id number] 12/01/2021 1:11 PM RADIATION DOSE METRICS: Total DLP (mGy-cm): 1415 FINDINGS: ANTERIOR CIRCULATION: Right internal carotid artery: Mild calcified plaque. No significant stenosis is seen involving the petrous, cavernous, or supraclinoid right internal caroid artery. 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 Right middle cerebral artery: No occlusion or significant stenosis. No aneurysm. Right anterior cerebral artery: No occlusion or significant stenosis. No aneurysm. Left internal carotid artery: Mild calcified plaque. No significant stenosis is seen involving the petrous, cavernous, or supraclinoid left internal caroid artery. Fusiform aneurysmal dilation of the left carotid terminus measuring up to 5 mm in diameter. Left middle cerebral artery: No occlusion or significant stenosis. No aneurysm. Left anterior cerebral artery: No occlusion or significant stenosis. No aneurysm. POSTERIOR CIRCULATION: Right vertebral artery: Intradural right vertebral artery demonstrates no occlusion or significant stenosis. No aneurysm. Left vertebral artery: Intradural left vertebral artery demonstrates no occlusion or significant stenosis. No aneurysm. Basilar artery: No occlusion or significant stenosis. No aneurysm. Right posterior cerebral artery: Moderate focal narrowing involving the proximal right P2 segment. origin of the right posterior cerebral artery Left posterior cerebral artery: Mild focal narrowing of the proximal left P2 segment PROCEDURE INFORMATION: Exam: CTA Neck Without And With Contrast Exam date and time: 01/12/2024 1:52 PM Age: 78 years old Clinical indication: Stroke-like symptoms; Right upper extremity numbness/paresthesia; Additional info: Possible stroke TECHNIQUE: Imaging protocol: Computed tomographic angiography of the neck without and with contrast. Exam focused on the cervical segments of the vasculature. 3D rendering (Not supervised by radiologist): MIP and/or 3D reconstructed images were created by the technologist. Radiation optimization: All CT scans at this facility use at least one of these dose optimization techniques: automated exposure control; mA and/or kV adjustment per patient size (includes targeted exams where dose is matched to clinical indication); or iterative reconstruction. Contrast material: [id number]; Contrast volume: 100 ml; Contrast route: INTRAVENOUS (IV); COMPARISON: CT angio headneck* [id number] 12/01/2021 1:11 PM RADIATION DOSE METRICS: Total DLP (mGy-cm): 1415 FINDINGS: Right common carotid artery: No stenosis. No dissection or occlusion. Right internal carotid artery: No significant stenosis seen by NASCET criteria. No dissection or occlusion. Right external carotid artery: No occlusion or stenosis of the origin. Left common carotid artery: No stenosis. No dissection or occlusion. Left internal carotid artery: No significant stenosis seen by NASCET criteria. No dissection or occlusion. Left external carotid artery: No occlusion or stenosis of the origin. Right vertebral artery: No cervical vertebral artery stenosis. No dissection or occlusion. Left vertebral artery: No cervical vertebral artery stenosis. No dissection or occlusion. Soft tissues: Nonspecific 0.3 cm left apical lung nodule best seen on series 4, image 68. Bones/joints: No acute bony abnormality. Degenerative changes of the cervical spine. CT/CT angio headne* [id number] IMPRESSION: 1. Moderate focal narrowing of the proximal right P2 segment. 2. Mild focal narrowing of the proximal left P2 segment. 3. 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 Recommend clinical correlation and comparison to prior studies if available. Recommend follow-up imaging as clinically warranted. IMPRESSION: 1. No significant cervical arterial stenosis or occlusion. 2. Nonspecific left apical lung nodule not well seen on CT chest dated 01/17/2022 and may be related to differences in slice thickness. Fleischner society recommendations: For patients at low risk (minimal or absent history of smoking and of other known risk factors), no routine follow-up is indicated. For patients at high risk (history of smoking or of other known risk factors), consider optional CT Chest at 12 months. (Reference: Tucker) REFERENCES: 1. Tucker David et al. Guidelines for Management of Incidental Pulmonary Nodules Detected on CT Images: From the Fleischner Society 2017. Radiology. 2017;284(1):228-243. 2. NASCET CRITERIA. The degree of stenosis in the cervical segment of the internal carotid artery is based on NASCET criteria. Normal is no stenosis. Mild is less than 50% stenosis. Moderate is 50-69% stenosis. Severe is 70% to 99% stenosis. Total occlusion is no detectable patent lumen.
--- NOTE | 2024-01-12 13:50 | CTR_ITS ---
PROCEDURE INFORMATION: Exam: CT Head Without Contrast Exam date and time: 01/12/2024 1:52 PM Age: 78 years old Clinical indication: Stroke-like symptoms; Right upper extremity numbness/paresthesia; Additional info: Possible stroke TECHNIQUE: Imaging protocol: Computed tomography of the head without contrast. Radiation optimization: All CT scans at this facility use at least one of these dose optimization techniques: automated exposure control; mA and/or kV adjustment per patient size (includes targeted exams where dose is matched to clinical indication); or iterative reconstruction. Other technique: STROKE PROTOCOL was implemented. COMPARISON: CT angio headneck* [id number] 12/01/2021 1:11 PM RADIATION DOSE METRICS: Total DLP (mGy-cm): 1001.2 FINDINGS: Brain: Moderate nonspecific white matter low attenuation which may be related to microvascular ischemic changes. No acute confluent lobar ischemic infarct. Stable focal encephalomalacia in the left perirolandic region. No acute intracranial hemorrhage. Cerebral ventricles: The ventricles and sulci are prominent in size compatible with mild atrophy. Paranasal sinuses: No fluid levels. Mastoid air cells: Visualized mastoid air cells are well aerated. Bones: No acute calvarial fracture. Soft tissues: Visualized soft tissues are unremarkable. CT/CT head wo con* [id number] IMPRESSION: No acute intracranial abnormality. If symptoms persist, consider further evaluation with MRI, if MRI is clinically safe to obtain. ASSESSMENT: ASPECTS ([place] Stroke Program Early CT Score) is 10.
[2024-01-12 13:55] LABS: Glucose Point of Care 147 mg/dL (70-110)
[2024-01-12 13:56] LABS: Basophils % 0.3 %; Eosinophils # 0.2 10^3/uL (0.0-0.8); Eosinophils % 1.6 %; Hematocrit 42.9 % (37-53); Lymphocytes # 5.7 10^3/uL (0.8-4.8); Lymphocytes % 48.3 %; Mean Corpuscular HGB Conc 31.5 g/dL (30-55); Mean Corpuscular Hemoglobin 28.4 pg (27-33); Mean Corpuscular Volume 90.1 fl (82-101); Mean Platelet Volume 10.5 fL (7.4-10.4); Monocytes # 0.5 10^3/uL (0.2-0.9); Monocytes % 4.1 %; Neutrophils % 45.4 %; Nucleated Red Blood Cells % 0 %; Platelet Count 258 10^3/cmm (157-399); Red Blood Count 4.76 10^6/uL (3.85-5.65); Red Cell Distribution Width 14.4 % (12.1-15.1)
--- NOTE | 2024-01-12 13:57 | ED_ITS ---
HPI - Dizziness 2 General: Chief Complaint: Dizziness Stated Complaint: NV and dizziness Time Seen by Provider: 01/12/24 13:47 History of Present Illness: HPI Narrative: 78-year-old male with a history of BPH a nd arthritis who presents to the emergency room with vertigo type symptoms. He says he woke up with the symptoms at about 5 AM, so last known well time would have been last night. He has no deficits at this time other than feeling dizzy. I do not elicit any nystagmus on exam. No slurred speech. No facial droop. No chest pain. No shortness of breath. No weakness of any of his extremities. No fevers. He says he also did wake up with pain in his right arm. He says he has arthritis but that arm felt cold this morning. This has since resolved. Related Data Home Medications Medication Instructions Recorded Confirmed acetaminophen 500 mg tablet 1,000 mg PO Q6H PRN Pain 10/10/21 07/31/23 multivitamin 1 tab PO DAILY PRN unknown 05/13/22 07/31/23 cyanocobalamin (vitamin B-12) 1,000 mcg PO DAILY PRN unknown 07/01/23 07/31/23 1,000 mcg tablet (Vitamin B-12) Previous Rx's Medication Instructions Recorded pantoprazole 40 mg tablet,delayed 40 mg PO BID 6 weeks #84 tabs 07/01/23 release (Protonix) Allergies Allergy/AdvReac Type Severity Reaction Status Date / Time No Known Allergies Allergy Verified 07/01/23 16:02 Review of Systems 2 Narrative: Constitutional symptoms: Negative except as documented in HPI. Skin symptoms: Negative except as documented in HPI. Eye symptoms: Negative except as documented in HPI. ENMT symptoms: Negative except as documented in HPI. Respiratory symptoms: Negative except as documented in HPI. Cardiovascular symptoms: Negative except as documented in HPI. Gastrointestinal symptoms: Negative except as documented in HPI. Genitourinary symptoms: Negative except as documented in HPI. Musculoskeletal symptoms: Negative except as documented in HPI. Neurologic symptoms: Negative except as documented in HPI. Psychiatric symptoms: Negative except as documented in HPI. Endocrine symptoms: Negative except as documented in HPI. 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 Mother , AT AGE 88 No problems noted. Social History Smoking and tobacco/nicotine status: never used tobacco/nicotine Alcohol intake: never Substance/Drug Use: never Household members: spouse Marital status: Current occupational status: retired Physical Exam 2 Narrative: EXAM NARRATIVE: General: Alert, no acute distress. Skin: Warm, dry. Head: Normocephalic, atraumatic. Neck: Supple, trachea midline. Eye: Extraocular movements are intact. Ears, nose, mouth and throat: mucosa moist. Cardiovascular: Regular, Normal peripheral perfusion. Respiratory: Lungs are clear to auscultation, respirations are non-labored, breath sounds are equal, Symmetrical chest wall expansion. Gastrointestinal: Soft, Nontender, Non distended Musculoskeletal: Normal ROM, no deformity. Neurological: Alert and oriented, No focal neurological deficit observed. No nystagmus, but patient says looking horizontally does cause some worsening of his dizziness. Psychiatric: Cooperative, appropriate mood & affect. Course 2 Vital Signs: Vital signs: Vital Signs Temperature 97.6 F 01/12/24 13:34 Pulse Rate 53 L 01/12/24 15:13 Respiratory Rate 14 01/12/24 15:13 Blood Pressure 126/78 01/12/24 15:13 Pulse Oximetry 96 01/12/24 15:13 Oxygen Delivery Me thod Room Air 01/12/24 15:13 MDM - Dizziness Medical Decision Making Medical decision making: Differential diagnosis for patient with focal neurologic deficit(s) includes but not limited to and based on the above HPI, review of systems and physical exam: ischemic stroke, hemorrhagic stroke and embolic stroke secondary to atrial fibrillation), TIA, Cavazos's palsey, metabolic encephalopathy with previous stroke. Orders placed to evaluate differential diagnosis based on the above differential, HPI and physical exam CT head: No acute intracranial process. no intracranial hemorrhage, no evidence of infarct. no evidence of acute fracture.This was reviewed and interpreted by myself the ER physician. CTA of the head and neck: No obvious occlusions are identified. No mass. There are narrowings and other abnormalities that are listed in the read below. This was reviewed and interpreted by myself the emergency room physician. I also reviewed the radiology report. EKG: Time 1334. Rate 53. Sinus bradycardia, No ST-T changes, no ectopy, normal TN & QRS intervals, This was reviewed and interpreted by myself the ER physician at 1339 Lab Review: Laboratory results were reviewed and interpreted by myself the emergency room physician. White count mildly elevated at 11.7. Hemoglobin normal at 13.5. BUN and creatinine are normal at 16 and 0.7. Liver enzymes are normal. I reviewed the patient's medical record. Reexamination: Patient remained stable. No increased work of breathing. No altered mental status. Patient is still complaining of severe dizziness and balance issues/gait problems. Consultation: I spoke with Dr. Seay who is on-call for the hospitalist service. He agrees to admission to observation for possible MRI and continued evaluation for possible posterior cerebellar type stroke. Assessment and plan: Vertigo Gait issues Possible stroke -Patient is on aspirin already. Defer further treatment to the hospitalist. -I discussed the patient with the hospitalist on-call who is admitting the patient. - Discussed findings and plan with patient. Answered any questions. - All laboratory values were reviewed and interpreted personally by myself, the ER physician - All imaging was reviewed and interpreted personally by myself, the ER physician. - Evaluation and treatment of this problem were appropriate in the emergency setting Lab Data 01/12/24 13:52 01/12/24 13:[address] 01/12/24 13:50 IMPRESSION: No acute intracranial abnormality. If symptoms persist, consider further evaluation with MRI, if MRI is clinically safe to obtain. ASSESSMENT: ASPECTS ([place] Stroke Program Early CT Score) is 10. ADDENDUM: 01/12/24 1414 ADDENDUM: THIS REPORT CONTAINS FINDINGS THAT MAY BE CRITICAL TO PATIENT CARE. The findings were verbally communicated via telephone conference with ROSY ALMANZA at 2:13 PM CDT on 01/12/2024. The findings were acknowledged and understood. Head/Neck CTA 01/12/24 13:50 IMPRESSION: 1. Moderate focal narrowing of the proximal right P2 segment. 2. Mild focal narrowing of the proximal left P2 segment. 3. 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 Recommend clinical correlation and comparison to prior studies if available. Recommend follow-up imaging as clinically warranted. IMPRESSION: 1. No significant cervical arterial stenosis or occlusion. 2. Nonspecific left apical lung nodule not well seen on CT chest dated 01/17/2022 and may be related to differences in slice thickness. Fleischner society recommendations: For patients at low risk (minimal or absent history of smoking and of other known risk factors), no routine follow-up is indicated. For patients at high risk (history of smoking or of other known risk factors), consider optional CT Chest at 12 months. (Reference: Denhocitlali) REFERENCES: 1. Denhocitlali H, et al. Guidelines for Management of Incidental Pulmonary Nodules Detected on CT Images: From the Fleischner Society 2017. Radiology. 2017;284(1):228-243. 2. NASCET CRITERIA. The degree of stenosis in the cervical segment of the internal carotid artery is based on NASCET criteria. Normal is no stenosis. Mild is less than 50% stenosis. Moderate is 50-69% stenosis. Severe is 70% to 99% stenosis. Total occlusion is no detectable patent lumen. ADDENDUM: 01/12/24 2301 ADDENDUM: THIS REPORT CONTAINS FINDINGS THAT MAY BE CRITICAL TO PATIENT CARE. The findings were verbally communicated via telephone conference with ROSY ALMANZA at 2:33 PM CDT on 01/12/2024. The findings were acknowledged and understood. Laboratory Results WBC 11.70 10^3/uL (3.29-11.43) H 01/12/24 13:52 RBC 4.76 10^6/uL (3.85-5.65) 01/12/24 13:52 Hgb 13.50 g/dL (11.27-16.99) 01/12/24 13:52 Hct 42.9 % (37-53) 01/12/24 13:52 MCV 90.1 fl (82-101) 01/12/24 13:52 MCH 28.4 pg (27-33) 01/12/24 13:52 MCHC 31.5 g/dL (30-55) 01/12/24 13:52 RDW 14.4 % (12.1-15.1) 01/12/24 13:52 Plt Count 258 10^3/cmm (157-399) 01/12/24 13:52 MPV 10.5 fL (7.4-10.4) H 01/12/24 13:52 Neut % (Auto) 45.4 % 01/12/24 13:52 Lymph % (Auto) 48.3 % 01/12/24 13:52 Lyman % (Auto) 4.1 % 01/12/24 13:52 Eos % (Auto) 1.6 % 01/12/24 13:52 Baso % (Auto) 0.3 % 01/12/24 13:52 Neut # (Auto) 5.30 10^3/uL (1.8-7.7) 01/12/24 13:52 Lymph # (Auto) 5.7 10^3/uL (0.8-4.8) H 01/12/24 13:52 Lyman # (Auto) 0.5 10^3/uL (0.2-0.9) 01/12/24 13:52 Eos # (Auto) 0.2 10^3/uL (0.0-0.8) 01/12/24 13:52 Baso # (Auto) 0.0 10^3/uL (0.0-0.1) 01/12/24 13:52 Nucleated RBC % (auto) 0 % 01/12/24 13:52 Nucleated RBCs # 0.0 /100WBC 01/12/24 13:52 PT 15.30 SECONDS (12.1-14.9) H 01/12/24 13:52 INR 1.17 (0.8-1.2) 01/12/24 13:52 APTT 28.2 SECONDS (23.9-36.7) 01/12/24 13:52 Sodium 134 mmol/L (136-145) L 01/12/24 13:52 Potassium 4.4 mmol/L (3.5-5.1) 01/12/24 13:52 Chloride 101 mmol/L (98-107) 01/12/24 13:52 Carbon Dioxide 24 mmol/L (22-29) 01/12/24 13:52 Anion Gap 13.4 (5-19) 01/12/24 13:52 BUN 16 mg/dL (8-23) 01/12/24 13:52 Creatinine 0.7 mg/dL (0.7-1.2) 01/12/24 13:52 GFR Calculation Not Reportable 01/12/24 13:52 Glucose 160 mg/dL (65-115) H 01/12/24 13:52 POC Glucose 147 mg/dL (70-110) H 01/12/24 13:52 Calculated Osmolality 283 mOsm/kg (285-295) L 01/12/24 13:52 Calcium 8.4 mg/dL (8.5-10.5) L 01/12/24 13:52 Total Bilirubin 1.1 mg/dL (0.15-1.2) 01/12/24 13:52 AST 20 U/L (0-40) 01/12/24 13:52 ALT 12 U/L (0-41) 01/12/24 13:52 Alkaline Phosphatase 85 U/L (40-130) 01/12/24 13:52 Total Protein 7.1 g/dL (6.6-8.7) 01/12/24 13:52 Albumin 4.0 g/dL (3.5-5.2) 01/12/24 13:52 Globulin 3.1 g/dL (1.3-4.6) 01/12/24 13:52 All radiology interpretation(s) finalized by discharge Discharge Plan Discharge Patient Disposition: Placed in Observation Clinical Impression: Vertigo, Gait abnormality Coding Level of Care Code ED [employer] Instructor for Kiersten Cheema
[2024-01-12] MEDS: iohexol 350 mg/mL 500 mL Btl (per mL) IV (13:59)
[2024-01-12] MEDS: meclizine 25 mg tablet 50 MG PO (14:11)
[2024-01-12 14:13] LABS: Alanine Aminotransferase 12 U/L (0-41); Alkaline Phosphatase 85 U/L (40-130); Anion Gap 13.4 (5-19); Aspartate Amino Transferase 20 U/L (0-40); Blood Urea Nitrogen 16 mg/dL (8-23); Calcium 8.4 mg/dL (8.5-10.5); Carbon Dioxide 24 mmol/L (22-29); Chloride 101 mmol/L (98-107); Creatinine Clr Calc Pharmacy 78.0897; Globulin 3.1 g/dL (1.3-4.6); Glucose 160 mg/dL (65-115); Osmolality Calculated 283 mOsm/kg (285-295); Potassium 4.4 mmol/L (3.5-5.1); Sodium 134 mmol/L (136-145); Total Bilirubin 1.1 mg/dL (0.15-1.2); Total Protein 7.1 g/dL (6.6-8.7)
[2024-01-12 14:14] LABS: Partial Thromboplastin Time 28.2 SECONDS (23.9-36.7)
[2024-01-12 14:25] LABS: INR 1.17 (0.8-1.2)
[2024-01-12 15:13] VITALS: BP 126/78; PULSE 53; RESP 14; O2SAT 96
--- NOTE | 2024-01-12 15:20 | P.HP_ITS ---
Providers/Chief Complaint 2 Primary Care Provider: Vesta Dominguez Chief Complaint: NV and dizziness History of Present Illness Emigdio Acuña is a 78 year old male presenting with dizziness. Patient is stating that his symptoms started 5 AM, he woke up drenched in sweat feeling cold and was dizzy. Patient is stating that he cut wood yesterday, he has some weakness in his arms left greater than right which she is attributing to numbness and tingling that he noticed while sleeping on his hand. He has not noticed any slurring of speech or confusion. Patient is denying falls. Stating that he tends to fall but no recent injuries. Patient is stating that he has been noticing worsening of dizzy spells with change of head position. In the ER there is concern for posterior circulation stroke, he is bradycardic sinus rhythm, hemodynamically stable on room air COVID PCR is pending patient stating that he has a change of taste in his mouth and he has not eaten anything this morning Review of Systems 2 Const: Denies: fever(s) Eyes: Denies: change in vision ENMT: Denies: throat pain Card: Denies: chest pain Resp: Denies: dyspnea Neuro: Reports: numbness in extremities, difficulty walking, dizziness and vertigo Medications/Allergies Home Medications Medication Instructions Recorded Confirmed Last Taken Type acetaminophen 500 mg tablet 1,000 mg PO Q6H PRN Pain 10/10/21 07/31/23 Unknown History multivitamin 1 tab PO DAILY PRN unknown 05/13/22 07/31/23 06/05/22 History cyanocobalamin (vitamin B-12) 1,000 mcg PO DAILY PRN unknown 07/01/23 07/31/23 Unknown History 1,000 mcg tablet (Vitamin B-12) pantoprazole 40 mg tablet,delayed 40 mg PO BID 6 weeks #84 tabs 07/01/23 07/31/23 Unknown Rx release (Protonix) Allergies Allergy/AdvReac Type Severity Reaction Status Date / Time No Known Allergies Allergy Verified 07/01/23 16:02 PFSH Acute 2 PFSH: Medical History Esophageal obstruction due to food impaction Mass of mediastinum Osteoarthritis Miliaria rubra Dementia 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 Mother , AT AGE 88 No problems noted. Social History Smoking and tobacco/nicotine status: never used tobacco/nicotine Alcohol intake: never Substance/Drug Use: never Household members: spouse Marital status: Current occupational status: retired Vitals/I&O/Wt Last Vital Signs Temp 97.6 F 01/12/24 13:34 Pulse 53 L 01/12/24 15:13 Resp 14 01/12/24 15:13 BP 126/78 01/12/24 15:13 Pulse Ox 96 01/12/24 15:13 O2 Del Method Room Air 01/12/24 15:13 Weight last 48 hrs Weight 74.843 kg Physical Exam 2 Narrative: Awake and alert NIH 0 GCS 15 pleasant cooperative Patient Looking towards the left, on concentration patient started making eye contact, I did not appreciate any visual field deficit with examination S1, S2 Sinus bradycardia Hemodynamically stable Currently on room air is at the bedside Edentulous Data 01/12/24 13:52 01/12/24 13:52 A&P Assessment and plan (1) Gait abnormality: (2) Pre-syncope: Plan Presyncope Dizzy spells Will request [place]-Hallpike maneuver with physical therapy Request head MRI to rule out stroke Cardiac diet Blood pressure stable Bradycardia noted monitor on telemetry overnight Full code DVT prophylaxis added Check B12, echo, Patient seems to have a history of dysphagia he was recommended liquid diet, required multiple EGDs in the past Attestations 2 Medical Necessity Statement*: Anticipating discharge within 48 hours Diagnoses Gait abnormality R26.9 Pre-syncope R55
[2024-01-12 15:30] VITALS: BP 141/80; PULSE 60; RESP 17; O2SAT 95
[2024-01-12 15:49] VITALS: BP 115/69; PULSE 55; RESP 16; O2SAT 96
[2024-01-12 16:09] LABS: Covid PCR NEGATIVE (Negative); Influenza A NEGATIVE (Negative); Influenza B NEGATIVE (Negative); Respiratory Syncytial Virus Ce NEGATIVE (Negative)
[2024-01-12 16:47] LABS: Troponin T (5th) Once < 6 ng/L (0-15)
[2024-01-12 16:54] VITALS: BMI 23.7
[2024-01-12] MEDS: ondansetron 2 mg/ML SDV 2 mL 4 MG IVP (17:37)
[2024-01-12] MEDS: enoxaparin 40 mg/0.4 mL Syringe SUBCUT (17:37)
[2024-01-12] MEDS: acetaminophen 500 mg Tablet PO (17:38)
[2024-01-12 17:56] LABS: Vitamin B12 1040 pg/mL (232-1245)
[2024-01-12 20:28] VITALS: BP 98/60; PULSE 75; RESP 14; TEMP 36.8; O2SAT 94
[2024-01-12 22:00] VITALS: PULSE 64
[2024-01-13] VITALS (10 sets, daily range): BP systolic 113–132; BP diastolic 69–80; PULSE 61–79; RESP 14–20; TEMP 36.6–37.1; O2SAT 94–98
[2024-01-13 01:39] LABS: Bilirubin Urine Negative (Negative); Blood Urine 1+ (Negative); Glucose Urine UA Negative (Normal); Ketones Urine Negative (Negative); Leukocyte Esterase Urine Negative (Negative); Nitrate Urine Negative (Negative); Protein Urine Trace (Negative); Urine Appearance Clear (CLEAR); Urine Color Yellow (Yellow); pH Urine 5.5 (5-7)
[2024-01-13 01:44] LABS: Bacteria Urine None Seen /hpf; Hyaline Casts Urine 3.71 /lpf; Squamous Epithelial Cell Urine 0-5 /hpf (0-5); WBC Urine 0-5 /hpf (0-5)
[2024-01-13 01:50] LABS: Specific Gravity, Urine 1.058 (1.005-1.030)
--- NOTE | 2024-01-13 05:00 | MR_ITS ---
WS: [id number] MRI BRAIN WITHOUT CONTRAST HISTORY: dizzy COMPARISON: 01/29/2020 TECHNIQUE: Diffusion imaging, multiplanar T1, T2 and FLAIR imaging obtained. Diffusion imaging is normal. Motion artifact on all sequences. Extensive patchy and confluent FLAIR a nd T2 signal hyperintensities with mild progression since 2019. Moderate volume loss and cerebral and cerebellar atrophy. Mild hippocampal atrophy. Ventricles and extra-axial spaces are normal. No inferior displacement of cerebellar tonsils. The sella turcica and pituitary gland are unremarkabl e. Dural venous sinuses and kiana of [place] demonstrate no abnormality on this unenhanced studies. Paranasal sinuses: Mucoperiosteal thickening RIGHT maxillary sinus. And RIGHT ethmoid air cells. No a ir-fluid levels. Mastoid air cells: Normal. Calvarium and scalp: Intact. MR/MR head wo con* [id number] IMPRESSION: 1. No acute diffusion abnormality to suggest ischemia. 2. Advanced small vessel disease with mild progression since 2019. 3. Moderate atrophy and volume loss. 4. RIGHT maxillary and ethmoid paranasal mucoperiosteal thickening.
--- NOTE | 2024-01-13 09:55 | PM.DCS ---
Discharge Providers Date of Admission: 01/12/24 15:16 Date of Discharge: January 13, 2024 Attending Provider at Admission: Ranjana Seay MD Attending Provider at Discharge: Ranjana Seay MD Primary Care Provider: Vesta Dominguez Diagnoses at Discharge Discharge Diagnosis (1) Gait abnormality: Status: Acute (2) Pre-syncope: Status: Acute Reason for Visit Reason for Visit: NV and dizziness Hospital Course Hospital Course 78-year-old male who presented to hospital with chief complaint of presyncope, dizziness which started around 5 AM 01/11, he was also noticing some numbness and tingling in his hands, no recent falls, chest pain shortness of breath fever or diarrhea. Stroke workup was unremarkable, his symptoms are likely vertigo related I requested physical therapy to do Santos-Hallpike maneuver to diagnose and Onelia's maneuver to treat. I will give him vestibular rehab/physical therapy referral at discharge. Meclizine has a very minimal role in treating this symptom. Patient is not experiencing upper airway infection however sinusitis evident on the CT scan. Physical Exam Narrative: Awake and alert GCS 15 No active focal deficit Pleasant cooperative S1, S2 Hemodynamic stable Discharge Data Studies Completed and Pending Completed Studies During Hospitalization Category Date Time Status CT head wo con* [id number] Stat Cat Scan 01/12/24 13:50 Completed CTA head neck [CT angio headneck* [id number]] Stat Cat Scan 01/12/24 13:50 Completed MR head wo con* [id number] Stat MRI 01/13/24 05:00 Completed Pending at discharge Category Date Time Status CV. echo complete* [id number] Routine Ultrasound 01/13/24 10:30 Ordered Radiology Impressions Head CT 01/12/24 13:50 IMPRESSION: No acute intracranial abnormality. If symptoms persist, consider further evaluation with MRI, if MRI is clinically safe to obtain. ASSESSMENT: ASPECTS ([place] Stroke Program Early CT Score) is 10. ADDENDUM: 01/12/24 1414 ADDENDUM: THIS REPORT CONTAINS FINDINGS THAT MAY BE CRITICAL TO PATIENT CARE. The findings were verbally communicated via telephone conference with ROSY ALMANZA at 2:13 PM CDT on 01/12/2024. The findings were acknowledged and understood. Head/Neck CTA 01/12/24 13:50 IMPRESSION: 1. Moderate focal narrowing of the proximal right P2 segment. 2. Mild focal narrowing of the proximal left P2 segment. 3. 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 Recommend clinical correlation and comparison to prior studies if available. Recommend follow-up imaging as clinically warranted. IMPRESSION: 1. No significant cervical arterial stenosis or occlusion. 2. Nonspecific left apical lung nodule not well seen on CT chest dated 01/17/2022 and may be related to differences in slice thickness. Fleischner society recommendations: For patients at low risk (minimal or absent history of smoking and of other known risk factors), no routine follow-up is indicated. For patients at high risk (history of smoking or of other known risk factors), consider optional CT Chest at 12 months. (Reference: Tucker) REFERENCES: 1. Tucker David, et al. Guidelines for Management of Incidental Pulmonary Nodules Detected on CT Images: From the Fleischner Society 2017. Radiology. 2017;284(1):228-243. 2. NASCET CRITERIA. The degree of stenosis in the cervical segment of the internal carotid artery is based on NASCET criteria. Normal is no stenosis. Mild is less than 50% stenosis. Moderate is 50-69% stenosis. Severe is 70% to 99% stenosis. Total occlusion is no detectable patent lumen. ADDENDUM: 01/12/24 4813 ADDENDUM: THIS REPORT CONTAINS FINDINGS THAT MAY BE CRITICAL TO PATIENT CARE. The findings were verbally communicated via telephone conference with ROSY ALMANZA at 2:33 PM CDT on 01/12/2024. The findings were acknowledged and understood. Head MRI 01/13/24 05:00 IMPRESSION: 1. No acute diffusion abnormality to suggest ischemia. 2. Advanced small vessel disease with mild progression since 2019. 3. Moderate atrophy and volume loss. 4. RIGHT maxillary and ethmoid paranasal mucoperiosteal thickening. Laboratory Results WBC 11.70 10^3/uL (3.29-11.43) H 01/12/24 13:52 RBC 4.76 10^6/uL (3.85-5.65) 01/12/24 13:52 Hgb 13.50 g/dL (11.27-16.99) 01/12/24 13:52 Hct 42.9 % (37-53) 01/12/24 13:52 MCV 90.1 fl (82-101) 01/12/24 13:52 MCH 28.4 pg (27-33) 01/12/24 13:52 MCHC 31.5 g/dL (30-55) 01/12/24 13:52 RDW 14.4 % (12.1-15.1) 01/12/24 13:52 Plt Count 258 10^3/cmm (157-399) 01/12/24 13:52 MPV 10.5 fL (7.4-10.4) H 01/12/24 13:52 Neut % (Auto) 45.4 % 01/12/24 13:52 Lymph % (Auto) 48.3 % 01/12/24 13:52 Citrus % (Auto) 4.1 % 01/12/24 13:52 Eos % (Auto) 1.6 % 01/12/24 13:52 Baso % (Auto) 0.3 % 01/12/24 13:52 Neut # (Auto) 5.30 10^3/uL (1.8-7.7) 01/12/24 13:52 Lymph # (Auto) 5.7 10^3/uL (0.8-4.8) H 01/12/24 13:52 Citrus # (Auto) 0.5 10^3/uL (0.2-0.9) 01/12/24 13:52 Eos # (Auto) 0.2 10^3/uL (0.0-0.8) 01/12/24 13:52 Baso # (Auto) 0.0 10^3/uL (0.0-0.1) 01/12/24 13:52 Nucleated RBC % (auto) 0 % 01/12/24 13:52 Nucleated RBCs # 0.0 /100WBC 01/12/24 13:52 PT 15.30 SECONDS (12.1-14.9) H 01/12/24 13:52 INR 1.17 (0.8-1.2) 01/12/24 13:52 APTT 28.2 SECONDS (23.9-36.7) 01/12/24 13:52 Sodium 134 mmol/L (136-145) L 01/12/24 13:52 Potassium 4.4 mmol/L (3.5-5.1) 01/12/24 13:52 Chloride 101 mmol/L (98-107) 01/12/24 13:52 Carbon Dioxide 24 mmol/L (22-29) 01/12/24 13:52 Anion Gap 13.4 (5-19) 01/12/24 13:52 BUN 16 mg/dL (8-23) 01/12/24 13:52 Creatinine 0.7 mg/dL (0.7-1.2) 01/12/24 13:52 GFR Calculation Not Reportable 01/12/24 13:52 Glucose 160 mg/dL (65-115) H 01/12/24 13:52 POC Glucose 147 mg/dL (70-110) H 01/12/24 13:52 Calculated Osmolality 283 mOsm/kg (285-295) L 01/12/24 13:52 Calcium 8.4 mg/dL (8.5-10.5) L 01/12/24 13:52 Magnesium 2.0 mg/dL (1.7-2.3) 01/13/24 04:15 Total Bilirubin 1.1 mg/dL (0.15-1.2) 01/12/24 13:52 AST 20 U/L (0-40) 01/12/24 13:52 ALT 12 U/L (0-41) 01/12/24 13:52 Alkaline Phosphatase 85 U/L (40-130) 01/12/24 13:52 Troponin T 5th Gen ng/L < 6 ng/L (0-15) 01/12/24 16:09 Total Protein 7.1 g/dL (6.6-8.7) 01/12/24 13:52 Albumin 4.0 g/dL (3.5-5.2) 01/12/24 13:52 Globulin 3.1 g/dL (1.3-4.6) 01/12/24 13:52 Vitamin B12 1040 pg/mL (232-1245) 01/12/24 16:09 Urine Color Yellow (Yellow) 01/12/24 23:45 Urine Appearance Clear (CLEAR) 01/12/24 23:45 Urine pH 5.5 (5-7) 01/12/24 23:45 Ur Specific [place] 1.058 (1.005-1.030) H 01/12/24 23:45 Urine Protein Trace (Negative) A 01/12/24 23:45 Urine Glucose (UA) Negative (Normal) 01/12/24 23:45 Urine Ketones Negative (Negative) 01/12/24 23:45 Urine Blood 1+ (Negative) A 01/12/24 23:45 Urine Nitrate Negative (Negative) 01/12/24 23:45 Urine Bilirubin Negative (Negative) 01/12/24 23:45 Urine Urobilinogen 1.0 mg/dL (Negative) 01/12/24 23:45 Ur Leukocyte Esterase Negative (Negative) 01/12/24 23:45 Urine RBC 3-5 /hpf (0-2) 01/12/24 23:45 Urine WBC 0-5 /hpf (0-5) 01/12/24 23:45 Ur Squamous Epith Cells 0-5 /hpf (0-5) 01/12/24 23:45 Amorphous Sediment Not Reportable 01/12/24 23:45 Urine Bacteria None seen /hpf (NONE) 01/12/24 23:45 Hyaline Casts 3.71 /lpf 01/12/24 23:45 Coronavirus (PCR) Negative (Negative) 01/12/24 15:23 Influenza A (PCR) Negative (Negative) 01/12/24 15:23 Influenza Type B (PCR) Negative (Negative) 01/12/24 15:23 RSV (PCR) Negative (Negative) 01/12/24 15:23 Vitals Last Vital Signs Temp 98.7 F 01/13/24 07:53 Pulse 62 01/13/24 08:28 Resp 16 01/13/24 08:28 BP 117/77 01/13/24 07:53 Pulse Ox 95 01/13/24 08:28 O2 Del Method Room Air 01/13/24 08:28 Discharge Plan Discharge Patient Disposition: Home Condition: Stable Prescriptions: New amoxicillin-pot clavulanate 875-125 mg tablet 1 tab PO BID Qty: 6 0RF meclizine 50 mg tablet 50 mg PO DAILY PRN (Reason: dizziness) Qty: 20 0RF Continued multivitamin Tablet 1 tab PO DAILY PRN (Reason: unknown) atorvastatin 10 mg tablet 10 mg PO DAILY acetaminophen 500 mg Tablet 1,000 mg PO Q6H PRN (Reason: Pain) cyanocobalamin (vitamin B-12) [Vitamin B-12] 1,000 mcg Tablet 1,000 mcg PO DAILY PRN (Reason: unknown) pantoprazole [Protonix] 40 mg tablet,delayed release (DR/EC) 40 mg PO BID 42 Days Qty: 84 1RF Referrals: Vesta Dominguez PA [Primary Care Provider] - Patient Instructions: Opioid Safety Coding Level of Care Code Acute Code for Chg Fwd Diagnoses Gait abnormality R26.9 Pre-syncope R55
[2024-01-13] MEDS: predniSONE 20 mg Tablet 40 MG PO (10:12)
--- NOTE | 2024-01-13 10:30 | USCV_ITS ---
Emigdio Acuña Age: 78 Gender: M : 1945 Exam Date: 01/13/2024 13:16 Ordering Phys: Ranjana Seay MD Technologist: Exam Location: [facility] Indication: cp BP: 131 / 69 HR: 68 Rhythm: Sinus Technical Quality: Adequate MEASUREMENTS (Male / Female) Normal Values 2D ECHO LV Diastolic Diameter PLAX 4.0 cm 4.2 - 5.9 / 3.9 - 5.3 cm IVS Diastolic Thickness 1.1 cm 0.6 - 1.0 / 0.6 - 0.9 cm IVS Systolic Thickness 1.6 cm LVPW Diastolic Thickness 1.2 cm 0.6 - 1.0 / 0.6 - 0.9 cm LVPW Systolic Thickness 1.5 cm LVOT Diameter 2.0 cm LV Ejection Fraction 2D Teich 60.5 % LV Ejection Fraction MOD 4C 69.6 % LV Ejection Fraction MOD 2C 70.4 % LV Ejection Fraction 2C AL 71.3 % LA Diameter 3.3 cm RA Systolic Volume 4C AL 36.6 ml RA Systolic Volume 4C MOD 35.4 ml Aorta at Sinotubular Diameter 3.2 cm M-MODE LA Ao Ratio MM 1.0 AV Cusp Separation MM 2.6 cm DOPPLER AV Peak Velocity 138.0 cm/s LVOT Peak Velocity 88.0 cm/s AV Area Cont Eq vti 2.1 cm squared AV Area Cont Eq pk 2.1 cm squared MV Area PHT 2.8 cm squared Mitral E to A Ratio 1.3 TV Peak Velocity 220.5 cm/s TR Peak Velocity 236.0 cm/s TR Peak Gradient 22.3 mmHg TV Peak E Velocity 90.0 cm/s Right Atrial Pressure 3.0 mmHg Pulmonary Artery Systolic Pressu 25.3 mmHg PV Peak Velocity 111.0 cm/s FINDINGS Left Ventricle Normal left ventricular size, systolic function and wall thickness, with no regional wall motion abnormalities. Left ventricular ejection fraction is estimated at 60 %. Grade II/IV diastolic dysfunction, moderately elevated filling pressures. Right Ventricle The right ventricle is normal in size and function. Right Atrium The right atrium is normal in size. Left Atrium The left atrium is normal in size. Mitral Valve Moderately thickened mitral valve. Moderate mitral annular calcification. No mitral valve stenosis. Mild mitral valve regurgitation. Aortic Valve Moderate aortic valve calcification. Mild aortic valve stenosis, mean gradient 2.8 mmHg, BONNIE 2.1 cm squared. Trace aortic valve regurgitation. Tricuspid Valve Structurally normal tricuspid valve without significant stenosis or regurgitation. Pulmonary artery systolic pressure is normal. Pulmonic Valve Structurally normal pulmonic valve without significant stenosis. There is no pulmonic regurgitation. Pericardium Normal pericardium without effusion. Aorta Normal ascending aorta dimension. IVC The inferior vena cava appears normal. CONCLUSIONS Normal left ventricular size, systolic function and wall thickness, with no regional wall motion abnormalities. Left ventricular ejection fraction is estimated at 60 %. Grade II/IV diastolic dysfunction, moderately elevated filling pressures. Moderate aortic valve calcification. Mild aortic valve stenosis, mean gradient 2.8 mmHg, BONNIE 2.1 cm squared. Trace aortic valve regurgitation. There is no pericardial effusion. Pulmonary artery systolic pressure is within normal limits. Right atrial pressure is around 5 mm of mercury. Ranjana Rogers MD (Electronically Signed) Final Date: 13 January 2024 20:29 S
--- NOTE | 2024-01-13 10:34 | PC.CHAP ---
Pastoral Care Encounter/Spiritual Assessment Type of Contact [] Declined pants maker visit [] Patient/Family/Request visit [] Outpatient visit [] Follow-up visit [] Physician referral [] Code/Alert [x] Routine visit [] Staff referral [] Actively dying [] Patient sleeping [] Family support [] [x] Out of room [] Palliative care [] [] Receiving care in room [] Pre-surgical visit [] Trauma [] Long length of stay [] ICU visit [] Other: Relational/Emotional Strength [] Patient feels connected with others/family/visitors/staff [] Distress [] Loneliness/isolation [] Abandonment Spirituality of Patient [] Person of Berta [] Attends Taoist of their Berta [] Believes in Prayer [] Reads Bible or Uatsdin materials [] There are Spiritual issues to be addressed Hearing Impaired Teacher Interventions [x] Prayer [] Active listening [] Non-anxious presence [] Spiritual/emotional support [] Crisis/trauma care [] Spiritual counseling [] Bereavement support [] Provided bereavement packet [] Provided Bible/devotional materials [] Provided toy/stuffed animal, coloring book to patient or family member [] Provided Communion [] Anointing/[place] [] Salvation [] Completed spiritual assessment [] Other: Impact on Illness or Injury [] Angry [] Fearful [] Anxious [] Often cries [] Exhaustion [] Unable to work [] Unable to attend taoism [] Unable to walk/stand [] Unable to read [] Unable to drive [] Unable to eat/drink [] Unable to sleep [] Unable to be with family [] Patient intubated [] Other: Summary Time spent with patient
--- NOTE | 2024-01-13 10:35 | PC.NURSE ---
Received info from PT regarding heart rate increasing during ambulation. Informed Dr Seay. into see patient. Family at bedside.
--- NOTE | 2024-01-13 10:50 | P.PN_ITS ---
Subjective 2 Subjective: As per the physical therapist, patient became tachycardic on exertion, I have requested nurse to do another evaluation Patient is at heart rate 70 at the time of evaluation with stable hemodynamics, Patient is stating that sometime he gets right-sided chest pain on exertion, I have started to keep him here 1 more day do a stress test in the morning Monitor for sick sinus syndrome monitor on telemetry for now He does have sinusitis with erythema around his cheeks give him 1 dose of steroids and Augmentin Vitals/I&O/Wt Last Vital Signs Temp 98.7 F 01/13/24 07:53 Pulse 62 01/13/24 08:28 Resp 16 01/13/24 08:28 BP 117/77 01/13/24 07:53 Pulse Ox 95 01/13/24 08:28 O2 Del Method Room Air 01/13/24 08:28 01/12/24 01/13/24 01/13/24 22:59 06:59 14:59 Intake Total 120 / 120 420 / 420 Output Total 475 / 475 350 / 350 Balance -355 / -355 70 / 70 Weight last 48 hrs Weight 76.385 kg Weight 75 kg Weight 74.843 kg Physical Exam 2 Narrative: Hemodynamically stable GCS 15 No pain around sinuses However some erythema and flushing noted Currently heart rate 70s at rest No active chest pain Currently on room air Complaining of dizziness Data 01/12/24 13:52 01/12/24 13:52 A&P Assessment and plan (1) Vertigo: (2) Duodenitis: (3) Esophageal stricture: (4) Gait abnormality: (5) Pre-syncope: Plan There was concern for sick sinus syndrome with heart rate 150 on exertion however when I admitted him his heart rate was low I will do stress test in the morning I will do another evaluation to see if her heart rate would fluctuate For sinusitis added 1 dose of steroid and Augmentin I do believe he has postnasal drip and GERD considering history of esophageal stricture he is also spearing seeing some cough and right-sided pain I will rule out cardiac etiology with stress test in the morning Continue meclizine Requested physical therapy to do Onelia's maneuver Discharge till tomorrow Attestations 2 Medical Necessity Statement*: Discharge likely by tomorrow Diagnoses Vertigo R42 Duodenitis K29.80 Esophageal stricture K22.2 Gait abnormality R26.9 Pre-syncope R55
--- NOTE | 2024-01-13 10:55 | ECG_ITS ---
[facility] Test Date: 2024-01-14 Pat Name: Emigdio Acuña Department: Room: 104 Gender: Male Project Management Director: : 1945 Requested By: Ranjana Seay Order Number: [id number] Reading MD: Interpretive Statements Lung unchanged pre/post procedure; Intraprocedure shortess of breath; Symptoms resoled by discharge [id number]
[2024-01-13] MEDS: amoxicillin-clav 875-125 mg Tablet 1 TAB PO (16:38)
--- NOTE | 2024-01-13 17:06 | PC.NURSE ---
Patient refused his Lovenox and Protonix tonight. Patient stated, I am not having heart burn and I don't think i need the shot in the belly. Informed Dr Seay. No new orders received.
[2024-01-14] VITALS (11 sets, daily range): BP systolic 99–112; BP diastolic 65–80; PULSE 57–95; RESP 14–20; TEMP 36.6–37; O2SAT 93–98
[2024-01-14] MEDS: regadenoson 0.4 Mg/5 ml Syringe IVP (08:13)
--- NOTE | 2024-01-14 09:17 | PC.NURSE ---
return from cardiac stress test.tolerated procedure well
[2024-01-14] MEDS: amoxicillin-clav 875-125 mg Tablet 1 TAB PO ×2 (09:18→18:05)
[2024-01-14] MEDS: pantoprazole DR 40 mg Tablet PO ×2 (09:18→18:05)
[2024-01-14] MEDS: acetaminophen 500 mg Tablet PO (09:40)
--- NOTE | 2024-01-14 09:52 | PC.CHAP ---
Pastoral Care Encounter/Spiritual Assessment Type of Contact [] Declined cage cashier visit [] Patient/Family/Request visit [] Outpatient visit [] Follow-up visit [] Physician referral [] Code/Alert [x] Routine visit [] Staff referral [] Actively dying [] Patient sleeping [] Family support [] [] Out of room [] Palliative care [] [] Receiving care in room [] Pre-surgical visit [] Trauma [] Long length of stay [] ICU visit [] Other: Relational/Emotional Strength [x] Patient feels connected with others/family/visitors/staff [] Distress [] Loneliness/isolation [] Abandonment Spirituality of Patient [x] Person of Berta [] Attends Adventism of their Berta [x] Believes in Prayer [] Reads Bible or Sikhism materials [] There are Spiritual issues to be addressed Altitude Chamber Technician Interventions [x] Prayer [x] Active listening [] Non-anxious presence [x] Spiritual/emotional support [] Crisis/trauma care [] Spiritual counseling [] Bereavement support [] Provided bereavement packet [] Provided Bible/devotional materials [] Provided toy/stuffed animal, coloring book to patient or family member [] Provided Communion [] Anointing/[place] [] Salvation [x] Completed spiritual assessment [] Other: Impact on Illness or Injury [] Angry [] Fearful [] Anxious [] Often cries [] Exhaustion [] Unable to work [] Unable to attend spiritism [] Unable to walk/stand [] Unable to read [] Unable to drive [] Unable to eat/drink [] Unable to sleep [] Unable to be with family [] Patient intubated [] Other: Summary Time spent with patient 5 min
--- NOTE | 2024-01-14 10:27 | ECG_ITS ---
[facility] Date: 2024-01-14 Pat Name: Emigdio Acuña Department: Room: 104 Gender: Male Net Programmer Analyst: : 1945 Requested By: Ranjana eSay Order Number: [id number] Reading MD: RANJANA CARD Measurements Intervals [place] Rate: 61 P: 37 IA: 163 QRS: -36 QRSD: 88 T: 31 QT: 394 QTc: 398 Interpretive Statements SINUS RHYTHM LEFT AXIS DEVIATION [QRS AXIS < -30] Compared to ECG 01/12/2024 13:34:46 Sinus bradycardia no longer present Electronically Signed On 01-14-2024 20:57:59 CDT by RANJANA CARD [email or web address]
--- NOTE | 2024-01-14 10:35 | P.PN_ITS ---
Subjective 2 Subjective: Multiple signs of vertigo as per PT Positive stress test, will consult Dr. Espinoza No active chest pain Patient walked 10 feet with assistance PT recommended home health Vitals/I&O/Wt Last Vital Signs Temp 98.5 F 01/14/24 07:36 Pulse 95 01/14/24 08:33 Resp 16 01/14/24 07:36 BP 100/67 01/14/24 08:33 Pulse Ox 96 01/14/24 07:36 O2 Del Method Room Air 01/14/24 07:36 01/13/24 01/14/24 01/14/24 22:59 06:59 14:59 Intake Total 340 / 1180 250 / 1430 240 / 240 Balance 340 / 830 250 / 1080 240 / 240 Weight last 48 hrs Weight 74.026 kg Weight 76.385 kg Weight 75 kg Weight 74.843 kg Physical Exam 2 Narrative: Hemodynamically stable Currently on room air GCS 15 Nonfocal neuroexam Still complaining of dizziness on ambulation Postnasal drip Cough at nighttime Nonfocal neuroexam S1, S2 Data 01/12/24 13:52 01/12/24 13:52 A&P Assessment and plan (1) Vertigo: (2) Duodenitis: (3) Esophageal stricture: (4) Gait abnormality: (5) Pre-syncope: Plan Unstable angina: Positive stress test, consulted Dr. Espinoza Currently chest pain-free Echo showing no wall motion abnormality however grade 2 diastolic dysfunction EF 60% mild aortic valve stenosis EKG showing sinus bradycardia, will repeat EKG with troponins Patient has history of duodenitis and esophageal stricture currently on soft diet because of edentulous state Presyncope, dizziness: No signs of vertigo MRI head unremarkable for posterior circulation stroke Work with PT, need home health I do believe his symptoms are related to labyrinthitis I will give him 1 dose of steroid and meclizine He has sinusitis added Augmentin Full code N.p.o. after midnight Consulted Dr. Espinoza His white count is secondary to use of prednisone 40 mg Currently on DVT prophylaxis Lovenox Continue Protonix Attestations 2 Medical Necessity Statement*: Discharge likely after angiogram Diagnoses Vertigo R42 Duodenitis K29.80 Esophageal stricture K22.2 Gait abnormality R26.9 Pre-syncope R55
--- NOTE | 2024-01-14 10:55 | NMCV_ITS ---
NM nessa perf SPECT r/s* [id number] Emigdio Acuña Age: 78 Gender: M : 1945 Exam Date: 01/14/2024 07:21 Ordering Phys: Ranjana Seay MD Technologist: ACOSTA Green Exam Location: [facility] Indications: CP STRESS TEST Please see separate stress test report in [facility]any for full findings IMAGE PROTOCOL Rest/Stress 1 Lexiscan Day Radiopharmaceutical Dose (mCi) Administration Site Administered by Rest: Tc-99m 10.1 IV ACOSTA Green Sestamibi Stress:Tc-99m 32.3 IV ACOSTA Oh Sestamibi Rest: 14-Jan-2024 60 Discovery 630 Stress: 14-Jan-2024 30 Discovery 630 0.4mg Lexiscan.supine position only as patient was unable to lay prone. SPECT RESULTS Technical Quality: Good Raw Data Analysis: Normal Image Corrections: No attenuation or motion correction applied Summed Stress Score: 4 Summed Rest Score: 1 Summed Difference Score: 4 PERFUSION FINDINGS Small area of minimal to moderately decreased tracer uptake involving the mid inferolateral, apical lateral and LV apex. Significant reversibility was noted in this region at rest. FUNCTIONAL RESULTS (calculated via Gated SPECT) Stress Image LV EF (%): 64 Stress EDV (mL):96 TID: 0.9 Stress ESV (mL):35 FUNCTIONAL FINDINGS: Segmental wall motion analysis revealing no gross wall motion abnormalities IMPRESSIONS 1. Myocardial perfusion imaging revealing small area of reversible defect involving the mid inferolateral, apical lateral and LV apex suggesting ischemia in the distribution of the left circumflex artery. 2. Normal LV ejection fraction of 64% 3. LV wall motion analysis revealing no gross wall motion abnormalities. 4. Normal LV volume No similar previous studies are available for comparison Dr Daniel Espinoza MD [facility] (Electronically Signed) Final Date: 14 January 2024 09:21 S
[2024-01-14 11:04] LABS: Troponin(5th) Baseline 7 ng/L (0-15)
--- NOTE | 2024-01-14 12:27 | ECG_ITS ---
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
--- NOTE | 2024-01-14 12:47 | P.CONIM_ITS ---
Providers/Reason For Consult 2 Consulting Physician/Specialty*: HARIS sEpinoza MD/cardiology Reason for Consult*: Patient is abnormal Myocardial perfusion imaging Requesting Physician: Dr. Seay Attending Physician: Ranjana Seay MD Primary Care Provider: Vesta Dominguez History of Present Illness History of Present Illness Emigdio Acuña is a 78 year old male Medications/Allergies Home Medications Medication Instructions Recorded Confirmed Last Taken Type acetaminophen 500 mg tablet 1,000 mg PO Q6H PRN Pain 10/10/21 01/13/24 Unknown History multivitamin 1 tab PO DAILY PRN unknown 05/13/22 01/13/24 06/05/22 History cyanocobalamin (vitamin B-12) 1,000 mcg PO DAILY PRN unknown 07/01/23 01/13/24 Unknown History 1,000 mcg tablet (Vitamin B-12) pantoprazole 40 mg tablet,delayed 40 mg PO BID 6 weeks #84 tabs 07/01/23 01/13/24 Unknown Rx release (Protonix) atorvastatin 10 mg tablet 10 mg PO DAILY 01/13/24 01/13/24 Unknown History Allergies Allergy/AdvReac Type Severity Reaction Status Date / Time No Known Allergies Allergy Verified 07/01/23 16:02 Current Medications Generic Name Dose Route Start Last Admin Trade Name Freq PRN Reason Stop Dose Admin Acetaminophen 500 mg 01/12/24 16:52 01/14/24 09:40 Acetaminophen 500 Mg Tablet PO 500 mg Q4H PRN Administration fever Amoxicillin/Clavulanate Potassium 1 tab 01/13/24 18:00 01/14/24 09:18 Amoxicillin-Clav 875-125 Mg Tablet PO 1 tab BID LIBBY Administration Protocol Enoxaparin Sodium 40 mg 01/12/24 16:52 01/13/24 17:07 Enoxaparin 40 Mg/0.4 Ml Syringe SUBCUT Not Given Q24H LIBBY Ondansetron HCl 4 mg 01/12/24 16:52 01/12/24 17:37 Ondansetron 2 Mg/Ml Sdv 2 Ml IVP 4 mg Q6H PRN Administration NAUSEA AND VOMITING Pantoprazole Sodium 40 mg 01/13/24 18:00 01/14/24 09:[address] 40 Mg Tablet PO 40 mg BID LIBBY Administration PFSH Acute 2 PFSH: Medical History Esophageal obstruction due to food impaction Mass of mediastinum Osteoarthritis Miliaria rubra Dementia 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 Mother , AT AGE 88 No problems noted. Social History Smoking and tobacco/nicotine status: never used tobacco/nicotine Alcohol intake: never Substance/Drug Use: never Household members: spouse Marital status: Current occupational status: retired Vitals/I&O/Wt Last Vital Signs Temp 97.9 F 01/14/24 11:30 Pulse 65 01/14/24 11:30 Resp 14 01/14/24 11:30 BP 100/65 01/14/24 11:30 Pulse Ox 95 01/14/24 11:30 O2 Del Method Room Air 01/14/24 11:30 01/13/24 01/14/24 01/14/24 22:59 06:59 14:59 Intake Total 340 / 1180 250 / 1430 240 / 240 Balance 340 / 830 250 / 1080 240 / 240 Weight last 48 hrs Weight 163 lb 3.2 oz Weight 168 lb 6.4 oz Weight 165 lb 5.547 oz Weight 165 lb Data 01/12/24 13:52 01/12/24 13:52 Other Labs: Laboratory Last Values WBC 11.70 10^3/uL (3.29-11.43) H 01/12/24 13:52 RBC 4.76 10^6/uL (3.85-5.65) 01/12/24 13:52 Hgb 13.50 g/dL (11.27-16.99) 01/12/24 13:52 Hct 42.9 % (37-53) 01/12/24 13:52 MCV 90.1 fl (82-101) 01/12/24 13:52 MCH 28.4 pg (27-33) 01/12/24 13:52 MCHC 31.5 g/dL (30-55) 01/12/24 13:52 RDW 14.4 % (12.1-15.1) 01/12/24 13:52 Plt Count 258 10^3/cmm (157-399) 01/12/24 13:52 MPV 10.5 fL (7.4-10.4) H 01/12/24 13:52 Neut % (Auto) 45.4 % 01/12/24 13:52 Lymph % (Auto) 48.3 % 01/12/24 13:52 [place] % (Auto) 4.1 % 01/12/24 13:52 Eos % (Auto) 1.6 % 01/12/24 13:52 Baso % (Auto) 0.3 % 01/12/24 13:52 Neut # (Auto) 5.30 10^3/uL (1.8-7.7) 01/12/24 13:52 Lymph # (Auto) 5.7 10^3/uL (0.8-4.8) H 01/12/24 13:52 [place] # (Auto) 0.5 10^3/uL (0.2-0.9) 01/12/24 13:52 Eos # (Auto) 0.2 10^3/uL (0.0-0.8) 01/12/24 13:52 Baso # (Auto) 0.0 10^3/uL (0.0-0.1) 01/12/24 13:52 Nucleated RBC % (auto) 0 % 01/12/24 13:52 Nucleated RBCs # 0.0 /100WBC 01/12/24 13:52 PT 15.30 SECONDS (12.1-14.9) H 01/12/24 13:52 INR 1.17 (0.8-1.2) 01/12/24 13:52 APTT 28.2 SECONDS (23.9-36.7) 01/12/24 13:52 Sodium 134 mmol/L (136-145) L 01/12/24 13:52 Potassium 4.4 mmol/L (3.5-5.1) 01/12/24 13:52 Chloride 101 mmol/L (98-107) 01/12/24 13:52 Carbon Dioxide 24 mmol/L (22-29) 01/12/24 13:52 Anion Gap 13.4 (5-19) 01/12/24 13:52 BUN 16 mg/dL (8-23) 01/12/24 13:52 Creatinine 0.7 mg/dL (0.7-1.2) 01/12/24 13:52 GFR Calculation Not Reportable 01/12/24 13:52 Glucose 160 mg/dL (65-115) H 01/12/24 13:52 POC Glucose 147 mg/dL (70-110) H 01/12/24 13:52 Calculated Osmolality 283 mOsm/kg (285-295) L 01/12/24 13:52 Calcium 8.4 mg/dL (8.5-10.5) L 01/12/24 13:52 Magnesium 2.0 mg/dL (1.7-2.3) 01/13/24 04:15 Total Bilirubin 1.1 mg/dL (0.15-1.2) 01/12/24 13:52 AST 20 U/L (0-40) 01/12/24 13:52 ALT 12 U/L (0-41) 01/12/24 13:52 Alkaline Phosphatase 85 U/L (40-130) 01/12/24 13:52 Troponin T 5th Gen ng/L < 6 ng/L (0-15) 01/12/24 16:09 Troponin T Baseline 7 ng/L (0-15) 01/14/24 10:39 Total Protein 7.1 g/dL (6.6-8.7) 01/12/24 13:52 Albumin 4.0 g/dL (3.5-5.2) 01/12/24 13:52 Globulin 3.1 g/dL (1.3-4.6) 01/12/24 13:52 Vitamin B12 1040 pg/mL (232-1245) 01/12/24 16:09 Urine Color Yellow (Yellow) 01/12/24 23:45 Urine Appearance Clear (CLEAR) 01/12/24 23:45 Urine pH 5.5 (5-7) 01/12/24 23:45 Ur Specific [place] 1.058 (1.005-1.030) H 01/12/24 23:45 Urine Protein Trace (Negative) A 01/12/24 23:45 Urine Glucose (UA) Negative (Normal) 01/12/24 23:45 Urine Ketones Negative (Negative) 01/12/24 23:45 Urine Blood 1+ (Negative) A 01/12/24 23:45 Urine Nitrate Negative (Negative) 01/12/24 23:45 Urine Bilirubin Negative (Negative) 01/12/24 23:45 Urine Urobilinogen 1.0 mg/dL (Negative) 01/12/24 23:45 Ur Leukocyte Esterase Negative (Negative) 01/12/24 23:45 Urine RBC 3-5 /hpf (0-2) 01/12/24 23:45 Urine WBC 0-5 /hpf (0-5) 01/12/24 23:45 Ur Squamous Epith Cells 0-5 /hpf (0-5) 01/12/24 23:45 Amorphous Sediment Not Reportable 01/12/24 23:45 Urine Bacteria None seen /hpf (NONE) 01/12/24 23:45 Hyaline Casts 3.71 /lpf 01/12/24 23:45 Coronavirus (PCR) Negative (Negative) 01/12/24 15:23 Influenza A (PCR) Negative (Negative) 01/12/24 15:23 Influenza Type B (PCR) Negative (Negative) 01/12/24 15:23 RSV (PCR) Negative (Negative) 01/12/24 15:23 Other data: Echocardiogram on 01/13/2024 Normal left ventricular size, systolic function and wall thickness, with no regional wall motion abnormalities. Left ventricular ejection fraction is estimated at 60 %. Grade II/IV diastolic dysfunction, moderately elevated filling pressures. Moderate aortic valve calcification. Mild aortic valve stenosis, mean gradient 2.8 mmHg, BONNIE 2.1 cm squared. Trace aortic valve regurgitation. There is no pericardial effusion. Pulmonary artery systolic pressure is within normal limits. Right atrial pressure is around 5 mm of mercury. Myocardial perfusion imaging on 01/14/2024 1. Myocardial perfusion imaging revealing small area of reversible defect involving the mid inferolateral, apical lateral and LV apex suggesting ischemia in the distribution of the left circumflex artery. 2. Normal LV ejection fraction of 64% 3. LV wall motion analysis revealing no gross wall motion abnormalities. 4. Normal LV volume No similar previous studies are available for comparison Coding Level of Care Code Acute Code for Chg Fwd
[2024-01-14 13:40] LABS: Troponin 5 2HR 7.58 ng/L (0-15); Troponin 5 2HR Delta 0.58 ABS# (0-10)
--- NOTE | 2024-01-14 16:01 | P.CONIM_ITS ---
Providers/Reason For Consult 2 Consulting Physician/Specialty*: HARIS Espinoza MD/cardiology Reason for Consult*: Chest pain, abnormal stress test Requesting Physician: Dr. Seay Attending Physician: Ranjana Seay MD Primary Care Provider: Vesta Dominguez History of Present Illness History of Present Illness Emigdio Acuña is a very pleasant 78 year old male with history of hypercholesteroloemia, never smoker, never drinker. He initially presented to the hospital with dizziness. Patient stated that after he cut wood yesterday, he had pain in his right hand, and was unable to move it for a while. He states while he was splitting the wood, he had no chest pain or shortness of breath and was able to do this fairly easily. He denies personal or family hx of heart disease. MRI and CT of the head ruled out stroke. Patient had a stress test due to patient reporting chest pain during physical therapy. Patient tells me that randomly without warning he will get some what he calls chest discomfort . This does not radiate. He states that this has been going on for the past 2 to 3 years. He states that it comes and goes with no known reason. The intensity of the pain is mild to moderate. No other associated symptoms or radiation of pain. He states when he rubs his chest the area is relieved. Troponins were negative. EKG with no acute changes. He denies chest pain at this time. Stress test was done that showed small area of reversible defect involving the mid inferolateral, apical lateral and LV apex suggesting ischemia iin the distribution of the left circumflex artery. Normal ejection fraction of 64%. Please see the report for details. This patient has no previous history for coronary disease, myocardial infarction or congestive heart failure. He has a history of dyslipidemia. The blood sugar was found to be elevated during this hospital admission. No history for hypertension. No history for CVA or peripheral artery disease. No history for kidney disease, liver disease or bleeding disorders. Review of Systems 2 Narrative: Consitutional: denies fever, chills, body aches, or changes in appetite, denies abnormal weight loss Eyes: Denies changes in vision Card: Denies chest pain, palpitations, irregular heart rhythm, edema, syncope, shortness of breath, orthopnea, leg pain with exertion Resp: Denies shortness of breath, denies hemoptysis, denies cough GI: denies abdominal pain, denies nausea or voimting, denies blood in stool : denies blood in urine, denies dysuria Musc: Denies extremity pain, denies limited range of motion or recent injury Skin: Denies rash, lesions, or wounds, denies changes to skin color Neuro: Denies nubmness in extremities, h/a, s/s of stroke Pawel: Denies easy bruiding/bleeding All: Denies s/s of allergies Medications/Allergies Home Medications Medication Instructions Recorded Confirmed Last Taken Type acetaminophen 500 mg tablet 1,000 mg PO Q6H PRN Pain 10/10/21 01/13/24 Unknown History multivitamin 1 tab PO DAILY PRN unknown 05/13/22 01/13/24 06/05/22 History cyanocobalamin (vitamin B-12) 1,000 mcg PO DAILY PRN unknown 07/01/23 01/13/24 Unknown History 1,000 mcg tablet (Vitamin B-12) pantoprazole 40 mg tablet,delayed 40 mg PO BID 6 weeks #84 tabs 07/01/23 01/13/24 Unknown Rx release (Protonix) atorvastatin 10 mg tablet 10 mg PO DAILY 01/13/24 01/13/24 Unknown History Allergies Allergy/AdvReac Type Severity Reaction Status Date / Time No Known Allergies Allergy Verified 07/01/23 16:02 Current Medications Generic Name Dose Route Start Last Admin Trade Name Freq PRN Reason Stop Dose Admin Acetaminophen 500 mg 01/12/24 16:52 01/14/24 09:40 Acetaminophen 500 Mg Tablet PO 500 mg Q4H PRN Administration fever Amoxicillin/Clavulanate Potassium 1 tab 01/13/24 18:00 01/14/24 09:18 Amoxicillin-Clav 875-125 Mg Tablet PO 1 tab BID LIBBY Administration Protocol Enoxaparin Sodium 40 mg 01/12/24 16:52 01/13/24 17:07 Enoxaparin 40 Mg/0.4 Ml Syringe SUBCUT Not Given Q24H LIBBY Ondansetron HCl 4 mg 01/12/24 16:52 01/12/24 17:37 Ondansetron 2 Mg/Ml Sdv 2 Ml IVP 4 mg Q6H PRN Administration NAUSEA AND VOMITING Pantoprazole Sodium 40 mg 01/13/24 18:00 01/14/24 09:[address] 40 Mg Tablet PO 40 mg BID LIBBY Administration PFSH Acute 2 PFSH: Medical History Esophageal obstruction due to food impaction Mass of mediastinum Osteoarthritis Miliaria rubra Dementia 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 Mother , AT AGE 88 No problems noted. Social History Smoking and tobacco/nicotine status: never used tobacco/nicotine Alcohol intake: never Substance/Drug Use: never Household members: spouse Marital status: Current occupational status: retired Vitals/I&O/Wt Last Vital Signs Temp 97.9 F 01/14/24 11:30 Pulse 61 01/14/24 14:00 Resp 14 01/14/24 11:30 BP 100/65 01/14/24 11:30 Pulse Ox 95 01/14/24 11:30 O2 Del Method Room Air 01/14/24 11:30 01/14/24 01/14/24 01/14/24 06:59 14:59 22:59 Intake Total 250 / 1430 600 / 600 Output Total 300 / 300 Balance 250 / 1080 300 / 300 Weight last 48 hrs Weight 163 lb 3.2 oz Weight 168 lb 6.4 oz Weight 165 lb 5.547 oz Physical Exam 2 Narrative: GENERAL: The patient is alert and oriented times three. Not in any acute distress. HENMT: normoceophalic Eye: PERRL Neck: No carotid bruit bilaterally Muskuloskeletal: Full ROM Lymphatic: no lymphedema noted Respiratory: Normal respiratory effort, clear to auscultation bilaterally throughout all lung andersen, no use of accessory muscles Cardio: No JVD, regular rate, regular rhythm, S1 S2 normal, no murmurs, peripheral pulses 2+ radial, 2+ PT palpated bilaterally Extremities: Full ROM, normal, normal capillary refill, no cyanosis or edema Neuro: Alert and oriented x4, no focal motor deficits Psych: Affect normal, denies suicidal ideation, mental status grossly normal Skin: No rashes or lesions noted, no wounds Data 01/12/24 13:52 01/12/24 13:52 Other Labs: Laboratory Last Values WBC 11.70 10^3/uL (3.29-11.43) H 01/12/24 13:52 RBC 4.76 10^6/uL (3.85-5.65) 01/12/24 13:52 Hgb 13.50 g/dL (11.27-16.99) 01/12/24 13:52 Hct 42.9 % (37-53) 01/12/24 13:52 MCV 90.1 fl (82-101) 01/12/24 13:52 MCH 28.4 pg (27-33) 01/12/24 13:52 MCHC 31.5 g/dL (30-55) 01/12/24 13:52 RDW 14.4 % (12.1-15.1) 01/12/24 13:52 Plt Count 258 10^3/cmm (157-399) 01/12/24 13:52 MPV 10.5 fL (7.4-10.4) H 01/12/24 13:52 Neut % (Auto) 45.4 % 01/12/24 13:52 Lymph % (Auto) 48.3 % 01/12/24 13:52 [place] % (Auto) 4.1 % 01/12/24 13:52 Eos % (Auto) 1.6 % 01/12/24 13:52 Baso % (Auto) 0.3 % 01/12/24 13:52 Neut # (Auto) 5.30 10^3/uL (1.8-7.7) 01/12/24 13:52 Lymph # (Auto) 5.7 10^3/uL (0.8-4.8) H 01/12/24 13:52 [place] # (Auto) 0.5 10^3/uL (0.2-0.9) 01/12/24 13:52 Eos # (Auto) 0.2 10^3/uL (0.0-0.8) 01/12/24 13:52 Baso # (Auto) 0.0 10^3/uL (0.0-0.1) 01/12/24 13:52 Nucleated RBC % (auto) 0 % 01/12/24 13:52 Nucleated RBCs # 0.0 /100WBC 01/12/24 13:52 PT 15.30 SECONDS (12.1-14.9) H 01/12/24 13:52 INR 1.17 (0.8-1.2) 01/12/24 13:52 APTT 28.2 SECONDS (23.9-36.7) 01/12/24 13:52 Sodium 134 mmol/L (136-145) L 01/12/24 13:52 Potassium 4.4 mmol/L (3.5-5.1) 01/12/24 13:52 Chloride 101 mmol/L (98-107) 01/12/24 13:52 Carbon Dioxide 24 mmol/L (22-29) 01/12/24 13:52 Anion Gap 13.4 (5-19) 01/12/24 13:52 BUN 16 mg/dL (8-23) 01/12/24 13:52 Creatinine 0.7 mg/dL (0.7-1.2) 01/12/24 13:52 GFR Calculation Not Reportable 01/12/24 13:52 Glucose 160 mg/dL (65-115) H 01/12/24 13:52 POC Glucose 147 mg/dL (70-110) H 01/12/24 13:52 Calculated Osmolality 283 mOsm/kg (285-295) L 01/12/24 13:52 Calcium 8.4 mg/dL (8.5-10.5) L 01/12/24 13:52 Magnesium 2.0 mg/dL (1.7-2.3) 01/13/24 04:15 Total Bilirubin 1.1 mg/dL (0.15-1.2) 01/12/24 13:52 AST 20 U/L (0-40) 01/12/24 13:52 ALT 12 U/L (0-41) 01/12/24 13:52 Alkaline Phosphatase 85 U/L (40-130) 01/12/24 13:52 Troponin T 5th Gen ng/L < 6 ng/L (0-15) 01/12/24 16:09 Troponin T Baseline 7 ng/L (0-15) 01/14/24 10:39 Troponin T 120 Minute 7.58 ng/L (0-15) 01/14/24 12:45 Delta Troponin T 0.58 ABS# (0-10) 01/14/24 12:45 Total Protein 7.1 g/dL (6.6-8.7) 01/12/24 13:52 Albumin 4.0 g/dL (3.5-5.2) 01/12/24 13:52 Globulin 3.1 g/dL (1.3-4.6) 01/12/24 13:52 Vitamin B12 1040 pg/mL (232-1245) 01/12/24 16:09 Urine Color Yellow (Yellow) 01/12/24 23:45 Urine Appearance Clear (CLEAR) 01/12/24 23:45 Urine pH 5.5 (5-7) 01/12/24 23:45 Ur Specific [place] 1.058 (1.005-1.030) H 01/12/24 23:45 Urine Protein Trace (Negative) A 01/12/24 23:45 Urine Glucose (UA) Negative (Normal) 01/12/24 23:45 Urine Ketones Negative (Negative) 01/12/24 23:45 Urine Blood 1+ (Negative) A 01/12/24 23:45 Urine Nitrate Negative (Negative) 01/12/24 23:45 Urine Bilirubin Negative (Negative) 01/12/24 23:45 Urine Urobilinogen 1.0 mg/dL (Negative) 01/12/24 23:45 Ur Leukocyte Esterase Negative (Negative) 01/12/24 23:45 Urine RBC 3-5 /hpf (0-2) 01/12/24 23:45 Urine WBC 0-5 /hpf (0-5) 01/12/24 23:45 Ur Squamous Epith Cells 0-5 /hpf (0-5) 01/12/24 23:45 Amorphous Sediment Not Reportable 01/12/24 23:45 Urine Bacteria None seen /hpf (NONE) 01/12/24 23:45 Hyaline Casts 3.71 /lpf 01/12/24 23:45 Coronavirus (PCR) Negative (Negative) 01/12/24 15:23 Influenza A (PCR) Negative (Negative) 01/12/24 15:23 Influenza Type B (PCR) Negative (Negative) 01/12/24 15:23 RSV (PCR) Negative (Negative) 01/12/24 15:23 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 Minimal left axis deviation. No acute ST-T changes. Other data: Echocardiogram done on 01/13/2024 Normal left ventricular size, systolic function and wall thickness, with no regional wall motion abnormalities. Left ventricular ejection fraction is estimated at 60 %. Grade II/IV diastolic dysfunction, moderately elevated filling pressures. Moderate aortic valve calcification. Mild aortic valve stenosis, mean gradient 2.8 mmHg, BONNIE 2.1 cm squared. Trace aortic valve regurgitation. There is no pericardial effusion. Pulmonary artery systolic pressure is within normal limits. Right atrial pressure is around 5 mm of mercury. Myocardial perfusion imaging on 01/12/2024 1. Myocardial perfusion imaging revealing small area of reversible defect involving the mid inferolateral, apical lateral and LV apex suggesting ischemia in the distribution of the left circumflex artery. 2. Normal LV ejection fraction of 64% 3. LV wall motion analysis revealing no gross wall motion abnormalities. 4. Normal LV volume No similar previous studies are available for comparison JANNETTE on 10/26/2021 1. Normal left ventricular size, systolic function and wall thickness, with no regional wall motion abnormalities. Left ventricular ejection fraction is estimated at 60 %. Abnormal relaxation filling pattern. 2. Normal right ventricular size and systolic function. 3. Tiny patent foramen ovale with bidirectional shunt by agitated saline (bubble) study and color doppler. 4. No evidence of valvular vegetation. A&P Assessment and plan (1) Chest pain: Patient is having atypical chest pain that he states has been going on for 2 to 3 years without aggravating factors. No active chest pain at this time. No acute EKG changes troponins are negative. Qualifiers: Chest pain type: precordial pain Qualified Code(s): R07.2 - Precordial pain (2) Abnormal nuclear stress test: Stress test was done that showed small area of reversible defect involving the mid inferolateral, apical lateral and LV apex suggesting ischemia iin the distribution of the left circumflex artery. Normal ejection fraction of 64% (3) Dyslipidemia: Patient may continue on the current medications. Plan Other problems are Elevated blood glucose Mild leukocytosis At this time the patient is pain-free. Chest pain is atypical and only occurs once every month or so. Patient states he is able to do his everyday activities without difficulty. Stress test showing a small area of ischemia. The EKG and echocardiogram are unremarkable. I discussed with the patient and his in detail the implications of test findings. In order to further evaluate the coronary status, he requires a cardiac catheterization. However since he remained stable with no chest pain and also since area of ischemia small it would be appropriate to continue medical treatment and consider cardiac catheterization, if he has recurrence of the symptoms. Patient and the family wants to think about this and will let me know their decision in the morning. In the meanwhile, he may continue on the current medications Patient may , in addition ,take baby aspirin 1 tablet a day and sublingual nitroglycerin on a as needed basis Thank you for the opportunity to evaluate this patient and make these recommendations Coding Level of Care Code 91130 Diagnoses Precordial pain R07.2 Chest pain type: precordial pain Abnormal nuclear stress test R94.39 Dyslipidemia E78.5
--- NOTE | 2024-01-14 17:14 | ECG_ITS ---
[facility] Date: 2024-01-14 Pat Name: Emigdio Acuña Department: Room: 104 Gender: Male Chief Communications Officer: : 1945 Requested By: Ranjana Seay Order Number: [id number] Reading MD: RANJANA CARD Measurements Intervals [place] Rate: 58 P: 56 [place]: 166 QRS: -30 QRSD: 87 T: 37 QT: 400 QTc: 394 Interpretive Statements SINUS BRADYCARDIA BORDERLINE LEFT AXIS DEVIATION [QRS AXIS < -20] Compared to ECG 01/14/2024 12:53:24 Sinus rhythm no longer present Electronically Signed On 01-14-2024 21:04:43 CDT by RANJANA CARD [email or web address]
[2024-01-14 17:27] LABS: Troponin 5 6HR 9.15 ng/L (0-15); Troponin 5 6HR Delta 2.15 ng/L (0-12)
[2024-01-14] MEDS: enoxaparin 40 mg/0.4 mL Syringe SUBCUT (18:05)
[2024-01-15] VITALS: BP 119/75; PULSE 52; RESP 12; TEMP 36.8; O2SAT 96
[2024-01-15 04:00] VITALS: BP 122/78; PULSE 62; RESP 19; TEMP 36.8; O2SAT 94
[2024-01-15 05:42] LABS: Basophils # 0.1 10^3/uL (0.0-0.1); Basophils % 0.4 %; Eosinophils # 0.5 10^3/uL (0.0-0.8); Eosinophils % 3.1 %; Hematocrit 41.7 % (37-53); Lymphocytes # 9.4 10^3/uL (0.8-4.8); Lymphocytes % 65.2 %; Mean Corpuscular HGB Conc 31.4 g/dL (30-55); Mean Corpuscular Hemoglobin 28.1 pg (27-33); Mean Corpuscular Volume 89.3 fl (82-101); Mean Platelet Volume 10.9 fL (7.4-10.4); Monocytes # 0.7 10^3/uL (0.2-0.9); Monocytes % 4.6 %; Neutrophils # 3.82 10^3/uL (1.8-7.7); Neutrophils % 26.5 %; Nucleated Red Blood Cells % 0 %; Platelet Count 284 10^3/cmm (157-399); Red Blood Count 4.67 10^6/uL (3.85-5.65); Red Cell Distribution Width 14.5 % (12.1-15.1); White Blood Count 14.44 10^3/uL (3.29-11.43)
[2024-01-15 06:00] VITALS: PULSE 57
[2024-01-15 06:01] LABS: Anion Gap 14.2 (5-19); Blood Urea Nitrogen 23 mg/dL (8-23); Carbon Dioxide 25 mmol/L (22-29); Chloride 104 mmol/L (98-107); Creatinine Clr Calc Pharmacy 68.6273; Glucose 114 mg/dL (65-115); Osmolality Calculated 293 mOsm/kg (285-295); Potassium 4.2 mmol/L (3.5-5.1); Sodium 139 mmol/L (136-145)
[2024-01-15 06:21] LABS: Slide Review Slide Review Perform
[2024-01-15 07:50] VITALS: BP 120/82; PULSE 62; RESP 20; TEMP 36.7; O2SAT 95
--- NOTE | 2024-01-15 08:58 | PM.DCS ---
Discharge Providers Date of Admission: 01/14/24 10:26 Date of Discharge: January 15, 2024 Attending Provider at Admission: Ranjana Seay MD Attending Provider at Discharge: Lizeth Chavez MD Primary Care Provider: Vesta Dominguez Diagnoses at Discharge Discharge Diagnosis (1) Chest pain: Status: Acute Qualifiers: Chest pain type: precordial pain Qualified Code(s): R07.2 - Precordial pain (2) Abnormal nuclear stress test: Status: Acute (3) Dyslipidemia: Status: Acute Reason for Visit Reason for Visit: NV and dizziness Hospital Course Hospital Course 78-year-old male who presented to hospital with chief complaint of presyncope, dizziness which started around 5 AM 01/11, he was also noticing some numbness and tingling in his hands, no recent falls,no chest pain shortness of breath fever or diarrhea. Stroke workup was unremarkable in the ER, patient started complaining of chest discomfort, troponin and EKG were requested along stress test, stress test result came back positive for reversible ischemia left circumflex territory, cardiology was consulted, after discussing with Dr. Espinoza patient and family decided to pursue medical management. Patient has remained bradycardic but without any significant symptoms. He does have sinusitis evident on the CT scan for which he was started on Augmentin, I have also given him prednisone 40 mg, patient may use antihistamine. MRI head unremarkable for any acute ischemic changes. Patient seems to have history of GERD and duodenitis, he has been able to eat regular food without any aspiration or choking sensation. Patient seems to have cognitive impairment related to age-related possible dementia. has been present throughout important discussions during hospitalization. As per physical therapy they were not able to elicit nystagmus during their evaluation. Patient is stating that he feels dizzy mostly when he gets up from sitting position. I have counseled him to be careful on changing position and take it easy when he is standing up from sitting position. Physical Exam Narrative: Pleasant and cooperative GCS 15 nonfocal neuroexam Hemodynamically stable On room air Discharge Data Studies Completed and Pending Completed Studies During Hospitalization Category Date Time Status CT head wo con* [id number] Stat Cat Scan 01/12/24 13:50 Completed CTA head neck [CT angio headneck* [id number]] Stat Cat Scan 01/12/24 13:50 Completed Sestamibi Stress Test Request Routine Exams 01/13/24 10:55 Draft MR head wo con* [id number] Stat MRI 01/13/24 05:00 Completed NM nessa perf SPECT r/s* [id number] Routine Nuc Med 01/14/24 10:55 Completed CV. echo complete* [id number] Routine Ultrasound 01/13/24 10:30 Completed Radiology Impressions Head CT 01/12/24 13:50 IMPRESSION: No acute intracranial abnormality. If symptoms persist, consider further evaluation with MRI, if MRI is clinically safe to obtain. ASSESSMENT: ASPECTS ([place] Stroke Program Early CT Score) is 10. ADDENDUM: 01/12/24 1414 ADDENDUM: THIS REPORT CONTAINS FINDINGS THAT MAY BE CRITICAL TO PATIENT CARE. The findings were verbally communicated via telephone conference with ROSY ALMANZA at 2:13 PM CDT on 01/12/2024. The findings were acknowledged and understood. Head/Neck CTA 01/12/24 13:50 IMPRESSION: 1. Moderate focal narrowing of the proximal right P2 segment. 2. Mild focal narrowing of the proximal left P2 segment. 3. 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 Recommend clinical correlation and comparison to prior studies if available. Recommend follow-up imaging as clinically warranted. IMPRESSION: 1. No significant cervical arterial stenosis or occlusion. 2. Nonspecific left apical lung nodule not well seen on CT chest dated 01/17/2022 and may be related to differences in slice thickness. Fleischner society recommendations: For patients at low risk (minimal or absent history of smoking and of other known risk factors), no routine follow-up is indicated. For patients at high risk (history of smoking or of other known risk factors), consider optional CT Chest at 12 months. (Reference: [place]) REFERENCES: 1. Denhocitlali H, et al. Guidelines for Management of Incidental Pulmonary Nodules Detected on CT Images: From the Fleischner Society 2017. Radiology. 2017;284(1):228-243. 2. NASCET CRITERIA. The degree of stenosis in the cervical segment of the internal carotid artery is based on NASCET criteria. Normal is no stenosis. Mild is less than 50% stenosis. Moderate is 50-69% stenosis. Severe is 70% to 99% stenosis. Total occlusion is no detectable patent lumen. ADDENDUM: 01/12/24 1435 ADDENDUM: THIS REPORT CONTAINS FINDINGS THAT MAY BE CRITICAL TO PATIENT CARE. The findings were verbally communicated via telephone conference with ROSY ALMANZA at 2:33 PM CDT on 01/12/2024. The findings were acknowledged and understood. Head MRI 01/13/24 05:00 IMPRESSION: 1. No acute diffusion abnormality to suggest ischemia. 2. Advanced small vessel disease with mild progression since 2019. 3. Moderate atrophy and volume loss. 4. RIGHT maxillary and ethmoid paranasal mucoperiosteal thickening. Laboratory Results WBC 14.44 10^3/uL (3.29-11.43) H 01/15/24 04:36 RBC 4.67 10^6/uL (3.85-5.65) 01/15/24 04:36 Hgb 13.10 g/dL (11.27-16.99) 01/15/24 04:36 Hct 41.7 % (37-53) 01/15/24 04:36 MCV 89.3 fl (82-101) 01/15/24 04:36 MCH 28.1 pg (27-33) 01/15/24 04:36 MCHC 31.4 g/dL (30-55) 01/15/24 04:36 RDW 14.5 % (12.1-15.1) 01/15/24 04:36 Plt Count 284 10^3/cmm (157-399) 01/15/24 04:36 MPV 10.9 fL (7.4-10.4) H 01/15/24 04:36 Neut % (Auto) 26.5 % 01/15/24 04:36 Lymph % (Auto) 65.2 % 01/15/24 04:36 [place] % (Auto) 4.6 % 01/15/24 04:36 Eos % (Auto) 3.1 % 01/15/24 04:36 Baso % (Auto) 0.4 % 01/15/24 04:36 Neut # (Auto) 3.82 10^3/uL (1.8-7.7) 01/15/24 04:36 Lymph # (Auto) 9.4 10^3/uL (0.8-4.8) H 01/15/24 04:36 [place] # (Auto) 0.7 10^3/uL (0.2-0.9) 01/15/24 04:36 Eos # (Auto) 0.5 10^3/uL (0.0-0.8) 01/15/24 04:36 Baso # (Auto) 0.1 10^3/uL (0.0-0.1) 01/15/24 04:36 Nucleated RBC % (auto) 0 % 01/15/24 04:36 Nucleated RBCs # 0.0 /100WBC 01/15/24 04:36 PT 15.30 SECONDS (12.1-14.9) H 01/12/24 13:52 INR 1.17 (0.8-1.2) 01/12/24 13:52 APTT 28.2 SECONDS (23.9-36.7) 01/12/24 13:52 Sodium 139 mmol/L (136-145) 01/15/24 04:36 Potassium 4.2 mmol/L (3.5-5.1) 01/15/24 04:36 Chloride 104 mmol/L (98-107) 01/15/24 04:36 Carbon Dioxide 25 mmol/L (22-29) 01/15/24 04:36 Anion Gap 14.2 (5-19) 01/15/24 04:36 BUN 23 mg/dL (8-23) 01/15/24 04:36 Creatinine 0.9 mg/dL (0.7-1.2) 01/15/24 04:36 GFR Calculation Not Reportable 01/15/24 04:36 Glucose 114 mg/dL (65-115) 01/15/24 04:36 POC Glucose 147 mg/dL (70-110) H 01/12/24 13:52 Calculated Osmolality 293 mOsm/kg (285-295) 01/15/24 04:36 Calcium 8.0 mg/dL (8.5-10.5) L 01/15/24 04:36 Magnesium 2.0 mg/dL (1.7-2.3) 01/13/24 04:15 Total Bilirubin 1.1 mg/dL (0.15-1.2) 01/12/24 13:52 AST 20 U/L (0-40) 01/12/24 13:52 ALT 12 U/L (0-41) 01/12/24 13:52 Alkaline Phosphatase 85 U/L (40-130) 01/12/24 13:52 Troponin T 5th Gen ng/L < 6 ng/L (0-15) 01/12/24 16:09 Troponin T Baseline 7 ng/L (0-15) 01/14/24 10:39 Troponin T 120 Minute 7.58 ng/L (0-15) 01/14/24 12:45 Delta Troponin T 0.58 ABS# (0-10) 01/14/24 12:45 Troponin T Hi Sens 6Hr 9.15 ng/L (0-15) 01/14/24 16:36 Troponin T Hi Sens 6Hr Delta 2.15 ng/L (0-12) 01/14/24 16:36 Total Protein 7.1 g/dL (6.6-8.7) 01/12/24 13:52 Albumin 4.0 g/dL (3.5-5.2) 01/12/24 13:52 Globulin 3.1 g/dL (1.3-4.6) 01/12/24 13:52 Vitamin B12 1040 pg/mL (232-1245) 01/12/24 16:09 Urine Color Yellow (Yellow) 01/12/24 23:45 Urine Appearance Clear (CLEAR) 01/12/24 23:45 Urine pH 5.5 (5-7) 01/12/24 23:45 Ur Specific [place] 1.058 (1.005-1.030) H 01/12/24 23:45 Urine Protein Trace (Negative) A 01/12/24 23:45 Urine Glucose (UA) Negative (Normal) 01/12/24 23:45 Urine Ketones Negative (Negative) 01/12/24 23:45 Urine Blood 1+ (Negative) A 01/12/24 23:45 Urine Nitrate Negative (Negative) 01/12/24 23:45 Urine Bilirubin Negative (Negative) 01/12/24 23:45 Urine Urobilinogen 1.0 mg/dL (Negative) 01/12/24 23:45 Ur Leukocyte Esterase Negative (Negative) 01/12/24 23:45 Urine RBC 3-5 /hpf (0-2) 01/12/24 23:45 Urine WBC 0-5 /hpf (0-5) 01/12/24 23:45 Ur Squamous Epith Cells 0-5 /hpf (0-5) 01/12/24 23:45 Amorphous Sediment Not Reportable 01/12/24 23:45 Urine Bacteria None seen /hpf (NONE) 01/12/24 23:45 Hyaline Casts 3.71 /lpf 01/12/24 23:45 Coronavirus (PCR) Negative (Negative) 01/12/24 15:23 Influenza A (PCR) Negative (Negative) 01/12/24 15:23 Influenza Type B (PCR) Negative (Negative) 01/12/24 15:23 RSV (PCR) Negative (Negative) 01/12/24 15:23 Vitals Last Vital Signs Temp 98.0 F 01/15/24 07:50 Pulse 62 01/15/24 07:50 Resp 20 H 01/15/24 07:50 BP 120/82 01/15/24 07:50 Pulse Ox 95 01/15/24 07:50 O2 Del Method Room Air 01/15/24 07:50 Discharge Plan Discharge Patient Disposition: Home Condition: Stable Prescriptions: New amoxicillin-pot clavulanate 875-125 mg tablet 1 tab PO BID Qty: 6 0RF meclizine 50 mg tablet 50 mg PO DAILY PRN (Reason: dizziness) Qty: 20 0RF Continued multivitamin Tablet 1 tab PO DAILY PRN (Reason: unknown) atorvastatin 10 mg tablet 10 mg PO DAILY acetaminophen 500 mg Tablet 1,000 mg PO Q6H PRN (Reason: Pain) cyanocobalamin (vitamin B-12) [Vitamin B-12] 1,000 mcg Tablet 1,000 mcg PO DAILY PRN (Reason: unknown) pantoprazole [Protonix] 40 mg tablet,delayed release (DR/EC) 40 mg PO BID 42 Days Qty: 84 1RF Discharge Orders: Discharge Order (Routine); Ordered 01/15/24 Ordered By: Ranjana Seay Referrals: Vesta Dominguez PA [Primary Care Provider] - Patient Instructions: Opioid Safety Discharge Attestations Time Spent in Discharge Care*: greater than 30 min Quality Metrics Clinical Quality Measures [ No reported AMI, CVA or VTE this stay] Coding Level of Care Code Acute Code for Chg Fwd Diagnoses Precordial pain R07.2 Chest pain type: precordial pain Abnormal nuclear stress test R94.39 Dyslipidemia E78.5
[2024-01-15] MEDS: aspirin 81 mg EC Tablet PO (09:04)
[2024-01-15] MEDS: pantoprazole DR 40 mg Tablet PO (09:04)
[2024-01-15] MEDS: amoxicillin-clav 875-125 mg Tablet 1 TAB PO (09:04)
[2024-01-15 10:09] VITALS: BP 120/82; PULSE 62; RESP 20; TEMP 36.7; O2SAT 95
[2024-01-15 11:02] VITALS: BP 122/73; PULSE 66; RESP 20; TEMP 36.7; O2SAT 95
--- NOTE | 2024-01-15 11:53 | P.PN_ITS ---
Subjective 2 Subjective: Patient is doing well without complaints. He denies any incidence of chest pain or increase shortness of breath. Overall patient has no complaints. Vital signs are stable. Vitals/I&O/Wt Last Vital Signs Temp 98.0 F 01/15/24 11:02 Pulse 66 01/15/24 11:02 Resp 20 H 01/15/24 11:02 BP 122/73 01/15/24 11:02 Pulse Ox 95 01/15/24 11:02 O2 Del Method Room Air 01/15/24 11:02 01/14/24 01/15/24 01/15/24 22:59 06:59 14:59 Intake Total 240 / 840 240 / 240 Output Total 300 / 600 800 / 1400 Balance -60 / 240 -800 / -560 240 / 240 Weight last 48 hrs Weight 160 lb 6.4 oz Weight 163 lb 3.2 oz Physical Exam 2 Narrative: General: No apparent distress, healthy appearing, well nourished Muskuloskeletal: Full ROM Lymphatic: no lymphedema noted Respiratory: Normal respiratory effort, clear to auscultation bilaterally throughout all lung andersen, no use of accessory muscles Cardio: No JVD, regular rate, regular rhythm, S1 S2 normal, no murmurs Extremities: Full ROM, normal, normal capillary refill, no cyanosis or edema Neuro: Alert and oriented x4, no focal motor deficits Psych: Affect normal, denies suicidal ideation, mental status grossly normal Skin: No rashes or lesions noted, no wounds Data 01/15/24 04:36 01/15/24 04:36 Other Labs: Laboratory Last Values WBC 14.44 10^3/uL (3.29-11.43) H 01/15/24 04:36 RBC 4.67 10^6/uL (3.85-5.65) 01/15/24 04:36 Hgb 13.10 g/dL (11.27-16.99) 01/15/24 04:36 Hct 41.7 % (37-53) 01/15/24 04:36 MCV 89.3 fl (82-101) 01/15/24 04:36 MCH 28.1 pg (27-33) 01/15/24 04:36 MCHC 31.4 g/dL (30-55) 01/15/24 04:36 RDW 14.5 % (12.1-15.1) 01/15/24 04:36 Plt Count 284 10^3/cmm (157-399) 01/15/24 04:36 MPV 10.9 fL (7.4-10.4) H 01/15/24 04:36 Neut % (Auto) 26.5 % 01/15/24 04:36 Lymph % (Auto) 65.2 % 01/15/24 04:36 [place] % (Auto) 4.6 % 01/15/24 04:36 Eos % (Auto) 3.1 % 01/15/24 04:36 Baso % (Auto) 0.4 % 01/15/24 04:36 Neut # (Auto) 3.82 10^3/uL (1.8-7.7) 01/15/24 04:36 Lymph # (Auto) 9.4 10^3/uL (0.8-4.8) H 01/15/24 04:36 [place] # (Auto) 0.7 10^3/uL (0.2-0.9) 01/15/24 04:36 Eos # (Auto) 0.5 10^3/uL (0.0-0.8) 01/15/24 04:36 Baso # (Auto) 0.1 10^3/uL (0.0-0.1) 01/15/24 04:36 Nucleated RBC % (auto) 0 % 01/15/24 04:36 Nucleated RBCs # 0.0 /100WBC 01/15/24 04:36 PT 15.30 SECONDS (12.1-14.9) H 01/12/24 13:52 INR 1.17 (0.8-1.2) 01/12/24 13:52 APTT 28.2 SECONDS (23.9-36.7) 01/12/24 13:52 Sodium 139 mmol/L (136-145) 01/15/24 04:36 Potassium 4.2 mmol/L (3.5-5.1) 01/15/24 04:36 Chloride 104 mmol/L (98-107) 01/15/24 04:36 Carbon Dioxide 25 mmol/L (22-29) 01/15/24 04:36 Anion Gap 14.2 (5-19) 01/15/24 04:36 BUN 23 mg/dL (8-23) 01/15/24 04:36 Creatinine 0.9 mg/dL (0.7-1.2) 01/15/24 04:36 GFR Calculation Not Reportable 01/15/24 04:36 Glucose 114 mg/dL (65-115) 01/15/24 04:36 POC Glucose 147 mg/dL (70-110) H 01/12/24 13:52 Calculated Osmolality 293 mOsm/kg (285-295) 01/15/24 04:36 Calcium 8.0 mg/dL (8.5-10.5) L 01/15/24 04:36 Magnesium 2.0 mg/dL (1.7-2.3) 01/13/24 04:15 Total Bilirubin 1.1 mg/dL (0.15-1.2) 01/12/24 13:52 AST 20 U/L (0-40) 01/12/24 13:52 ALT 12 U/L (0-41) 01/12/24 13:52 Alkaline Phosphatase 85 U/L (40-130) 01/12/24 13:52 Troponin T 5th Gen ng/L < 6 ng/L (0-15) 01/12/24 16:09 Troponin T Baseline 7 ng/L (0-15) 01/14/24 10:39 Troponin T 120 Minute 7.58 ng/L (0-15) 01/14/24 12:45 Delta Troponin T 0.58 ABS# (0-10) 01/14/24 12:45 Troponin T Hi Sens 6Hr 9.15 ng/L (0-15) 01/14/24 16:36 Troponin T Hi Sens 6Hr Delta 2.15 ng/L (0-12) 01/14/24 16:36 Total Protein 7.1 g/dL (6.6-8.7) 01/12/24 13:52 Albumin 4.0 g/dL (3.5-5.2) 01/12/24 13:52 Globulin 3.1 g/dL (1.3-4.6) 01/12/24 13:52 Vitamin B12 1040 pg/mL (232-1245) 01/12/24 16:09 Urine Color Yellow (Yellow) 01/12/24 23:45 Urine Appearance Clear (CLEAR) 01/12/24 23:45 Urine pH 5.5 (5-7) 01/12/24 23:45 Ur Specific [place] 1.058 (1.005-1.030) H 01/12/24 23:45 Urine Protein Trace (Negative) A 01/12/24 23:45 Urine Glucose (UA) Negative (Normal) 01/12/24 23:45 Urine Ketones Negative (Negative) 01/12/24 23:45 Urine Blood 1+ (Negative) A 01/12/24 23:45 Urine Nitrate Negative (Negative) 01/12/24 23:45 Urine Bilirubin Negative (Negative) 01/12/24 23:45 Urine Urobilinogen 1.0 mg/dL (Negative) 01/12/24 23:45 Ur Leukocyte Esterase Negative (Negative) 01/12/24 23:45 Urine RBC 3-5 /hpf (0-2) 01/12/24 23:45 Urine WBC 0-5 /hpf (0-5) 01/12/24 23:45 Ur Squamous Epith Cells 0-5 /hpf (0-5) 01/12/24 23:45 Amorphous Sediment Not Reportable 01/12/24 23:45 Urine Bacteria None seen /hpf (NONE) 01/12/24 23:45 Hyaline Casts 3.71 /lpf 01/12/24 23:45 Coronavirus (PCR) Negative (Negative) 01/12/24 15:23 Influenza A (PCR) Negative (Negative) 01/12/24 15:23 Influenza Type B (PCR) Negative (Negative) 01/12/24 15:23 RSV (PCR) Negative (Negative) 01/12/24 15:23 A&P Assessment and plan (1) Chest pain: Patient is having atypical chest pain that he states has been going on for 2 to 3 years without aggravating factors. No active chest pain at this time. No acute EKG changes troponins are negative. Patient and family has decided not to have cardiac catheterization. Patient does not feel like his chest discomfort has limited him in any way. Qualifiers: Chest pain type: precordial pain Qualified Code(s): R07.2 - Precordial pain (2) Abnormal nuclear stress test: Stress test was done that showed small area of reversible defect involving the mid inferolateral, apical lateral and LV apex suggesting ischemia in the distribution of the left circumflex artery. Normal ejection fraction of 64% (3) Dyslipidemia: Patient may continue on the current medications including atorvastatin 10 mg. Plan Other problems are Elevated blood glucose Mild leukocytosis Since the patient's cardiovascular status seems to be stable, he may be discharged home from a cardiac standpoint. If the patient would like to have follow-up with us, we may see him in the office in a month. Attestations 2 Medical Necessity Statement*: Disposition as per the primary Coding Level of Care Code 07749 Diagnoses Precordial pain R07.2 Chest pain type: precordial pain Abnormal nuclear stress test R94.39 Dyslipidemia E78.5
== END 2024-01-15 11:34 | disposition home or self-care (01) | DRG 311 ==
LOC: ER 15:19 → CSU 15:47
PROVIDERS: Admitting Provider Internal Medicine; Emergency Provider Emergency Medicine; PCP Physician Assistant; Visit Provider Internal Medicine
DX: I20.0 Unstable angina (principal); E78.5 Hyperlipidemia, unspecified; J32.9 Chronic sinusitis, unspecified; K21.9 Gastro-esophageal reflux disease without esophagitis; K29.80 Duodenitis without bleeding; R41.81 Age-related cognitive decline; K22.2 Esophageal obstruction; R55 Syncope and collapse; R42 Dizziness and giddiness
CPT/HCPCS: 0241U; 36415; 36416; 70450; 70496; 70498; 70551; 78452; 80048; 80053; 81001; 82607; 82962; 83735; 84484; 85025; 85610; 85730; 93005; 93017; 93306; 96372; 96375; 97112; 97116; 97161; 99285; A9500; G0378; J1650; J2405; J2785; J7512; J8597

== ENCOUNTER 2024-09-11 08:46 | Emergency (ER) | payer MEDICARE, OTHER, SELFPAY ==
[2024-09-11 09:01] VITALS: BP 145/83; PULSE 72; RESP 16; TEMP 36.6; O2SAT 97; BMI 22.3
[2024-09-11 10:35] VITALS: PULSE 64; RESP 16; O2SAT 96
--- NOTE | 2024-09-11 10:41 | ED_ITS ---
HPI - Allergic Reaction General: Chief complaint: Skin/Abscess/Foreign Body Stated complaint: swelling from bee stings Time Seen by Provider: 09/11/24 09:08 Source: patient Mode of arrival: ambulatory Limitations: no limitations History of Present Illness: HPI narrative: Patient is a very nice 78-year-old male presents to ED today along with significant other for evaluation of facial swelling due to bee stings. Significant other states she is a motorcycle tester and was tending to a hostile hive yesterday when several of the bees came and stung the patient 3-4 times on his face. He is complaining of bilateral periorbital swelling as well as swelling to his right lower lip. Patient states he is eating and drinking normally. No trouble controlling his secretions or breathing. Bee stings occurred yesterday sometime. Significant other did administer Benadryl yesterday but he has not otherwise had any other medications. MD complaint: allergic reaction and facial swelling Onset (ago): day(s) Exposure: other (bee sting) Associated symptoms: Reports no associated symptoms; Deny abdominal pain, hoarseness or vomiting Severity: mild Treatment prior to arrival: none Previous Allergic Reaction History: none Related Data Home Medications ?Medication ?Instructions ?Recorded ?Confirmed acetaminophen 500 mg tablet 1,000 mg PO Q6H PRN Pain 0 10/10/21 01/13/24 multivitamin 1 tab PO DAILY PRN unknown 0 05/13/22 01/13/24 cyanocobalamin (vitamin B-12) 1,000 mcg PO DAILY PRN u nknown 07/01/23 01/13/24 1,000 mcg tablet (Vitamin B-12) atorvastatin 10 mg tablet 10 mg PO DAILY 01/13/2412/24 Previous Rx's ?Medication ?Instructions ?Recorded pantoprazole 40 mg tablet,delayed 40 mg PO BID 6 weeks #84 tabs 07/01/23 release (Protonix) amoxicillin 875 mg-potassium 1 tab PO BID #6 tabs 12/24 04/17 clavulanate 125 mg tablet meclizine 50 mg tablet 50 mg PO DAILY PRN dizziness #20 01/13/24 tabs prednisone 10 mg tablet 10 mg PO DAILY 6 days #20 ta bs 09/11/24 Allergies Allergy/AdvReac Type Severity Reaction Status Date / Time No Known Allergies Allergy Verified 07/01/23 16:02 Review of Systems Eyes: Reports: other (periorbital edema) ENMT: Reports: swelling of lips/tongue (R lower lip); Denies: throat pain, uvular edema, enlarged tonsils, hoarseness or oral sores Card: Denies: chest pain Resp: Denies: dyspnea, productive cough, non-productive cough or wheezing GI: Denies: abdominal pain, vomiting or diarrhea Skin/Breast: Reports: skin swelling; Denies: rash Neuro: Denies: headache(s), numbness in extremities, weakness in extremities or sensory changes PFSH ED PFSH: Medical History Dyslipidemia Abnormal nuclear stress test Pre-syncope Gait abnormality Vertigo Duodenitis Esophageal stricture Esophageal obstruction due to food impaction Mass of mediastinum Osteoarthritis Miliaria rubra Dementia 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 Mother , AT AGE 88 No problems noted. Social History Smoking and tobacco/nicotine status: never used tobacco/nicotine Alcohol intake: never Substance/Drug Use: never Household members: spouse Marital status: Current occupational status: retired Physical Exam Const: COMMON NORMALS: no acute distress, average body habitus, patient oriented x3, no limitations, healthy appearing, alert and well nourished GENERAL APPEARANCE: cooperative HENMT: COMMON NORMALS: Normal external nose present FACE & SINUS: other (3- 4 bee stings to face; bilateral inferior orbital edema, R lower lip edema) NOSE: Normal external nose present MOUTH: Normal oral and palatal mucosa present, tongue normal, Normal salivary glands and ducts present and other (edema R lower lip; was stung directly here-localized rxn) THROAT: posterior oropharynx normal and tonsils normal; no uvular edema Eye: COMMON NORMALS: Equal, round and reactive pupils present and EOMs intact bilaterally GENERAL EYE: normal light reflex PERIORBITAL: periorbital findings abnormal (inferior edema) PUPIL: Yes Equal, round and reactive pupils present DIRECT OPHTHALMOSCOPY: Yes normal light reflex Neck/C-Spine: COMMON NORMALS: full ROM and no lymphadenopathy GENERAL: Yes normal visual inspection, No anterior neck swelling and No submandibular swelling Resp: COMMON NORMALS: normal respiratory effort and clear to auscultation bilaterally AUSCULTATION: clear to auscultation bilaterally Cardio: COMMON NORMALS: regular rate and regular rhythm RATE: regular rate RHYTHM: regular rhythm Neuro: COMMON NORMALS: patient oriented x3 SENSORIUM/ORIENTATION: Yes alert Course Vital Signs: Vital signs: Vital Signs Temperature 98 F 09/11/24 09:01 Pulse Rate 51 L 09/11/24 10:53 Respiratory Rate 16 09/11/24 10:35 Blood Pressure 127/79 09/11/24 10:53 Pulse Oximetry 99 09/11/24 10:53 Oxygen Delivery Me thod Room Air 09/11/24 10:35 MDM - Allergic Reaction Medical Decision Making Patient here for evaluation of facial edema following 3-4 bee stings to the face yesterday. He is not having any symptoms of anaphylaxis. He is eating and drinking normally with no trouble breathing. He has localized edema to sites of stings. Recommended ice, time, benadryl, and will place him on a few days of steroids. Return ED precautions given. Differential Diagnosis Likely allergic reaction Medical Records I reviewed the patient's medical records. No radiology studies performed this visit Discharge Plan Discharge Patient Disposition: Home Clinical Impression: Accidental bee sting Condition: Stable Prescriptions: New prednisone 10 mg tablet 10 mg PO DAILY 6 Days Qty: 20 0RF Rx Instructions: Take 5 tabs on day 1-2, 4 tabs on day 3, 3 tabs on day 4, 2 tabs on day 5, and 1 tab on day 6 No Action multivitamin Tablet 1 tab PO DAILY PRN (Reason: unknown) atorvastatin 10 mg tablet 10 mg PO DAILY meclizine 50 mg tablet 50 mg PO DAILY PRN (Reason: dizziness) Qty: 20 0RF amoxicillin-pot clavulanate 875-125 mg tablet 1 tab PO BID Qty: 6 0RF acetaminophen 500 mg Tablet 1,000 mg PO Q6H PRN (Reason: Pain) cyanocobalamin (vitamin B-12) [Vitamin B-12] 1,000 mcg Tablet 1,000 mcg PO DAILY PRN (Reason: unknown) pantoprazole [Protonix] 40 mg tablet,delayed release (DR/EC) 40 mg PO BID 42 Days Qty: 84 1RF Discharge Orders: Discharge ED (Routine); Ordered 09/11/24 Ordered By: Donna Bright Referrals: Vesta Dominguez PA [Primary Care Provider, [facility] Food Preparation Supervisor] Patient Instructions: Insect Bite or Sting (ED) Activity Restrictions/Additional Instructions: As we discussed, you may use Benadryl every 4-6 hours to help with any swelling and itching. Will place you on a 6-day steroid taper. We spoke about using ice. Ultimately time will help. Print Language: Micronesian Coding Level of Care Code ED Freedom Of Information Officer for Kiersten Cheema
[2024-09-11] MEDS: methylPREDNISolone sod succ 125 mg/2 mL INJ 80 MG IM (10:52)
[2024-09-11] MEDS: diphenhydrAMINE 50 mg/mL SDV 1mL IM (10:52)
[2024-09-11 10:53] VITALS: BP 127/79; PULSE 51; O2SAT 99
== END 2024-09-11 11:04 | disposition home or self-care (01) ==
PROVIDERS: Emergency Provider Physician Assistant; PCP Physician Assistant
DX: T63.441A Toxic effect of venom of bees, accidental (unintentional), initial encounter (principal); X58.XXXA Exposure to other specified factors, initial encounter; E78.5 Hyperlipidemia, unspecified
CPT/HCPCS: 96372; 99284; J1200; J2919

== ENCOUNTER 2025-03-10 11:00 | Oncology outpatient (recurring) (ONCR) | payer MEDICARE, OTHER, SELFPAY ==
[2025-02-24 10:21] LABS: Hematocrit 40.3 % (37-53); Hemoglobin 13.10 g/dL (11.27-16.99); Mean Corpuscular HGB Conc 32.5 g/dL (30-55); Mean Corpuscular Hemoglobin 29.2 pg (27-33); Mean Corpuscular Volume 90.0 fl (82-101); Nucleated Red Blood Cells % 0 %; Platelet Count 244 10^3/cmm (157-399); Red Blood Count 4.48 10^6/uL (3.85-5.65); White Blood Count 16.42 10^3/uL (3.29-11.43)
[2025-02-24 10:52] LABS: Slide Review Slide Review Perform
[2025-02-24 10:55] LABS: Alanine Aminotransferase 14 U/L (0-41); Albumin Level 4.1 g/dL (3.5-5.2); Alkaline Phosphatase 92 U/L (40-130); Anion Gap 14.9 (5-19); Aspartate Amino Transferase 20 U/L (0-40); Blood Urea Nitrogen 15 mg/dL (8-23); Calcium 9.1 mg/dL (8.5-10.5); Carbon Dioxide 24 mmol/L (22-29); Chloride 105 mmol/L (98-107); Globulin 3.0 g/dL (1.3-4.6); Glucose 132 mg/dL (65-115); Osmolality Calculated 293 mOsm/kg (285-295); Potassium 3.9 mmol/L (3.5-5.1); Sodium 140 mmol/L (136-145); Total Protein 7.1 g/dL (6.6-8.7); Uric Acid 4.4 mg/dL (3.4-7.0)
[2025-02-25 06:05] LABS: PROTEIN, TOTAL 6.6 g/dL (6.1-8.1)
[2025-02-25 19:14] LABS: ALPHA 1 GLOBULIN 0.3 g/dL (0.2-0.3); ALPHA 2 GLOBULIN 0.6 g/dL (0.5-0.9); BETA 1 GLOBULIN 0.4 g/dL (0.4-0.6); BETA 2 GLOBULIN 0.3 g/dL (0.2-0.5)
--- NOTE | 2025-03-10 11:00 | CT_ITS ---
WS: [id number] CT CHEST, ABDOMEN, AND PELVIS TECHNIQUE: Contrast-enhanced CT of the chest, abdomen, and pelvis with coronal and sagittal reformatted images. CLINICAL INFORMATION: Leukocytosis COMPARISON: 05/13/2022 DLP: 821.[address] scans at [facility] use at least one of these dose optimization techniques: automated exposure control; mA and/or kV adjustment per patient size (includes targeted exams where dose is matched to clinical indication); or iterative reconstruction. CT CHEST: Previously described anterior superior mediastinal mass is essentially resolved. No change compared to previous. No evidence of progression. Small amount of residual soft tissue thickening posterior to the RIGHT sternum is unchanged in appearance. Axillary lymph nodes have slightly progressed compared to previous with new enlarged lymph nodes at the thoracic inlet and retropectoral. Consider further evaluation with PET/CT. Bronchovascular thickening along the neva with slightly prominent hilar lymph nodes. Normal size peribronchial lymph nodes. Lungs are well aerated. No suspicious pulmonary parenchymal opacities. Cardiomegaly. Moderate thoracic kyphosis. Stable ectatic ascending thoracic aorta measuring 3.8 cm. Normal caliber descending thoracic aorta. Small esophageal hiatal hernia. CT ABDOMEN AND PELVIS: Fatty liver. Small hepatic cysts. Normal portal vein and splenic vein. Normal spleen. Small esophageal hiatal hernia. Adrenal glands are normal. Normal renal parenchymal enhancement. Gallbladder is contracted. Thickening at the GE junction and proximal stomach suspicious for esophagitis and gastritis. Evidence of duodenitis. Small RIGHT adrenal adenoma is stable. LEFT adrenal gland is normal. Normal renal parenchymal enhancement. No hydronephrosis. Normal caliber abdominal aorta. LEFT ROSIBEL degrades images in the pelvis. Heterogeneously enhancing enlarged prostate prostate measures 4.3 cm. Suspected prior TURP. Sigmoid diver ticulosis. Bilateral fat-containing inguinal hernias. Numerous slightly prominent periaortic and retroperitoneal lymph nodes appears progressed compared to previous largest lymph nodes measure up to 1.0cm. This is nonspecific. Recommend further evaluation with PET/CT. A few prominent inguinal lymph nodes appear s lightly progressed. These measure up to 1.4 cm. LEFT femoral lymph node measuring 1.5 cm. A few small lymph nodes along the pelvic sidewall. CT/CT chest abdpel w/*[id number] IMPRESSION: 1. Previously described anterior superior mediastinal mass involving the RIGHT sternoclavicular joint has essentially resolved with minimal residual soft tis vesna thickening unchanged. 2. Slightly progressed axillary lymph nodes. Progressed slightly enlarged lymp h nodes at the thoracic inlet subpectoral and in the high axilla. In addition s lightly progressed periaortic lymph nodes. Enlarged LEFT femoral and inguinal l ymph nodes. Findings are nonspecific but consider recurrent disease. Recommend further evaluation with PET/CT to assess for activity.
--- NOTE | 2025-03-10 11:00 | CT_ITS ---
WS: [id number] CT NECK TECHNIQUE: Contrast-enhanced CT of the neck with coronal and sagittal reformatted images. CLINICAL INFORMATION: Leukocytosis DLP: 166.[address] scans at [facility] use at least one of these dose optimization techniques: automated exposure control; mA and/or kV adjustment per patient size (includes targeted exams where dose is matched to clinical indication); or iterative reconstruction. FINDINGS: Parotid glands are normal. Normal submandibular glands. Numerous slightly enlarged lymph nodes throughout both cervical chains. Enlarged submental lymph nodes measuring up to 11 mm. Prominent posterior triangle lymph nodes. Recommend correlation with history of malignancy or lymphoma. Prominent lymph nodes at the thoracic inlet and partially visualized axillary infraclavicular and subpectoral.. Opacification of the LEFT vallecula may be due to inspissated secretions but indeterminate and neoplasm not excluded. Recommend further evaluation with direct visualization. Otherwise no evidence of supraglottic or glottic mass. Normal thyroid. Moderate spondylitic changes cervical spine. Paranasal sinuses are well aerated. Mastoid air cells are well aerated. Normal posterior nasopharynx. CT/CT neck w con* [id number] IMPRESSION: 1. Numerous enlarged or slightly prominent lymph nodes in both cervical chains posterior triangle and submental. Largest lymph nodes measure approximately 11 mm. Recommend correlation with history of lymphoma or malignancy. 2. Partially visualized prominent axillary and thoracic inlet lymph nodes. 3. Peripheral enhancing low-attenuation material filling the LEFT vallecula. R ecommend further evaluation with endoscopy. This measures approximately 10 mm. This could represent inspissated secretions but neoplasm not excluded.
[2025-03-10] MEDS: iohexol 350 mg/mL 500 mL Btl (per mL) IV ×2 (11:40→11:41)
[2025-03-10] MEDS: iohexol 350 mg/mL 500 mL Btl (per mL) PO (11:41)
== END 2025-03-24 23:59 | disposition home or self-care (01) ==
LOC: RAD 03-11 → ONCMED 03-15 10:02
PROVIDERS: PCP Physician Assistant; Visit Provider Internal Medicine
DX: D72.820 Lymphocytosis (symptomatic); D72.829 Elevated white blood cell count, unspecified; R59.0 Localized enlarged lymph nodes; R93.89 Abnormal findings on diagnostic imaging of other specified body structures; M47.812 Spondylosis without myelopathy or radiculopathy, cervical region; M79.89 Other specified soft tissue disorders; I51.7 Cardiomegaly; M40.294 Other kyphosis, thoracic region; I77.810 Thoracic aortic ectasia; K44.9 Diaphragmatic hernia without obstruction or gangrene; K76.0 Fatty (change of) liver, not elsewhere classified; K76.89 Other specified diseases of liver; R93.3 Abnormal findings on diagnostic imaging of other parts of digestive tract; E27.8 Other specified disorders of adrenal gland; Z96.642 Presence of left artificial hip joint; N40.0 Benign prostatic hyperplasia without lower urinary tract symptoms; K57.30 Diverticulosis of large intestine without perforation or abscess without bleeding; K40.20 Bilateral inguinal hernia, without obstruction or gangrene, not specified as recurrent; Z53.9 Procedure and treatment not carried out, unspecified reason
CPT/HCPCS: 36415; 70491; 71260; 74177; 80053; 82784; 83010; 83615; 84155; 84165; 84550; 85025; 85045; 85651; 86334; 99204